=== PATIENT | male | born 1935 | race Caucasian/White ===

== ENCOUNTER 2016-05-16 16:38 | Emergency (ER) | payer OTHER, BC ==
[~2016-05-16] VITALS: Ht 185.4 cm; Wt 90.9 kg
[~2016-05-16 16:38] MED LIST: ALBUAER2 INH; ALT/10 PO; ASPI81TA28 PO; CHOL2000 PO; CLIN300C2 PO; DULO60CA44 PO; FLUT0.15 NAE; IPRA0.037 NAE; LORA-741 PO; MULT-845 PO; PROP60CA5 PO; SALI1SPR3 NAE
[2016-05-16 16:41] VITALS: TEMP 36.9; Ht 185.4 cm; Wt 90.9 kg
[2016-05-16] MEDS ORDERED: OPTIRAY 320 IV PRN (17:15)
--- NOTE | 2016-05-16 17:18 | DIAGNOSTIC IMAGING REPORT ---
CHEST ONE VIEW PORTABLE CLINICAL HISTORY: Atypical chest pain COMPARISON STUDY: 04/01/2015 FINDINGS: The heart is at the upper limits of normal in size. There is no failure. There is no focal pulmonary consolidation. There are no pleural effusions. There are postsurgical changes of thoracoabdominal spinal fusion.[ IMPRESSION: No active disease in the chest. Electronically signed by: Solomon Smith M.D. 05/16/2016 5:16 PM Dictated Date/Time: 05/16/2016 5:15 PM
[2016-05-16] MEDS ORDERED: HYT/2 PO (17:32)
[2016-05-16] MEDS ORDERED: VNTHFA/IN INH (17:32)
[2016-05-16] MEDS ORDERED: IPRA0.06 NAE (17:32)
[2016-05-16 17:43] LABS: BASO % 0.3 %; BASO ABS # 0.02 K/uL (0-0.2); COMPLETE YES; EOS % 2.6 %; HEMATOCRIT 41.5 % (42-52); IG% 0.2 %; LYMPH % 18.8 %; LYMPH ABS # 1.23 K/uL (1.2-3.4); MEAN CELL VOLUME 97.9 fL (80-100); MEAN CORPUSCULAR HEMOGLOBIN 32.8 pg (25-34); MEAN CORPUSCULAR HGB CONC 33.5 g/dl (32-36); MEAN PLATELET VOLUME 10.3 fL (7.4-10.4); MONO % 9.5 %; NEUT % 68.6 %; PLATELET COUNT 160 K/uL (130-400); RED BLOOD COUNT 4.24 M/uL (4.7-6.1); WHITE BLOOD COUNT 6.54 K/uL (4.8-10.8)
[2016-05-16 17:46] VITALS: O2SAT 100
[2016-05-16 17:51] LABS: PARTIAL THROMBOPLASTIN RATIO 0.9; PROTHROMBIN TIME (PATIENT) 10.7 SECONDS (9.0-12.0)
[2016-05-16 17:55] LABS: BLOOD UREA NITROGEN 21 mg/dl (7-18); BUN/CREATININE RATIO 19.2 (10-20); CALCIUM 8.4 mg/dl (8.5-10.1); CARBON DIOXIDE 30 mmol/L (21-32); CHLORIDE 108 mmol/L (98-107); GLUCOSE 100 mg/dl (70-99); POTASSIUM 4.1 mmol/L (3.5-5.1); SODIUM 143 mmol/L (136-145)
[2016-05-16 17:59] LABS: ALKALINE PHOSPHATASE 93 U/L (45-117); ALT/SGPT 30 U/L (12-78); AST/SGOT 29 U/L (15-37); CKMB/CK RATIO 1.4 (0-3.0)
--- NOTE | 2016-05-16 18:38 | DIAGNOSTIC IMAGING REPORT ---
ULTRASOUND VENOUS DOPPLER LWR EXT BILA CLINICAL HISTORY: Leg swelling COMPARISON STUDY: 08/18/2015 FINDINGS: Real-time and color flow Doppler imaging were performed. Flow was seen within the femoral, popliteal and calf veins with no intraluminal thrombus demonstrated. The saphenous vein is patent. IMPRESSION: No evidence of lower extremity DVT. Electronically signed by: Solomon Smith M.D. 05/16/2016 6:36 PM Dictated Date/Time: 05/16/2016 6:36 PM
--- NOTE | 2016-05-16 18:49 | DIAGNOSTIC IMAGING REPORT ---
CT ANGIOGRAM OF THE CHEST CLINICAL HISTORY: Atypical chest pain. COMPARISON STUDY: Chest x-ray dated 05/16/2016 TECHNIQUE: Following the IV administration of 113 mL of Optiray-320, CT angiogram of the thorax was performed from the thoracic inlet to the lung bases utilizing the pulmonary embolus protocol. Images are reviewed in the axial, sagittal, and coronal planes. IV contrast was administered without complication. MIP imaging was performed. CT DOSE: 437.50 mGy.cm FINDINGS: There is a 2 cm prevascular nodule. This likely represents either a lymph node, or thymic mass. There was no evidence of thoracic aortic dilatation. There were no pulmonary artery filling defects to indicate acute pulmonary embolism. No pleural effusions are visualized. There is no lobar consolidation. There are dependent atelectatic changes. There are extensive right-sided chest wall collaterals. There is a right subclavian vein narrowing. This is nonspecific and could be secondary to arm position. IMPRESSION: 1. No evidence of acute pulmonary embolism 2. No evidence of focal pulmonary consolidation 3. 2 cm anterior mediastinal/prevascular nodule. This likely represents either a thymic nodule, or enlarged lymph node Electronically signed by: Solomon Smith M.D. 05/16/2016 6:47 PM Dictated Date/Time: 05/16/2016 6:42 PM
[2016-05-16 20:07] VITALS: BP 202/82; PULSE 57; O2SAT 94
--- NOTE | 2016-05-16 21:06 | EMERGENCY ROOM VISIT NOTE ---
History Report prepared by Kaley: Jean Maciel Under the Supervision of: Dr. Les Chen M.D. First contact with patient: 16:47 Chief Complaint: REFERRED BY DOCTOR Stated Complaint: FINGER TIP TURN BLUE/SWELL, HANDS COLD, CHEST PAIN History of Present Illness The patient is a 80 year old male who presents to the Emergency Room with complaints of persistent chest pain beginning about 3 to 4 weeks ago. He notes 3 to 4 weeks ago, he started to have episodes of stabbing back pain between his shoulder blades which he thought to be exertional. This continued for about 1 week, and his back pain since then is described as an aching pain which has shifted to his left shoulder. The first few weeks of this back pain he was unable to sleep on his stomach or back, and had to prop himself up. The patient has had 3 lower back surgeries in the past. The patient reports his chest pains began just after the onset of his back pain around 3 to 4 weeks ago, and is described as constant. His chest pain has migrated to the left side of the chest , and has been accompanied with shortness of breath which, he notes, he has had for years. His chest pain is not worsened with deep breathing. The patient admits to having chest pain currently which he rates a 3/10 in severity that has been present for days continuously. He notes his legs are swollen at baseline. The patient was seen by Dr. Umanzor today and was sent to the ER because things "looked suspicious." The patient denies having any history of heart issues. Pt denies LOC, headache, fevers, chills, diaphoresis, visual changes, neck pain , personal history or family history of aneurysm or pulmonary embolism, uncontrolled hypertension, breathing difficulties, coagulation abnormalities, recent surgery or immobilization, nausea, vomiting, abdominal pain, melena, hematochezia, urinary symptoms, numbness, weakness, lymphadenopathy, rash, or other complaints. Source of History: patient Onset: 3 to 4 weeks ago Position: chest Symptom Intensity: 3/10 Quality: other (chest pain) Timing: constant, other (persistent) Associated Symptoms: + back pain Note: The patient notes having leg swelling. Review of Systems See HPI for pertinent positives and negatives. A total of ten systems were reviewed and were otherwise negative. Past Medical & Surgical Medical Problems: (1) Asthma (2) Hypertension (3) Pneumonia Family History FHx: diabetes mellitus FHx: hypertension FHx: lung disease Social History Smoking Status: Never Smoker Alcohol Use: occasionally Drug Use: none Marital Status: Housing Status: lives with family Occupation Status: unemployed Current/Historical Medications Scheduled Aspirin (Aspirin Ec), 81 MG PO DAILY Cholecalciferol (Vitamin D3), 2,000 INTER.UNIT PO QAM Duloxetine Hcl (Cymbalta), 60 MG PO DAILY Fluticasone Propionate (Nasal) (Flonase Allergy Relief), 2 SPRAYS FRANCIA DAILY Ipratropium [place] (Nasal) (Ipratropium [place]), 2 SPRAYS FRANCIA TID Multiple Vitamins W/ Minerals (Centrum Silver Adult 50+), 1 TAB PO QAM Propranolol La (Inderal La), 60 MG PO DAILY Ramipril (Altace), 10 MG PO QAM Terazosin Hcl (Hytrin), 2 MG PO HS Scheduled PRN Albuterol Hfa (Ventolin Hfa), 2 PUFFS INH QID PRN for DIRECTED Clindamycin Hcl (Cleocin), 600 MG PO UD PRN for Pre Treat Lorazepam (Ativan), 0.5 MG PO BID PRN for Anxiety Saline (Saline Nasal [place]), 2 SPRAYS FRANCIA Q2-4 HRS PRN for Nasal Congestion Allergies Coded Allergies: Celecoxib (Verified Allergy, Severe, SHORTNESS OF BREATH, 05/16/16) NSAIDs (Verified Allergy, Severe, ASTHMA ATTACK, 05/16/16) Lactose (Verified Allergy, Intermediate, INDIGESTION AND GAS, 05/16/16) Amoxicillin (Verified Adverse Reaction, Severe, SHORTNESS OF BREATH, ) Clavulanic Acid (Verified Adverse Reaction, Intermediate, SHORTNESS OF BREATH, 05/16/16) Physical Exam Vital Signs Date Time Temp Pulse Resp B/P Pulse Ox O2 Delivery O2 Flow Rate FiO2 05/16/16 20:07 57 16 202/82 94 05/16/16 18:47 56 15 194/84 96 Room Air 05/16/16 17:46 100 Room Air 05/16/16 17:09 62 05/16/16 16:41 36.9 66 18 170/86 100 Room Air Physical Exam GENERAL: Awake, alert, well-appearing, in no distress HENT: Normocephalic, atraumatic. Oropharynx unremarkable. EYES: Normal conjunctiva. Sclera non-icteric. NECK: Supple. No nuchal rigidity. FROM. No JVD. RESPIRATORY: Clear to auscultation. CARDIAC: Regular rate, normal rhythm. Extremities warm and well perfused. Pulses equal. ABDOMEN: Soft, non-distended. No tenderness to palpation. No rebound or guarding. No masses. RECTAL: Deferred. MUSCULOSKELETAL: Chest examination reveals no tenderness. The back is symmetrical on inspection without obvious abnormality. Mid thoracic left sided paraspinal muscle tenderness. No joint edema. LOWER EXTREMITIES: Calves are equal size bilaterally and non-tender. 1+ lower extremity edema. No discoloration. NEURO: Normal sensorium. No sensory or motor deficits noted. SKIN: No rash or jaundice noted. Medical Decision & Procedures ER Provider Diagnostic Interpretation: Radiology results as stated below per my review and radiologist interpretation CHEST ONE VIEW PORTABLE CLINICAL HISTORY: Atypical chest pain COMPARISON STUDY: 04/01/2015 FINDINGS: The heart is at the upper limits of normal in size. There is no failure. There is no focal pulmonary consolidation. There are no pleural effusions. There are postsurgical changes of thoracoabdominal spinal fusion.[ IMPRESSION: No active disease in the chest. Electronically signed by: Solomon Smith M.D. 05/16/2016 5:16 PM Dictated Date/Time: 05/16/2016 5:[address] ANGIOGRAM OF THE CHEST CLINICAL HISTORY: Atypical chest pain. COMPARISON STUDY: Chest x-ray dated 05/16/2016 TECHNIQUE: Following the IV administration of 113 mL of Optiray-320, CT angiogram of the thorax was performed from the thoracic inlet to the lung bases utilizing the pulmonary embolus protocol. Images are reviewed in the axial, sagittal, and coronal planes. IV contrast was administered without complication. MIP imaging was performed. CT DOSE: 437.50 mGy.cm FINDINGS: There is a 2 cm prevascular nodule. This likely represents either a lymph node, or thymic mass. There was no evidence of thoracic aortic dilatation. There were no pulmonary artery filling defects to indicate acute pulmonary embolism. No pleural effusions are visualized. There is no lobar consolidation. There are dependent atelectatic changes. There are extensive right-sided chest wall collaterals. There is a right subclavian vein narrowing. This is nonspecific and could be secondary to arm position. IMPRESSION: 1. No evidence of acute pulmonary embolism 2. No evidence of focal pulmonary consolidation 3. 2 cm anterior mediastinal/prevascular nodule. This likely represents either a thymic nodule, or enlarged lymph node Electronically signed by: Solomon Smith M.D. 05/16/2016 6:47 PM Dictated Date/Time: 05/16/2016 6:42 PM ULTRASOUND VENOUS DOPPLER LWR GILMA [place] CLINICAL HISTORY: Leg swelling COMPARISON STUDY: 08/18/2015 FINDINGS: Real-time and color flow Doppler imaging were performed. Flow was seen within the femoral, popliteal and calf veins with no intraluminal thrombus demonstrated. The saphenous vein is patent. IMPRESSION: No evidence of lower extremity DVT. Electronically signed by: Solomon Smith M.D. 05/16/2016 6:36 PM Dictated Date/Time: 05/16/2016 6:36 PM Laboratory Results 05/16/16 17:28 Red Blood Count 4.24, Mean Corpuscular Volume 97.9, Mean Corpuscular Hemoglobin 32.8, Mean Corpuscular Hemoglobin Concent 33.5, Mean Platelet Volume 10.3, Neutrophils (%) (Auto) 68.6, Lymphocytes (%) (Auto) 18.8, Monocytes (%) (Auto) 9.5, Eosinophils (%) (Auto) 2.6, Basophils (%) (Auto) 0.3, Neutrophils # (Auto) 4.49, Lymphocytes # (Auto) 1.23, Monocytes # (Auto) 0.62, Eosinophils # (Auto) 0.17, Basophils # (Auto) 0.02 05/16/16 17:28 Test 05/16/16 17:28 05/16/16 17:33 White Blood Count 6.54 K/uL (4.8-10.8) Red Blood Count 4.24 M/uL (4.7-6.1) Hemoglobin 13.9 g/dL (14.0-18.0) Hematocrit 41.5 % (42-52) Mean Corpuscular Volume 97.9 fL (80-100) Mean Corpuscular Hemoglobin 32.8 pg (25-34) Mean Corpuscular Hemoglobin Concent 33.5 g/dl (32-36) Platelet Count 160 K/uL (130-400) Mean Platelet Volume 10.3 fL (7.4-10.4) Neutrophils (%) (Auto) 68.6 % Lymphocytes (%) (Auto) 18.8 % Monocytes (%) (Auto) 9.5 % Eosinophils (%) (Auto) 2.6 % Basophils (%) (Auto) 0.3 % Neutrophils # (Auto) 4.49 K/uL (1.4-6.5) Lymphocytes # (Auto) 1.23 K/uL (1.2-3.4) Monocytes # (Auto) 0.62 K/uL (0.11-0.59) Eosinophils # (Auto) 0.17 K/uL (0-0.5) Basophils # (Auto) 0.02 K/uL (0-0.2) RDW Standard Deviation 48.4 fL (36.4-46.3) RDW Coefficient of Variation 13.5 % (11.5-14.5) Immature Granulocyte % (Auto) 0.2 % Immature Granulocyte # (Auto) 0.01 K/uL (0.00-0.02) Prothrombin Time 10.7 SECONDS (9.0-12.0) Prothromb Time International Ratio 1.0 (0.9-1.1) Activated Partial Thromboplast Time 24.6 SECONDS (21.0-31.0) Partial Thromboplastin Ratio 0.9 Anion Gap 5.0 mmol/L (3-11) Est Creatinine Clear Calc Drug Dose 61.5 ml/min Estimated GFR () 73.6 Estimated GFR (Non- 63.5 BUN/Creatinine Ratio 19.2 (10-20) Calcium Level 8.4 mg/dl (8.5-10.1) Total Bilirubin 0.3 mg/dl (0.2-1) Direct Bilirubin < 0.1 mg/dl (0-0.2) Aspartate Amino Transf (AST/SGOT) 29 U/L (15-37) Alanine Aminotransferase (ALT/SGPT) 30 U/L (12-78) Alkaline Phosphatase 93 U/L (45-117) Total Creatine Kinase 287 U/L (39-308) Creatine Kinase MB 4.0 ng/ml (0.5-3.6) Creatine Kinase MB Ratio 1.4 (0-3.0) Total Protein 6.0 gm/dl (6.4-8.2) Albumin 3.4 gm/dl (3.4-5.0) Lipase 121 U/L (73-393) Bedside Troponin I 0.000 ng/ml (0-0.045) JX-Hon-[id number]-Type Natriuretic Peptide 122 pg/ml (0-1800) Laboratory results reviewed by me ECG Indication: chest pain Rate (beats per minute): 56 Rhythm: sinus bradycardia Findings: no acute ischemic change, no ectopy ED Course 1654: The patient was evaluated in room C2B. A complete history and physical exam was performed. 1825: I updated the patient's . The patient is currently at CT. 1944: I reevaluated the patient. Discussed results and discharge instructions: He verbalized understanding and agreement. The patient is ready for discharge. Medical Decision Triage Nursing notes reviewed. The patient's presentation and history were concerning for chest and back pain. Etiologies such as cardiac ischemia, aortic dissection, pulmonary embolism, pneumonia, pneumothorax, musculoskeletal, infections, gastrointestinal, as well as others were entertained. The patient was evaluated. Clinically he was doing well. ECG is nonischemic. Blood work was obtained. He had an unremarkable CBC, chemistry panel, troponin , d-dimer, LFTs and lipase. The patient underwent ultrasound and CT imaging. Ultrasound imaging was unremarkable. The patient had no acute findings on chest CT. There is no thoracic aortic aneurysm. No pneumonia. No pneumothorax or PE. The patient has had pain for weeks. Bilateral blood pressures did not reveal any significant findings for me. He had good equal pulses. His pain is reproducible. This seems to be mostly musculoskeletal. Why he had some cyanotic appearance to the upper extremities is not obvious at this time. There is no obvious skin changes at this time. I did ask him if it was related to the and cold and he is not sure. As he has passed his tests perfectly I discussed conservative management with following up tomorrow. The patient felt comfortable with this. If he worsens in any way he will come back to the emergency department. I gave my usual and customary discussion regarding this issue. By the evaluation outlined above other emergent etiologies such as those listed in the differential, as well as others, were deemed relatively unlikely. The patient and were informed about the findings as listed above. All questions were answered and they were pleased with the treatment. Return instructions were outlined and the patient was discharged in stable condition. The patient was referred to his PCP for follow-up tomorrow for a recheck of the current condition. The chart was completed utilizing [employer] Speech voice recognition software. Grammatical errors, random word insertions, pronoun errors, and incomplete sentences are an occasional consequence of this system due to software limitations, ambient noise, and hardware issues. Any formal questions or concerns about the content, text, or information contained within the body of this dictation should be directly addressed to the physician for clarification. Impression Primary Impression: Thoracic back pain Additional Impression: HTN (hypertension) Scribe Attestation The scribe's documentation has been prepared under my direction and personally reviewed by me in its entirety. I confirm that the note above accurately reflects all work, treatment, procedures, and medical decision making performed by me. Departure Information Dispostion Home / Self-Care Referrals Ga Aquino D.O. (PCP) Patient Instructions My [facility] Additional Instructions Rest and drink plenty of fluids. Continue current medications. Watch salt intake. Follow-up with Dr. Aquino tomorrow. Return to the ER for worsening back pain, chest pain, difficulty breathing, fevers, vomiting, worsening of your condition, or as needed. Flyfishing is recommended as often as your time permits. Problem Qualifiers
== END 2016-05-16 19:50 | disposition home or self-care (01) ==
LOC: C.EDB 16:39 → C.EDC 19:50
DX: M54.6 Pain in thoracic spine (principal); I10 Essential (primary) hypertension; J45.909 Unspecified asthma, uncomplicated; Z79.82 Long term (current) use of aspirin; Z79.899 Other long term (current) drug therapy; Z88.1 Allergy status to other antibiotic agents; Z88.8 Allergy status to other drugs, medicaments and biological substances; Z91.011 Allergy to milk products; Z83.3 Family history of diabetes mellitus; Z82.49 Family history of ischemic heart disease and other diseases of the circulatory system

== ENCOUNTER 2017-02-21 16:33 | Emergency (ER) | payer OTHER, BC ==
[~2017-02-21] VITALS: Ht 180.3 cm; Wt 94.7 kg
[~2017-02-21 16:33] MED LIST changes: -ALBUAER2 INH; +HYT/2 PO; -IPRA0.037 NAE; +IPRA0.06 NAE; +VNTHFA/IN INH
[2017-02-21 16:37] VITALS: TEMP 36.7; Ht 180.3 cm; Wt 94.7 kg
--- NOTE | 2017-02-21 16:55 | EMERGENCY ROOM VISIT NOTE ---
ED Visit Note First contact with patient: 16:39 CHIEF COMPLAINT: Head injury HISTORY OF PRESENT ILLNESS: This 81-year-old male patient presented to the emergency department approximally one hour after receiving a head injury at home. The patient states he was walking through his basement, when he tripped over a power cord. He landed face first on the concrete, and did note some bleeding and swelling on his forehead. The patient states he immediately applied ice, which did seem to help with the pain. There was no brief loss of consciousness. There has been no vomiting. The patient complains of some mild pain and headache in the frontal area. The patient denies nausea, vomiting, dizziness, confusion, visual disturbances. The patient was able to get himself up off of the floor and upstairs to talk with his . He was hungry, didn't want to eat prior to coming to the emergency department. The headache has been I'll but constant. The patient complains of neck pain, which is slightly worse than his normal arthritic neck pain, but feels very similar. The patient has taken nothing for the pain. The patient rates the pain as 4/10 and dull. The patient denies bowel or bladder dysfunction. The patient denies any other injuries. The patient does not take blood thinners, but does take a baby aspirin per day. REVIEW OF SYSTEMS: A 10 system review of systems was performed with positives and pertinent negatives listed in the history of present illness. All other systems were reviewed and are negative. ALLERGIES: Amoxicillin, lactose, clavulanic acid, Celebrex, NSAIDs MEDICATIONS: See list PMH: Hypoglycemia, osteoarthritis, hearing loss, depression, obstructive sleep apnea, or disc disease, lumbar postlaminectomy syndrome, tremor, dyslipidemia, vitamin D deficiency, malignant melanoma of skin, squamous cell carcinoma of the ear, basal cell carcinoma of the skin, hypertension, rhinitis, actinic keratosis, edema, transient cerebral ischemia, memory changes, BPH SOCIAL HISTORY: The patient lives locally with family. He denies drug, alcohol , tobacco use. PHYSICAL EXAM: Vital Signs: Reviewed Nurse's notes, vital signs stable. GENERAL : This is an 81-year-old white male, in no acute distress, well-developed, well- nourished. NEURO: The patient is alert, oriented to person place and time, and coherent. Normal mini mental status exam. Negative Romberg and pronator drift. Cerebellar function intact. HEAD: Was cephalic. There is some soft tissue swelling and a very superficial laceration, less than 0.5 cm in length on the right anterior forehead. EYES: Pupils are equal round and reactive to light and accommodation. EOMs are full and optic discs and fundi are normal. There is no swelling or discoloration of the tissue surrounding the eyes. EARS : External auditory canals clear without blood. NOSE: Patent without tenderness. No septal hematoma. FACE: No facial bone tenderness. NECK: Supple. There is mild cervical spine tenderness. The patient does have tenderness with movement of the neck. RADIOLOGY: [~ rep ct add3]] HEAD CT NONCONTRAST CT DOSE: 634.23 mGy.cm HISTORY: fall, frontal head injury TECHNIQUE: Multiaxial CT images of the head were performed without the use of intravenous contrast. Automated exposure control was utilized for this study. A dose lowering technique was utilized adhering to the principles of ALARA. Comparison: None. Findings: Opacified anterior left ethmoid air cells. Mild mucosal thickening within the left frontal sinus. The mastoid air cells are clear. Mild frontal scalp swelling. The calvarium and skull base are intact. There is no mass, hematoma, midline shift, acute infarct. White matter hypodensity is nonspecific but suggestive of microvascular ischemic change. The ventricles and sulci demonstrate mild age-related involutional changes. Impression: No acute intracranial abnormality. Mild frontal scalp swelling. Electronically signed by: Jeff Baltazar M.D. 02/21/2017 5:18 PM Dictated Date/Time: 02/21/2017 5:11 PM ED COURSE: I examined the patient. CT scan was performed due to the patient' s age and significant fall onto a concrete surface. This was negative for acute fracture or intracranial hemorrhage. I did offer the patient pain medication, and he declines. I did discuss the case with Dr. Sevilla. Please see his dictation. Discharge instructions were reviewed, the patient was discharged home in good condition. I attest that I have personally reviewed the patient's current medication list. Patient was found to have normal blood pressure on screening and does not require follow-up. Etiologies such as migraine, tumor, headache, sinus thrombosis, temporal arteritis, sinusitis, CVA, ICH, SAH, fracture, contusion, infection, as well as others were entertained. DIAGNOSIS: Head injury Problem List Medical Problems: (1) Asthma Status: Chronic (2) Hypertension Status: Chronic (3) Pneumonia Status: Resolved Current/Historical Medications Scheduled Aspirin (Aspirin Ec), 81 MG PO DAILY Cholecalciferol (Vitamin D3), 2,000 INTER.UNIT PO QAM Duloxetine Hcl (Cymbalta), 60 MG PO DAILY Fluticasone Propionate (Nasal) (Flonase Allergy Relief), 2 SPRAYS FRANCIA DAILY Ipratropium [place] (Nasal) (Ipratropium [place]), 2 SPRAYS FRANCIA TID Multiple Vitamins W/ Minerals (Centrum Silver Adult 50+), 1 TAB PO QAM Propranolol La (Inderal [place]), 60 MG PO DAILY Ramipril (Altace), 10 MG PO QAM Terazosin Hcl (Hytrin), 2 MG PO HS Scheduled PRN Albuterol Hfa (Ventolin Hfa), 2 PUFFS INH QID PRN for DIRECTED Clindamycin Hcl (Cleocin), 600 MG PO UD PRN for Pre Treat Lorazepam (Ativan), 0.5 MG PO BID PRN for Anxiety Saline (Saline Nasal [place]), 2 SPRAYS FRANCIA Q2-4 HRS PRN for Nasal Congestion Allergies Coded Allergies: Celecoxib (Verified Allergy, Severe, SHORTNESS OF BREATH, 02/21/17) NSAIDs (Verified Allergy, Severe, ASTHMA ATTACK, 02/21/17) Lactose (Verified Allergy, Intermediate, INDIGESTION AND GAS, 02/21/17) Amoxicillin (Verified Adverse Reaction, Severe, SHORTNESS OF BREATH, ) Clavulanic Acid (Verified Adverse Reaction, Intermediate, SHORTNESS OF BREATH, 02/21/17) Vital Signs Date Time Temp Pulse Resp B/P (MAP) Pulse Ox O2 Delivery O2 Flow Rate FiO2 02/21/17 16:37 36.7 58 16 155/79 99 Room Air Departure Information Impression Primary Impression: Closed head injury Dispostion Home / Self-Care Condition GOOD Referrals Ga Aquino D.O. (PCP) Patient Instructions ED Head Injury Closed, My [facility] Additional Instructions You have been treated in the Emergency Department for a Closed Head Injury. CT Scan of your head/brain demonstrated no acute bleeding or other abnormalities. This does not completely rule out the risk for future damage to the brain. For pain control, you can use the following [id number] medicines (if >12 yo): Acetaminophen(Tylenol) may be used for fever or pain. Use 1000mg every six hours as needed. Avoid using more than 3000mg in a 24 hour period. You should relax in a quiet, dark place for the rest of the day. Avoid any possible triggers including: cigarette smoke, caffeine, nicotine, chocolate, wine, beer, loud noises or music, or bright lights. You should schedule a follow-up appointment in 2-3 days with your Primary Care Provider or established Neurologist for further evaluation and treatment of your Headache. Return to the Emergency Department if your current symptoms worsen despite treatment course outlined above, or if you develop any of the following symptoms : intractable pain despite aforementioned treatment course, visual disturbances , loss of vision, unilateral weakness or facial drooping, slurring of speech, loss of coordination, or loss of consciousness. Problem Qualifiers Primary Impression: Closed head injury Encounter type: initial encounter Qualified Codes: S09.90XA - Unspecified injury of head, initial encounter
--- NOTE | 2017-02-21 17:19 | DIAGNOSTIC IMAGING REPORT ---
HEAD CT NONCONTRAST CT DOSE: 634.23 mGy.cm HISTORY: fall, frontal head injury TECHNIQUE: Multiaxial CT images of the head were performed without the use of intravenous contrast. Automated exposure control was utilized for this study. A dose lowering technique was utilized adhering to the principles of ALARA. Comparison: None. Findings: Opacified anterior left ethmoid air cells. Mild mucosal thickening within the left frontal sinus. The mastoid air cells are clear. Mild frontal scalp swelling. The calvarium and skull base are intact. There is no mass, hematoma, midline shift, acute infarct. White matter hypodensity is nonspecific but suggestive of microvascular ischemic change. The ventricles and sulci demonstrate mild age-related involutional changes. Impression: No acute intracranial abnormality. Mild frontal scalp swelling. Electronically signed by: Jeff Baltazar M.D. 02/21/2017 5:18 PM Dictated Date/Time: 02/21/2017 5:11 PM
--- NOTE | 2017-02-21 17:31 | EMERGENCY ROOM VISIT NOTE ---
ED Visit Note First contact with patient: 16:39 I have personally seen and evaluated the patient with the physician assistant professor of education. I agree with the diagnostic/management decisions and have personally been involved in these decisions and agree with the diagnosis.
[2017-02-21 17:57] VITALS: BP 142/70; PULSE 64; O2SAT 99
== END 2017-02-21 17:57 | disposition home or self-care (01) ==
LOC: C.EDB 16:35 → C.EDD 17:57
DX: S09.90XA Unspecified injury of head, initial encounter (principal); X58.XXXA Exposure to other specified factors, initial encounter; Y92.019 Unspecified place in single-family (private) house as the place of occurrence of the external cause; I10 Essential (primary) hypertension; F32.9 Major depressive disorder, single episode, unspecified; G47.33 Obstructive sleep apnea (adult) (pediatric); E78.5 Hyperlipidemia, unspecified; J45.909 Unspecified asthma, uncomplicated; Z85.820 Personal history of malignant melanoma of skin; Z79.82 Long term (current) use of aspirin; Z79.899 Other long term (current) drug therapy; Z88.1 Allergy status to other antibiotic agents; Z88.8 Allergy status to other drugs, medicaments and biological substances

== ENCOUNTER 2019-01-25 13:00 | Inpatient (IN) ==
[~2019-01-25 13:00] MED LIST changes: -ALT/10 PO; -ASPI81TA28 PO; -CHOL2000 PO; +CIPROFLOXACIN 400 MG/200 ML BAG IV SCH; -CLIN300C2 PO; -DULO60CA44 PO; -FLUT0.15 NAE; -HYT/2 PO; -IPRA0.06 NAE; -LORA-741 PO; -MULT-845 PO; -PROP60CA5 PO; -SALI1SPR3 NAE; -VNTHFA/IN INH
[2019-01-25] MEDS ORDERED: SODIUM CHLORIDE 0.9% 1000ML 1,000 ML IV ONE (13:28)
[2019-01-25 13:59] LABS: Basophils # (auto) 0.01 K/uL (0-0.2); Basophils % (auto) 0.1 %; Eosinophils # (auto) 0.01 K/uL (0-0.5); Eosinophils % (auto) 0.1 %; Hematocrit (blood only) 38.2 % (42-52); Hemoglobin 12.7 g/dL (14.0-18.0); Immature Granulocytes # (auto) 0.04 K/uL (0.00-0.02); Immature Granulocytes % (auto) 0.2 %; Lymphocytes # (auto) 1.12 K/uL (1.2-3.4); Lymphocytes % (auto) 6.4 %; Mean Corpuscular Hemoglobin 33.2 pg (25-34); Mean Corpuscular Hgb Conc 33.2 g/dL (32-36); Mean Corpuscular Volume 99.7 fL (80-100); Mean Platelet Volume 10.4 fL (7.4-10.4); Monocytes # (auto) 1.39 K/uL (0.11-0.59); Monocytes % (auto) 7.9 %; Neutrophils # (auto) 14.95 K/uL (1.4-6.5); Neutrophils % (auto) 85.3 %; Platelet Count 144 K/uL (130-400); RDW Coefficient of Variation 14.2 % (11.5-14.5); RDW Standard Deviation 51.9 fL (36.4-46.3); Red Blood Count 3.83 M/uL (4.7-6.1); White Blood Count 17.52 K/uL (4.8-10.8)
[2019-01-25] MEDS ORDERED: PIPERACILLIN/TAZOBACTAM 4.5 GM/120 ML BAG IV ONE (14:04)
[2019-01-25] MEDS ORDERED: PIPERACILL/TAZOBAC CONSULT ACTIVE PRN (14:04)
[2019-01-25 14:12] LABS: INR 1.2 (0.9-1.1); Prothrombin Time 11.9 Seconds (9.0-12.0)
[2019-01-25 14:15] LABS: Alanine Aminotransferase 32 U/L (12-78); Albumin Level 2.8 gm/dl (3.4-5.0); Aspartate Aminotransferase 15 U/L (15-37); BUN Creatinine Ratio 15.3 (10-20); Blood Urea Nitrogen 28 mg/dl (7-18); Calcium 8.7 mg/dl (8.5-10.1); Carbon Dioxide 29 mmol/L (21-32); Chloride 100 mmol/L (98-107); Est GFR (African American) 38.7; Est GFR (Non-African American) 33.4; Glucose 98 mg/dl (70-99); Lipase 68 U/L (73-393); Potassium 3.9 mmol/L (3.5-5.1); Sodium 135 mmol/L (136-145)
[2019-01-25 14:19] LABS: Albumin Globulin Ratio 0.8 (0.9-2); Alkaline Phosphatase 86 U/L (45-117); Globulin 3.6 gm/dl (2.5-4.0); Total Protein 6.4 gm/dl (6.4-8.2); Troponin I < 0.015 ng/ml (0-0.045)
[2019-01-25 14:20] LABS: RBC Morphology Unremarkable
--- NOTE | 2019-01-25 14:22 | Surgery Consultation ---
Date of Consultation January 25, 2019 Assessment & Plan (1) Cholecystitis, acute: This is an 83y M who presents with abdominal pain since last Friday. Patient has been evaluated by his PCP today who ordered a CT scan and labs, WBC was 21 (now 17 in ED), and CT a/p showed concern for acute cholecystitis prompting him to be evaluated in the ED. In the ED tbili is 1.0, AST: 15, ALT: 32, WBC 17, Cr 1.84. On examination patient is acutely tender in the RUQ. Appreciate medicine accepting patient for admission. We will keep patient NPO with IVF, start pre-op abx, and book patient for a laparoscopic cholecystectomy. Dr. Gil will obtain surgical consent. Patient is agreeable with the plan. Dr. Gil- I saw the patient in the emergency room Evaluated his information And studies- I feel he has gangrenous cholecystitis or At least Severe acute cholecystitis. I think He should have his gallbladder removed >And have discussed this with the patient and his . He has an elevated white blood cell count And findings on his CAT scan Consistent with severe acute cholecystitis. We will proceed with laparoscopic cholecystectomy Likely drainage, Possible open cholecystectomy. He will likely require IV antibiotics for 2 to 3 days Prior to discharge. The patient and his agree with the plan. History of Present Illness History of Present Illness This is an 83y M with a PMH of HLD, HTN, asthma, and essential tremors who presents to the [facility] ED on 01/25 due to concern for acute cholecystitis. The patient reports he developed right upper abdominal pain last Friday along with constipation, last BM was Friday. He had been taking miralax without a BM since then. His abdominal pain prompted him to be evaluated by his PCP at [facility] on both Friday and today where she ordered blood work and imaging. Blood work today revealed a WBC of [address] a/p revealed gallbladder wall thickening, minimal fluid with concern for acute cholecytitis. With these findings his PCP asked him to report to the ED for further evaluation. Patient states his pain is an 8/9- 10, sharp stabbing in nature, and worse with movement. He denies any association with food. He last drank water with miralax this AM. He has slight nausea, + chills, constipation, dizziness, and abdominal bloat. He denies any bouts of emesis, fever, chest pain, or urinary s&s. He has not had pain like this before and he denies any history of abdominal surgery. Today in the ED repeat labs show a WBC of 17, AST: 15, ALT: 32 and Tbili: 1.0. Allergies Allergy/AdvReac Type Severity Reaction Status Date / Time celecoxib Allergy Severe Verified 01/25/19 14:06 NSAIDS (Non-Steroidal Allergy Severe ASTHMA Verified 01/25/19 14:06 Anti-Inflamma ATTACK lactose Allergy Intermediate INDIGESTION Verified 01/25/19 14:06 AND GAS amoxicillin AdvReac Intermediate Rash Verified 01/25/19 14:06 clavulanic acid AdvReac Intermediate SHORTNESS Verified 01/25/19 14:06 OF BREATH Home Medications Home Medications Medication Instructions Recorded Confirmed Type Centrum Silver 1 tab PO QAM 09/08/18 01/25/19 History albuterol sulfate [Ventolin HFA] 2 puff INHALATION QID PRN 09/08/18 01/25/19 History aspirin 81 mg PO QAM 09/08/18 01/25/19 History bupropion HCl [Wellbutrin SR] 100 mg PO QAM 09/08/18 01/25/19 History duloxetine [Cymbalta] 60 mg PO QAM 09/08/18 01/25/19 History fluticasone propionate [Flonase 1 spray INTRANASAL BID PRN 09/08/18 01/25/19 History Allergy Relief] ipratropium bromide 2 spray INTRANASAL BID PRN 09/08/18 01/25/19 History lorazepam 0.5 mg SUBLINGUAL BID PRN 09/08/18 01/25/19 History propranolol 60 mg PO QAM 09/08/18 01/25/19 History ramipril 10 mg PO QAM 09/08/18 01/25/19 History terazosin 2 mg PO HS 09/08/18 01/25/19 History polyethylene glycol 3350 [Miralax] 17 g PO DAILY PRN 01/25/19 01/25/19 History simethicone [Gas-X Extra Strength] 125 mg PO BID PRN 01/25/19 01/25/19 History triamterene-hydrochlorothiazid 1 tab PO QAM 01/25/19 01/25/19 History Patient History Medical History Asthma BPH (benign prostatic hyperplasia) Cataract Depression Dyslipidemia Essential tremor Fracture, rib RECENT FALL/SMALL FX RIB (10/29/18) Hyperlipidemia Hypertension Osteoarthritis Sleep apnea CPAP Tremor Surgical History Fusion of spine LUMBAR History of cardiac cath "YEARS AGO" History of cataract surgery RT. 10/26/2018. 60mg propofol. no issues. History of colonoscopy History of tonsillectomy History of total knee replacement Family History Father CHF (congestive heart failure) Father COPD (chronic obstructive pulmonary disease) Social History Preferred Language: Albanian Communication Ability: Effective Animal Technician Required: No Beliefs That Will Affect Care: None Current Living Situation: Spouse Feels Safe at Home: Yes Smoking Status: Never smoker Second Hand Exposure: No ; Hx Alcohol Use: Yes Alcohol type: beer and wine Hx Substance Use: No Review of Systems Constitutional: + chills; no fever Ear, Nose, Mouth, Throat: + dizziness Respiratory: baseline respiratory status Cardiovascular: no chest pain Gastrointestinal: + abdominal pain (right upper quadrant), + bloating, + nausea and + constipation; no vomiting Genitourinary: + as per Subjective / HPI Physical Exam Physical Exam: awake/alert Constitutional: well developed and well nourished Respiratory: normal respiratory effort Gastrointestinal (Abdomen): Inspection/Auscultation: + abdomen distended; no abdominal surgical scar Percussion/Palpation: + abdomen tender (RUQ), + guarding (when palpated in RUQ) and abdomen soft Results & Data Vital Signs (Past 12 Hours) Vital Signs Temp Pulse Resp BP Pulse Ox 01/25/19 13:07 97 01/25/19 13:03 36.7 C 72 20 104/63 97 PG Care Time/CCT Total # of Minutes Spent Total Time Spent with Patient: Total time spent is greater than 50% in coordination of care (as documented) at patient's floor/unit and/or counseling patient:
[2019-01-25] MEDS ORDERED: CIPROFLOXACIN 400MG / 200ML D5W IV ONE (14:43)
[2019-01-25] MEDS ORDERED: metroNIDAZOLE 500 MG/100 ML BAG IV SCH (14:45)
[2019-01-25] MEDS ORDERED: CIPROFLOXACIN 400 MG/200 ML BAG IV SCH (14:45)
--- NOTE | 2019-01-25 14:54 | History & Physical Report ---
Date of Service January 25, 2019 Assessment & Plan (1) Acute cholecystitis: Pt is 83 y/o M with PMH HTN, dyslipidemia, sleep apnea, BPH, tremor, depression presented to ER with c/o abdominal pain x 6 days. States 6 days ago started with lower abdominal and upper abdominal discomfort that increased to right upper abdomen with associated nausea, and chills. No vomiting. +constipation x 1 week. Seen outpatient with WBC: 13 on 01/23/19 and WBC 21 today with normal LFTs. 01/25/[address] abd/pelvis with no evidence of bowel obstruction, +cholelithiasis & abnormal appearance gallbladder suggesting cholecystitis. In ER pt afebrile, P: 72, R: 20, BP: 104/63, 97% on RA. WBC: 14, H/H: 12.7/38, BUN: 28, Cr: 1.8, GFR: 33, normal LFT's -In ER given 1L NSS -Obtain blood cultures -Cipro, Flagyl -NPO -IVF -General Surgery Consult, Dr Gil evaluated pt in ER and plans for cholecystecto my -CBC, CMP in am (2) Acute kidney injury: BUN: 28, Cr: 1.8, GFR: 33. Baseline Cr: 1.1 with GFR>60 Pt with poor oral intake past week -IVF -Hold Lasix, Maxide, Ramipril at this time -Avoid nephrotoxic agents -Monitor renal functions (3) Hypertension: Stable -Hold Lasix, Maxide, Ramipril at this time with DIANE -Monitor BP (4) Tremor: -Continue propranolol (5) Depression: Stable -Continue bupropion, duloxetine -Hold prn Ativan as anticipate pt requiring narcotic pain medications (6) BPH (benign prostatic hyperplasia): -Continue terazosin (7) Sleep apnea: -CPAP HS DVT Prophylaxis -SCDs for now, anticipate surgical procedure Full Code as per discussion with pt Follows with Dr Aquino for routine care Pt was seen and care coordinated with Dr Patten. See addendum History of Present Illness Chief Complaint: Abdominal pain Primary Care Provider: Ga Aquino, Pt is 83 y/o M with PMH HTN, dyslipidemia, sleep apnea, BPH, tremor, depression presented to ER with c/o abdominal pain x 6 days. States 6 days ago started with lower abdominal and upper abdominal discomfort that increased. Associated nausea. Denies vomiting. C/O chills. Has not taken temperature. Reports abdominal bloating and constipation. Last BM 1 week ago. Reports passing flatus today. Seen outpatient and had WBC: 13 on 01/23/19 and WBC 21 today with normal LFTs. Had outpatient CT abd/pelvis with no evidence of bowel obstruction, +cholelithiasis & abnormal appearance gallbladder suggesting cholecystitis. Pt states has been taking Miralax past couple of days without any BM. Last ate chicken noodle soup and crackers at 19:00 last night. Last drank 1 glass water at 07:00 this morning. Pt states has noticed some slight abdominal discomfort after eating intermittently over past year. Reports chronic SOB with climbing 6- 7 stairs, denies any increased SOB. H/O BLE extremity edema however reports no edema for past month since maxide added. Denies CP. Denies diaphoresis, AMIN, dizziness, syncope, vision changes, neck pain, orthopnea, palpitations, cough, sore throat, choking, otalgia, rhinorrhea, paresthesias, weakness, extremity weakness, rashes, urinary symptoms. 09/08/18: Stress echo: negative for inducible ischemia 2000: cardia cath: no CAD Allergies Allergy/AdvReac Type Severity Reaction Status Date / Time celecoxib Allergy Severe Verified 01/25/19 14:06 NSAIDS (Non-Steroidal Allergy Severe ASTHMA Verified 01/25/19 14:06 Anti-Inflamma ATTACK lactose Allergy Intermediate INDIGESTION Verified 01/25/19 14:06 AND GAS amoxicillin AdvReac Intermediate Rash Verified 01/25/19 14:06 clavulanic acid AdvReac Intermediate SHORTNESS Verified 01/25/19 14:06 OF BREATH Home Medications Home Medications Medication Instructions Recorded Confirmed Type Centrum Silver 1 tab PO QAM 09/08/18 01/25/19 History albuterol sulfate [Ventolin HFA] 2 puff INHALATION QID PRN 09/08/18 01/25/19 History aspirin 81 mg PO QAM 09/08/18 01/25/19 History bupropion HCl [Wellbutrin SR] 100 mg PO QAM 09/08/18 01/25/19 History duloxetine [Cymbalta] 60 mg PO QAM 09/08/18 01/25/19 History fluticasone propionate [Flonase 1 spray INTRANASAL BID PRN 09/08/18 01/25/19 History Allergy Relief] ipratropium bromide 2 spray INTRANASAL BID PRN 09/08/18 01/25/19 History lorazepam 0.5 mg SUBLINGUAL BID PRN 09/08/18 01/25/19 History ramipril 10 mg PO QAM 09/08/18 01/25/19 History terazosin 2 mg PO HS 09/08/18 01/25/19 History furosemide [Lasix] 20 mg PO DAILY 01/25/19 01/25/19 History polyethylene glycol 3350 [Miralax] 17 g PO DAILY PRN 01/25/19 01/25/19 History propranolol 60 mg PO QAM 01/25/19 01/25/19 History simethicone [Gas-X Extra Strength] 125 mg PO BID PRN 01/25/19 01/25/19 History triamterene-hydrochlorothiazid 1 tab PO QAM 01/25/19 01/25/19 History Past Med/Surg History Medical History (Updated 01/26/19 @ 14:02 by Junior Gil MD, FACS) Asthma BPH (benign prostatic hyperplasia) Cataract Depression Dyslipidemia Essential tremor Fracture, rib RECENT FALL/12th L FX RIB (10/29/18) now resolved Hyperlipidemia Hypertension Osteoarthritis Sleep apnea CPAP Tremor Surgical History Fusion of spine LUMBAR History of cardiac cath 1999 - No CAD History of cataract surgery RT. 10/26/2018. 60mg propofol. no issues. History of colonoscopy History of tonsillectomy History of total knee replacement Family History Father CHF (congestive heart failure) Father COPD (chronic obstructive pulmonary disease) Social History Preferred Language: Danish Communication Ability: Effective Spud Sorter Required: No Beliefs That Will Affect Care: None Current Living Situation: Spouse Other Information That Helps Us Care for You: No Feels Safe at Home: Yes Safety Concerns: Feels Safe At This Time Smoking Status: Never smoker Second Hand Exposure: No ; Hx Alcohol Use: Yes Alcohol type: beer Hx Substance Use: No Review of Systems Review of Systems: All systems reviewed & are unremarkable except as noted in HPI & below Physical Exam Physical Exam: General: no acute distress, WDWN Head: normocephalic, atraumatic Eyes: PERRL, EOM's intact, conjunctiva non-injected, anicteric ENT: normal inspection external ears, nose, mucous membranes mildly dry Neck: supple, trachea midline Lungs: clear, no respiratory distress, no wheezing/rhonchi/rales CV: RRR, no murmur, no pretibial edema Abd: normal BS, distended, soft, +tenderness to palpation epigastric and RUQ with guarding. no rebound Ext: no cyanosis, no calf tenderness Neuro: A&O x 3, no focal deficits noted, normal affect Skin: warm, dry Results & Data Vital Signs (Past 12 Hours) Vital Signs Temp Pulse Resp BP Pulse Ox 01/25/19 13:07 97 01/25/19 13:03 36.7 C 72 20 104/63 97 Laboratory Results Short CBC 01/25/19 Range/Units 13:40 WBC 17.52 H (4.8-10.8) K/uL Hgb 12.7 L (14.0-18.0) g/dL Hct 38.2 L (42-52) % Plt Count 144 (130-400) K/uL BMP 01/25/19 13:40 Sodium 135 L Potassium 3.9 Chloride 100 Carbon Dioxide 29 BUN 28 H Creatinine 1.84 H Glucose 98 Calcium 8.7 Cardiac Enzymes 01/25/19 Range/Units 13:40 Troponin I < 0.015 (0-0.045) ng/ml Liver Function 01/25/19 Range/Units 13:40 Total Bilirubin 1.0 (0.2-1) mg/dl AST 15 (15-37) U/L ALT 32 (12-78) U/L Alkaline Phosphatase 86 (45-117) U/L Albumin 2.8 L (3.4-5.0) gm/dl Code Status & VTE Plan VTE Prophylaxis Plan VTE Prophylaxis will be ordered: Yes Supervising Physician Co-Signing Physician Notes I have seen and examined the patient and have discussed the case with the provider above. I agree with the assessment and plan as stated with the following exceptions. 83 yo M presented with symptoms of acute cholecystitis and is s/p lap rubi today. He is recovering very well on the floor and pain is controlled. He is tolerating some PO and feeling better. Exam reveals multiple laparoscopic sites that are closed and non erythematous. Exam reveals clear lungs to auscultation and cardiac exam revels normal S1 and S2 without evidence of murmurs. Lungs are clear to auscultation. The abdomen is soft and nontender without guarding. Cont postop recommendations per surgery team. DO Sandor
[2019-01-25] MEDS ORDERED: metroNIDAZOLE 500 MG/100 ML BAG IV ONE (14:55)
[2019-01-25] MEDS ORDERED: CONRAY 60% 50 ML VIAL ONE (14:59)
[2019-01-25] MEDS ORDERED: BUPIVACAINE 0.5 % 5 MG/1 ML MPF 30ML VIAL ONE (14:59)
--- NOTE | 2019-01-25 15:01 | Anesthesiology Consultation ---
Date of Service January 25, 2019 Assessment & Plan Chart Review Chart Review: Acceptable Risk for Surgery Consults Requested none ASA ASA3 Proposed Anesthesia Anesthesia Type: General Risk / Benefits Reviewed With: PT / POA / Parent / Guardian, Accepts Plan and Informed Consent Obtained History Surgery Operation Date: 01/25/19 12:25 Proposed Procedures p Laparoscopic Cholecystectomy - Junior Gil MD, FACS Height/Weight Height: 6 ft Weight: 91.3 kg Allergies Allergy/AdvReac Type Severity Reaction Status Date / Time celecoxib Allergy Severe Verified 01/25/19 14:06 NSAIDS (Non-Steroidal Allergy Severe ASTHMA Verified 01/25/19 14:06 Anti-Inflamma ATTACK lactose Allergy Intermediate INDIGESTION Verified 01/25/19 14:06 AND GAS amoxicillin AdvReac Intermediate Rash Verified 01/25/19 14:06 clavulanic acid AdvReac Intermediate SHORTNESS Verified 01/25/19 14:06 OF BREATH Medications Home Medications Medication Instructions Recorded Confirmed Last Taken Centrum Silver 1 tab PO QAM 09/08/18 01/25/19 01/25/19 albuterol sulfate [Ventolin HFA] 2 puff INHALATION QID PRN 09/08/18 01/25/19 Unknown aspirin 81 mg PO QAM 09/08/18 01/25/19 01/25/19 bupropion HCl [Wellbutrin SR] 100 mg PO QAM 09/08/18 01/25/19 01/25/19 duloxetine [Cymbalta] 60 mg PO QAM 09/08/18 01/25/19 01/25/19 fluticasone propionate [Flonase 1 spray INTRANASAL BID PRN 09/08/18 01/25/19 10/25/18 Allergy Relief] ipratropium bromide 2 spray INTRANASAL BID PRN 09/08/18 01/25/19 Unknown lorazepam 0.5 mg SUBLINGUAL BID PRN 09/08/18 01/25/19 01/22/19 propranolol 60 mg PO QAM 09/08/18 01/25/19 01/25/19 ramipril 10 mg PO QAM 09/08/18 01/25/19 01/25/19 terazosin 2 mg PO HS 09/08/18 01/25/19 01/25/19 polyethylene glycol 3350 [Miralax] 17 g PO DAILY PRN 01/25/19 01/25/1901/25/19 simethicone [Gas-X Extra Strength] 125 mg PO BID PRN 01/25/19 01/25/19 01/25/19 125 mg triamterene-hydrochlorothiazid 1 tab PO QAM 01/25/19 01/25/19 01/25/19 Active Medications Generic Name Dose Route Start Last Admin Trade Name Freq PRN Reason Stop Dose Admin Ciprofloxacin 400 mg in 200 mls @ 100 mls/hr 01/25/19 12:55 01/25/19 14:55 Cipro IV 01/25/19 18:00 100 mls/hr PREOP MEI Administration Protocol NPO Date Last Intake of Fluids: 01/25/19 Time Last Intake of Fluids: 07:00 Last Intake of Fluids Comment: water Date Last Intake of Solids: 01/24/19 Time Last Intake of Solids: 19:00 Last Intake of Solids Comment: chx soup Past Medical History Medical History (Updated 01/25/19 @ 15:24 by Aida Harrell DO) Asthma BPH (benign prostatic hyperplasia) Cataract Depression Dyslipidemia Essential tremor Fracture, rib RECENT FALL/12th L FX RIB (10/29/18) now resolved Hyperlipidemia Hypertension Osteoarthritis Sleep apnea CPAP Tremor Exercise / Class Metabolic Activity II 4-5 Yardwork/Stairs/Walk up hill Past Family History Family History Father CHF (congestive heart failure) Father COPD (chronic obstructive pulmonary disease) Past Surgical History Surgical History Fusion of spine LUMBAR History of cardiac cath 1999 - No CAD History of cataract surgery RT. 10/26/2018. 60mg propofol. no issues. History of colonoscopy History of tonsillectomy History of total knee replacement Past Anesthesia History No Hx of Anesthesia Complications and No Family Hx of Anesthesia Complications History of PONV No Hx of PONV and No Hx of Motion Sickness Social History Smoking Status: Never smoker Hx Alcohol Use: Yes Alcohol type: beer and wine alcohol intake frequency: a few times a month Hx Substance Use: No substance use type: does not use Physical Exam Vital Signs Last Vital Signs Temp 36.7 C 01/25/19 13:03 Pulse 64 01/25/19 14:56 Resp 18 01/25/19 14:56 BP 116/55 L 01/25/19 14:56 Pulse Ox 96 01/25/19 14:56 ENMT Mouth: no TMJ abnormality Thyromental Distance: > or= 3.5 Finger Breadths Mallampati Class: II Neck normal visual inspection and trachea midline; neck extension not limited Respiratory normal respiratory effort Auscultation: lungs clear to auscultation bilaterally Cardiovascular Rate/Rhythm: regular rate and regular rhythm Heart Sounds: no murmur Musculoskeletal Spine: normal cervical ROM Extremities: full ROM of extremities Neurologic moves all extremities Psychiatric Orientation: alert and oriented x 3 Testing Laboratory Results 01/25/19 13:40 01/25/19 13:40 PT 11.9 Seconds (9.0-12.0) 01/25/19 13:40 INR 1.2 (0.9-1.1) H 01/25/19 13:40 Blood Type A Positive 01/25/19 13:40 Antibody Screen POSITIVE A 01/25/19 13:40 Electrocardiogram Date: 01/25/19 Findings: + NSR @ (65bpm) Stress Test Date: 09/08/18 Type: exercise Findings: + WNL Valvular Disease: no significant valvular disease 83% MPHR no CP/SOB. neg exercise stress test
[2019-01-25] MEDS ORDERED: ATROPINE SULFATE 0.1 MG/ML 10ML SYR IV PRN (15:13)
[2019-01-25] MEDS ORDERED: MEPERIDINE HCL 25 MG/ML CARP IV PRN (15:13)
[2019-01-25] MEDS ORDERED: fentaNYL citrate 100 MCG/2 ML VIAL IV PRN (15:13)
[2019-01-25] MEDS ORDERED: ePHEDrine sulfate 50 MG/ML AMP IV PRN (15:13)
[2019-01-25] MEDS ORDERED: ONDANSETRON INJ 2 MG/ML 2 ML VIAL IV PRN ×2 (15:13→18:03)
[2019-01-25] MEDS ORDERED: MoRPHine SULFATE 10 MG/ML CARP/VIAL IV PRN (15:13)
[2019-01-25] MEDS ORDERED: PROPOFOL IV EMULSION 10 MG/ML 20 ML VIAL IV ONE (15:15)
[2019-01-25] MEDS ORDERED: NEOSTIGMINE METHYLSULFATE 5 MG/5 ML SYR ONE (15:15)
[2019-01-25] MEDS ORDERED: ONDANSETRON INJ 2 MG/ML 2 ML VIAL ONE (15:15)
[2019-01-25] MEDS ORDERED: DEXAMETHASONE SOD INJ 4 MG/ML VIAL ONE (15:15)
[2019-01-25] MEDS ORDERED: LARYING-O-JET KIT (LTA) ONE (15:15)
[2019-01-25] MEDS ORDERED: ROCURONIUM BROMIDE 10 MG/ML 5 ML VIAL ONE (15:15)
[2019-01-25] MEDS ORDERED: LIDOCAINE HCL 2% 2 ML VIAL/AMP(20MG/ML) INFIL ONE (15:15)
[2019-01-25] MEDS ORDERED: GLYCOPYRROLATE 0.2 MG/ML VIAL ONE (15:15)
[2019-01-25] MEDS ORDERED: fentaNYL citrate 100 MCG/2 ML VIAL ONE (15:15)
[2019-01-25] MEDS ORDERED: FLOSEAL HEMOSTATIC MATRIX 10ML TOP ONE (16:35)
--- NOTE | 2019-01-25 16:36 | Emergency Department Note ---
Entered by Yanira Estrada acting as a scribe for Satnam Belcher M.D. History of Present Illness General Chief complaint: Illness Stated complaint: DIZZY AFTER CT Time Seen by Provider: 01/25/19 13:14 Source: patient History of Present Illness Onset (ago): day(s) 3 Location: abdomen Severity: similar to prior episodes Pain Consistency: + other (persistent) Quality: + other (abdominal pain) Exacerbated By: + movement Associated symptoms: + other (Positive dizziness, abdominal pain, bloated, faint, constipation.) Treatments prior to arrival: none The patient is an 83 year old male presenting to the Emergency Department complaining of persistent abdominal pain starting 3 days ago. The patient reports that he is dizzy. He explains that he sometimes feels faint. He states that his abdomen hurts and feels bloated/constipated as he hasnt had a bowel movement in 5 days. He notes that walking around worsens his dizziness. He adds that he has experienced these abdominal symptoms before. The patient reports that he went to his PCP 1 day ago for these symptoms. He states that he had a CT done earlier today. He notes that he hasnt taken any medications for his symptoms [employer]. He adds that he last ate last night and that it was chicken noodle soup. The patient denies any history of abdominal surgeries. Home Medications Home Medications Medication Instructions Recorded Confirmed Type Centrum Silver 1 tab PO QAM 09/08/18 01/25/19 History albuterol sulfate [Ventolin HFA] 2 puff INHALATION QID PRN 09/08/18 01/25/19 History aspirin 81 mg PO QAM 09/08/18 01/25/19 History bupropion HCl [Wellbutrin SR] 100 mg PO QAM 09/08/18 01/25/19 History duloxetine [Cymbalta] 60 mg PO QAM 09/08/18 01/25/19 History fluticasone propionate [Flonase 1 spray INTRANASAL BID PRN 09/08/18 01/25/19 History Allergy Relief] ipratropium bromide 2 spray INTRANASAL BID PRN 09/08/18 01/25/19 History lorazepam 0.5 mg SUBLINGUAL BID PRN 09/08/18 01/25/19 History propranolol 60 mg PO QAM 09/08/18 01/25/19 History ramipril 10 mg PO QAM 09/08/18 01/25/19 History terazosin 2 mg PO HS 09/08/18 01/25/19 History polyethylene glycol 3350 [Miralax] 17 g PO DAILY PRN 01/25/19 01/25/19 History simethicone [Gas-X Extra Strength] 125 mg PO BID PRN 01/25/19 01/25/19 History triamterene-hydrochlorothiazid 1 tab PO QAM 01/25/19 01/25/19 History Allergies Allergy/AdvReac Type Severity Reaction Status Date / Time celecoxib Allergy Severe Verified 01/25/19 14:06 NSAIDS (Non-Steroidal Allergy Severe ASTHMA Verified 01/25/19 14:06 Anti-Inflamma ATTACK lactose Allergy Intermediate INDIGESTION Verified 01/25/19 14:06 AND GAS amoxicillin AdvReac Intermediate Rash Verified 01/25/19 14:06 clavulanic acid AdvReac Intermediate SHORTNESS Verified 01/25/19 14:06 OF BREATH Past Med/Surg History Medical History (Updated 01/25/19 @ 15:24 by Aida Harrell DO) Asthma BPH (benign prostatic hyperplasia) Cataract Depression Dyslipidemia Essential tremor Fracture, rib RECENT FALL/12th L FX RIB (10/29/18) now resolved Hyperlipidemia Hypertension Osteoarthritis Sleep apnea CPAP Tremor Surgical History Fusion of spine LUMBAR History of cardiac cath 1999 - No CAD History of cataract surgery RT. 10/26/2018. 60mg propofol. no issues. History of colonoscopy History of tonsillectomy History of total knee replacement Family History Father CHF (congestive heart failure) Father COPD (chronic obstructive pulmonary disease) Social History Preferred Language: [place] Communication Ability: Effective [employer] Physician Required: No Beliefs That Will Affect Care: None Current Living Situation: Spouse Feels Safe at Home: Yes Smoking Status: Never smoker Second Hand Exposure: No ; Hx Alcohol Use: Yes Alcohol type: beer and wine Hx Substance Use: No Review of Systems See HPI for pertinent positives & negatives. and A total of 10 systems reviewed and were otherwise negative Physical Exam Vital Signs Vital Signs - 24 hr 01/25/19 13:03 01/25/19 13:07 01/25/19 14:56 Temperature 36.7 C Temperature Source Oral Pulse Rate 72 Pulse Rate [Right Finger] 64 Pulse Rhythm [Right Finger] Pulse Strength [Right Finger] Respiratory Rate 20 18 Respiratory Effort / Characteristics Non-Labored Spontaneous Respiratory Depth Normal Respiratory Pattern Regular Blood Pressure 104/63 Blood Pressure [Right Arm] 116/55 L Blood Pressure Mean 76 Blood Pressure Mean [Right Arm] 75 Blood Pressure Position Sitting Pulse Oximetry 97 97 96 Oxygen Delivery Method Room Air Room Air Sepsis Recent Fever Within 48 Hours No Sepsis New/Unexplained Change in Mental Status No Sepsis Action Taken by Nursing No Action Required 01/25/19 15:18 Temperature 37 C Temperature Source Oral Pulse Rate Pulse Rate [Right Finger] 68 Pulse Rhythm [Right Finger] Regular Pulse Strength [Right Finger] Normal Respiratory Rate 18 Respiratory Effort / Characteristics Non-Labored Spontaneous Respiratory Depth Normal Respiratory Pattern Regular Blood Pressure Blood Pressure [Right Arm] 130/60 Blood Pressure Mean Blood Pressure Mean [Right Arm] 83 Blood Pressure Position Pulse Oximetry 98 Oxygen Delivery Method Room Air Sepsis Recent Fever Within 48 Hours Sepsis New/Unexplained Change in Mental Status Sepsis Action Taken by Nursing GENERAL: Awake, alert, well-appearing on stretcher HENT: Normocephalic, atraumatic. EYES: Normal conjunctiva. Sclera non-icteric.. RESPIRATORY: Clear to auscultation. No wheezes. Normal respiratory effort. CARDIAC: Normal rate. Normal rhythm. Extremities warm and well perfused. GI: RUQ tenderness. Soft, non-distended. Mild guarding. No masses. MUSCULOSKELETAL: Atraumatic. Chest examination reveals no tenderness. LOWER EXTREMITIES: Calves are equal size bilaterally and non-tender. No edema NEURO: Normal sensorium. No sensory or motor deficits noted. No facial droop. SKIN: Warm and dry. No rash or jaundice noted. Course Course 1319: The patient was evaluated in room C8, and a complete history and physical examination were performed. 1342: A page was placed to general surgery. 1342: I discussed the case with Nila Mayo PA-C. Dr. Sandor Valles hospitalist will evaluated the patient for further management. 1350: I updated the patient at this time. 1400: The surgery NI is at the patients bedside. Administered Medications Ciprofloxacin (Cipro) 400 mg in 200 mls @ 100 mls/hr IV PREOP MEI; Protocol Stop: 01/25/19 18:00 Last Admin: 01/25/19 14:55 Dose: 100 mls/hr Documented by: [id number] Discontinued Medications Sodium Chloride (Nss 1000ml) 1,000 mls @ 999 mls/hr IV .Q1H1M ONE Stop: 01/25/19 14:28 Last Admin: 01/25/19 14:37 Dose: 999 mls/hr Documented by: [id number] Metronidazole (Flagyl) 500 mg in 100 mls @ 100 mls/hr IV ONE ONE Stop: 01/25/19 15:54 Last Admin: 01/25/19 15:45 Dose: 100 mls/hr Documented by: [id number] Medical Decision Making Differential Diagnosis Differential diagnoses includes but is not limited to gastritis, peptic ulcer disease, GERD, gallbladder disease, pancreatitis, small bowel obstruction, acute coronary syndrome, pericarditis, ischemic bowel, irritable bowel disease, irritable bowel syndrome, appendicitis, diverticulitis, malignancy, hernia, urinary tract infection, torsion, perforation, trauma, infectious. Medical Records Attestation: I reviewed the patient's medical records. Home Medications Current Medication List: was personally reviewed by me Laboratory Data Attestation: I reviewed the patient's lab results. Result diagrams: 01/25/19 13:40 01/25/19 13:40 Lab Results 01/25/19 01/25/19 01/25/19 Range/Units 13:40 13:40 13:40 WBC 17.52 H (4.8-10.8) K/uL RBC 3.83 L (4.7-6.1) M/uL Hgb 12.7 L (14.0-18.0) g/dL Hct 38.2 L (42-52) % MCV 99.7 (80-100) fL MCH 33.2 (25-34) pg MCHC 33.2 (32-36) g/dL RDW Std Deviation 51.9 H (36.4-46.3) fL RDW Coeff of Mimi 14.2 (11.5-14.5) % Plt Count 144 (130-400) K/uL MPV 10.4 (7.4-10.4) fL Immature Gran % (Auto) 0.2 % Neut % (Auto) 85.3 % Lymph % (Auto) 6.4 % Mills % (Auto) 7.9 % Eos % (Auto) 0.1 % Baso % (Auto) 0.1 % Immature Gran # (Auto) 0.04 H (0.00-0.02) K/uL Neut # (Auto) 14.95 H (1.4-6.5) K/uL Lymph # (Auto) 1.12 L (1.2-3.4) K/uL Mills # (Auto) 1.39 H (0.11-0.59) K/uL Eos # (Auto) 0.01 (0-0.5) K/uL Baso # (Auto) 0.01 (0-0.2) K/uL RBC Morphology Unremarkable PT 11.9 (9.0-12.0) Seconds INR 1.2 H (0.9-1.1) Sodium 135 L (136-145) mmol/L Potassium 3.9 (3.5-5.1) mmol/L Chloride 100 (98-107) mmol/L Carbon Dioxide 29 (21-32) mmol/L Anion Gap 6.0 (3-11) BUN 28 H (7-18) mg/dl Creatinine 1.84 H (0.6-1.4) mg/dl Est Cr Clr Drug Dosing 34.0 ml/min Est GFR ( Amer) 38.7 Est GFR (Non-Af Amer) 33.4 BUN/Creatinine Ratio 15.3 (10-20) Glucose 98 (70-99) mg/dl Calcium 8.7 (8.5-10.1) mg/dl Total Bilirubin 1.0 (0.2-1) mg/dl AST 15 (15-37) U/L ALT 32 (12-78) U/L Alkaline Phosphatase 86 (45-117) U/L Troponin I < 0.015 (0-0.045) ng/ml Total Protein 6.4 (6.4-8.2) gm/dl Albumin 2.8 L (3.4-5.0) gm/dl Globulin 3.6 (2.5-4.0) gm/dl Albumin/Globulin Ratio 0.8 L (0.9-2) Lipase 68 L (73-393) U/L Blood Type Antibody Screen Antibody Identification 01/25/19 Range/Units 13:40 WBC (4.8-10.8) K/uL RBC (4.7-6.1) M/uL Hgb (14.0-18.0) g/dL Hct (42-52) % MCV (80-100) fL MCH (25-34) pg MCHC (32-36) g/dL RDW Std Deviation (36.4-46.3) fL RDW Coeff of Mimi (11.5-14.5) % Plt Count (130-400) K/uL MPV (7.4-10.4) fL Immature Gran % (Auto) % Neut % (Auto) % Lymph % (Auto) % Mills % (Auto) % Eos % (Auto) % Baso % (Auto) % Immature Gran # (Auto) (0.00-0.02) K/uL Neut # (Auto) (1.4-6.5) K/uL Lymph # (Auto) (1.2-3.4) K/uL Mills # (Auto) (0.11-0.59) K/uL Eos # (Auto) (0-0.5) K/uL Baso # (Auto) (0-0.2) K/uL RBC Morphology PT (9.0-12.0) Seconds INR (0.9-1.1) Sodium (136-145) mmol/L Potassium (3.5-5.1) mmol/L Chloride (98-107) mmol/L Carbon Dioxide (21-32) mmol/L Anion Gap (3-11) BUN (7-18) mg/dl Creatinine (0.6-1.4) mg/dl Est Cr Clr Drug Dosing ml/min Est GFR ( Amer) Est GFR (Non-Af Amer) BUN/Creatinine Ratio (10-20) Glucose (70-99) mg/dl Calcium (8.5-10.1) mg/dl Total Bilirubin (0.2-1) mg/dl AST (15-37) U/L ALT (12-78) U/L Alkaline Phosphatase (45-117) U/L Troponin I (0-0.045) ng/ml Total Protein (6.4-8.2) gm/dl Albumin (3.4-5.0) gm/dl Globulin (2.5-4.0) gm/dl Albumin/Globulin Ratio (0.9-2) Lipase (73-393) U/L Blood Type A Positive Antibody Screen POSITIVE A Antibody Identification Anti-Fya ECG Data Attestation: I personally reviewed and interpreted this ECG as follows: Indication: + other (dizziness) Rate (beats per minute): 65 Rhythm: + normal sinus ECG ST segments: no ST depression and no ST elevation ECG Findings: + Other (Normals intervals. ); no PVCs Blood Pressure Blood Pressure Findings: Elevated blood pressure Blood Pressure Disposition: further management by hospitalist SHEREEN Narrative Patient is an 83-year-old gentleman with a past medical history of BPH, asthma, essential tremor, hypertension, hyperlipidemia presenting here today with a complaint of some dizziness and concerns for dehydration as well as chills. Denies any nausea or vomiting but states he is constipated and has not a bowel movement a week. Some midline mid left abdominal pain is reported. No trauma or fevers reported. No other focal neurological deficits are noted on exam. EKG without significant findings. Leukocytosis noted. Discussed with outpatient doctor via phone. Consulted general surgery here in the emergency department. Concern with right upper quadrant tenderness and previous CT findings indicative of possible acute cholecystitis. Symptomatology seems consistent. Does have this new leukocytosis. No evidence of significant LFT abnormalities or elevated bilirubin likely. Not acutely peritoneal. Discussed with surgery who came to evaluate the emergency department. Initially considered Zosyn however surgery in light of his allergies later wished to pursue Flagyl and Cipro. Medical admission was pursued in contact with hospitalist. Patient will likely be proceeding to the operating room for acute cholecystitis. Was given some fluid hydration for his acute kidney injury likely related decreased oral intake. Impression & Plan Acute kidney injury, Acute cholecystitis Discharge Plan Visit Data *Final* Discharge Date/Time: 01/25/19 15:04 Chief Complaint: Illness Stated Complaint: DIZZY AFTER CT ED Provider: Satnam Belcher Discharge Problem: Acute kidney injury, Acute cholecystitis Patient Disposition: Still a Patient Discharge Instructions Interventions: ED Discharge Assessment Last Done: 01/25/19 15:04 The scribe's documentation has been prepared under my direction and personally reviewed by me in its entirety. I confirm that the note above accurately reflects all work, treatment, procedures, and medical decision making performed by me.
--- NOTE | 2019-01-25 16:50 | Post Operative Brief Note ---
PG Immediate Post Op with CF Date of Surgery January 25, 2019 Pre & Post Diagnosis Operation Date: 01/25/19 12:25 Pre-Op Diagnosis: Gangrenous gallbladder I identified the patient and participated in the time-out.: Yes Procedure Operation Date: 01/25/19 12:25 Actual Procedures p Laparoscopic Cholecystectomy(Not Applicable) - Junior Gil MD, FACS Surgeon Junior Gil MD, FACS Embedded Firmware Developer Dwain Lee Estimated Blood Loss 50 Findings Consistent with Post-Op Diagnosis Specimens Specimen Description: A gallbladder Drains Sotero-Mckinney Drain (19fr)
[2019-01-25] MEDS ORDERED: ePHEDrine sulfate 50 MG/ML SYR ONE (16:51)
[2019-01-25] MEDS ORDERED: PHENYLEPHRINE 100MCG/ML 5ML SYR ONE (16:51)
--- NOTE | 2019-01-25 17:51 | Anesthesiology Progress Note ---
Date of Service January 25, 2019 Anesthesia Post Procedure Vital Signs Vital Signs: Temp Pulse Pulse Pulse Resp BP BP 01/25/19 17:35 37.6 C H 59 L 20 112/51 L 01/25/19 17:25 37.6 C H 58 L 16 117/54 L 01/25/19 17:15 59 L 17 115/50 L 01/25/19 17:05 57 L 11 L 113/47 L 01/25/19 16:58 36.6 C 57 L 12 101/46 L 01/25/19 15:18 37 C 68 18 130/60 01/25/19 14:56 64 18 116/55 L 01/25/19 13:07 01/25/19 13:03 36.7 C 72 20 104/63 Pulse Ox 01/25/19 17:35 98 01/25/19 17:25 100 01/25/19 17:15 100 01/25/19 17:05 100 01/25/19 16:58 99 01/25/19 15:18 98 01/25/19 14:56 96 01/25/19 13:07 97 01/25/19 13:03 97 Pain Intensity Right Upper Abdomen: Pain Intensity: 0 Transfer of Care Handoff Completed per policy Notes Mental Status: alert / awake / arousable Patient Amnestic to Procedure: Yes Nausea / Vomiting: adequately controlled Pain: adequately controlled Airway Patency, RR, SpO2: stable & adequate BP & HR: stable & adequate Hydration State: stable & adequate Anesthetic Complications: no major complications apparent
[2019-01-25] MEDS ORDERED: SIMETHICONE 80 MG CHEW PO PRN (18:03)
[2019-01-25] MEDS ORDERED: POLYETHYLENE (MIRALAX) 17 GM PACK PO PRN (18:03)
[2019-01-25] MEDS ORDERED: NON-FORMULARY MEDICATION (Ipratropium Bromide 2 SPRAYS) INTNAS PRN (18:03)
[2019-01-25] MEDS ORDERED: LORazepam 0.5 MG TAB SL PRN (18:03)
[2019-01-25] MEDS ORDERED: MoRPHine SULFATE 2 MG/ML CARP IV PRN (18:03)
[2019-01-25] MEDS ORDERED: FLUTICASONE PROPIONATE NA SPR 16 GM BTL NAE PRN (18:03)
[2019-01-25] MEDS ORDERED: ALBUTEROL HFA 8 GM INHALER INH PRN (18:03)
[2019-01-25] MEDS ORDERED: HYDROCODONE/ACETAMOPHEN 5/325MG TAB PO PRN ×2 (18:03)
[2019-01-25] MEDS ORDERED: MoRPHine SULFATE 4 MG/ML 1 ML CARP\\VIAL IV PRN (18:03)
[2019-01-25] MEDS ORDERED: ACETAMINOPHEN 325 MG TAB PO PRN (18:03)
[2019-01-25] MEDS ORDERED: PROMETHAZINE HCL 12.5 MG in SODIUM CHLORIDE 0.9% 50 ML IV PRN (18:03)
[2019-01-25] MEDS ORDERED: ACETAMINOPHEN 1,000 MG/100 ML VIAL IV STA (18:15)
--- NOTE | 2019-01-25 18:29 | Operative Report ---
DATE OF OPERATION: 01/25/2019 NAME OF OPERATION: Laparoscopic cholecystectomy. PREOPERATIVE DIAGNOSIS: Gangrenous cholecystitis. POSTOPERATIVE DIAGNOSIS: Gangrenous cholecystitis. STAFF SURGEON: Junior Gil MD. LOCK AND DAM OPERATOR: Kelly Tillman. ANESTHESIA: General. DESCRIPTION OF PROCEDURE: The patient was brought in the operating room and placed on the operating table in supine position. His abdomen was prepped and draped in usual fashion. Pneumatic stockings, orogastric tube were placed. My bilingual teacher assistant helped with prepping, draping, removal of the gallbladder and closure of the wounds. Incision was made above the umbilicus using 0.5% plain Marcaine to anesthetize all incisions. An 11 mm port placed at this level. Pneumoperitoneum was maintained and then under visualization, I required four 5 mm ports, 2 cephalad and 2 right lateral. The patient's colon was distended and adherent to the gallbladder. It was difficult to retract; that was the reason we had a fourth 5 mm port. With some difficulty, the gallbladder was aspirated. It was hydrops. It was severely necrotic, gangrenous. Dissection was carried out the mateus hepatis, identifying the cystic duct and cystic artery. These were clipped and transected. Then, the gallbladder was dissected away from the liver. It was severely necrotic in the posterior wall. It was placed in an Endobag, almost did not fit into the bag. There was some bleeding, but gradually it did stop. We placed a #19 round Sotero-Mckinney drain through the lateral 5 mm port site into the subhepatic space, secured using 3-0 nylon suture. At this point, using a 5 mm scope, we did attempt to remove the gallbladder through the umbilical site. I did have to enlarge the incision significantly in the fascia and skin to remove the enormous gallbladder. At this point, the fascia at the umbilicus closed using a running 0 PDS suture. Skin reapproximated all sites using 4-0 nylon suture. Drain was secured using 3-0 nylon suture. The patient was transferred to recovery room in stable condition. We probably did have at least 50 mL blood loss. It did not appear there was any active bleeding at the end of the case. I attest to the content of the Intraoperative Record and any orders documented therein. Any exception s are noted below.
[2019-01-25] MEDS: SODIUM CHLORIDE 0.9% 1000ML 1,000 ML IV SCH (18:32)
[2019-01-25 18:48] LABS: Hematocrit (blood only) 35.3 % (42-52); Hemoglobin 11.7 g/dL (14.0-18.0)
[2019-01-25] MEDS: metroNIDAZOLE 500 MG/100 ML BAG IV SCH (19:18)
[2019-01-25] MEDS: TERAZOSIN HCL 1 MG CAP PO SCH (20:41)
[2019-01-25] MEDS: DOCUSATE SODIUM/SENNA 50/8.6MG TAB PO SCH (20:41)
[2019-01-25] MEDS: CIPROFLOXACIN 400 MG/200 ML BAG IV SCH (20:41)
[2019-01-26] MEDS: metroNIDAZOLE 500 MG/100 ML BAG IV SCH ×3 (03:01→18:38)
[2019-01-26 06:11] LABS: Hematocrit (blood only) 33.3 % (42-52); Hemoglobin 11.2 g/dL (14.0-18.0); Immature Granulocytes # (auto) 0.02 K/uL (0.00-0.02); Immature Granulocytes % (auto) 0.2 %; Lymphocytes # (auto) 0.38 K/uL (1.2-3.4); Lymphocytes % (auto) 4.1 %; Mean Corpuscular Hemoglobin 33.4 pg (25-34); Mean Corpuscular Hgb Conc 33.6 g/dL (32-36); Mean Corpuscular Volume 99.4 fL (80-100); Mean Platelet Volume 10.6 fL (7.4-10.4); Monocytes # (auto) 0.27 K/uL (0.11-0.59); Monocytes % (auto) 2.9 %; Neutrophils # (auto) 8.61 K/uL (1.4-6.5); Neutrophils % (auto) 92.8 %; Platelet Count 134 K/uL (130-400); RDW Coefficient of Variation 13.9 % (11.5-14.5); RDW Standard Deviation 50.5 fL (36.4-46.3); Red Blood Count 3.35 M/uL (4.7-6.1); White Blood Count 9.28 K/uL (4.8-10.8)
[2019-01-26 06:12] LABS: Appearance Urine Clear (Clear); Bilirubin Urine Negative (Negative); Blood Urine Negative (Negative); Color Urine Yellow; Glucose Urine UA Negative (Negative); Ketones Urine Negative (Negative); Leukocyte Esterase Urine Negative (Negative); Nitrite Urine Negative (Negative); Protein Urine Negative (Negative); Specific Gravity Urine 1.008 (1.000-1.030); Urobilinogen Urine Negative (Negative); pH Urine 6.5 (4.5-7.5)
[2019-01-26] MEDS: SODIUM CHLORIDE 0.9% 1000ML 1,000 ML IV SCH (06:23)
[2019-01-26 06:48] LABS: Albumin Level 2.3 gm/dl (3.4-5.0); BUN Creatinine Ratio 18.4 (10-20); Bilirubin Direct 0.2 mg/dl (0-0.2); Calcium 7.7 mg/dl (8.5-10.1); Est GFR (African American) 52.9; Est GFR (Non-African American) 45.7; Magnesium 2.1 mg/dl (1.8-2.4); Potassium 4.2 mmol/L (3.5-5.1)
[2019-01-26 06:51] LABS: Albumin Globulin Ratio 0.7 (0.9-2); Bilirubin,Total 0.5 mg/dl (0.2-1); Globulin 3.4 gm/dl (2.5-4.0); Phosphorus 1.7 mg/dl (2.5-4.9); Total Protein 5.7 gm/dl (6.4-8.2)
--- NOTE | 2019-01-26 08:07 | Anesthesiology Progress Note ---
Date of Service January 26, 2019 Anesthesia Post Procedure Vital Signs Vital Signs: Temp Pulse Pulse Pulse Pulse Resp BP 01/26/19 07:16 36.3 C L 62 18 01/26/19 07:10 62 01/26/19 05:01 55 L 01/26/19 03:31 37.0 C 68 16 01/25/19 19:51 57 L 01/25/19 19:26 36.3 C L 58 L 18 01/25/19 18:39 37.1 C 57 L 18 01/25/19 18:07 36.7 C 57 L 16 01/25/19 17:35 37.6 C H 59 L 20 01/25/19 17:25 37.6 C H 58 L 16 01/25/19 17:15 59 L 17 01/25/19 17:05 57 L 11 L 01/25/19 16:58 36.6 C 57 L 12 01/25/19 15:18 37 C 68 18 01/25/19 14:56 64 18 01/25/19 13:07 01/25/19 13:03 36.7 C 72 20 104/63 BP BP Pulse Ox 01/26/19 07:16 154/66 H 95 01/26/19 07:10 01/26/19 05:01 01/26/19 03:31 117/55 L 95 01/25/19 19:51 01/25/19 19:26 113/66 97 01/25/19 18:39 107/63 95 01/25/19 18:07 109/66 37 L 01/25/19 17:35 112/51 L 98 01/25/19 17:25 117/54 L 100 01/25/19 17:15 115/50 L 100 01/25/19 17:05 113/47 L 100 01/25/19 16:58 101/46 L 99 01/25/19 15:18 130/60 98 01/25/19 14:56 116/55 L 96 01/25/19 13:07 97 01/25/19 13:03 97 Pain Intensity Right Upper Abdomen: Pain Intensity: 0 Notes Mental Status: alert / awake / arousable Patient Amnestic to Procedure: Yes Nausea / Vomiting: adequately controlled Pain: adequately controlled Airway Patency, RR, SpO2: stable & adequate BP & HR: stable & adequate Hydration State: stable & adequate Anesthetic Complications: no major complications apparent and Pt Satisfied with anesthetic care
--- NOTE | 2019-01-26 08:28 | Hospitalist Progress Note ---
Date of Service January 26, 2019 Assessment & Plan (1) Acute cholecystitis: S/P laparoscopic cholecystectomy secondary to gangrenous cholecystitis POD #[address] Gil Tolerated procedure well EBL 50ml; BRITNEY drain 91ml Continue cipro and flagyl - wbc has normalized and afebrile-In ER given 1L NSS pain/wound management per surgery activity/therapy and diet as directed by surgery dvt ppx per surgery continue IVF until tolerating PO intake encourage incentive spirometry, wean off O2 when able H/H decreased to 11.2/33.3 (2) Acute kidney injury: initial BUN: 28, Cr: 1.8, GFR: 33. Baseline Cr: 1.1 with GFR>60 Pt with poor oral intake past week continue IVF Bun 26 and 1.42 today continue to hold Lasix, Maxide, Ramipril at this time Avoid nephrotoxic agents Monitor renal functions (3) Anemia: expected and likely 2/2 to initial volume contraction admitting H/H 12.7 and 38.2 H/H now 11.2/33.3 monitor cbc (4) Hypertension: blood pressure elevated mildly 154/66, likely 2/2 to post op state/pain and holding oral antihypertensives continue to hold Lasix, Maxide, Ramipril at this time with DIANE Monitor BP (5) Tremor: Continue propranolol (6) Depression: Stable continue bupropion, duloxetine Hold prn Ativan as anticipate pt requiring narcotic pain medications (7) BPH (benign prostatic hyperplasia): Continue terazosin (8) Sleep apnea: CPAP HS DVT Prophylaxis per surgery Full Code Follow up: PCP Dr Aquino for routine care Pt was seen and care coordinated with Dr Beard. See addendum Supervising Physician Co-Signing Physician Notes Attending addendum: Patient seen and examined, care coordinated with Aspen Fulton PA-C Patient reports of feeling much better, mild pain at the incision site, "but abdominal pain has improved substantially -it is nothing like before" Afebrile, no nausea vomiting, on clear liquid diet Able to have a bowel movement, ambulated in the hallway without any dizzy spell or lightheadedness Physical exam GENERAL: No sign of distress, HEENT: Sclera nonicteric, pink-purple bilateral equal reactive to light extraocular muscle intact Normal oral mucosa, neck: No JVD, no thyromegaly, trachea midline Lungs: Clear to auscultate, no wheeze or rales Cardiovascular: Regular S1 and S2, no murmur or gallop, no JVD, no lower extremity edema Abdomen: Abdomen is soft, mild incisional pain on right upper quadrant, BRITNEY drain present, active bowel sound, a no guarding no rebound Extremities: No rash or deformity, normal joint, Neuro: No focal neurological deficit, no dysarthria, no facial droop Psych: Alert awake oriented x3: Euthymic Skin: No rash Assessment and plan: Acute gangrenous cholecystitis Status post cholecystectomy done by Dr. Gil yesterday postoperative day 1 is recovering quite well Able to pass gas, had bowel movement No nausea vomiting Appreciate input from surgery, diet advanced to solid today And will be continued with IV Cipro and Flagyl for another 24-48 hours Continue IV fluids for another 24 hours-patient was clinically dehydrated on admission Encouraged to increase activity On discharge patient will need to be on p.o. Cipro and Flagyl for total 10 days Acute renal failure/CKD stage III Due to severe infection gangrenous cholecystitis Given IV fluids, creatinine improved from 1.81.6, approximate baseline Continue IV fluids for another 24 hours Diet advanced, patient encouraged to drink more fluids Avoid NSAIDs, avoid contrast studies Please refer to further documentation by Aspen Fulton PA-C for discussion of other chronic issues Nickie Beard MD Subjective Patient seen and examined in room 285-2. Follow-up laparoscopic cholecystectomy POD day 1. Overall he feels well. Complains of mild incisional discomfort. Denies fever, chills, sweats, lightheadedness, dizziness, chest pain, shortness of breath, cough. He did have nausea last evening but this is since resolved. He denies vomiting or difficulty urinating. He tolerated clear liquid diet last evening. Passing gas, "as we speak." He would like to get up and walk around today. Review of Systems Review of Systems: All systems reviewed & are unremarkable except as noted in HPI & below Physical Exam Physical Exam: Gen: WD/WN, male, sitting up in bed, NAD, A&O x3 HEENT: Normocephalic, atraumatic, conjunctivae moist, sclerae anicteric, mucous membranes moist. Lung: Clear to Auscultation bilaterally, no wheezes/rales/rhonchi Heart: Regular rate, regular rhythm, no murmurs, rubs, or gallops Abdomen: Soft, NT, ND +BS x 4, incisions CDI, BRITNEY drain intact with serosanguineous drainage, dressing with serosanguineous drainage Extremities: No edema Skin: Warm, no rash, negative turgor. Results & Data Vital Signs (Past 12 Hours) Vital Signs Temp Pulse Pulse Pulse Resp BP Pulse Ox 01/26/19 07:16 36.3 C L 62 18 154/66 H 95 01/26/19 07:10 62 01/26/19 05:01 55 L 01/26/19 03:31 37.0 C 68 16 117/55 L 95
[2019-01-26] MEDS: DOCUSATE SODIUM/SENNA 50/8.6MG TAB PO SCH ×2 (08:32→20:25)
[2019-01-26] MEDS: PROPRANOLOL HCL 60 MG LA CAP PO SCH (08:32)
[2019-01-26] MEDS: CEROVITE ADV FORMULA TAB PO SCH (08:33)
[2019-01-26] MEDS: DULOXETINE HCL 60 MG CAP PO SCH (08:33)
[2019-01-26] MEDS: ASPIRIN 81 MG ECTAB PO SCH (08:33)
[2019-01-26] MEDS: BuPROPion SR 100 MG TABCR PO SCH (08:34)
[2019-01-26] MEDS: CIPROFLOXACIN 400 MG/200 ML BAG IV SCH ×2 (08:34→20:25)
[2019-01-26] MEDS: HEPARIN SOD 5,000 UNIT/0.5 ML VIAL SQ SCH ×2 (08:34→20:25)
[2019-01-26] MEDS ORDERED: TRIAMTERENE/HCTZ 37.5/25MG TAB PO SCH (09:00)
[2019-01-26] MEDS ORDERED: ENALAPRIL MALEATE 10 MG TAB PO SCH (09:00)
[2019-01-26] MEDS ORDERED: SODIUM PHOSPHATE 3 MMOL/1 ML INFUSION IV STA (10:24)
[2019-01-26] MEDS ORDERED: SODIUM PHOSPHATE 15 MMOL in SODIUM CHLORIDE 0.9% 250 ML IV ONE (10:45)
--- NOTE | 2019-01-26 14:03 | Surgery Progress Note ---
Date of Service January 26, 2019 Assessment & Plan (1) Gangrenous cholecystitis: pt had severe gangrenous cholecystitis overall stable- no active bleeding, LFTs ok adv diet / activity cont IV atbx Results & Data Vital Signs (Past 12 Hours) Vital Signs Temp Pulse Pulse Pulse Resp BP Pulse Ox 01/26/19 11:54 36.7 C 61 18 104/58 L 92 01/26/19 10:36 96 01/26/19 07:16 36.3 C L 62 18 154/66 H 95 01/26/19 07:10 62 01/26/19 05:01 55 L 01/26/19 03:31 37.0 C 68 16 117/55 L 95 PG Care Time/CCT Total # of Minutes Spent Total Time Spent with Patient: Total time spent is greater than 50% in coordination of care (as documented) at patient's floor/unit and/or counseling patient:
[2019-01-26] MEDS: TERAZOSIN HCL 1 MG CAP PO SCH (20:25)
[2019-01-27] MEDS: SODIUM CHLORIDE 0.9% 1000ML 1,000 ML IV SCH ×2 (00:25→04:41)
[2019-01-27] MEDS: metroNIDAZOLE 500 MG/100 ML BAG IV SCH ×3 (03:26→19:48)
--- NOTE | 2019-01-27 06:59 | Surgery Progress Note ---
Date of Service January 27, 2019 Assessment & Plan (1) Gangrenous cholecystitis: simeon liquids/diet, passing flatus, walking drain - expected serosang cont IV atbx, stop IV, encourage walking probable d/c tomorrow with drain- remove in office next Mon Results & Data Vital Signs (Past 12 Hours) Vital Signs Temp Pulse Pulse Resp BP Pulse Ox 01/26/19 23:40 36.6 C 55 L 16 155/66 H 95 01/26/19 20:22 58 L 138/62 PG Care Time/CCT Total # of Minutes Spent Total Time Spent with Patient: Total time spent is greater than 50% in coordination of care (as documented) at patient's floor/unit and/or counseling patient:
[2019-01-27 07:45] LABS: Hematocrit (blood only) 36.3 % (42-52); Hemoglobin 11.9 g/dL (14.0-18.0); Immature Granulocytes # (auto) 0.02 K/uL (0.00-0.02); Immature Granulocytes % (auto) 0.2 %; Lymphocytes # (auto) 1.02 K/uL (1.2-3.4); Lymphocytes % (auto) 11.3 %; Mean Corpuscular Hemoglobin 32.8 pg (25-34); Mean Corpuscular Hgb Conc 32.8 g/dL (32-36); Mean Platelet Volume 10.6 fL (7.4-10.4); Monocytes # (auto) 0.38 K/uL (0.11-0.59); Monocytes % (auto) 4.2 %; Neutrophils # (auto) 7.62 K/uL (1.4-6.5); Neutrophils % (auto) 84.3 %; Platelet Count 170 K/uL (130-400); RDW Coefficient of Variation 14.1 % (11.5-14.5); RDW Standard Deviation 51.5 fL (36.4-46.3); Red Blood Count 3.63 M/uL (4.7-6.1); White Blood Count 9.04 K/uL (4.8-10.8)
--- NOTE | 2019-01-27 07:45 | Hospitalist Progress Note ---
Date of Service January 27, 2019 Assessment & Plan (1) Acute cholecystitis: S/P laparoscopic cholecystectomy secondary to gangrenous cholecystitis POD #[address] Gil (01/25/2019) Tolerated procedure well Continue Cipro and Flagyl - WBC has normalized and afebrile, patient will need to be on p.o. Cipro and Flagyl for total of 10 days pain/wound management per surgery activity/therapy and diet as directed by surgery dvt ppx per surgery Diet advanced, patient is tolerating PO intake He is ambulating without much difficulty, having BMs Encourage incentive spirometry, weaned off O2, currently on room air H/H decreased but stable, current Hgb 11.9 - anemia is unlikely, likely dilutional and acute blood loss anemia secondary to surgery which is expected (2) Acute kidney injury: initial BUN: 28, Cr: 1.8, GFR: 33. Baseline Cr: 1.1 with GFR>60 Pt with poor oral intake past week prior to admission continue IVF Cr 1.37 today (improved) continue to hold Lasix, Maxide, Ramipril at this time Avoid nephrotoxic agents Monitor renal function (3) Hypertension: blood pressure at goal continue to hold Lasix, Maxide, Ramipril at this time with DIANE Monitor BP (4) Tremor: Continue propranolol (5) Depression: Stable continue bupropion, duloxetine Hold prn Ativan as anticipate pt requiring narcotic pain medications (6) BPH (benign prostatic hyperplasia): Continue terazosin (7) Sleep apnea: CPAP HS DVT Prophylaxis, per surgery Full Code Follow up: PCP Dr Aquino for routine care Subjective No acute events overnight, patient sitting up in bed, in no acute distress. His is at the bedside. Patient denies any fevers, chills, chest pain, shortness of breath. His abdominal pain is well controlled, no complaints right now. He is ambulating without much difficulty, tolerates p.o. intake. Having BMs. Review of Systems Review of Systems: All systems reviewed & are unremarkable except as noted in HPI & below Constitutional: no fever, no chills and no fatigue Respiratory: no cough and no dyspnea Cardiovascular: no chest pain, no palpitations and no edema Gastrointestinal: + abdominal pain (well controlled); no nausea and no vomiting Physical Exam Physical Exam: General: Elderly male sitting up in bed, in no acute distress HEENT: EOMI, PERRL, Sclera nonicteric neck: No JVD, no thyromegaly, trachea midline Lungs: Clear to auscultation b/l, no wheezes, rhonchi or rales Cardiovascular: Regular S1 and S2, no murmur or gallop, no JVD, no lower extremity edema Abdomen: Abdomen is soft, mild incisional pain on right upper quadrant, BRITNEY drain present, active bowel sound, no guarding no rebound Extremities: No rash or deformity, moves all 4 extremities spontaneously and without difficulty Neuro: Alert and oriented x3, no facial asymmetry, speech fluent, moves all 4 extremities spontaneously Psych: Euthymic effect Skin: Warm, dry, no rash or lesion Results & Data Vital Signs (Past 12 Hours) Vital Signs Temp Pulse Pulse Resp BP Pulse Ox 01/27/19 07:28 36.3 C L 50 L 18 153/69 H 95 01/26/19 23:40 36.6 C 55 L 16 155/66 H 95 01/26/19 20:22 58 L 138/62 Laboratory Results 01/27/19 01/27/19 Range/Units 07:29 07:29 WBC 9.04 (4.8-10.8) K/uL RBC 3.63 L (4.7-6.1) M/uL Hgb 11.9 L (14.0-18.0) g/dL Hct 36.3 L (42-52) % MCV 100.0 (80-100) fL MCH 32.8 (25-34) pg MCHC 32.8 (32-36) g/dL RDW Std Deviation 51.5 H (36.4-46.3) fL RDW Coeff of Mimi 14.1 (11.5-14.5) % Plt Count 170 (130-400) K/uL MPV 10.6 H (7.4-10.4) fL Immature Gran % (Auto) 0.2 % Neut % (Auto) 84.3 % Lymph % (Auto) 11.3 % [place] % (Auto) 4.2 % Eos % (Auto) 0.0 % Baso % (Auto) 0.0 % Immature Gran # (Auto) 0.02 (0.00-0.02) K/uL Neut # (Auto) 7.62 H (1.4-6.5) K/uL Lymph # (Auto) 1.02 L (1.2-3.4) K/uL [place] # (Auto) 0.38 (0.11-0.59) K/uL Eos # (Auto) 0.00 (0-0.5) K/uL Baso # (Auto) 0.00 (0-0.2) K/uL Sodium 141 (136-145) mmol/L Potassium 4.1 (3.5-5.1) mmol/L Chloride 110 H (98-107) mmol/L Carbon Dioxide 25 (21-32) mmol/L Anion Gap 6.0 (3-11) BUN 26 H (7-18) mg/dl Creatinine 1.37 (0.6-1.4) mg/dl Est Cr Clr Drug Dosing 45.6 ml/min Est GFR ( Amer) 55.3 Est GFR (Non-Af Amer) 47.7 BUN/Creatinine Ratio 19.2 (10-20) Glucose 111 H (70-99) mg/dl Calcium 8.4 L (8.5-10.1) mg/dl Phosphorus 2.6 (2.5-4.9) mg/dl Medications Administered Current Inpatient Medications Acetaminophen (Tylenol) 650 mg PO Q4H PRN PRN Reason: Pain Stop: 02/24/19 18:02 Hydrocodone Bitart/Acetaminophen ([place] 5/325) 1 tab PO Q4HWA PRN PRN Reason: Pain Stop: 02/08/19 18:02 Hydrocodone Bitart/Acetaminophen ([place] 5/325) 2 tab PO Q4HWA PRN PRN Reason: Pain Stop: 02/08/19 18:02 Albuterol (Ventolin Hfa) 2 puffs INH QID PRN PRN Reason: Shortness Of Breath Stop: 02/24/19 18:02 Aspirin (Ecotrin Ectab) [facility] Stop: 02/25/19 08:59 Last Admin: 01/26/19 08:33 Dose: 81 mg Documented by: Bupropion HCl (Wellbutrin-Sr) 100 mg [facility] [place] Stop: 02/25/19 08:59 Last Admin: 01/26/19 08:34 Dose: 100 mg Documented by: Duloxetine HCl (Cymbalta) [address] [facility] Stop: 02/25/19 08:59 Last Admin: 01/26/19 08:33 Dose: 60 mg Documented by: Fluticasone Propionate (Flonase) 1 sprays FRANCIA BID PRN PRN Reason: Allergy Symptoms Stop: 02/24/19 18:02 Heparin Sodium (Porcine) (Heparin Sodium (Porcine)) 5,000 units SQ Q12 MEI Stop: 02/25/19 08:59 Last Admin: 01/26/19 20:25 Dose: 5,000 units Documented by: Ciprofloxacin (Cipro) 400 mg in 200 mls @ 100 mls/hr IV Q12H [facility] Stop: 02/04/19 19:59 Last Infusion: 01/26/19 22:30 Dose: Infused Documented by: Metronidazole (Flagyl) 500 mg in 100 mls @ 100 mls/hr IV Q8H [facility] Stop: 02/04/19 18:29 Last Infusion: 01/27/19 04:26 Dose: Infused Documented by: Promethazine HCl 12.5 mg/ (Sodium Chloride) 50.5 mls @ 204 mls/hr IV Q6H PRN PRN Reason: Nausea And Vomiting Stop: 02/24/19 18:02 Lorazepam (Ativan) 0.5 mg SL BID PRN PRN Reason: Anxiety Stop: 02/24/19 18:02 Morphine Sulfate (Morphine Sulfate) 2 mg IV Q3HWA PRN PRN Reason: Pain Stop: 02/08/19 18:02 Morphine Sulfate (Morphine Sulfate) 4 mg IV Q3HWA PRN PRN Reason: Pain Stop: 02/08/19 18:02 Multivitamins/Minerals (Multivitamin W/ Minerals Tab) 1 tab PO QAM [facility] Stop: 02/25/19 08:59 Last Admin: 01/26/19 08:33 Dose: 1 tab Documented by: Ondansetron HCl (Zofran) 4 mg IV 4XDQ4H PRN PRN Reason: Nausea Stop: 02/24/19 18:02 Polyethylene Glycol (Miralax Powder Packet) 17 gm PO DAILY PRN PRN Reason: Constipation Stop: 02/24/19 18:02 Propranolol HCl (Inderal La) 60 mg PO QAM [facility] Stop: 02/25/19 08:59 Last Admin: 01/26/19 08:32 Dose: 60 mg Documented by: Senna/Docusate Sodium (Senokot S) 1 tab PO BID MEI Stop: 02/24/19 20:59 Last Admin: 01/26/19 20:25 Dose: 1 tab Documented by: Terazosin HCl (Hytrin) 2 mg PO [facility] Stop: 02/24/19 20:59 Last Admin: 01/26/19 20:25 Dose: 2 mg Documented by:
[2019-01-27 08:17] LABS: BUN Creatinine Ratio 19.2 (10-20); Calcium 8.4 mg/dl (8.5-10.1); Creatinine Clr Calc Pharmacy 45.6 ml/min; Est GFR (African American) 55.3; Est GFR (Non-African American) 47.7; Potassium 4.1 mmol/L (3.5-5.1)
[2019-01-27 08:19] LABS: Phosphorus 2.6 mg/dl (2.5-4.9)
[2019-01-27] MEDS: CIPROFLOXACIN 400 MG/200 ML BAG IV SCH ×2 (08:32→21:43)
[2019-01-27] MEDS: CEROVITE ADV FORMULA TAB PO SCH (08:34)
[2019-01-27] MEDS: BuPROPion SR 100 MG TABCR PO SCH (08:34)
[2019-01-27] MEDS: DOCUSATE SODIUM/SENNA 50/8.6MG TAB PO SCH ×2 (08:34→21:48)
[2019-01-27] MEDS: HEPARIN SOD 5,000 UNIT/0.5 ML VIAL SQ SCH ×2 (08:35→21:44)
[2019-01-27] MEDS: ASPIRIN 81 MG ECTAB PO SCH (08:35)
[2019-01-27] MEDS: PROPRANOLOL HCL 60 MG LA CAP PO SCH (08:35)
[2019-01-27] MEDS: DULOXETINE HCL 60 MG CAP PO SCH (08:35)
[2019-01-27] MEDS: TERAZOSIN HCL 1 MG CAP PO SCH (21:44)
[2019-01-27 23:52] VITALS: O2SAT 95
[2019-01-28] MEDS: metroNIDAZOLE 500 MG/100 ML BAG IV SCH (03:12)
[2019-01-28 07:01] VITALS: PULSE 54; TEMP 98.1
--- NOTE | 2019-01-28 07:26 | Discharge Summary ---
PRINCIPAL DIAGNOSIS: Acute gangrenous cholecystitis. PROCEDURES: The patient underwent laparoscopic cholecystectomy with drainage. HISTORY OF PRESENT ILLNESS: The patient is an 83-year-old male presenting to the Emergency Room with abdominal pain, found with evidence of acute cholecystitis. He was taken to the operating room where he underwent laparoscopic cholecystectomy showing severe acute gangrenous cholecystitis with infected bile. He had drain placed. He has done quite well on IV antibiotics, increasing in his GI function and mobility, felt stable for discharge home today to be followed in the surgical clinic next week. He is sitting up. His exam is normal with stable wounds.
[2019-01-28 07:37] LABS: Basophils # (auto) 0.01 K/uL (0-0.2); Basophils % (auto) 0.2 %; Eosinophils # (auto) 0.12 K/uL (0-0.5); Eosinophils % (auto) 2.6 %; Hematocrit (blood only) 34.9 % (42-52); Hemoglobin 11.4 g/dL (14.0-18.0); Immature Granulocytes # (auto) 0.01 K/uL (0.00-0.02); Immature Granulocytes % (auto) 0.2 %; Lymphocytes # (auto) 1.23 K/uL (1.2-3.4); Lymphocytes % (auto) 26.9 %; Mean Corpuscular Hemoglobin 33.4 pg (25-34); Mean Corpuscular Hgb Conc 32.7 g/dL (32-36); Mean Corpuscular Volume 102.3 fL (80-100); Monocytes % (auto) 8.7 %; Neutrophils # (auto) 2.81 K/uL (1.4-6.5); Neutrophils % (auto) 61.4 %; Platelet Count 163 K/uL (130-400); RDW Coefficient of Variation 14.1 % (11.5-14.5); RDW Standard Deviation 52.7 fL (36.4-46.3); Red Blood Count 3.41 M/uL (4.7-6.1); White Blood Count 4.58 K/uL (4.8-10.8)
[2019-01-28 08:08] LABS: Creatinine Clr Calc Pharmacy 48.1 ml/min; Est GFR (African American) 58.9; Est GFR (Non-African American) 50.8; Potassium 4.2 mmol/L (3.5-5.1)
[2019-01-28 08:09] LABS: Phosphorus 2.2 mg/dl (2.5-4.9)
[2019-01-28] MEDS: BuPROPion SR 100 MG TABCR PO SCH (08:33)
[2019-01-28] MEDS: CEROVITE ADV FORMULA TAB PO SCH (08:33)
[2019-01-28] MEDS: PROPRANOLOL HCL 60 MG LA CAP PO SCH (08:33)
[2019-01-28] MEDS: ASPIRIN 81 MG ECTAB PO SCH (08:33)
[2019-01-28] MEDS: DULOXETINE HCL 60 MG CAP PO SCH (08:34)
[2019-01-28] MEDS: DOCUSATE SODIUM/SENNA 50/8.6MG TAB PO SCH (08:34)
[2019-01-28] MEDS: HEPARIN SOD 5,000 UNIT/0.5 ML VIAL SQ SCH (08:35)
[2019-01-28] MEDS: CIPROFLOXACIN 400 MG/200 ML BAG IV SCH (08:45)
[2019-01-28 09:02] VITALS: BP 168/71
--- NOTE | 2019-01-28 13:31 | Hospitalist Progress Note ---
Date of Service January 28, 2019 Subjective Patient discharged earlier today, by Dr. Gil. I was unable to see the patient today. He has a follow-up appointment with his PCP scheduled for February 04, I contacted the patient and talked to his . Patient is currently at home, sleeping after having lunch. Patient's wrote down the appointment for February 04, at 11:05. The rest of instructions, as per Dr. Gil's discharge paperwork. Results & Data Vital Signs (Past 12 Hours) Vital Signs Temp Pulse Pulse Pulse Pulse Resp BP 01/28/19 09:00 36.7 C 57 L 52 L 60 54 L 16 168/71 H 01/28/19 06:57 36.7 C 54 L 16 BP Pulse Ox 01/28/19 09:00 95 01/28/19 06:57 180/76 H 95
--- NOTE | 2019-01-28 19:45 | Discharge Summary ---
Date of Service January 28, 2019 Admission HPI Per Admitting Provider Pt is 83 y/o M with PMH HTN, dyslipidemia, sleep apnea, BPH, tremor, depression presented to ER with c/o abdominal pain x 6 days. States 6 days ago started with lower abdominal and upper abdominal discomfort that increased. Associated nausea. Denies vomiting. C/O chills. Has not taken temperature. Reports abdominal bloating and constipation. Last BM 1 week ago. Reports passing flatus today. Seen outpatient and had WBC: 13 on 01/23/19 and WBC 21 today with normal LFTs. Had outpatient CT abd/pelvis with no evidence of bowel obstruction, +cholelithiasis & abnormal appearance gallbladder suggesting cholecystitis. Pt states has been taking Miralax past couple of days without any BM. Last ate chicken noodle soup and crackers at 19:00 last night. Last drank 1 glass water at 07:00 this morning. Pt states has noticed some slight abdominal discomfort after eating intermittently over past year. Reports chronic SOB with climbing 6- 7 stairs, denies any increased SOB. H/O BLE extremity edema however reports no edema for past month since maxide added. Denies CP. Denies diaphoresis, AMIN, dizziness, syncope, vision changes, neck pain, orthopnea, palpitations, cough, sore throat, choking, otalgia, rhinorrhea, paresthesias, weakness, extremity weakness, rashes, urinary symptoms. 09/08/18: Stress echo: negative for inducible ischemia 2000: cardia cath: no CAD Admission Exam Per Admitting Provider General: no acute distress, WDWN Head: normocephalic, atraumatic Eyes: PERRL, EOM's intact, conjunctiva non-injected, anicteric ENT: normal inspection external ears, nose, mucous membranes mildly dry Neck: supple, trachea midline Lungs: clear, no respiratory distress, no wheezing/rhonchi/rales CV: RRR, no murmur, no pretibial edema Abd: normal BS, distended, soft, +tenderness to palpation epigastric and RUQ with guarding. no rebound Ext: no cyanosis, no calf tenderness Neuro: A&O x 3, no focal deficits noted, normal affect Skin: warm, dry Principal Diagnosis Gangrenous cholecystitis Discharge Exam Per Dr. Gil note He had drain placed. He has done quite well on IV antibiotics, increasing in his GI function and mobility, felt stable for discharge home today to be followed in the surgical clinic next week. He is sitting up. His exam is normal with stable wounds. Discharge Data Allergies Allergy/AdvReac Type Severity Reaction Status Date / Time celecoxib Allergy Severe Verified 01/25/19 14:06 NSAIDS (Non-Steroidal Allergy Severe ASTHMA Verified 01/25/19 14:06 Anti-Inflamma ATTACK lactose Allergy Intermediate INDIGESTION Verified 01/25/19 14:06 AND GAS amoxicillin AdvReac Intermediate Rash Verified 01/25/19 14:06 clavulanic acid AdvReac Intermediate SHORTNESS Verified 01/25/19 14:06 OF BREATH Consultations 01/25/19 13:54 ED Decision to Admit Stat 01/25/19 18:03 Consult Case Management - Discharge Planning Routine Consult Case Management - Discharge Planning Routine Consult General Surgery Routine 01/28/19 06:11 Consult Case Management - Discharge Planning Routine Procedures Performed Operation Date: 01/25/19 12:25 Actual Procedures p Laparoscopic Cholecystectomy(Not Applicable) - Junior Gil MD, FACS Hospital Course (1) Acute cholecystitis: S/P laparoscopic cholecystectomy secondary to gangrenous cholecystitis POD #[address] Gil (01/25/2019) Tolerated procedure well Continue Cipro and Flagyl - WBC has normalized and afebrile, patient will need to be on p.o. Cipro and Flagyl for total of 10 days pain/wound management per surgery activity/therapy and diet as directed by surgery dvt ppx per surgery Diet advanced, patient is tolerating PO intake He is ambulating without much difficulty, having BMs Encourage incentive spirometry, weaned off O2, currently on room air H/H decreased but stable, current Hgb 11.4 - likely dilutional and acute blood loss anemia secondary to surgery which is expected (2) Acute kidney injury: initial BUN: 28, Cr: 1.8, GFR: 33. Baseline Cr: 1.1 with GFR>60 Pt with poor oral intake past week prior to admission - discontinue IVF Cr 1.3 today (much improved) continue to hold Lasix, Maxide, Ramipril at this time Avoid nephrotoxic agents Monitor renal function (3) Hypertension: blood pressure acceptable, plan to resume after discharge - during admission held Lasix, Maxide, Ramipril at this time with DIANE - monitor BP (4) Tremor: Continue propranolol (5) Depression: Stable continue bupropion, duloxetine Hold prn Ativan as anticipate pt requiring narcotic pain medications (6) BPH (benign prostatic hyperplasia): Continue terazosin (7) Sleep apnea: CPAP HS DVT Prophylaxis, per surgery Full Code Follow up: PCP Dr Aquino for routine care Total Time Total Time Spent Total Time Spent (In Minutes): pt discharged by Discharge Plan Discharge Items Patient Disposition: Home - Self-Care Reason For Visit: CHOLECYSTITIS Discharge Diagnosis: gangrenous cholecystitis Activity: As commented below Activity Comment: light activity for 3 weeks Lifting: No more than 25 pounds Bathing Comment: may shower Exercise Comment: wait 3 weeks Driving/Machine Use: 1 week Non-emergency contact: Primary Care Provider and Surgeon Call non-emergency contact if: your pain is not controlled, your temperature is above 101 and your wound has increased drainage Follow-up/Referrals: Ga Aquino, [Primary Care Provider] - Diet: Regular Addtl Attending Provider Instructions: SPECIAL CARE INSTRUCTIONS: * Cover incisions and change daily for comfort/drainage. * Empty drain 2-3 times per day and record. * May use ibuprofen for pain as tolerated. * Expect some swelling and bruising. Call your doctor if: * Temperature above 101 degrees * Pain not relieved by pain medicine ordered * There is increased drainage or redness from any incision * You have any unanswered questions or concerns [phone]. FOLLOW UP VISIT: If not already scheduled, please call the office for a follow-up visit. OFFICE PHONE NUMBER: Dr. Gil Office for next Friday - drain removal Pending Studies at Discharge: No Stand-Alone Forms: My [facility] [employer], Smoking Cessation Medications and DC Order Prescriptions: New hydrocodone-acetaminophen [[place]] 5-325 mg tablet 1 tab PO Q6H PRN (Reason: pain) Qty: 20 RF: 0 ciprofloxacin HCl 500 mg tablet 500 mg PO BID Qty: 14 RF: 0 metronidazole [Flagyl] 500 mg tablet 500 mg PO TID Qty: 21 RF: 0 Continued bupropion HCl [Wellbutrin SR] 100 mg Tablet Sustained-Release 12 Hr 100 mg PO QAM RF: 0 lorazepam 0.5 mg Tablet 0.5 mg SUBLINGUAL BID PRN (Reason: Anxiety) RF: 0 terazosin 2 mg Capsule 2 mg PO HS RF: 0 albuterol sulfate [Ventolin HFA] 90 mcg/actuation Hfa Aerosol Inhaler 2 puff INHALATION QID PRN (Reason: Shortness Of Breath) RF: 0 ipratropium bromide 42 mcg (0.06 %) [place],Non-Aerosol 2 spray INTRANASAL BID PRN (Reason: Nasal Congestion) RF: 0 fluticasone propionate [Flonase Allergy Relief] 50 mcg/actuation [place],Suspension 1 spray INTRANASAL BID PRN (Reason: Allergy Symptoms) RF: 0 ramipril 10 mg Capsule 10 mg PO QAM RF: 0 duloxetine [Cymbalta] 60 mg Capsule,Delayed Release(Dr/Ec) 60 mg PO QAM RF: 0 Centrum Silver 400-250 mcg Tablet,Chewable 1 tab PO QAM RF: 0 aspirin 81 mg Tablet,Chewable 81 mg PO QAM RF: 0 simethicone [Gas-X Extra Strength] 125 mg Tablet,Chewable 125 mg PO BID PRN (Reason: Indigestion) RF: 0 triamterene-hydrochlorothiazid 37.5-25 mg tablet 1 tab PO QAM RF: 0 polyethylene glycol 3350 [Miralax] 17 gram/dose Powder 17 g PO DAILY PRN (Reason: Constipation) RF: 0 propranolol 60 mg capsule,extended release 24 hr 60 mg PO QAM RF: 0 furosemide [Lasix] 20 mg Tablet 20 mg PO DAILY RF: 0 Discharge Orders: Discharge Order (Routine); Ordered 01/28/19 Ordered By: Junior Gil Admission Data Admit Date/Time: 01/25/19 15:05 Attending Provider: Skyler Valero Admit Provider: Liat Patten Primary Care Provider: Ga Aquino Other Providers: Liat Patten ; Junior Gil ; Nickie Beard Other Interventions: Discharge Summary Assessment (RN) Last Done: 01/28/19 09:00 DC Date/Time DO NOT enter until pt leaves facility: 01/28/19 09:36
== END 2019-01-28 09:36 | disposition home or self-care (01) | DRG 418 ==
LOC: ED 13:00 → ASU 15:04 → SUATTDRO 15:05 → 2N 15:05 → ASU 15:31 → 3W 01-26 14:42

== ENCOUNTER 2021-04-11 06:11 | Inpatient (IN) ==
--- NOTE | 2021-03-15 09:18 | PAT Medication Instructions ---
Medication Instructions Date of Service March 15, 2021 Home Medications Medication Instructions Recorded triamterene 37.5 1 tab PO Q2D #45 tab 07/10/20 mg-hydrochlorothiazide 25 mg tablet albuterol sulfate 90 mcg/actuation aerosol inhaler (Ventolin HFA) 2 puff INHALATION QID PRN bupropion HCl 100 mg tablet,12 hr sustained-release (Wellbutrin SR) 100 mg PO QAM duloxetine 60 mg capsule,delayed release (Cymbalta) 60 mg PO QAM fluticasone propionate 50 mcg/actuation nasal spray,suspension (Flonase Allergy Relief) 1 spray INTRANASAL BID PRN ipratropium bromide 42 mcg (0.06 %) nasal spray 2 spray INTRANASAL BID PRN lorazepam 0.5 mg tablet 0.5 mg SUBLINGUAL BID PRN multivit with min-folic acid-lutein 400 mcg-250 mcg chewable tablet (Centrum Silver) 1 tab PO QAM ramipril 10 mg capsule 10 mg PO QAM terazosin 2 mg capsule 2 mg PO HS polyethylene glycol 3350 17 gram/dose oral powder (Miralax) 17 g PO DAILY PRN propranolol 60 mg capsule,24 hr,extended release 60 mg PO QAM simethicone 125 mg chewable tablet (Gas-X Extra Strength) 125 mg PO BID PRN furosemide 20 mg tablet (Lasix) 20 mg PO Q2D triamterene 37.5 mg-hydrochlorothiazide 25 mg tablet 1 tab PO Q2D DO NOT take the morning of surgery multivit with min-folic acid-lutein 400 mcg-250 mcg chewable tablet (Centrum Silver) 1 tab PO QAM ramipril 10 mg capsule 10 mg PO QAM polyethylene glycol 3350 17 gram/dose oral powder (Miralax) 17 g PO DAILY PRN imethicone 125 mg chewable tablet (Gas-X Extra Strength) 125 mg PO BID PRN furosemide 20 mg tablet (Lasix) 20 mg PO Q2D triamterene 37.5 mg-hydrochlorothiazide 25 mg tablet 1 tab PO Q2D Take morning of surgery With a small sip of water, OTHERWISE NOTHING TO EAT OR DRINK AFTER MIDNIGHT: albuterol sulfate 90 mcg/actuation aerosol inhaler (Ventolin HFA) 2 puff INHALATION QID PRN (use if needed; please bring with you to hospital day of surgery if possible) bupropion HCl 100 mg tablet,12 hr sustained-release (Wellbutrin SR) 100 mg PO QAM duloxetine 60 mg capsule,delayed release (Cymbalta) 60 mg PO QAM fluticasone propionate 50 mcg/actuation nasal spray,suspension (Flonase Allergy Relief) 1 spray INTRANASAL BID PRN (if needed) ipratropium bromide 42 mcg (0.06 %) nasal spray 2 spray INTRANASAL BID PRN (if needed) lorazepam 0.5 mg tablet 0.5 mg SUBLINGUAL BID PRN (if needed) propranolol 60 mg capsule,24 hr,extended release 60 mg PO QAM Take evening before surgery albuterol sulfate 90 mcg/actuation aerosol inhaler (Ventolin HFA) 2 puff INHALATION QID PRN (if needed) fluticasone propionate 50 mcg/actuation nasal spray,suspension (Flonase Allergy Relief) 1 spray INTRANASAL BID PRN (if needed) ipratropium bromide 42 mcg (0.06 %) nasal spray 2 spray INTRANASAL BID PRN (if needed) lorazepam 0.5 mg tablet 0.5 mg SUBLINGUAL BID PRN (if needed) terazosin 2 mg capsule 2 mg PO HS polyethylene glycol 3350 17 gram/dose oral powder (Miralax) 17 g PO DAILY PRN (if needed) simethicone 125 mg chewable tablet (Gas-X Extra Strength) 125 mg PO BID PRN (if needed) Other Notes If you have any questions please call us at [phone] or [phone] or [phone] or [phone]
--- NOTE | 2021-03-29 11:44 | Anesthesiology Consultation ---
Date of Service March 29, 2021 Assessment & Plan (1) Encounter for pre-operative examination: Chart Review Chart Review: Pending: Refer to Additional Notes / Consult section (pending stress test scheduled 03/30, final PCP/cardio clearance and preop Covid testing results ) and Patient seen in Pre Admission Testing - Awaiting stress test scheduled 03/30/21 - Awaiting final cardio and PCP clearance (did write note to PCP re: upcoming surgery) Per PAT appt on 03/29/21, patient denies any recent travel or large group activities. No known Covid positive exposures or Covid related symptoms. No known Covid infection in the past 90 days. Pt is vaccinated for Covid. Preop Covid testing scheduled 04/09/21= will await results. Educated on importance of self quarantining, social distancing and wearing mask in public for the patient one week prior to surgery and after Covid testing done Pt seen by cardio 03/12/21= patient seen for preoperative cardiovascular evaluationdizziness. Patient notes of symptoms of lightheadedness and dizziness following completion of physical therapy. Has suffered 2 mechanical falls in the last 6 months without head injury. Continue multiple medications that could potentially lower blood pressure including 2 separate diuretics, propranolol, Terazosin, ramipril. Given episodic dizzinesscarotid duplex and Zio patch event monitor ordered. We will also order DSE to exclude ischemia. Patient instructed to avoid strenuous activity until completed. (Pt then had episode of syncope at PT 03/19/21- cardio did move up Zio monitor) Cardio phone note 03/22/21 = event monitor did not demonstrate any significant arrhythmias to account for symptoms. Episode of lightheadedness and possible fainting associated with normal sinus rhythm. Continue reduction in antihypertensives as noted. Patient seen by PCP 03/20/2021 = patient seen for questionable seizure-like activity at physical therapy. Patient had [id number] episode of loss of consciousness for the therapist describes eyes. To left and verbally not responding and following commands. Vasovagal syncopemost recent events seem to be more consistent with vasovagal episode compared to seizure given no bowel/bladder incontinence, biting of tongue, no clonic activity, no recovery period. Neuro examination intact today. Most likely other possibility would be too strict control of BP, but consistent since 2019 without issue. No appreciable orthostatic symptoms and patient was sitting when episode occurred. If patient has recurrent episode, would eliminate BP medication pursue further neurologic testing. No carotid stenosis appreciated. ZIO without arrhythmic cause. Has pending stress test to evaluate further cardiac pathology prior to surgery. History Surgery Operation Date: 04/11/21 07:45 Proposed Procedures p L4-L5 Decompression Fusion Spinal Cord Monitoring - Anand Cordova DO Height/Weight Height: 6 ft Weight: 95.8 kg Allergies Allergy/AdvReac Type Severity Reaction Status Date / Time celecoxib Allergy Severe sob Verified 03/14/21 10:49 NSAIDS (Non-Steroidal Allergy Severe ASTHMA Verified 03/14/21 10:49 Anti-Inflamma ATTACK lactose Allergy Intermediate INDIGESTION Verified 03/14/21 10:49 AND GAS amoxicillin AdvReac Intermediate Rash Verified 03/14/21 10:49 clavulanic acid AdvReac Intermediate SHORTNESS Verified 03/14/21 10:49 OF BREATH Medications Home Medications Medication Instructions Recorded Confirmed Last Taken albuterol sulfate 90 mcg/actuation 2 puff INHALATION QID PRN 09/08/18 03/14/21 Unknown aerosol inhaler (Ventolin HFA) bupropion HCl 100 mg tablet,12 hr 100 mg PO QAM 09/08/18 03/14/21 01/25/19 sustained-release (Wellbutrin SR) duloxetine 60 mg capsule,delayed 60 mg PO QAM 09/08/18 03/14/21 01/25/19 release (Cymbalta) fluticasone propionate 50 1 spray INTRANASAL BID PRN 09/08/18 03/14/21 10/25/18 mcg/actuation nasal spray,suspension (Flonase Allergy Relief) ipratropium bromide 42 mcg (0.06 2 spray INTRANASAL BID PRN 09/08/18 03/14/21 Unknown %) nasal spray lorazepam 0.5 mg tablet 0.5 mg SUBLINGUAL BID PRN 09/08/18 03/14/21 01/22/19 multivit with min-folic 1 tab PO QAM 09/08/18 03/14/21 01/25/19 acid-lutein 400 mcg-250 mcg chewable tablet (Centrum Silver) ramipril 10 mg capsule 10 mg PO QAM 09/08/18 03/14/21 01/25/19 terazosin 2 mg capsule 2 mg PO 09/08/18 03/14/21 01/25/19 polyethylene glycol 3350 17 17 g PO DAILY PRN 01/25/19 03/14/21 01/25/19 gram/dose oral powder (Miralax) propranolol 60 mg capsule,24 60 mg PO QAM 01/25/19 03/14/21 01/25/19 hr,extended release simethicone 125 mg chewable tablet 125 mg PO BID PRN 01/25/19 03/14/21 01/25/19 (Gas-X Extra Strength) 125 mg furosemide 20 mg tablet (Lasix) 20 mg PO Q2D tab 06/10/19 03/14/21 Unknown triamterene 37.5 1 tab PO Q2D #45 tab 07/10/20 03/14/21 Unknown mg-hydrochlorothiazide 25 mg tablet Past Medical History Medical History (Updated 03/29/21 @ 12:56 by Yomaira Roth PA-C) Abnormal EKG EKG 03/12/21 done at [facility] showed septal infarct-- referred to Dr. Ellis. Asthma No recent issues. Has more congestion in spring and fall sea BPH (benign prostatic hyperplasia) BPPV (benign paroxysmal positional vertigo) CKD (chronic kidney disease) stage 3, GFR 30-59 ml/min Depression Dizziness Usually with sitting- ongoing x 1.5 years- did see cardio on 03/12/21- getting CV work up (carotids, event monitor and stress test) Essential tremor Located to hands R>L History of melanoma S/p removal Hyperlipidemia Hypertension Prediabetes Hgb A1C 6.0 on 01/17/21 Sleep apnea CPAP Vasovagal episode 03/19/21- occurred during PT- syncope vs. seizure- PCP feels vasovagal reaction. Pt states he had no precipitating symptoms- this was different from chronic ongoing dizziness symptoms Exercise / Class Metabolic Activity III < 4 Walking/Shop/Light housework (one flight of stairs - mild SOB- no chest pain or SOB ) Past Family History Family History Father CHF (congestive heart failure) Father COPD (chronic obstructive pulmonary disease) Past Surgical History Surgical History (Updated 03/29/21 @ 12:46 by Yomaira Roth PA-C) History of cardiac cath 02/06/2000 - No CAD History of cataract surgery 10/26/2018. 60mg propofol. no issues. History of colonoscopy History of lumbar surgery 3 total; hardware present History of melanoma excision History of tonsillectomy History of total knee replacement Rt Past Anesthesia History No Hx of Anesthesia Complications and No Family Hx of Anesthesia Complications History of PONV No Hx of PONV and No Hx of Motion Sickness Social History Smoking Status: Never smoker Do You Dip or Chew Tobacco: No Hx Alcohol Use: Yes Alcohol type: wine alcohol intake frequency: holidays/special occasions only Hx Substance Use: No substance use type: does not use Review of Systems Patient denies chest pain, shortness of breath, reflux, cough, wheezing, palpitations. No hx of seizures, stroke, CO. No hx of blood clots or blood transfusions Physical Exam Vital Signs VITALS BP 114/67 P 57 TEMP 98.4 SP02 97% RESP 16 Constitutional no acute distress ENMT Mouth: no TMJ clicking Thyromental Distance: > or= 3.5 Finger Breadths (4.0) Mallampati Class: I Neck + limited neck extension (significant ) Respiratory normal respiratory effort; no respiratory distress Auscultation: lungs clear to auscultation bilaterally; no wheezes Cardiovascular Rate/Rhythm: regular rate and regular rhythm Heart Sounds: no murmur Vessels: no carotid bruit Musculoskeletal Spine: + pain with cervical ROM (stiffness ) Extremities: extremities normal to inspection Psychiatric Orientation: alert Lab Results Anesthesia Preop Results Results Anesthesia Widget: WBC 5.46 K/uL (4.8-10.8) 03/29/21 Hgb 13.8 g/dL (14.0-18.0) L 03/29/21 Hct 42.9 % (42-52) 03/29/21 Plt 210 K/uL (130-400) 03/29/21 Na 142 mmol/L (136-145) 03/29/21 K 4.3 mmol/L (3.5-5.1) 03/29/21 Cl 102 mmol/L (98-107) 03/29/21 CO2 34 mmol/L (21-32) H 03/29/21 BUN 28 mg/dl (6-23) H 03/29/21 Creat 1.39 mg/dl (0.6-1.4) 03/29/21 Glucose Level 90 mg/dl (70-99(Fasting)) 03/29/21 PT 10.0 Seconds (9.0-12.0) 03/29/21 PTT 23.6 Seconds (21.0-31.0) 03/29/21 INR 1.0 (0.9-1.1) 03/29/21 Urine Color Yellow 03/29/21 Urine Appearance Clear (Clear) 03/29/21 Urine pH 5.5 (4.5-7.5) 03/29/21 Urine Specific [place] 1.009 (1.000-1.030) 03/29/21 Urine Protein Negative (Negative) 03/29/21 Urine Glucose (UA) Negative (Negative) 03/29/21 Urine Ketones Negative (Negative) 03/29/21 Urine Blood Negative (Negative) 03/29/21 Urine Nitrite Negative (Negative) 03/29/21 Urine Bilirubin Negative (Negative) 03/29/21 Urine Urobilinogen Negative (Negative) 03/29/21 Urine Leukocyte Esterase Negative (Negative) 03/29/21 Blood Type A Positive 03/29/21 Antibody Screen POSITIVE A 03/29/21 Lab Comments: Blood Bank informed of positive antibodies- no additional testing needed prior to surgery. Will need T&S done DOS Testing Electrocardiogram Date: 03/12/21 Findings: + SB @ (58bpm ) Septal infarct, age undetermined Chest X-Ray Date: 03/12/21 Findings: + NAD 1 view CXR Other Testing Three Day Event monitor 03/12/2021 = minimum HR 42 bpm, maximum HR of 160 bpm. Average HR 59 bpm. Predominant underlying rhythm was sinus rhythm. First- degree AV block was present. 3 SVT runs occurred, the run with the fastest interval lasting 9 beats with a maximum rate of 160 bpm, longest lasting 14 beats with an average heart rate of 113 bpm. Isolated SVE's, SVE couplets and SVE triplets were rare. Occasional isolated VE's. Rare VE couplets. No VE triplets. Ventricular bigeminy and trigeminy were present. (Cardio reviewed event monitorfailed event monitor did not demonstrate any significant arrhythmias to account for symptoms. Episode of lightheadedness and possible fainting associated with normal sinus. Continue reduction of antihypertensives as noted.) Carotid Doppler 03/19/21= less than 50% stenosis of the left and right ICAs. Antegrade flow to both vertebral arteries.
[~2021-04-11 06:11] MED LIST changes: +ACETAMINOPHEN 500 MG TAB PO SCH; -CIPROFLOXACIN 400 MG/200 ML BAG IV SCH; +CLINDAMYCIN 600 MG/54 ML BAG IV SCH; +GABAPENTIN 300 MG CAP PO SCH; +LR 15ML/HR IV SCH
[2021-04-11] MEDS ORDERED: EPINEPHrine INJ 1 MG/ML AMP ONE (07:00)
[2021-04-11] MEDS ORDERED: ceFAZolin 330 MG/ML 1 GM VIAL ONE (07:01)
[2021-04-11] MEDS ORDERED: BUPIVACAINE 0.5 % 5 MG/1 ML MPF 30ML VIAL ONE (07:01)
[2021-04-11] MEDS ORDERED: fentaNYL citrate 100 MCG/2 ML VIAL ONE ×2 (07:07)
--- NOTE | 2021-04-11 07:32 | History & Physical Report ---
Date of Service April 11, 2021 Assessment & Plan (1) Neurogenic claudication due to lumbar spinal stenosis: Plan: L4-L5 decompression fusion History of Present Illness Chief Complaint: Back and bilateral leg pain Primary Care Provider: Kamari Lezama MD This is a 85-year-old male presents for persistent back and leg pain after failing course of nonoperative care is here for surgical invention. Allergies Allergy/AdvReac Type Severity Reaction Status Date / Time celecoxib Allergy Severe sob Verified 04/11/21 06:36 NSAIDS (Non-Steroidal Allergy Severe ASTHMA Verified 04/11/21 06:36 Anti-Inflamma ATTACK lactose Allergy Intermediate INDIGESTION Verified 04/11/21 06:36 AND GAS amoxicillin AdvReac Intermediate Rash Verified 04/11/21 06:36 clavulanic acid AdvReac Intermediate SHORTNESS Verified 04/11/21 06:36 OF BREATH Home Medications Medication Instructions Recorded Confirmed Type albuterol sulfate 90 mcg/actuation 2 puff INHALATION QID PRN 09/08/18 04/11/21 History aerosol inhaler (Ventolin HFA) duloxetine 60 mg capsule,delayed 60 mg PO QAM 09/08/18 04/11/21 History release (Cymbalta) fluticasone propionate 50 1 spray INTRANASAL BID PRN 09/08/18 04/11/21 History mcg/actuation nasal spray,suspension (Flonase Allergy Relief) ipratropium bromide 42 mcg (0.06 2 spray INTRANASAL BID PRN 09/08/18 04/11/21 History %) nasal spray lorazepam 0.5 mg tablet 0.5 mg SUBLINGUAL BID PRN 09/08/18 04/11/21 History multivit with min-folic 1 tab PO QAM 09/08/18 04/11/21 History acid-lutein 400 mcg-250 mcg chewable tablet (Centrum Silver) ramipril 10 mg capsule 10 mg PO QAM 09/08/18 04/11/21 History terazosin 2 mg capsule 2 mg PO HS 09/08/18 04/11/21 History polyethylene glycol 3350 17 17 g PO DAILY PRN 01/25/19 04/11/21 History gram/dose oral powder (Miralax) propranolol 60 mg capsule,24 60 mg PO QAM 01/25/19 04/11/21 History hr,extended release simethicone 125 mg chewable tablet 125 mg PO BID PRN 01/25/19 04/11/21 History (Gas-X Extra Strength) furosemide 20 mg tablet (Lasix) 20 mg PO Q2D tab 06/10/19 04/11/21 History triamterene 37.5 1 tab PO Q2D #45 tab 07/10/20 04/11/21 Rx mg-hydrochlorothiazide 25 mg tablet Past Med/Surg History Medical History (Updated 04/11/21 @ 07:32 by Anand Cordova, DO) Abnormal EKG EKG 03/12/21 done at [facility] showed septal infarct-- referred to Dr. Ellis. Asthma No recent issues. 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 seizure- PCP feels vasovagal reaction. Pt states he had no precipitating symptoms- this was different from chronic ongoing dizziness symptoms Surgical History History of cardiac cath 02/06/2000 - No CAD History of cataract surgery 10/26/2018. 60mg propofol. no issues. 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
[2021-04-11] MEDS ORDERED: PROMETHAZINE HCL 12.5 MG in SODIUM CHLORIDE 0.9% 50 ML IV PRN ×2 (07:40→11:27)
[2021-04-11] MEDS ORDERED: ePHEDrine sulfate 50 MG/ML AMP IV PRN (07:40)
[2021-04-11] MEDS ORDERED: LABETALOL HCL IV 5 MG/ML 20ML IV PRN (07:40)
[2021-04-11] MEDS ORDERED: ATROPINE SULFATE 0.1 MG/ML 10ML SYR IV PRN (07:40)
[2021-04-11] MEDS ORDERED: NALOXONE HCL 0.4 MG/1 ML VIAL/CARP IV PRN ×2 (07:40→11:27)
[2021-04-11] MEDS ORDERED: ONDANSETRON INJ 2 MG/ML 2 ML VIAL IV PRN ×2 (07:40→11:27)
[2021-04-11] MEDS ORDERED: FLUMAZENIL 0.1 MG/1 ML 10 ML VIAL IV PRN (07:40)
[2021-04-11] MEDS ORDERED: ePHEDrine sulfate 50 MG/ML AMP ONE (08:18)
[2021-04-11] MEDS ORDERED: DEXAMETHASONE SOD INJ 4 MG/ML VIAL ONE (08:18)
[2021-04-11] MEDS ORDERED: PHENYLEPHRINE HCL 10 MG/ML VIAL ONE (08:18)
[2021-04-11] MEDS ORDERED: NEOSTIGMINE METHYLSULFATE 1 MG/ML 10ML VIAL ONE (08:18)
[2021-04-11] MEDS ORDERED: ROCURONIUM BROMIDE 10 MG/ML 5 ML VIAL IV ONE (08:18)
[2021-04-11] MEDS ORDERED: LIDOCAINE 2% 2 ML VIAL/AMP(20MG/ML) INFIL ONE (08:18)
[2021-04-11] MEDS ORDERED: GLYCOPYRROLATE 0.2 MG/ML VIAL ONE (08:18)
[2021-04-11] MEDS ORDERED: PROPOFOL IV EMULSION 10 MG/ML 20 ML VIAL IV ONE (08:18)
[2021-04-11] MEDS ORDERED: LARYING-O-JET KIT (LTA) ONE (08:18)
[2021-04-11] MEDS ORDERED: ONDANSETRON INJ 2 MG/ML 2 ML VIAL ONE (08:18)
[2021-04-11] MEDS ORDERED: FLOSEAL HEMOSTATIC MATRIX 10ML TOP ONE (08:52)
[2021-04-11] MEDS ORDERED: DURASEAL DURAL SEALANT 5ML TOP ONE (09:14)
--- NOTE | 2021-04-11 09:54 | Operative Report ---
Post Operative Report Pre & Post Diagnosis Operation Date: 04/11/21 07:45 Pre-Op Diagnosis: Neurogenic claudication due to lumbar spinal stenosis, L4-L5 Post-Op Diagnosis: Neurogenic claudication due to lumbar spinal stenosis, L4-L5 I identified the patient and participated in the time-out.: Yes Procedure Operation Date: 04/11/21 07:45 Actual Procedures #1 removal of posterior instrumentation L4. #2 revision decompression with medial facetectomy foraminotomies L4-L5. #3 posterior spinal fusion L4-5. #4 placement posterior instrumentation L4-L5. #5 placement of locally harvested morselized autograft in the posterior lateral gutters. #6 placement infuse collagen sponge master graft in the posterior gutters L4-L5. Surgeon Anand Cordova, Ag Equipment Field Service Technician Wilma Junior Estimated Blood Loss 50 Findings Consistent with Post-Op Diagnosis Specimens None Indications This is an 85-year-old male who presents with significant decline in status consistent with neurogenic claudication and subsequently here for surgical invention. Description of Procedure Patient met with identified informed consent obtained. Patient was then taken to the operative suite underwent a patient placed in prone position on a Sotero table top [place] frame. All bony prominences well-padded eyes inspected to ensure no external pressure placed upon the bed this point lumbar spine was prepped and draped in a sterile fashion. Sharp dissection with the assistance of Bovie cautery performed down to and exposing the instrumentation at L4 and remaining lamina and transverse processes of L5. Then proceeded move the pedicle screws and connectors L4 bilaterally. I was unsuccessful in removing the L4 pedicle on the right is completely grown into the bone. Then performed revision medial facetectomy foraminotomy L4-5 on the right. Severe stenosis was noted. There is significant dural ectasia and I did prophylactically place piece of DuraGen and DuraSeal over the dura. Pedicle screws then placed in L5 bilaterally with assistance of fluoroscopy and using connectors new rods were placed and locked into position bilaterally. Transverse processes of L3-4 and L5 burred to subcortically bone. Infuse bone sponge master graft lobe autograft was placed in posterior gutters. 15 round BRITNEY drain inserted. The incision was then closed with 1 Vicryl fascia 2-0 Vicryl subcutaneously and 4 Monocryl for final skin closure. Steri-Strip sterile dressings placed. Patient will continue PACU stable condition. Please note spinal cord monitoring was utilized at the procedure no changes noted. Lastly Wilma Junior was present throughout the entire surgery and while the patient positioning complex portions of the surgery and fascial closure. I attest to the content of the Intraoperative Record and any orders documented therein. Any exceptions are noted below.
[2021-04-11] MEDS: fentaNYL citrate 100 MCG/2 ML VIAL IV PRN ×4 (10:23→10:38)
--- NOTE | 2021-04-11 10:28 | Fluoroscopy Report ---
FL lumbar spine 2-3V CLINICAL HISTORY: L4-L5 DECOMPRESSION AND FUSION COMPARISON STUDY: None FLUOROSCOPY TIME: 24 seconds. FLUOROSCOPIC IMAGES: 2 FINDINGS: The patient is status post L4-5 decompression and fusion. Interpedicular screw and camden fixa tion is seen from L2 through L5. IMPRESSION: Status post decompression and fusion. ACT 112: Negative or not required by law. Electronically signed by: Bob Manning M.D. 04/11/2021 10:27 AM
--- NOTE | 2021-04-11 10:56 | Anesthesiology Progress Note ---
Date of Service April 11, 2021 Anesthesia Post Procedure Vital Signs Vital Signs: Temp Pulse Resp BP Pulse Ox 04/11/21 10:50 36.4 C L 59 L 18 126/68 100 04/11/21 10:40 59 L 17 127/60 100 04/11/21 10:30 62 18 126/70 98 04/11/21 10:20 62 18 132/68 100 04/11/21 10:10 72 18 128/67 99 04/11/21 10:04 36.3 C L 70 18 125/64 99 04/11/21 07:05 36.9 C 64 18 148/77 H 97 Transfer of Care Handoff Completed per policy Notes Mental Status: alert / awake / arousable Patient Amnestic to Procedure: Yes Nausea / Vomiting: adequately controlled Pain: adequately controlled Airway Patency, RR, SpO2: stable & adequate BP & HR: stable & adequate Hydration State: stable & adequate Anesthetic Complications: no major complications apparent
[2021-04-11] MEDS ORDERED: ALBUTEROL HFA 8 GM INHALER INH PRN (11:27)
[2021-04-11] MEDS ORDERED: FLUTICASONE PROPIONATE NA SPR 16 GM BTL PRN (11:27)
[2021-04-11] MEDS ORDERED: bisacodyL 10 MG SUPP PR PRN (11:27)
[2021-04-11] MEDS ORDERED: ALUMINUM/MAGNESIUM SUSP 30 ML UDC PO PRN (11:27)
[2021-04-11] MEDS ORDERED: SOD PHOSPHATE/SOD BIPHOSPHATE ENEMA 132 ML BTL PR PRN (11:27)
[2021-04-11] MEDS ORDERED: DO NOT ADMINISTER FLU VACCINE PRN (11:27)
[2021-04-11] MEDS ORDERED: HYDROmorphone INJ 1 MG/ML SYRINGE IV PRN (11:27)
[2021-04-11] MEDS ORDERED: diphenhydrAMINE Capsule 25 MG CAP PO PRN (11:27)
[2021-04-11] MEDS ORDERED: ACETAMINOPHEN 1,000 MG/100 ML VIAL IV PRN (11:27)
[2021-04-11] MEDS ORDERED: LORazepam 0.5 MG TAB SL PRN (11:27)
[2021-04-11] MEDS ORDERED: LORazepam 0.5 MG TAB PO PRN (11:27)
[2021-04-11] MEDS ORDERED: traMADol HCL 50 MG TABLET PO PRN (11:27)
[2021-04-11] MEDS ORDERED: ONDANSETRON 4 MG OD TAB PO PRN (11:27)
[2021-04-11] MEDS ORDERED: ACETAMINOPHEN 500 MG TAB PO PRN (11:27)
[2021-04-11] MEDS ORDERED: METOCLOPRAMIDE HCL INJ 5 MG/ML 2 ML VIAL IV PRN (11:27)
[2021-04-11] MEDS ORDERED: hydrOXYzine HCl 25 MG TAB PO PRN (11:27)
[2021-04-11] MEDS ORDERED: LORazepam 2 MG/1 ML VIAL IV PRN (11:27)
[2021-04-11] MEDS ORDERED: SIMETHICONE 80 MG CHEW PO PRN (11:27)
[2021-04-11] MEDS ORDERED: MAGNESIUM HYDROXIDE SUSP 30 ML UDC PO PRN (11:27)
[2021-04-11] MEDS ORDERED: DO NOT ADMINISTER PNEUMOCOCCAL VACCINE PRN (11:27)
[2021-04-11] MEDS ORDERED: oxyCODONE HCL IR 5 MG TAB (IMMEDIATE RELEASE) PO PRN (11:27)
[2021-04-11] MEDS ORDERED: FAMOTIDINE 20 MG TAB PO PRN (11:27)
[2021-04-11] MEDS ORDERED: HYDROmorphone INJ 0.5 MG/0.5 ML SYR IV PRN (11:27)
[2021-04-11] MEDS: SODIUM CHLORIDE 0.9% 1000ML 1,000 ML IV SCH (12:10)
--- NOTE | 2021-04-11 12:43 | Hospitalist Consultation ---
Date of Consultation April 11, 2021 Assessment & Plan (1) Neurogenic claudication due to lumbar spinal stenosis: - Pain management, bowel regimen and DVT ppx per the primary team - PT/OT consults - Follow am CBC to monitor for acute blood loss, last hgb was 13.8 on 03/29/21 (2) Hypertension: - Resume ramipril and lasix 20 mg daily postoperatively, held today prior to surgery - Cont triamterene/HCTZ and propranolol (3) Asthma: (4) Sleep apnea: - CPAP HS - can hold for now as pt does not use at home all the time and is requesting not to use it here, as he didn't bring his machine. (5) BPH (benign prostatic hyperplasia): - Cont terazosin now postoperatively, held prior to surgery DVT ppx: - durga Sahni CODE: Full Dispo: From home, discharge per the primary team Thank you for involving us in the care of Mr. Chaves. Please do not hesitate to call with questions or concerns. At this time medicine service will follow along. Supervising Physician Co-Signing Physician Notes Patient is a 89-year-old male with history of hypertension, hyperlipidemia, obstructive sleep apnea, asthma, CKD and other medical problems was consulted for postop medical management. Patient had neurogenic claudication secondary to lumbar spinal stenosis L4, L5 and underwent lumbar surgery by Dr. Cordova. Patient is doing well postoperatively. He denies any chest pain, shortness of breath, dizziness, nausea, abdominal pain. Back pain at surgical site is controlled. On exam patient is moderately built and nourished, no apparent distress, normocephalic atraumatic, EOMI, normal breath sounds, clear to auscultation, S1-S2, no murmur, no pedal edema, abdomen soft, nontender, normal bowel sounds, back-surgical site in dressing, +drain, AAOX3, grossly no focal deficits. Patient is consulted for postop medical management. Pain control, DVT prophylaxis, wound care as per primary team. PT OT when appropriate. Monitor for postop anemia. Bowel regimen to prevent constipation. Incentive spirometry. Continue home inhalers for asthma. Currently no signs of exacerbation. Monitor blood pressure and adjust medications as needed. I personally reviewed the record. Patient is interviewed and examined at bedside. Patient's care is coordinated with Renae Berrios PA-C. Please refer to the documentation above for details of patient's presentation and for discussion of other issues. History of Present Illness Reason for Consultation: Medical management Requesting Physician: Dr. Cordova Attending Physician: Anand Cordova, History of Present Illness This is a 85 yo M with PMhx of HTN, HLD, prediabetes with an A1c of 6.0 in January 2020, asthma, CKD stage III, BPH, LIMA on CPAP who presented for elective lumbar decompression fusion of L4-L5 by Dr. Cordova on 04/12/2019. Pt reports he has had 4 back surgeries before. He reports that he is doing well postoperatively. His pain has gone down from a 72 since being dosed medication by nursing. He denies any numbness or tingling in lower distal extremities, and is able to move his feet and legs without difficulty. Lunch is being served soon, but he has tried sips of water and tolerated them without issues. Last bowel movement was this morning prior to surgical procedure. Pt uses CPAP HS at home and did not bring his machine with him, denies any shortness of breath and does not wear O2 at baseline. He is requesting to "not use CPAP here to avoid another cord/hose ". He does not wear CPAP every night at home. Allergies Allergy/AdvReac Type Severity Reaction Status Date / Time celecoxib Allergy Severe sob Verified 04/11/21 06:36 NSAIDS (Non-Steroidal Allergy Severe ASTHMA Verified 04/11/21 06:36 Anti-Inflamma ATTACK lactose Allergy Intermediate INDIGESTION Verified 04/11/21 06:36 AND GAS amoxicillin AdvReac Intermediate Rash Verified 04/11/21 06:36 clavulanic acid AdvReac Intermediate SHORTNESS Verified 04/11/21 06:36 OF BREATH Home Medications Medication Instructions Recorded Confirmed Type albuterol sulfate 90 mcg/actuation 2 puff INHALATION QID PRN 09/08/18 04/11/21 History aerosol inhaler (Ventolin HFA) duloxetine 60 mg capsule,delayed 60 mg PO QAM 09/08/18 04/11/21 History release (Cymbalta) fluticasone propionate 50 1 spray INTRANASAL BID PRN 09/08/18 04/11/21 History mcg/actuation nasal spray,suspension (Flonase Allergy Relief) ipratropium bromide 42 mcg (0.06 2 spray INTRANASAL BID PRN 09/08/18 04/11/21 History %) nasal spray lorazepam 0.5 mg tablet 0.5 mg SUBLINGUAL BID PRN 09/08/18 04/11/21 History multivit with min-folic 1 tab PO QAM 09/08/18 04/11/21 History acid-lutein 400 mcg-250 mcg chewable tablet (Centrum Silver) ramipril 10 mg capsule 10 mg PO QAM 09/08/18 04/11/21 History terazosin 2 mg capsule 2 mg PO HS 09/08/18 04/11/21 History polyethylene glycol 3350 17 17 g PO DAILY PRN 01/25/19 04/11/21 History gram/dose oral powder (Miralax) propranolol 60 mg capsule,24 60 mg PO QAM 01/25/19 04/11/21 History hr,extended release simethicone 125 mg chewable tablet 125 mg PO BID PRN 01/25/19 04/11/21 History (Gas-X Extra Strength) furosemide 20 mg tablet (Lasix) 20 mg PO Q2D tab 06/10/19 04/11/21 History triamterene 37.5 1 tab PO Q2D #45 tab 07/10/20 04/11/21 Rx mg-hydrochlorothiazide 25 mg tablet Patient History Medical History (Updated 04/11/21 @ 07:32 by Anand Cordova DO) Abnormal EKG EKG 03/12/21 done at [facility] showed septal infarct-- referred to Dr. Ellis. Asthma No recent issues. 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 seizure- PCP feels vasovagal reaction. Pt states he had no precipitating symptoms- this was different from chronic ongoing dizziness symptoms Surgical History History of cardiac cath 02/06/2000 - No CAD History of cataract surgery 10/26/2018. 60mg propofol. no issues. History of colonoscopy History of lumbar surgery 3 total; hardware present History of melanoma excision History of tonsillectomy History of total knee replacement Rt Family History Father CHF (congestive heart failure) Father COPD (chronic obstructive pulmonary disease) Social History Smoking Status: Never smoker Second Hand Exposure: No; Do You Dip or Chew Tobacco: No; Hx Alcohol Use: Yes Alcohol type: wine Hx Substance Use: No Preferred Language: Serbian Communication Ability: Effective Public Improvement Inspector Required: No Beliefs That Will Affect Care: None Current Living Situation: Spouse Feels Safe at Home: Yes Safety Concerns: Feels Safe At This Time Assistive Devices: Cane Review of Systems Review of Systems: Constitutional: No fever, sweats or chills Eyes: No diplopia, no worsening or blurred vision ENT: normal hearing, no trouble swallowing Respiratory: No cough, sputum, dyspnea at rest or on exertion Cardiovascular: No chest pain, tightness or palpitations Back: pain improving, no numbness or tingling Abdomen: No pain, nausea, vomiting, diarrhea or constipation. Last Bm this morning. : no bowel or bladder incontinence Musculoskeletal: No joint pain, calf pain, swelling Neurologic: No weakness, numbness/tingling, or balance problems Psychiatric: No anxiety or depression Skin: No rash or itch Physical Exam Physical Exam: General: awake, alert, no apparent distress Head: Normocephalic, atraumatic ENT: PERRL, EOMI, no pharyngeal exudate, mucous membranes moist Chest: Clear to auscultation, on 1 L via NC, no adventitious breath sounds Cardiac: Regular rate and rhythm, no murmur, no JVD, normal peripheral pulses, good capillary refill Back: BRITNEY drain at side, bloody serosanguineous drainage, did not have patient roll to examine dressing as he just is up from having surgical procedure Abdominal: NABS x 4 quadrants, soft, nondistended, nontender to palpation, no rebound or guarding Extremities: Normal inspection, no peripheral edema or erythema, calfs nontender to palpation Psych: Normal mood and affect Neuro: AAO x 3, strength intact bilaterally and rated 5/5, no motor deficits, speech is clear, no peripheral sensory deficits Results & Data Results & Data ([facility]) Vital Signs (Past 12 Hours) Vital Signs Temp Pulse Resp BP Pulse Ox 04/11/21 12:00 36.4 C L 52 L 14 131/70 97 04/11/21 10:50 36.4 C L 59 L 18 126/68 100 04/11/21 10:40 59 L 17 127/60 100 04/11/21 10:30 62 18 126/70 98 04/11/21 10:20 62 18 132/68 100 04/11/21 10:10 72 18 128/67 99 04/11/21 10:04 36.3 C L 70 18 125/64 99 04/11/21 07:05 36.9 C 64 18 148/77 H 97
[2021-04-11] MEDS: CLINDAMYCIN 600 MG in DEXTROSE 5% 50 ML IV SCH (16:13)
[2021-04-11] MEDS: DOCUSATE SODIUM/SENNA 50/8.6MG TAB PO SCH (22:06)
[2021-04-11] MEDS: TERAZOSIN HCL 1 MG CAP PO SCH (22:06)
[2021-04-12] MEDS: CLINDAMYCIN 600 MG in DEXTROSE 5% 50 ML IV SCH (00:59)
[2021-04-12] MEDS: SODIUM CHLORIDE 0.9% 1000ML 1,000 ML IV SCH ×2 (00:59→08:57)
[2021-04-12] MEDS: POLYETHYLENE (MIRALAX) 17 GM PACK PO SCH ×2 (05:54→12:45)
[2021-04-12 07:04] LABS: Hematocrit (blood only) 40.5 % (42-52); Hemoglobin 13.3 g/dL (14.0-18.0); Immature Granulocytes # (auto) 0.02 K/uL (0.00-0.02); Immature Granulocytes % (auto) 0.2 %; Lymphocytes # (auto) 0.79 K/uL (1.2-3.4); Lymphocytes % (auto) 6.3 %; Mean Corpuscular Hemoglobin 32.4 pg (25-34); Mean Corpuscular Hgb Conc 32.8 g/dL (32-36); Mean Corpuscular Volume 98.8 fL (80-100); Mean Platelet Volume 10.5 fL (7.4-10.4); Monocytes # (auto) 0.71 K/uL (0.11-0.59); Monocytes % (auto) 5.6 %; Neutrophils # (auto) 11.07 K/uL (1.4-6.5); Neutrophils % (auto) 87.9 %; Platelet Count 182 K/uL (130-400); RDW Coefficient of Variation 13.1 % (11.5-14.5); RDW Standard Deviation 47.2 fL (36.4-46.3); White Blood Count 12.59 K/uL (4.8-10.8)
[2021-04-12 07:24] LABS: BUN Creatinine Ratio 15.1 (10-20); Calcium 7.8 mg/dl (8.5-10.1); Creatinine Clr Calc Pharmacy 52.1 ml/min; Est GFR (African American) 60.3 ml/min; Potassium 4.1 mmol/L (3.5-5.1)
[2021-04-12] MEDS ORDERED: FUROSEMIDE 20 MG TAB PO SCH (09:00)
[2021-04-12] MEDS ORDERED: ENALAPRIL MALEATE 10 MG TAB PO SCH (09:00)
[2021-04-12] MEDS ORDERED: PROPRANOLOL HCL 60 MG LA CAP PO SCH (09:00)
[2021-04-12] MEDS ORDERED: TRIAMTERENE/HCTZ 37.5/25MG TAB PO SCH (09:00)
[2021-04-12] MEDS ORDERED: CEROVITE ADV FORMULA TAB PO SCH (09:00)
[2021-04-12] MEDS ORDERED: DULoxetine HCL 60 MG CAP PO SCH (09:00)
--- NOTE | 2021-04-12 09:35 | Orthopedic Progress Note ---
Date of Service April 12, 2021 Assessment & Plan (1) Neurogenic claudication due to lumbar spinal stenosis: Plan: We will DC BRITNEY drain and dressing change today. We will get him bed to chair today. If he tolerates this we will advance this with physical therapy and a mbulation tomorrow. Continue with pain control. DVT prophylaxis is in the form of teds and SCDs. Admission and Anticipated Discharge Date Admission Date: April 11, 2021 Shayla Lebron is postoperative day 1 posterior lumbar decompression instrumented fusion of L4-[address] Cordova. He had an incidental durotomy which was repaired intraoperatively. BRITNEY drain output last shift was 100 cc. H&H this morning are 13.3 and 40.5 respectively. Denies any headaches. States his lower extremity symptoms seem to be improved. Review of Systems Review of Systems: All systems reviewed & are unremarkable except as noted in HPI & below Physical Exam Physical Exam: Lying in bed with head slightly elevated. Alert and oriented x3 no acute distress Strength is intact bilateral lower extremities Lumbar dressing is clean dry intact with functioning BRITNEY drain Results & Data ([facility]) Vital Signs (Past 12 Hours) Vital Signs Temp Pulse Resp BP Pulse Ox 04/12/21 07:38 36.8 C 64 16 147/66 H 93 04/12/21 03:17 36.9 C 78 18 149/72 H 92 04/11/21 22:57 36.6 C 84 18 159/74 H 92
--- NOTE | 2021-04-12 11:24 | Hospitalist Progress Note ---
Date of Service April 12, 2021 Assessment & Plan (1) Neurogenic claudication due to lumbar spinal stenosis: Plan: This is a 85 yo M with PMhx of HTN, HLD, prediabetes with an A1c of 6.0 in January 2020, asthma, CKD stage III, BPH, LIMA on CPAP who presented for lumbar decompression fusion of L4-L5 by Dr. Cordova on 04/12/2019. POD#1 s/p lumbar decompression fusion of L4-L5 by Dr. Cordova Had an incidental durotomy which was repaired intraoperatively. Ortho okay for a mbulating to sitting today, will work with PT tomorrow Per ortho for pain control, wound care, anticoagulation and activities Monitor H&H (hgb stable at 13.3 today from 13.8 pre-op) - drain removal today Continue incentive spirometry, PT/OT when appropriate (2) Hypertension: Plan: Resume ramipril and lasix 20 mg daily postoperatively Continue triamterene/HCTZ and propranolol (3) Asthma: (4) Sleep apnea: Plan: CPAP HS - can hold for now as pt does not use at home all the time and is requesting not to use it here, as he didn't bring his machine. (5) BPH (benign prostatic hyperplasia): Plan: Cont terazosin postoperatively, held prior to surgery DVT ppx: Teds, scds CODE: Full Dispo: From home, discharge per the primary team Thank you for involving us in the care of Mr. Chaves. Please do not hesitate to call with questions or concerns. At this time medicine service will follow along. Admission and Anticipated Discharge Date Admission Date: April 11, 2021 Supervising Physician Co-Signing Physician Notes I saw this patient with the physician oral surgery assistant, I formulated the assessment and plan personally with the physician oral surgery assistant and went over it with the patient. Physical Exam Gen-AAO x 3, NAD, Afebrile, Obese, Sore Back, Drain in Place Head-NCAT, EOMI, PERRLA, Anicteric Sclera, No Posterior Pharyngeal Erythema Neck-Supple, No JVD, No Thyromegaly, No Masses, No LAD, No Bruits Lungs-Clear to Auscultation Bilaterally, No Rales, No Rhonchi, No Wheezing, No Crepitus Chest-No S4, +S1, +S2, No S3, No Murmurs, No Rubs, No Gallops, No Ectopy Abdomen-Soft, Bowel Sounds Present, Obese, Non Tender, Non Distended, No Hepatomegaly, No Splenomegaly, No Palpable Masses, No Rebound, No Rigidity, No Guarding Musculoskeletal-Full Range of Motion Bilaterally, No CVAT Extremities-No Cyanosis, No Clubbing, No Edema Nuero-Cranial Nerves II-XII grossly intact, Motor WNL, DTRs WNL, Strength WNL, Non Focal Psych-Normal Mood Subjective Patient seen and examined in 384-2. Feeling well today- no surgical site pain or pain/paresthesias in BLE. Had an incidental durotomy which was repaired intraoperatively. Ortho okay for ambulating to sitting today, will work with PT tomorrow. No fever, chills, lightheadedness, CP, SOB, N/V, abdominal pain. Anaya catheter in place. Passing flatus, no post-op bowel movement. Review of Systems Review of Systems: At least ten systems reviewed and negative except as noted in the HPI. Physical Exam Physical Exam: Gen: WD/WN, NAD, lying in bed, A&Ox3 HEENT: Normocephalic, atraumatic, conjunctivae moist, sclerae anicteric, mucous membranes moist Lung: Clear to Auscultation bilaterally, no wheezes/rales/rhonchi Heart: Regular rate, regular rhythm, no murmurs, rubs, or gallops Abdomen: Soft, NT, ND +BS x 4 : Anaya catheter Extremities: BRITNEY drain visualized. No edema Skin: Warm, no rash Results & Data Results & Data ([facility]) Vital Signs (Past 12 Hours) Vital Signs Temp Pulse Resp BP Pulse Ox 04/12/21 07:38 36.8 C 64 16 147/66 H 93 04/12/21 03:17 36.9 C 78 18 149/72 H 92 Laboratory Results Short CBC 04/12/21 Range/Units 06:43 WBC 12.59 H (4.8-10.8) K/uL Hgb 13.3 L (14.0-18.0) g/dL Hct 40.5 L (42-52) % Plt Count 182 (130-400) K/uL BMP 04/12/21 06:43 Sodium 139 Potassium 4.1 Chloride 106 Carbon Dioxide 25 BUN 19 Creatinine 1.26 Glucose 138 H Calcium 7.8 L Diagnostic Findings Lumbar Spine X-Ray 04/11/21 07:45 FL lumbar spine 2-3V CLINICAL HISTORY: L4-L5 DECOMPRESSION AND FUSION COMPARISON STUDY: None FLUOROSCOPY TIME: 24 seconds. FLUOROSCOPIC IMAGES: 2 FINDINGS: The patient is status post L4-5 decompression and fusion. Interpedicular screw and camden fixation is seen from L2 through L5. IMPRESSION: Status post decompression and fusion. ACT 112: Negative or not required by law. Electronically signed by: Bob Manning M.D. 04/11/2021 10:27 AM
[2021-04-12] MEDS: DOCUSATE SODIUM/SENNA 50/8.6MG TAB PO SCH (19:53)
[2021-04-12] MEDS: TERAZOSIN HCL 1 MG CAP PO SCH (19:54)
--- NOTE | 2021-04-12 23:11 | Discharge Summary ---
Date of Service April 12, 2021 Admission HPI Per Admitting Provider This is a 85-year-old male presents for persistent back and leg pain after failing course of nonoperative care is here for surgical invention. Admission Exam Per Admitting Provider Patient is alert and oriented Heart rate and rhythm Lungs clear Principal Diagnosis Neurogenic Claudication due to Lumbar Spinal Stenosis Discharge Exam General: A&Ox3. NAD. Cooperative. Ambulating the halls without pain HEENT: Atraumatic, normocephalic. Pulm: CTAB A&P. -wheezes, -rales, -rhonchi. Symmetrical chest rise. No increase work of breathing. No respiratory distress. Cardiac: RRR, -mrg. Radial pulses intact and symmetrical. No LE edema. Abdominal: soft, non-tender, non-distended, BS x 4 Skin: warm, dry, no rash Discharge Data Allergies Allergy/AdvReac Type Severity Reaction Status Date / Time celecoxib Allergy Severe sob Verified 04/11/21 06:36 NSAIDS (Non-Steroidal Allergy Severe ASTHMA Verified 04/11/21 06:36 Anti-Inflamma ATTACK lactose Allergy Intermediate INDIGESTION Verified 04/11/21 06:36 AND GAS amoxicillin AdvReac Intermediate Rash Verified 04/11/21 06:36 clavulanic acid AdvReac Intermediate SHORTNESS Verified 04/11/21 06:36 OF BREATH Consultations 04/11/21 11:27 Consult Hospitalist Routine Procedures Performed Operation Date: 04/11/21 07:45 Actual Procedures p L4-L5 Decompression Fusion, with Bone Morphogenetic Protein, Application of IFactor Bone Graft, Spinal Cord Monitoring,(Bilateral) - DO danika Blackburn Removal Hardware L4(Bilateral) - DO danika Blackburn repair dural tear,(Bilateral) - Anand Cordova DO Ordered Studies 04/11/21 07:45 FL lumbar spine 2-3V Routine Hospital Course (1) Neurogenic claudication due to lumbar spinal stenosis: (1) Neurogenic claudication due to lumbar spinal stenosis: Plan: This is a 85 yo M with PMhx of HTN, HLD, prediabetes with an A1c of 6.0 in January 2020, asthma, CKD stage III, BPH, LIMA on CPAP who presented for lumbar decompression fusion of L4-L5 by Dr. Cordova on 04/12/2019. POD#1 s/p lumbar decompression fusion of L4-L5 by Dr. Cordova Had an incidental durotomy which was repaired intraoperatively. Ortho okay for ambulating to sitting today, was planning for patient to work with PT tomorrow but he stated on 04/13 that he would like to leave the hospital. He is ambulating appropriately and does not have any pain. He is tolerating PO intake without N/V and able to sleep comfortably. He would like to go home and follow up with Ortho as scheduled. He will be discharged tonight according to his wishes. - f/u with Ortho as outpatient (2) Hypertension: Plan: Resume ramipril and lasix 20 mg daily postoperatively Continue triamterene/HCTZ and propranolol (3) Sleep apnea: Plan: CPAP HS (4) BPH (benign prostatic hyperplasia): Plan: Cont terazosin postoperatively, held prior to surgery Total Time Total Time Spent Total Time Spent (In Minutes): 20 minutes Discharge Plan Discharge Items Patient Disposition: Home - Self-Care Reason For Visit: Spinal Stenosis, Lumbar Region with Neurogenic Cla Discharge Diagnosis: Lumbar spinal stenosis with neurogenic claudication Activity: As commented below Non-emergency contact: Primary Care Provider Call non-emergency contact if: you have any medication questions Follow-up/Referrals: Kamari Lezama MD [Primary Care Provider] - Diet: Regular Addtl Attending Provider Instructions: ACTIVITY RECOMMENDATIONS: SELF CARE INSTRUCTIONS AFTER THORACIC/LUMBAR FUSIONS 1. You may walk to your tolerance. It is good exercise for your legs and back. Expect some back and intermittent leg aches and pains. 2. You may perform "counter-top" level activities (make a sandwich, teresa with a project, etc.). 3. No bending or lifting of more than 10 pounds or back twisting of any nature (roll like a log when turning in bed). 4. You may ride in a car for 20-30 minutes at a time. No driving until after your first visit with your doctor. 5. Frequent changes of position and restricting sitting to 30 minutes at a time will help limit the amount of back spasms and stiffness you may experience. 6. You may discontinue the use of ambulatory aids (cane, crutches, etc.) once your strength and confidence allow. 7. You may machine sander the shower and let water strike your incision when you arrive home at least once daily. Do not take a tub bath, sit in a hot tub or go into a swimming pool until after your first recheck in the office. SPECIAL CARE INSTRUCTIONS: VERY IMPORTANT TO READ AND REVIEW A. Your surgical incision has been closed with a cosmetic suture under the skin that will dissolve in about 6 weeks. In 14 days, you can use a pair of clean scissors and cut the suture that is left outside of the skin at the ends of your incision. 1. The small skin tapes can be removed 7 days after surgery if they have not fallen off by that point. 2. You may keep the wound open to air as much as possible to promote healing after post-op day number 5 unless told otherwise by your doctor. 3. If you think the wound looks like it is becoming infected (redness or worsening drainage) and/or you are experiencing fever, chill or worsening back pain and muscle spasms, contact the office so that we may evaluate you as soon as possible. B. Complications are uncommon, but please contact us if you have any signs or symptoms of: 1. wound infection (fever higher than 102.5 degrees F, redness, separation of wound, drainage, or increasing pain from the incision) 2. blood clots in legs (pain, swelling, redness and warmth in legs) 3. urinary tract infection (fever higher than 102.5 degrees F, burning upon urination or increased frequency of urination) 4. nerve problems (inability to walk on your toes or heels, numbness, loss of bowel or bladder control) 5. any other symptoms that concern you C. Please call the office at if you have any concerns or questions about your operation or recovery. D. No smoking! Smoking drastically decreases the chance of a solid fusion. E. Do not take any anti-inflammatory medications (Indocin, Advil, Motrin, Aspirin, Naprosyn, etc.) as these may inhibit the chance of a solid fusion. Tylenol is okay to take for pain. MANAGING PAIN AFTER SPINAL SURGERY 1. Narcotic medication is intended for short-term use and will be provided for surgical pain. Surgical pain usually lasts for a period of 4-6 weeks. Narcotic medication includes Percocet, Vicodin, Darvocet, Tylenol #3 or Lortab. 2. Longer-term pain is more appropriately treated with non-narcotic medication such as Tylenol ES. 3. Muscle spasm is not appropriately treated with narcotics. Muscle relaxers such as Soma, Flexeril or Skelaxin can be used along with Tylenol ES. 4. Remember that we all live with some "aches and pains". This is not unusual or uncommon after an injury or as we get older. a. Back pain is expected and may include muscle spasms for 4 to 6 weeks after surgery. The pain should gradually improve. If the pain worsens for no apparent reason, please contact the office. b. Intermittent leg pain may also be experienced and should not be concerned about unless it worsens for no apparent reason. If so, please contact the office. 5. We will provide appropriate medication within the normal guidelines of their prescribed use. We will also be very cautious and aware of potential abuse and extended duration of patients' medication needs. a. Pain medications are for your comfort and to assist with sleep and rest so that the tissue can heal. They are not provided in order to return to normal activity and should not be used through the day. To do so or worsening pain at night can result from ongoing tissue damage and development of tolerance to the prescribed medicine. 6. Please allow 2-3 days to process refills. Prescriptions will not be mailed but must be picked up at the office. FOLLOW UP VISIT: Keep your scheduled follow-up appointment. Any questions, please call the office at . Pending Studies at Discharge: No Stand-Alone Forms: My [facility] [employer], Smoking Cessation Medications and DC Order Prescriptions: New oxycodone 5 mg tablet 5 mg PO Q6H PRN (Reason: pain, severe) Qty: 30 RF: 0 tramadol 50 mg tablet 50 mg PO Q6H PRN (Reason: pain, moderate) Qty: 30 RF: 0 Continued furosemide [Lasix] 20 mg tablet 20 mg PO Q2D RF: 0 triamterene-hydrochlorothiazid 37.5-25 mg tablet 1 tab PO Q2D Qty: 45 RF: 3 lorazepam 0.5 mg Tablet 0.5 mg SUBLINGUAL BID PRN (Reason: Anxiety) RF: 0 terazosin 2 mg Capsule 2 mg PO HS RF: 0 albuterol sulfate [Ventolin HFA] 90 mcg/actuation Hfa Aerosol Inhaler 2 puff INHALATION QID PRN (Reason: Shortness Of Breath) RF: 0 ipratropium bromide 42 mcg (0.06 %) Cylinder,Non-Aerosol 2 spray INTRANASAL BID PRN (Reason: Nasal Congestion) RF: 0 fluticasone propionate [Flonase Allergy Relief] 50 mcg/actuation Cylinder,Suspension 1 spray INTRANASAL BID PRN (Reason: Allergy Symptoms) RF: 0 ramipril 10 mg Capsule 10 mg PO QAM RF: 0 duloxetine [Cymbalta] 60 mg Capsule,Delayed Release(Dr/Ec) 60 mg PO QAM RF: 0 Centrum Silver 400-250 mcg Tablet,Chewable 1 tab PO QAM RF: 0 simethicone [Gas-X Extra Strength] 125 mg Tablet,Chewable 125 mg PO BID PRN (Reason: Indigestion) RF: 0 polyethylene glycol 3350 [Miralax] 17 gram/dose Powder 17 g PO DAILY PRN (Reason: Constipation) RF: 0 propranolol 60 mg capsule,extended release 24 hr 60 mg PO QAM RF: 0 Discharge Orders: Discharge Order (Routine); Ordered 04/12/21 Ordered By: Bernardino Perez Admission Data Admit Date/Time: 04/11/21 09:58 Attending Provider: Anand Cordova Admit Provider: Anand Cordova Primary Care Provider: Kamari Lezama Other Providers: Sumit Pandya Resident Activity Tracking Resident Involvement: Resident Care Provided Care Provided: Adult Hospital Medicine
== END 2021-04-12 23:19 | disposition home or self-care (01) | DRG 460 ==
LOC: ASU 06:11 → 3N 09:58
DX: R73.03 Prediabetes; N40.0 Benign prostatic hyperplasia without lower urinary tract symptoms; M48.062 Spinal stenosis, lumbar region with neurogenic claudication; Z20.822 Contact with and (suspected) exposure to COVID-19; Z88.6 Allergy status to analgesic agent; G97.41 Accidental puncture or laceration of dura during a procedure; H81.10 Benign paroxysmal vertigo, unspecified ear; Y92.234 Operating room of hospital as the place of occurrence of the external cause; N18.30 Chronic kidney disease, stage 3 unspecified; G47.33 Obstructive sleep apnea (adult) (pediatric); J45.909 Unspecified asthma, uncomplicated; I12.9 Hypertensive chronic kidney disease with stage 1 through stage 4 chronic kidney disease, or unspecified chronic kidney disease; Z88.8 Allergy status to other drugs, medicaments and biological substances; Z88.1 Allergy status to other antibiotic agents; Z96.651 Presence of right artificial knee joint

== ENCOUNTER 2021-04-25 18:39 | Observation (INO) ==
[2021-04-25 20:23] LABS: Basophils # (auto) 0.02 K/uL (0-0.2); Basophils % (auto) 0.2 %; Eosinophils # (auto) 0.05 K/uL (0-0.5); Eosinophils % (auto) 0.5 %; Hematocrit (blood only) 37.5 % (42-52); Hemoglobin 12.3 g/dL (14.0-18.0); Immature Granulocytes # (auto) 0.03 K/uL (0.00-0.02); Immature Granulocytes % (auto) 0.3 %; Lymphocytes # (auto) 0.88 K/uL (1.2-3.4); Lymphocytes % (auto) 9.2 %; Mean Corpuscular Hemoglobin 32.3 pg (25-34); Mean Corpuscular Hgb Conc 32.8 g/dL (32-36); Mean Corpuscular Volume 98.4 fL (80-100); Mean Platelet Volume 10.1 fL (7.4-10.4); Monocytes % (auto) 7.4 %; Neutrophils # (auto) 7.84 K/uL (1.4-6.5); Neutrophils % (auto) 82.4 %; Platelet Count 386 K/uL (130-400); RDW Coefficient of Variation 13.9 % (11.5-14.5); RDW Standard Deviation 49.9 fL (36.4-46.3); Red Blood Count 3.81 M/uL (4.7-6.1); White Blood Count 9.52 K/uL (4.8-10.8)
[2021-04-25 20:44] LABS: Albumin Globulin Ratio 1.3 (0.9-2); Albumin Level 3.7 gm/dl (3.4-5.0); BUN Creatinine Ratio 19.1 (10-20); Bilirubin,Total 0.4 mg/dl (0.2-1.0); Calcium 8.9 mg/dl (8.5-10.1); Creatinine Clr Calc Pharmacy 44.1 ml/min; Est GFR (African American) 52.6 ml/min; Est GFR (Non-African American) 45.4 ml/min; Globulin 2.8 gm/dl (2.5-4.0); Potassium 4.6 mmol/L (3.5-5.1); Total Protein 6.5 gm/dl (6.0-8.3)
[2021-04-25 21:34] LABS: Appearance Urine Clear (Clear); Bacteria Urine Automated Negative (Negative); Bilirubin Urine Negative (Negative); Blood Urine Trace (Negative); Color Urine Yellow; Epithelial Cell Urine Auto >30 /lpf (0-5); Glucose Urine UA Negative (Negative); Ketones Urine Negative (Negative); Leukocyte Esterase Urine 1+ (Negative); Nitrite Urine Negative (Negative); Protein Urine Negative (Negative); Specific Gravity Urine 1.016 (1.000-1.030); Urobilinogen Urine Negative (Negative)
[2021-04-25 21:42] LABS: Mucus Urine Present (None Prsent)
[2021-04-25] MEDS ORDERED: GADOBUTROL 65ML VIAL IV ONE (22:26)
[2021-04-25] MEDS ORDERED: VANCOMYCIN HCL 1,750 MG in SODIUM CHLORIDE 0.9% 500 ML IV ONE (23:42)
[2021-04-25] MEDS ORDERED: VANCOMYCIN CONSULT ACTIVE PRN (23:42)
--- NOTE | 2021-04-26 01:33 | Emergency Department Note ---
History of Present Illness General Chief Complaint: Illness Stated Complaint: SHAKING UNCONTROLLABLY Time Seen by Provider: 04/25/21 20:54 History of Present Illness Provider Complaint: back pain Onset (ago): week(s) 2 Duration: progressively worsening Location: lumbar spine Quality: + burning and + sharp Radiation: none Severity: moderate Relieved By: + none Exacerbated By: + none Context: + other (Recent back surgery by Dr. Cordova 2 weeks ago); no while lifting, no turning/twisting, no trauma or no IV drug use Associated symptoms: + increased urinary urgency, + urinary incontinence, + fever, + chills and + dysuria; no weakness, no fatigue, no syncope, no numbness, no difficulty walking, no loss of sensation in lower extremities, no increased urinary frequency, no fecal incontinence, no a change in bowel habits, no abdominal pain, no hematuria, no parasthesias or no arthralgias Patient reports that he was put on a antibiotic by his [facility] PCP for UTI. Home Medications Medication Instructions Recorded Confirmed Type albuterol sulfate 90 mcg/actuation 2 puff INHALATION QID PRN 09/08/18 04/25/21 History aerosol inhaler (Ventolin HFA) duloxetine 60 mg capsule,delayed 60 mg PO QAM 09/08/18 04/25/21 History release (Cymbalta) fluticasone propionate 50 1 spray INTRANASAL BID PRN 09/08/18 04/25/21 History mcg/actuation nasal spray,suspension (Flonase Allergy Relief) ipratropium bromide 42 mcg (0.06 2 spray INTRANASAL BID PRN 09/08/18 04/25/21 History %) nasal spray lorazepam 0.5 mg tablet 0.5 mg SUBLINGUAL BID PRN 09/08/18 04/25/21 History multivit with min-folic 1 tab PO QAM 09/08/18 04/25/21 History acid-lutein 400 mcg-250 mcg chewable tablet (Centrum Silver) ramipril 10 mg capsule 10 mg PO QAM 09/08/18 04/25/21 History terazosin 2 mg capsule 2 mg PO HS 09/08/18 04/25/21 History polyethylene glycol 3350 17 17 g PO DAILY PRN 01/25/19 04/25/21 History gram/dose oral powder (Miralax) propranolol 60 mg capsule,24 60 mg PO QAM 01/25/19 04/25/21 History hr,extended release simethicone 125 mg chewable tablet 125 mg PO BID PRN 01/25/19 04/25/21 History (Gas-X Extra Strength) furosemide 20 mg tablet (Lasix) 20 mg PO Q2D tab 06/10/19 04/25/21 History triamterene 37.5 1 tab PO Q2D #45 tab 07/10/20 04/25/21 Rx mg-hydrochlorothiazide 25 mg tablet oxycodone 5 mg tablet 5 mg PO Q6H PRN #30 tab 04/11/21 04/25/21 Rx tramadol 50 mg tablet 50 mg PO Q6H PRN #30 tab 04/11/21 04/25/21 Rx Allergies Allergy/AdvReac Type Severity Reaction Status Date / Time celecoxib Allergy Severe sob Verified 04/25/21 21:27 NSAIDS (Non-Steroidal Allergy Severe ASTHMA Verified 04/25/21 21:27 Anti-Inflamma ATTACK lactose Allergy Intermediate INDIGESTION Verified 04/25/21 21:27 AND GAS amoxicillin AdvReac Intermediate Rash Verified 04/25/21 21:27 clavulanic acid AdvReac Intermediate SHORTNESS Verified 04/25/21 21:27 OF BREATH Past Med/Surg History Medical History Abnormal EKG EKG 03/12/21 done at [facility] showed septal infarct-- referred to Dr. Ellis. Asthma No recent issues. 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 seizure- PCP feels vasovagal reaction. Pt states he had no precipitating symptoms- this was different from chronic ongoing dizziness symptoms Surgical History History of cardiac cath 02/06/2000 - No CAD History of cataract surgery 10/26/2018. 60mg propofol. no issues. 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 Beliefs That Will Affect Care: None Current Living Situation: Spouse Feels Safe at Home: Yes Assistive Devices: Cane Review of Systems A total of 10 systems reviewed and were otherwise negative Physical Exam Vital Signs Vital Signs - 24 hr 04/25/21 18:58 04/25/21 19:04 04/25/21 20:40 Temperature 37.8 C H Temperature Source Oral Pulse Rate 83 Pulse Rate [Left Radial] 78 Pulse Rhythm [Left Radial] Pulse Strength [Left Radial] Respiratory Rate 18 20 Respiratory Effort / Characteristics Respiratory Depth Normal Blood Pressure 146/69 H Blood Pressure [Left Arm] Blood Pressure Mean 94 Blood Pressure Mean [Left Arm] Blood Pressure Position Sitting Blood Pressure Position [Left Arm] Pulse Oximetry 96 96 95 Oxygen Delivery Method Room Air Room Air Sepsis Recent Fever Within 48 Hours Yes Sepsis New/Unexplained Change in Mental Status N/A Sepsis Action Taken by Nursing No Action Required 04/25/21 22:00 04/26/21 00:06 Temperature Temperature Source Pulse Rate Pulse Rate [Left Radial] 60 61 Pulse Rhythm [Left Radial] Regular Pulse Strength [Left Radial] Normal Respiratory Rate 20 20 Respiratory Effort / Characteristics Non-Labored Respiratory Depth Normal Blood Pressure Blood Pressure [Left Arm] 105/46 L 114/58 L Blood Pressure Mean Blood Pressure Mean [Left Arm] 65 76 Blood Pressure Position Blood Pressure Position [Left Arm] Lying Sitting Pulse Oximetry 97 100 Oxygen Delivery Method Room Air Sepsis Recent Fever Within 48 Hours Sepsis New/Unexplained Change in Mental Status Sepsis Action Taken by Nursing Physical Exam GENERAL: He is oriented to person, place, and time. He appears well-developed and well-nourished. He does not appear distressed. HENT: Exam performed. - Head: Normocephalic and atraumatic. - Right Ear: External ear normal. No mastoid tenderness. - Left Ear: External ear normal. No mastoid tenderness. - Mouth/Throat: The oropharynx is clear and moist. No trismus in the jaw. No dental abscesses or uvula swelling. No oropharyngeal exudate or tonsillar abscesses. EYES: Conjunctivae and EOM are normal. Pupils are equal, round, and reactive to light. Right eye exhibits no discharge. Left eye exhibits no discharge. No scleral icterus. NECK: Normal range of motion. Neck supple. No JVD present. No spinous process tenderness present. No carotid bruit present. No rigidity. No tracheal deviation and normal range of motion present. No Brudzinski's sign and no Kernig's sign noted. CV: Normal rate, regular rhythm, normal heart sounds and intact distal pulses. There is no peripheral edema. Palpable radial pulses bue. PULM/CHEST: Effort normal and breath sounds normal. No respiratory distress. No stridor. He has no wheezes. He has no rales. - Chest Wall: He exhibits no tenderness. ABD: The abdomen is soft. Bowel sounds are normal. He has no distension. No mass is present. There is no tenderness. There is no rebound, no guarding, no Choudhary's sign and no tenderness at McBurney's point. Rovsig negative. No CVA tenderness bilaterally. MUSC/SKEL: Normal range of motion. There is no peripheral edema, tenderness or deformity. LYMPH: No cervical adenopathy. NEURO: He is alert and oriented to person, place, and time. He has normal strength. No cranial nerve deficit or sensory deficit. Coordination and gait normal. GCS eye subscore is 4. GCS verbal subscore is 5. GCS motor subscore is 6. Cerebellar tests wnl. No saddle anesthesia or paresthesias. SKIN: Surgical incision over the lumbar area appears clean and dry with no surrounding erythema or discharge. PSYCH: He has a normal mood and affect. Behavior is normal. Judgment and thought content normal. Course Course 2053: The patient was evaluated in room B5. A complete history and physical exam was performed Cardiac monitoring: An order was placed for continuous cardiac monitoring. The monitor shows a rate of 60 with sinus rhythm EMR reviewed.Patient had surgery done by April 11, [address] Cordova over his L4-L5 area. Given the patient's reported history of fevers, urinary incontinence, will obtain MRI as well as CT of the abdomen to rule out any kidney stones/pyelonephritis 2340: Vital signs stable. Labs within normal limits. Urinalysis does not show any evidence of UTI. CT of the abdomen does not show any kidney stone or hydronephrosis there is mild thickening of the bladder. MRI of the lumbar spine shows a nonspecific right posterior paraspinal fluid collection measuring 6.6 x 3.2 x 2 cm which may be postoperative, infectious fluid collection is also possible. There is also smaller superficial fluid collection underlying skin christopher which is most likely postoperative. Broad-based disc bulge L4-L5 affecting the ventral sac resulting in moderate spinal canal stenosis. No abnormal marrow edema or enhancement. I did discuss the MRI results verbatim with Wilma Gibbs on-call for Dr. Cordova. She states is most likely a postop seroma. She recommends admit to medicine n.p.o. and to give the patient dose of IV antibiotics vancomycin. [facility] Hospitalist team will be contacted. Patient is in agreement with the plan. Administered Medications Vancomycin HCl 1,750 mg/ (Sodium Chloride) 535 mls @ 200 mls/hr IV NOW ONE Stop: 04/26/21 02:22 Last Admin: 04/26/21 00:29 Dose: 200 mls/hr Documented by: [id number] Discontinued Medications Gadobutrol (Gadobutrol 65ml Vial) 9 ml IV ONCE ONE Stop: 04/25/21 22:27 Last Admin: 04/25/21 22:26 Dose: 9 ml Documented by: [id number] Medical Decision Making Laboratory Data Result diagrams: 04/25/21 19:52 04/25/21 19:52 Lab Results 04/25/21 04/25/21 04/25/21 Range/Units 19:52 19:52 21:18 WBC 9.52 (4.8-10.8) K/uL RBC 3.81 L (4.7-6.1) M/uL Hgb 12.3 L (14.0-18.0) g/dL Hct 37.5 L (42-52) % MCV 98.4 (80-100) fL MCH 32.3 (25-34) pg MCHC 32.8 (32-36) g/dL RDW Std Deviation 49.9 H (36.4-46.3) fL RDW Coeff of Mimi 13.9 (11.5-14.5) % Plt Count 386 (130-400) K/uL MPV 10.1 (7.4-10.4) fL Immature Gran % (Auto) 0.3 % Neut % (Auto) 82.4 % Lymph % (Auto) 9.2 % Grayson % (Auto) 7.4 % Eos % (Auto) 0.5 % Baso % (Auto) 0.2 % Neut # (Auto) 7.84 H (1.4-6.5) K/uL Lymph # (Auto) 0.88 L (1.2-3.4) K/uL Grayson # (Auto) 0.70 H (0.11-0.59) K/uL Eos # (Auto) 0.05 (0-0.5) K/uL Baso # (Auto) 0.02 (0-0.2) K/uL Immature Gran # (Auto) 0.03 H (0.00-0.02) K/uL Sodium 135 L (136-145) mmol/L Potassium 4.6 (3.5-5.1) mmol/L Chloride 101 (98-107) mmol/L Carbon Dioxide 26 (21-32) mmol/L Anion Gap 8 (3-11) BUN 27 H (6-23) mg/dl Creatinine 1.41 H (0.6-1.4) mg/dl Est Cr Clr Drug Dosing 44.1 ml/min Est GFR ( Amer) 52.6 ml/min Est GFR (Non-Af Amer) 45.4 ml/min BUN/Creatinine Ratio 19.1 (10-20) Glucose 134 H (70-99(Fasting)) mg/dl Calcium 8.9 (8.5-10.1) mg/dl Total Bilirubin 0.4 (0.2-1.0) mg/dl AST 35 (13-39) U/L ALT 51 (7-52) U/L Alkaline Phosphatase 126 H (34-104) U/L Total Protein 6.5 (6.0-8.3) gm/dl Albumin 3.7 (3.4-5.0) gm/dl Globulin 2.8 (2.5-4.0) gm/dl Albumin/Globulin Ratio 1.3 (0.9-2) Urine Color Yellow Urine Appearance Clear (Clear) Urine pH 5.0 (4.5-7.5) Ur Specific Maxwell 1.016 (1.000-1.030) Urine Protein Negative (Negative) Urine Glucose (UA) Negative (Negative) Urine Ketones Negative (Negative) Urine Blood Trace H (Negative) Urine Nitrite Negative (Negative) Urine Bilirubin Negative (Negative) Urine Urobilinogen Negative (Negative) Ur Leukocyte Esterase 1+ H (Negative) Urine WBC (Auto) 10-30 H (0-5) /hpf Urine RBC (Auto) 10-30 H (0-4) /hpf U Hyaline Cast (Auto) 5-10 H (0-5) /lpf U Epithel Cells (Auto) >30 H (0-5) /lpf Urine Bacteria (Auto) Negative (Negative) Urine Mucus Present A (None Prsent) SARS-CoV-2, RNA, NAAT (NEGATIVE) 04/26/21 Range/Units 00:08 WBC (4.8-10.8) K/uL RBC (4.7-6.1) M/uL Hgb (14.0-18.0) g/dL Hct (42-52) % MCV (80-100) fL MCH (25-34) pg MCHC (32-36) g/dL RDW Std Deviation (36.4-46.3) fL RDW Coeff of Mimi (11.5-14.5) % Plt Count (130-400) K/uL MPV (7.4-10.4) fL Immature Gran % (Auto) % Neut % (Auto) % Lymph % (Auto) % Grayson % (Auto) % Eos % (Auto) % Baso % (Auto) % Neut # (Auto) (1.4-6.5) K/uL Lymph # (Auto) (1.2-3.4) K/uL Grayson # (Auto) (0.11-0.59) K/uL Eos # (Auto) (0-0.5) K/uL Baso # (Auto) (0-0.2) K/uL Immature Gran # (Auto) (0.00-0.02) K/uL Sodium (136-145) mmol/L Potassium (3.5-5.1) mmol/L Chloride (98-107) mmol/L Carbon Dioxide (21-32) mmol/L Anion Gap (3-11) BUN (6-23) mg/dl Creatinine (0.6-1.4) mg/dl Est Cr Clr Drug Dosing ml/min Est GFR ( Amer) ml/min Est GFR (Non-Af Amer) ml/min BUN/Creatinine Ratio (10-20) Glucose (70-99(Fasting)) mg/dl Calcium (8.5-10.1) mg/dl Total Bilirubin (0.2-1.0) mg/dl AST (13-39) U/L ALT (7-52) U/L Alkaline Phosphatase (34-104) U/L Total Protein (6.0-8.3) gm/dl Albumin (3.4-5.0) gm/dl Globulin (2.5-4.0) gm/dl Albumin/Globulin Ratio (0.9-2) Urine Color Urine Appearance (Clear) Urine pH (4.5-7.5) Ur Specific Maxwell (1.000-1.030) Urine Protein (Negative) Urine Glucose (UA) (Negative) Urine Ketones (Negative) Urine Blood (Negative) Urine Nitrite (Negative) Urine Bilirubin (Negative) Urine Urobilinogen (Negative) Ur Leukocyte Esterase (Negative) Urine WBC (Auto) (0-5) /hpf Urine RBC (Auto) (0-4) /hpf U Hyaline Cast (Auto) (0-5) /lpf U Epithel Cells (Auto) (0-5) /lpf Urine Bacteria (Auto) (Negative) Urine Mucus (None Prsent) SARS-CoV-2, RNA, NAAT NEGATIVE (NEGATIVE) Imaging Data Radiologist's Impression: PreliminaryFindingsOnly See Final Report For Complete Findings MRI L SPINE : Nonspecific right posterior paraspinal fluid collection measuring 6.6 x 3.2 x 2.0 cm, which maybe postoperative. Infectious fluid collection is also possible in the appropriate clinical context. There is also a smaller superficial fluid collection underlying the skin stapleswhich is most likely postoperative. Broad- based disc bulge of L4-5 effacing the ventral thecal sac resulting in moderate spinal canal stenosiswith an AP diameter of the thecal sac measuring 7 mm. Right central T12-L1 disc protrusion mildlynarrows the right side of the thecal sac in AP diameter measuring 11 mm. Additional disc bulges throughout the lumbar spine resulting in mild spinal canal narrowing. Susceptibilityartifact frommetal hardware largelylimits evaluation of the neural foramen. Though, there is likelysevere foraminal stenosis at the L4-5 level. No abnormal marrowedema or enhancement. Radiologist: Nj Bradford MD Study ready at 22:45 and initial results transmitted at 23:31 PreliminaryFindingsOnly See Final Report For Complete Findings CT ABDOMEN & PELVIS Without Contrast: No radiopaque kidneystone or hydronephrosis. Nonspecific mild thickening of the bladder can be seen in setting of infection, inflammation, or muscular hypertrophyfromchronic bladder outlet obstruction. Colonic diverticulosis. Surgicallyabsent gallbladder. Mild atrophyof the kidneys. Normal appendix. Postsurgical changes of posterior thoracolumbar fusion. Radiologist: Nj Bradford MD Study ready at 22:04 and initial results transmitted at 22:10 [facility] Narrative 2053: The patient was evaluated in room B5. A complete history and physical exam was performed Cardiac monitoring: An order was placed for continuous cardiac monitoring. The monitor shows a rate of 60 with sinus rhythm EMR reviewed.Patient had surgery done by April 11, [address] Cordova over his L4-L5 area. Given the patient's reported history of fevers, urinary incontinence, will obtain MRI as well as CT of the abdomen to rule out any kidney stones/pyelonephritis 2340: Vital signs stable. Labs within normal limits. Urinalysis does not show any evidence of UTI. CT of the abdomen does not show any kidney stone or hydronephrosis there is mild thickening of the bladder. MRI of the lumbar spine shows a nonspecific right posterior paraspinal fluid collection measuring 6.6 x 3.2 x 2 cm which may be postoperative, infectious fluid collection is also possible. There is also smaller superficial fluid collection underlying skin christopher which is most likely postoperative. Broad-based disc bulge L4-L5 affecting the ventral sac resulting in moderate spinal canal stenosis. No abnormal marrow edema or enhancement. I did discuss the MRI results verbatim with Wilma Gibbs on-call for Dr. Cordova. She states is most likely a postop seroma. She recommends admit to medicine n.p.o. and to give the patient dose of IV antibiotics vancomycin. [facility] hospitalist team will be contacted. Patient is in agreement with the plan. Impression & Plan Postoperative seroma Discharge Plan Visit Data Chief Complaint: Illness Stated Complaint: SHAKING UNCONTROLLABLY Discharge Problem: Postoperative seroma Patient Disposition: Admitted As Inpatient Forms Stand Alone Forms: Replaced By [facility] Prescriptions Prescriptions: No Action furosemide [Lasix] 20 mg tablet 20 mg PO Q2D RF: 0 triamterene-hydrochlorothiazid 37.5-25 mg tablet 1 tab PO Q2D Qty: 45 RF: 3 lorazepam 0.5 mg Tablet 0.5 mg SUBLINGUAL BID PRN (Reason: Anxiety) RF: 0 terazosin 2 mg Capsule 2 mg PO HS RF: 0 albuterol sulfate [Ventolin HFA] 90 mcg/actuation Hfa Aerosol Inhaler 2 puff INHALATION QID PRN (Reason: Shortness Of Breath) RF: 0 ipratropium bromide 42 mcg (0.06 %) [place],Non-Aerosol 2 spray INTRANASAL BID PRN (Reason: Nasal Congestion) RF: 0 fluticasone propionate [Flonase Allergy Relief] 50 mcg/actuation [place],Suspension 1 spray INTRANASAL BID PRN (Reason: Allergy Symptoms) RF: 0 ramipril 10 mg Capsule 10 mg PO QAM RF: 0 duloxetine [Cymbalta] 60 mg Capsule,Delayed Release(Dr/Ec) 60 mg PO QAM RF: 0 Centrum Silver 400-250 mcg Tablet,Chewable 1 tab PO QAM RF: 0 simethicone [Gas-X Extra Strength] 125 mg Tablet,Chewable 125 mg PO BID PRN (Reason: Indigestion) RF: 0 polyethylene glycol 3350 [Miralax] 17 gram/dose Powder 17 g PO DAILY PRN (Reason: Constipation) RF: 0 propranolol 60 mg capsule,extended release 24 hr 60 mg PO QAM RF: 0 oxycodone 5 mg tablet 5 mg PO Q6H PRN (Reason: pain, severe) Qty: 30 RF: 0 tramadol 50 mg tablet 50 mg PO Q6H PRN (Reason: pain, moderate) Qty: 30 RF: 0 Referrals Referrals: Kamari Lezama MD [Primary Care Provider] -
[2021-04-26] MEDS ORDERED: SIMETHICONE 80 MG CHEW PO PRN (02:56)
[2021-04-26] MEDS ORDERED: LORazepam 0.5 MG TAB SL PRN (02:56)
[2021-04-26] MEDS ORDERED: FLUTICASONE PROPIONATE NA SPR 16 GM BTL PRN (02:56)
[2021-04-26] MEDS ORDERED: traMADol HCL 50 MG TABLET PO PRN (02:56)
[2021-04-26] MEDS ORDERED: ALBUTEROL HFA 8 GM INHALER INH PRN (02:56)
[2021-04-26] MEDS ORDERED: oxyCODONE HCL IR 5 MG TAB (IMMEDIATE RELEASE) PO PRN (02:56)
[2021-04-26] MEDS ORDERED: IPRATROPIUM BROMIDE NASAL SPRAY 0.06% 15ML PRN (02:56)
[2021-04-26] MEDS ORDERED: ONDANSETRON INJ 2 MG/ML 2 ML VIAL IV PRN (02:56)
[2021-04-26] MEDS ORDERED: ACETAMINOPHEN 325 MG TAB PO PRN (02:56)
[2021-04-26] MEDS: SODIUM CHLORIDE 0.9% 1000ML 1,000 ML IV SCH ×2 (03:27→16:03)
[2021-04-26] MEDS: cefTRIAXone SODIUM 2,000 MG in DEXTROSE 5% 50 ML IV SCH (04:51)
--- NOTE | 2021-04-26 05:23 | History and Physical Report ---
DATE OF ADMISSION: 04/26/2021. CHIEF COMPLAINT: Illness. 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 The patient says since last 3 days, he has had three episodes of chills and cold and he was recently also thought to have a UTI because he was having burning micturition and was started on Cipro. He took two doses of Cipro and burning micturition resolved. Denies any fevers and today there was a lot of chills, that is why he was brought to the hospital. Imaging studies, MRI scan on the preliminary report shows paraspinal fluid collection measuring 6.6 x 3.2 x 2 cm, infectious process or postoperative collection. The patient says he is having loss of appetite, not eating much, not feeling well, feeling weak, ambulating okay. Has back pain post surgery. Denies any headache, no dizziness, no blurred visions, no earache, no runny nose, no sore throat, no cough, no difficulty swallowing. No chest pain. Shortness of breath is at baseline. No nausea, no vomiting, no abdominal pain. Normal bowel and bladder movements. Currently resting comfortably and hemodynamically stable. ALLERGIES: CELECOXIB, NSAIDS, LACTULOSE, AMOXICILLIN, AND CLAVULANIC ACID. PAST MEDICAL HISTORY: As mentioned above. PAST SURGICAL HISTORY: Right knee arthroplasty, colonoscopy, EGDs, right knee arthroscopy, lumbar laminectomy, melanoma removed from the chest, left posterior tibial tendon repair, nose polyp excision, tonsillectomy, adenoidectomy, cholecystectomy, right shoulder arthroscopy, left shoulder arthroscopy, spinal fusion lumbar combined surgery. MEDICATIONS: The patient is on albuterol 2 puffs inhalation q.i.d. p.r.n., Centrum Silver 1 tablet p.o. daily, Cymbalta 60 mg p.o. a.m., Flonase 1 spray intranasal b.i.d. p.r.n., Lasix 20 mg p.o. q. 2 days, ipratropium bromide 2 sprays intranasal b.i.d. p.r.n., Ativan 0.5 mg sublingual b.i.d. p.r.n., oxycodone 5 mg p.o. q. 6 hours p.r.n., MiraLax 17 g p.o. daily p.r.n., propranolol 60 mg p.o. a.m., ramipril 10 mg p.o. a.m., terazosin 2 mg p.o. at bedtime, tramadol 50 mg q. 6 hours p.r.n. pain, triamterene/hydrochlorothiazide 37.5/25 mg 1 tablet p.o. q. 2 days. FAMILY HISTORY: Significant for aunt has diabetes; father has stomach ulcers, CHF, COPD; mother has stroke, lung disorder, hypertension, gastrointestinal disorder. SOCIAL HISTORY: . No smoking. Alcohol, occasional wine with meals. No drug use. REVIEW OF SYSTEMS: As per HPI. Rest of review of systems is negative. PHYSICAL EXAMINATION: GENERAL: The patient is of moderate build, not in acute distress. VITAL SIGNS: Temperature 36.8, pulse 57, respiratory rate 20, blood pressure 118/54, oxygen 100% on room air. HEENT: Pupils equal, round and reactive to light. Oral mucosa moist. NECK: No JVD, no neck masses. CARDIOVASCULAR: S1 and S2 heard. Regular rate and rhythm. No murmur, no gallop. RESPIRATORY SYSTEM: Normal AP diameter. No accessory muscle use. No wheezing, no crackles. ABDOMEN: Soft, bowel sounds present, nontender, no distention. CENTRAL NERVOUS SYSTEM: Alert and oriented. Speech is clear. No facial droop. Obeys simple commands. Moves extremities. MUSCULOSKELETAL: Status post back surgery. Surgical site is clean. No erythema, no drainage seen. EXTREMITIES: No edema, no erythema. LABORATORY DATA: WBC 9.5, hemoglobin 12.3, hematocrit 37.5, platelets 386. Sodium 135, potassium 4.6, chloride 101, bicarbonate 26, BUN 27, creatinine 1.4, serum glucose 134, calcium 8.9, total bilirubin 0.4, AST 35, ALT 51, alkaline phosphatase 126. Urinalysis, +1 leukocyte esterase. SARS-CoV-2 RNA, rapid test negative. IMAGING DATA: Lumbar spine MRI preliminary report shows nonspecific right posterior paraspinal fluid collection measuring 6.6 x 3.2 x 2 cm, which may be postoperative. Infectious fluid collection is also possible in the appropriate clinical context. There are similar superficial fluid collections underlying christopher most likely postoperative. CT of the abdomen and pelvis without contrast, preliminary report, nonspecific mild thickening of the bladder can be seen in the setting of infection, inflammation or muscular hypertrophy from chronic bladder outlet obstruction. Chest x-ray, no acute findings. EKG: Normal sinus rhythm at a rate of 65, no acute ST changes seen. ASSESSMENT AND PLAN: This is an 85-year-old male who recently had back surgery, presents with not feeling well. 1. Illness, fevers, chills: The patient is having chills and feeling cold for the last 3 days. Also has urinary tract infection, getting treated with Cipro. His urinary symptoms are improved, but still having chills. Imaging study of back s showing fluid collection, possibly postoperative versus infectious. 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 Received IV vancomycin, continue IV vancomycin. Will keep n.p.o.Ortho consult in the a.m. Will monitor in the medical floor. Gentle fluids. Will keep him n.p.o. 2. Possible urinary tract infection: Was getting Cipro at home. Symptoms are improving. Will place him on Rocephin while in the hospital. 3. History of tremors: On propranolol. 4. History of hypertension: Continue propranolol, ramipril, terazosin, triamterene/hydrochlorothiazide. Will monitor his blood pressure. 5. Obstructive sleep apnea: On BiPAP at bedtime. 6. Benign prostatic hyperplasia: On terazosin. 7. Prediabetes: Will follow the blood sugars, follow HbA1c levels. 8. Deep venous thrombosis prophylaxis: Sequential compression devices for now. DISPOSITION: Monitor in the medical floor. Level 1 full code. Expect to discharge home and follow with family doctor. Job ID: [id number] [facility]
[2021-04-26 07:29] LABS: Basophils # (auto) 0.02 K/uL (0-0.2); Basophils % (auto) 0.3 %; Eosinophils % (auto) 1.4 %; Hematocrit (blood only) 34.1 % (42-52); Hemoglobin 11.3 g/dL (14.0-18.0); Immature Granulocytes # (auto) 0.01 K/uL (0.00-0.02); Immature Granulocytes % (auto) 0.1 %; Lymphocytes # (auto) 1.07 K/uL (1.2-3.4); Lymphocytes % (auto) 14.5 %; Mean Corpuscular Hemoglobin 32.5 pg (25-34); Mean Corpuscular Hgb Conc 33.1 g/dL (32-36); Mean Platelet Volume 9.8 fL (7.4-10.4); Monocytes # (auto) 1.04 K/uL (0.11-0.59); Monocytes % (auto) 14.1 %; Neutrophils # (auto) 5.15 K/uL (1.4-6.5); Neutrophils % (auto) 69.6 %; Platelet Count 321 K/uL (130-400); RDW Coefficient of Variation 13.8 % (11.5-14.5); RDW Standard Deviation 49.7 fL (36.4-46.3); Red Blood Count 3.48 M/uL (4.7-6.1); White Blood Count 7.39 K/uL (4.8-10.8)
[2021-04-26 08:02] LABS: BUN Creatinine Ratio 17.7 (10-20); Calcium 8.4 mg/dl (8.5-10.1); Creatinine Clr Calc Pharmacy 44.1 ml/min; Est GFR (African American) 52.6 ml/min; Est GFR (Non-African American) 45.4 ml/min
--- NOTE | 2021-04-26 08:15 | Pharmacy Report ---
Pharmacy Vanc AUC Short Note - Date of Service April 26, 2021 - Assessment & Plan Assessment 85 year old M receiving IV Vancomycin + Ceftriaxone for treatment of possible post-op seromna/infection. S/P lumbar fusion 04/11/21. Pertinent microbiologic data includes: urine culture pending, WBC normal, afebrile today, febrile 3 Day # 2 of antimicrobial therapy. Plan Vancomycin * AUC/RADHA is the preferred PK/PD target for vancomycin * AUC guided dosing is effective and associated with decreased risk of nephrotoxicity compared to traditional trough targets * Vancomycin dose of 1250 mg IV every 24 hours predicts trough level of 17.9 mcg/mL and to achieve target AUC/RADHA of 400-600 mg/L.hr and may be associated with a 14 % risk of nephrotoxicity * Trough level ordered for: 04/28/21 Ceftriaxone 2g IV Q24H for Wt > 80KG Pharmacy will continue to follow and will adjust dose/frequency as necessary. Thank you.
--- NOTE | 2021-04-26 08:59 | XRay Report ---
XR chest 1V portable CLINICAL HISTORY: Fever TECHNIQUE: Single frontal radiograph of the chest was obtained. Comparison: Comparison is made to chest one view 05/16/2016 FINDINGS: No lines and tubes are seen. The cardiomediastinal silhouette is normal. The lungs are clear. No evid ence of pleural effusion or pneumothorax. IMPRESSION: No acute chest disease. ACT 112: Negative or not required by law. Electronically signed by: Alfredo Leblanc M.D. 04/26/2021 8:57 AM
--- NOTE | 2021-04-26 08:59 | CT Scan Report ---
CT abd pelvis wo con CLINICAL HISTORY: dysuria hematuria TECHNIQUE: Helical axial images of the abdomen and pelvis were obtained. Automated dose lowering tech niques and/or adjustment according to patient size were utilized for this exam. This exam was perfor med without intravenous contrast. COMPARISON: Comparison is made to CT pelvis November 06, 1980 FINDINGS: Lower chest: No acute abnormality Liver: Unremarkable. No focal lesions are seen. Gallbladder and biliary tree: Patient is status post cholecystectomy. No intra- or extrahepatic bilia ry ductal dilation. Pancreas: Unremarkable, no focal lesions. Spleen: Unremarkable. Adrenals: Unremarkable. Kidneys and ureters: Nonobstructive nephrolithiasis is seen. Bladder: Limited evaluation due to underdistention. Within these limits, the wall appears mildly prom inent. Reproductive organs: Prostatic calcifications are seen which may represent prior hemorrhage or granul omatous disease. Bowel: Diverticulosis is seen without evidence of diverticulitis. The appendix is normal. Lymph nodes Retroperitoneal: Unremarkable. Mesenteric: Unremarkable. Pelvic: Unremarkable. Peritoneum: Normal. Vessels: Unremarkable. Abdominal wall: A fat-containing umbilical hernia is seen. Bones: Posterior fixation hardware is seen. Degenerative changes are seen. IMPRESSION: Minimal prominence of the bladder wall may be secondary to underdistention, clinical correlation for cystitis in the ACT 112: Negative or not required by law. Electronically signed by: Alfredo Leblanc M.D. 04/26/2021 8:57 AM
[2021-04-26] MEDS ORDERED: FUROSEMIDE 20 MG TAB PO SCH (09:00)
[2021-04-26] MEDS ORDERED: TRIAMTERENE/HCTZ 37.5/25MG TAB PO SCH (09:00)
--- NOTE | 2021-04-26 09:15 | Magnetic Resonance Report ---
MR lumbar spine wo/w con CLINICAL HISTORY: recent back surgery urinary incontinence TECHNIQUE: 3 plane localizer images, sagittal T2, sagittal T1, sagittal STIR, axial T1, axial T2 familia g with postcontrast axial T1 and sagittal T1 fat-saturated sequences were obtained of the lumbar spin e, before and after intravenous administration of 12 mL of MultiHance. Comparison: Comparison is made to MRI lumbar spine 09/05/2020 FINDINGS: The alignment is anatomical. Multilevel degenerative changes are seen in the discs. Patient is statu s post posterior fixation and decompression spanning L1-L5. Additional hardware is seen extending to T11. Resulting susceptibility artifact limits the sensitivity of this exam. L1-L2: Redemonstration of right sided focal disc bulge with resulting right neural foraminal stenosis . L2-L3: Focal disc bulge without significant neural foraminal or canal stenosis. L3-L4: Broad-based disc bulge without significant stenosis. L4-L5: Broad-based disc bulge is seen effacing the ventral thecal sac, moderate canal stenosis with a n AP diameter of 7 mm. L5-S1: No significant abnormality. The spinal ligaments are intact, without evidence of disruption or abnormal signal intensity. The spi nal cord is normal in signal intensity and there is no evidence of cord contusion. There is no eviden ce of an extradural, intradural, extramedullary or intramedullary lesion. There is a 6.6 x 3.2 x 2.0 cm paraspinal fluid collection, new from prior exam. There is a smaller superficial fluid collection underlying skin christopher which is likely postoperative. No significant enhancement is seen. IMPRESSION: 1. Limited exam due to susceptibility artifact. Fluid collections are seen as above. These do not en arcenio and are favored to represent noninfectious postoperative collections. 2. Degenerative changes as above with right neural foraminal stenosis at L1-L2 and moderate canal st enosis at L4-L5. ACT 112: Negative or not required by law. Electronically signed by: Alfredo Leblanc M.D. 04/26/2021 9:14 AM
[2021-04-26] MEDS: ENALAPRIL MALEATE 10 MG TAB PO SCH (09:21)
[2021-04-26] MEDS: CEROVITE ADV FORMULA TAB PO SCH (09:21)
[2021-04-26] MEDS: PROPRANOLOL HCL 60 MG LA CAP PO SCH (09:21)
[2021-04-26] MEDS: DULoxetine HCL 60 MG CAP PO SCH (09:21)
[2021-04-26] MEDS: VANCOMYCIN HCL 1,250 MG in SODIUM CHLORIDE 0.9% 250 ML IV SCH (12:46)
--- NOTE | 2021-04-26 13:15 | Communication Note ---
Date of Service: April 26, 2021 Patient seen and examined Reports just increased sensitivity at surgical site, no pain Denied fevers Chills are resolved Reports dysuria is resolved. No frequency Physical exam grossly unremarkable Lab notable for Cr of 1.4, Hb of 11. Reviewed lumbar MRI, UA +leuk esterase and pyuria Patient likely has UTI and had started po antibiotics at home Based on hx, fluid collection in MRI does not necessarily indicate infection/abscess I discussed this with Surgeon. No surgery indicated Will continue broad antibiotics for now and follow up blood and urine cultures Agree with other plans as detailed in H/P by Dr Tolentino this morning
[2021-04-26] MEDS ORDERED: TERAZOSIN HCL 1 MG CAP PO SCH (21:00)
[2021-04-27] MEDS: SODIUM CHLORIDE 0.9% 1000ML 1,000 ML IV SCH (04:01)
[2021-04-27] MEDS: cefTRIAXone SODIUM 2,000 MG in DEXTROSE 5% 50 ML IV SCH (05:56)
[2021-04-27 06:33] LABS: Est GFR (Non-African American) 46.6 ml/min
[2021-04-27] MEDS: ENALAPRIL MALEATE 10 MG TAB PO SCH (09:26)
[2021-04-27] MEDS: DULoxetine HCL 60 MG CAP PO SCH (09:26)
[2021-04-27] MEDS: PROPRANOLOL HCL 60 MG LA CAP PO SCH (09:27)
[2021-04-27] MEDS: CEROVITE ADV FORMULA TAB PO SCH (09:27)
[2021-04-27] MEDS: VANCOMYCIN HCL 1,250 MG in SODIUM CHLORIDE 0.9% 250 ML IV SCH (12:11)
--- NOTE | 2021-04-27 13:30 | Electrocardiogram Report ---
Test Reason : Blood Pressure : / mmHG Vent. Rate : 065 BPM Atrial Rate : 065 BPM P-R Int : 170 ms QRS Dur : 088 ms QT Int : 372 ms P-R-T Axes : 038 -05 046 degrees QTc Int : 386 ms Normal sinus rhythm Normal ECG When compared with ECG of 25-JAN-2019 13:17, Criteria for Septal infarct are no longer Present Confirmed by Gilbert Le ([id number]) on 04/27/2021 1:29:36 PM Referred By: REFERRED SELF Confirmed By:Gilbert Le
--- NOTE | 2021-04-27 16:03 | Discharge Summary ---
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 The patient says since last 3 days, he has had three episodes of chills and cold and he was recently also thought to have a UTI because he was having burning micturition and was started on Cipro. He took two doses of Cipro and burning micturition resolved. Denies any fevers and today there was a lot of chills, that is why he was brought to the hospital. Imaging studies, MRI scan on the preliminary report shows paraspinal fluid collection measuring 6.6 x 3.2 x 2 cm, infectious process or postoperative collection. The patient says he is having loss of appetite, not eating much, not feeling well, feeling weak, ambulating okay. Has back pain post surgery. Denies any headache, no dizziness, no blurred visions, no earache, no runny nose, no sore throat, no cough, no difficulty swallowing. No chest pain. Shortness of breath is at baseline. No nausea, no vomiting, no abdominal pain. Normal bowel and bladder movements. Currently resting comfortably and hemodynamically stable. Admission Exam Per Admitting Provider GENERAL: The patient is of moderate build, not in acute distress. VITAL SIGNS: Temperature 36.8, pulse 57, respiratory rate 20, blood pressure 118/54, oxygen 100% on room air. HEENT: Pupils equal, round and reactive to light. Oral mucosa moist. NECK: No JVD, no neck masses. CARDIOVASCULAR: S1 and S2 heard. Regular rate and rhythm. No murmur, no gallop. RESPIRATORY SYSTEM: Normal AP diameter. No accessory muscle use. No wheezing, no crackles. ABDOMEN: Soft, bowel sounds present, nontender, no distention. CENTRAL NERVOUS SYSTEM: Alert and oriented. Speech is clear. No facial droop. Obeys simple commands. Moves extremities. MUSCULOSKELETAL: Status post back surgery. Surgical site is clean. No erythema, no drainage seen. EXTREMITIES: No edema, no erythema. Principal Diagnosis E coli UTI Discharge Exam Constitutional + well hydrated; no acute distress Eyes PERRL, conjunctivae normal, anicteric sclerae ENMT external ear and nose normal, oropharynx normal Respiratory normal respiratory effort, lungs clear to auscultation Cardiovascular Rate/Rhythm: regular rate and regular rhythm S1 S2 Gastrointestinal (Abdomen) normal bowel sounds, soft, nontender, no hepatosplenomegaly Musculoskeletal no cyanosis or clubbing, extremities motor strength 5/5 Neurologic PERRL, EOMI, accommodation nl, no face palsy, no dysarthria Psychiatric A+Ox3, euthymic affect Discharge Data Allergies Allergy/AdvReac Type Severity Reaction Status Date / Time celecoxib Allergy Severe sob Verified 04/25/21 21:27 NSAIDS (Non-Steroidal Allergy Severe ASTHMA Verified 04/25/21 21:27 Anti-Inflamma ATTACK lactose Allergy Intermediate INDIGESTION Verified 04/25/21 21:27 AND GAS amoxicillin AdvReac Intermediate Rash Verified 04/25/21 21:27 clavulanic acid AdvReac Intermediate SHORTNESS Verified 04/25/21 21:27 OF BREATH Consultations 04/25/21 23:43 ED Decision to Admit Stat 04/26/21 01:33 Consult Orthopedic Surgery Routine Ordered Studies 04/25/21 21:04 CT abd pelvis wo con Urgent Lower chest: No acute abnormality Liver: Unremarkable. No focal lesions are seen. Gallbladder and biliary tree: Patient is status post cholecystectomy. No intra- or extrahepatic biliary ductal dilation. Pancreas: Unremarkable, no focal lesions. Spleen: Unremarkable. Adrenals: Unremarkable. Kidneys and ureters: Nonobstructive nephrolithiasis is seen. Bladder: Limited evaluation due to underdistention. Within these limits, the wall appears mildly prominent. Reproductive organs: Prostatic calcifications are seen which may represent prior hemorrhage or granulomatous disease. Bowel: Diverticulosis is seen without evidence of diverticulitis. The appendix is normal. Lymph nodes Retroperitoneal: Unremarkable. Mesenteric: Unremarkable. Pelvic: Unremarkable. Peritoneum: Normal. Vessels: Unremarkable. Abdominal wall: A fat-containing umbilical hernia is seen. Bones: Posterior fixation hardware is seen. Degenerative changes are seen. IMPRESSION: Minimal prominence of the bladder wall may be secondary to underdistention, clinical correlation for cystitis in the MR lumbar spine wo/w con Stat The alignment is anatomical. Multilevel degenerative changes are seen in the discs. Patient is status post posterior fixation and decompression spanning L1- L5. Additional hardware is seen extending to T11. Resulting susceptibility artifact limits the sensitivity of this exam. L1-L2: Redemonstration of right sided focal disc bulge with resulting right neural foraminal stenosis. L2-L3: Focal disc bulge without significant neural foraminal or canal stenosis. L3-L4: Broad-based disc bulge without significant stenosis. L4-L5: Broad-based disc bulge is seen effacing the ventral thecal sac, moderate canal stenosis with an AP diameter of 7 mm. L5-S1: No significant abnormality. The spinal ligaments are intact, without evidence of disruption or abnormal signal intensity. The spinal cord is normal in signal intensity and there is no evidence of cord contusion. There is no evidence of an extradural, intradural, extramedullary or intramedullary lesion. There is a 6.6 x 3.2 x 2.0 cm paraspinal fluid collection, new from prior exam. There is a smaller superficial fluid collection underlying skin christopher which is likely postoperative. No significant enhancement is seen. IMPRESSION: 1. Limited exam due to susceptibility artifact. Fluid collections are seen as above. These do not enhance and are favored to represent noninfectious postoperative collections. 2. Degenerative changes as above with right neural foraminal stenosis at L1-L2 and moderate canal stenosis at L4-L5. Hospital Course (1) UTI (urinary tract infection): (2) Postoperative seroma: (3) Hypertension: Patient presented with chills for 3 days as well as dysuria. Patient was seen by PCP on 04/24/2021 started on ciprofloxacin after urine culture was sent. Due to worsening symptoms patient presented to the hospital. On presentation to the ER, patient was evaluated and noted to have right posterior paraspinal fluid collection on lumbar spine MRI. Patient recently had lumbar decompression surgery by Dr. Cordova for neurogenic claudication due to lumbar spinal stenosis on 04/11/2021. Patient was started on broad-spectrum antibiotics and admitted. Blood cultures were negative. Urine culture drawn inpatient was negative. However, urine culture drawn by PCP on 04/24/2021 grew E. coli. Patient's chills and urinary symptoms resolved. I reviewed the patient and imaging with Surgeon Dr Cordova. He reported lumbar finding is expected and no concern for infected collection. No surgery indicated Patient discharged home to continue ciprofloxacin prescribed by PCP to complete 10 days of antibiotic treatment Patient to continue home medications and to follow up with PCP and surgeon Total Time Total Time Spent Total Time Spent (In Minutes): 45 Total Time Includes: Examination of the Patient, Discharge Planning, Medication Reconciliation and Communication With Other Providers Discharge Plan Discharge Items Patient Disposition: Home - Self-Care Reason For Visit: ILLNESS Discharge Diagnosis: E. coli urinary tract infection Activity: Resume your previous activity Non-emergency contact: Primary Care Provider and Surgeon Call non-emergency contact if: you have any medication questions Follow-up/Referrals: Kamari Lezama MD [Primary Care Provider] - Diet: Heart Healthy Addtl Attending Provider Instructions: Mr Chaves You came to the hospital due to feeling unwell, chills and some burning urination. You were evaluated. You had an MRI of your back due to recent back surgery which showed small collection. This was not deemed to be infected. You were treated with antibiotics. Blood cultures and urine cultures done in the hospital are negative so far. Urine culture done by your Primary Doctor on 04/24/21 grew E. coli (E. coli urinary tract infection) Please continue the ciprofloxacin you already started at home to complete 10 day treatment. It was a pleasure taking care of you. Pending Studies at Discharge: No Stand-Alone Forms: My [facility], Smoking Cessation Medications and DC Order Prescriptions: Continued furosemide [Lasix] 20 mg tablet 20 mg PO Q2D RF: 0 triamterene-hydrochlorothiazid 37.5-25 mg tablet 1 tab PO Q2D Qty: 45 RF: 3 lorazepam 0.5 mg Tablet 0.5 mg SUBLINGUAL BID PRN (Reason: Anxiety) RF: 0 terazosin 2 mg Capsule 2 mg PO HS RF: 0 albuterol sulfate [Ventolin HFA] 90 mcg/actuation Hfa Aerosol Inhaler 2 puff INHALATION QID PRN (Reason: Shortness Of Breath) RF: 0 ipratropium bromide 42 mcg (0.06 %) [place],Non-Aerosol 2 spray INTRANASAL BID PRN (Reason: Nasal Congestion) RF: 0 fluticasone propionate [Flonase Allergy Relief] 50 mcg/actuation [place],Suspension 1 spray INTRANASAL BID PRN (Reason: Allergy Symptoms) RF: 0 ramipril 10 mg Capsule 10 mg PO QAM RF: 0 duloxetine [Cymbalta] 60 mg Capsule,Delayed Release(Dr/Ec) 60 mg PO QAM RF: 0 Centrum Silver 400-250 mcg Tablet,Chewable 1 tab PO QAM RF: 0 simethicone [Gas-X Extra Strength] 125 mg Tablet,Chewable 125 mg PO BID PRN (Reason: Indigestion) RF: 0 polyethylene glycol 3350 [Miralax] 17 gram/dose Powder 17 g PO DAILY PRN (Reason: Constipation) RF: 0 propranolol 60 mg capsule,extended release 24 hr 60 mg PO QAM RF: 0 oxycodone 5 mg tablet 5 mg PO Q6H PRN (Reason: pain, severe) Qty: 30 RF: 0 tramadol 50 mg tablet 50 mg PO Q6H PRN (Reason: pain, moderate) Qty: 30 RF: 0 ciprofloxacin HCl 500 mg tablet 500 mg PO BID RF: 0 Discharge Orders: Discharge Order (Routine); Ordered 04/27/21 Ordered By: Nehal Rodas/Other Patient Handouts: Urinary Tract Infections in Men Admission Data Admit Date/Time: 04/26/21 01:08 Attending Provider: Nehal Sánchez I. Admit Provider: Brent Tolentino Primary Care Provider: Kamari Lezama Other Providers: Brent Tolentino ; Anand Cordova ; [facility] Other Interventions: Discharge Summary Assessment (RN) Last Done: 04/27/21 15:59
[2021-04-28] MEDS ORDERED: VANCOMYCIN TROUGH ONE (11:30)
== END 2021-04-27 16:24 | disposition home health service (06) | DRG 690 ==
LOC: ED 18:39 → 3N 04-26 01:08 → INTOOBSV 04-26 01:08 → 3N 04-26 02:19

== ENCOUNTER 2022-04-14 17:35 | Observation (INO) ==
--- NOTE | 2022-04-14 17:44 | Emergency Department Note ---
Impression & Plan Fever ADMIT ED Provider Note HPI: The patient is an 86-year-old gentleman with history of pancreatic cancer, status post first round of chemotherapy this past Friday, presents the emergency department with a chief complaint of fever and altered mentation from home. Merlin clayton was seen here in the ED last night, similar symptoms reported at that time however patient was noted to be afebrile, he was ultimately discharged home following a fairly unremarkable work-up. Patient's family states that the patient has had some decline since then, he has not been able to get up and move around much at home, he is generally slow to answer some questions, in general has not seemed like himself. On arrival here to the ED the patient is febrile at 38.1, he is alert, he does not have any focal deficits, he is unable to provide me with a full history. He denies any focal complaint of pain, answers simple questions appropriately. Patient is otherwise in no acute distress on arrival. ROS: - Per HPI *Outpatient medications and allergy history reviewed. *Pertinent external medical records reviewed. PE: General: Alert, no acute distress HEENT: Normocephalic, trachea midline Eyes: Extraocular eye movement is intact, no scleral erythema Pulmonary: Clear to auscultation bilaterally, no wheezing Cardio: Regular rate and rhythm GI: Abdomen is soft to palpation : No suprapubic tenderness MSK: No evidence of trauma or malformation of the extremities, no edema Skin: No evidence of rash Neuro: Alert, no focal deficits, symmetrical facial movements are appreciated, equal bilateral supervisor waterworks strength Psychiatric: Cooperative front desk monitor: (As interpreted by myself): - An order was placed for continuous cardiac monitoring - Patient was noted to be in sinus rhythm with a rate of 90 EKG: (As interpreted by myself): Rate: 92 Rhythm: Normal sinus rhythm Intervals: Within normal limits ST changes: No ST elevation Time: 174 Interventions provided in ED: -IV fluid bolus, Tylenol, vancomycin, cefepime Differential Diagnosis: Sepsis, viral URI, urinary tract infection, pneumonia, FUEL DOCK ATTENDANT infection/meningitis, acute stroke, intracranial bleeding, intracranial abscess, amongst other potential pathologies. Medical Decision Making: Patient presented to the emergency department with fever and some generalized physical decline at home over the past several days, patient's family states that his symptoms seem to have started Friday morning after he received chemotherapy on Friday. On arrival here to the ED the patient is alert, he does not have any focal deficits, he overall appears nontoxic but he is noted to be febrile on arrival. IV was established, lab work obtained, patient was placed on monitoring manager. Lab work does not show any leukocytosis, hemoglobin is stable, patient is hemodynamically stable here in the ED, he was given IV fluids and Tylenol for his symptoms. Troponin is mildly elevated at 66, EKG does not show any acute ischemic findings, no ST elevation. Chest x-ray does not show any evidence of pneumonia. Urinalysis was obtained and does not appear consistent with infection. Procalcitonin is elevated at 3.7, increased from yesterday's lab work. Transaminitis is downtrending from yesterday, suspect this is related to the patient's underlying disorder, he has required biliary stenting in the past according to his family, his abdomen is soft and nontender on my examination, he did have a CT scan of the abdomen pelvis performed just last night that did not show any emergent abnormalities. Therefore CT imaging will not be obtained today of the abdomen and pelvis. CT imaging of the head was obtained that does not show any evidence of any acute intracranial abnormality. Blood cultures were drawn in the ED, given the patient's current status is being on chemotherapy in addition to fever of unknown origin and this being his second visit here today to the ED, I do feel he is appropriate for admission and initiation of broad-spectrum antibiotics for fever of unknown origin. Patient is resting comfortably on my reassessment with his family at the bedside, his temperature did uptrend slightly to 38.8 and therefore he was given a dose of oral Tylenol. He is in no acute distress on my reassessment, he generally is nontoxic-appearing. Case was discussed with the on-call hospitalist for [facility], Dr. Tolentino, and the patient was placed for admission in stable condition. Consultants: Hospitalist, Dr. Tolentino Disposition discussion held by myself with: Patient, patient's , and patient's son-in-law at the bedside Diagnosis: 1. Fever of unknown origin 2. Elevated procalcitonin 3. History of pancreatic cancer, on chemotherapy 4. Hypokalemia, mild 5. 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 History of melanoma S/p removal Hyperlipidemia Hypertension Prediabetes Sleep apnea CPAP Vasovagal episode Approximately one year ago (03/2021) during PT- suspected vasovagal Surgical History History of cardiac cath 02/06/2000 - No CAD History of cataract surgery 2019 History of colonoscopy History of lumbar surgery 3 total; hardware present History of melanoma excision History of tonsillectomy History of total knee replacement Rt Family History Father CHF (congestive heart failure) Father COPD (chronic obstructive pulmonary disease) Social History Smoking Status: Unknown if ever smoked Second Hand Exposure: No; Hx Alcohol Use: Yes (wine with meals) Alcohol type: wine Hx Substance Use: No Preferred Language: Taiwanese Communication Ability: Effective Shell Machine Operator Required: No Beliefs That Will Affect Care: None Current Living Situation: Spouse Feels Safe at Home: Yes Assistive Devices: Cane Allergies Allergies Allergy/AdvReac Type Severity Reaction Status Date / Time celecoxib Allergy Severe SHORT OF Verified 04/14/22 18:34 BREATH clavulanic acid Allergy Severe SHORTNESS Verified 04/14/22 18:34 OF BREATH NSAIDS (Non-Steroidal Allergy Severe ASTHMA Verified 04/14/22 18:34 Anti-Inflamma ATTACK lactose Allergy Intermediate INDIGESTION Verified 04/14/22 18:34 AND GAS amoxicillin AdvReac Intermediate Rash Verified 04/14/22 18:34 Home Meds Home Medications Medication Instructions Recorded Confirmed albuterol sulfate 90 mcg/actuation 2 puff inhalation Q6H PRN 09/08/18 04/14/22 aerosol inhaler (Ventolin HFA) Shortness Of Breath duloxetine 60 mg capsule,delayed 60 mg PO QAM 09/08/18 04/14/22 release (Cymbalta) fluticasone propionate 50 1 spray intranasal BID PRN Allergy 09/08/18 04/14/22 mcg/actuation nasal Symptoms spray,suspension (Flonase Allergy Relief) ipratropium bromide 42 mcg (0.06 2 spray intranasal TID PRN Nasal 09/08/18 04/14/22 %) nasal spray Congestion lorazepam 0.5 mg tablet 0.5 mg sublingual BID PRN Anxiety 09/08/18 04/14/22 multivit with min-folic 1 tab PO QAM 09/08/18 04/14/22 acid-lutein 400 mcg-250 mcg chewable tablet (Centrum Silver) terazosin 2 mg capsule 2 mg PO HS 09/08/18 04/14/22 polyethylene glycol 3350 17 17 g PO DAILY 01/25/19 04/14/22 gram/dose oral powder (Miralax) propranolol 60 mg capsule,24 60 mg PO QAM 01/25/19 04/14/22 hr,extended release simethicone 125 mg chewable tablet 125 mg PO BID PRN Indigestion 01/25/19 04/14/22 (Gas-X Extra Strength) acetaminophen 325 mg tablet 650 mg PO Q6H PRN Pain 04/13/22 04/14/22 (Tylenol) cholecalciferol (vitamin D3) 50 50 mcg PO DAILY 04/13/22 04/14/22 mcg (2,000 unit) capsule (Vitamin D3) cyclosporine 0.05 % eye drops in a 1 drp OPB QAM 04/13/22 04/14/22 dropperette (Restasis) duloxetine 20 mg capsule,delayed 20 mg PO HS 04/13/22 04/14/22 release hydroxyzine HCl 25 mg tablet 25 mg PO TID PRN Itching 04/13/22 04/14/22 ibuprofen 200 mg tablet 200 mg PO Q4H PRN Pain 04/13/22 04/14/22 lidocaine-prilocaine 2.5 %-2.5 % 1 applic topical DIRECTED PRN 1 04/13/22 04/14/22 topical cream HR PRIOR TO MEDIPORT ACCESS loratadine 10 mg tablet (Claritin) 10 mg PO DAILY PRN RHINITIS 04/13/22 04/14/22 ondansetron HCl 8 mg tablet 8 mg PO Q8H PRN NAUSEA/VOMITING 04/13/22 04/14/22 pantoprazole 20 mg tablet,delayed 20 mg PO QAM 04/13/22 04/14/22 release prochlorperazine maleate 10 mg 10 mg PO Q6H PRN NAUSEA/VOMITING 04/13/22 04/14/22 tablet psyllium husk 3.4 gram/5.4 gram 1 tsp PO TID PRN Constipation 04/13/22 04/14/22 oral powder (Metamucil) sodium chloride 0.65 % nasal spray 2 spray intranasal BID 04/13/22 04/14/22 aerosol (Saline Nasal) triamterene 37.5 1 tab PO Q OTHER DAY 04/13/22 04/14/22 mg-hydrochlorothiazide 25 mg tablet Results & Data (ED) Vital Signs Vital Signs - 24 hr 04/14/22 17:27 04/14/22 17:49 04/14/22 17:42 Temperature 38.1 C H Temperature Source Oral Pulse Rate 91 H 90 Pulse Rate [Apical] Pulse Rate from SpO2 Sensor Pulse Rhythm Regular Pulse Strength Normal Respiratory Rate 25 H Respiratory Effort / Characteristics Non-Labored Spontaneous Respiratory Depth Normal Respiratory Pattern Regular Blood Pressure 157/73 H Blood Pressure [Right Arm] Blood Pressure Mean 101 Blood Pressure Mean [Right Arm] Blood Pressure Position Sitting Pulse Oximetry 95 97 Oxygen Delivery Method Room Air Room Air Oxygen Flow Rate 0 0 Sepsis Recent Fever Within 48 Hours Yes Sepsis New/Unexplained Change in Mental Status Yes Sepsis Action Taken by Nursing Physician Notified 04/14/22 17:48 04/14/22 18:00 04/14/22 18:00 Temperature Temperature Source Pulse Rate 90 87 Pulse Rate [Apical] Pulse Rate from SpO2 Sensor 90 86 Pulse Rhythm Pulse Strength Respiratory Rate 20 19 Respiratory Effort / Characteristics Respiratory Depth Respiratory Pattern Blood Pressure 152/69 H Blood Pressure [Right Arm] Blood Pressure Mean 96 Blood Pressure Mean [Right Arm] Blood Pressure Position Pulse Oximetry 100 96 Oxygen Delivery Method Room Air Room Air Oxygen Flow Rate Sepsis Recent Fever Within 48 Hours Sepsis New/Unexplained Change in Mental Status Sepsis Action Taken by Nursing 04/14/22 18:15 04/14/22 18:30 04/14/22 18:30 Temperature Temperature Source Pulse Rate 89 87 Pulse Rate [Apical] Pulse Rate from SpO2 Sensor 88 87 Pulse Rhythm Pulse Strength Respiratory Rate 23 21 Respiratory Effort / Characteristics Respiratory Depth Respiratory Pattern Blood Pressure 153/66 H Blood Pressure [Right Arm] Blood Pressure Mean 95 Blood Pressure Mean [Right Arm] Blood Pressure Position Pulse Oximetry 95 98 Oxygen Delivery Method Room Air Oxygen Flow Rate Sepsis Recent Fever Within 48 Hours Sepsis New/Unexplained Change in Mental Status Sepsis Action Taken by Nursing 04/14/22 19:02 Temperature 38.8 C H Temperature Source Oral Pulse Rate Pulse Rate [Apical] 87 Pulse Rate from SpO2 Sensor Pulse Rhythm Pulse Strength Respiratory Rate 20 Respiratory Effort / Characteristics Respiratory Depth Respiratory Pattern Blood Pressure Blood Pressure [Right Arm] 151/67 H Blood Pressure Mean Blood Pressure Mean [Right Arm] 95 Blood Pressure Position Pulse Oximetry 93 Oxygen Delivery Method Oxygen Flow Rate Sepsis Recent Fever Within 48 Hours Sepsis New/Unexplained Change in Mental Status Sepsis Action Taken by Nursing Laboratory Data 04/14/22 17:44 04/14/22 17:44 Lab Results 04/14/22 04/14/22 04/14/22 Range/Units 17:44 17:44 17:44 WBC 6.47 (4.8-10.8) K/ul RBC 3.61 L (4.70-6.10) M/uL Hgb 11.7 L (14.0-18.0) g/dl Hct 34.7 L (42.0-52.0) % MCV 96.1 (80.0-100.0) fL MCH 32.4 (25.0-34.0) pg MCHC 33.7 (32.0-36.0) g/dL RDW Std Deviation 44.3 (36.4-46.3) fL RDW Coeff of Mimi 12.6 (11.5-14.5) % Plt Count 116 L (130-400) K/uL MPV 11.0 (9.4-12.4) fL Immature Gran % (Auto) 0.6 % Neut % (Auto) 94.9 % Lymph % (Auto) 3.7 % Emanuel % (Auto) 0.6 % Eos % (Auto) 0.0 % Baso % (Auto) 0.2 % Neut # (Auto) 6.14 (1.40-6.50) K/uL Lymph # (Auto) 0.24 L (1.2-3.4) K/uL Emanuel # (Auto) 0.04 L (0.11-0.59) K/uL Eos # (Auto) 0.00 (0-0.50) K/uL Baso # (Auto) 0.01 (0-0.2) K/uL Immature Gran # (Auto) 0.04 (0.01-0.20) K/uL Platelet Estimate Normal (Normal) PT 12.5 H (9.0-12.0) Seconds INR 1.2 H (0.9-1.1) Sodium 130 L (136-145) mmol/L Potassium 3.3 L (3.5-5.1) mmol/L Chloride 94 L (98-107) mmol/L Carbon Dioxide 29 (21-32) mmol/L Anion Gap 7 (3-11) BUN 23 (6-23) mg/dl Creatinine 1.43 H (0.6-1.4) mg/dl Est Cr Clr Drug Dosing 41.5 ml/min Est GFR ( Amer) 51.4 ml/min Est GFR (Non-Af Amer) 44.3 ml/min BUN/Creatinine Ratio 16.1 (10-20) Glucose 127 H (70-99(Fasting)) mg/dl Lactate (0.4-2.0) mmol/L Calcium 8.1 L (8.5-10.1) mg/dl Magnesium 1.7 (1.7-2.4) mg/dl Total Bilirubin 1.7 H (0.2-1.0) mg/dl Direct Bilirubin 0.8 H (0-0.2) mg/dl AST 83 H (13-39) U/L ALT 137 H (7-52) U/L Alkaline Phosphatase 310 H (34-104) U/L Troponin I High Sens 66.9 H* D (0-20) pg/ml Total Protein 6.1 (6.0-8.3) gm/dl Albumin 3.4 (3.4-5.0) gm/dl Procalcitonin (0-0.5) ng/ml Urine Color Urine Appearance (Clear) Urine pH (4.5-7.5) Ur Specific [place] (1.000-1.030) Urine Protein (Negative) Urine Glucose (UA) (Negative) Urine Ketones (Negative) Urine Blood (Negative) Urine Nitrite (Negative) Urine Bilirubin (Negative) Urine Urobilinogen (Negative) Ur Leukocyte Esterase (Negative) Urine WBC (Auto) (0-5) /hpf Urine RBC (Auto) (0-4) /hpf U Hyaline Cast (Auto) (0-5) /lpf U Epithel Cells (Auto) (0-5) /lpf Urine Bacteria (Auto) (Negative) Urine Yeast Adenovirus (PCR) (NotDetected) B. pertussis DNA (PCR) (NotDetected) B.parapertussis DNA PCR (NotDetected) C. pneumoniae DNA (PCR) (NotDetected) Coronavirus OC43 (PCR) (NotDetected) Coronavirus HKU1 (PCR) (NotDetected) Coronavirus 229E (PCR) (NotDetected) SARS-CoV-2 (PCR) (NotDetected) Coronavirus NL63 (PCR) (NotDetected) Human Metapneumovir PCR (NotDetected) Influenza Type A (PCR) (NotDetected) Influenza Type B (PCR) (NotDetected) M. pneumoniae (PCR) (NotDetected) Parainfluenza 1 (PCR) (NotDetected) Parainfluenza 2 (PCR) (NotDetected) Parainfluenza 3 (PCR) (NotDetected) Parainfluenza 4 (PCR) (NotDetected) RSV (PCR) (NotDetected) Entero/Rhino (PCR) (NotDetected) 04/14/22 04/14/22 04/14/22 Range/Units 17:44 17:44 17:44 WBC (4.8-10.8) K/ul RBC (4.70-6.10) M/uL Hgb (14.0-18.0) g/dl Hct (42.0-52.0) % MCV (80.0-100.0) fL MCH (25.0-34.0) pg MCHC (32.0-36.0) g/dL RDW Std Deviation (36.4-46.3) fL RDW Coeff of Mimi (11.5-14.5) % Plt Count (130-400) K/uL MPV (9.4-12.4) fL Immature Gran % (Auto) % Neut % (Auto) % Lymph % (Auto) % Emanuel % (Auto) % Eos % (Auto) % Baso % (Auto) % Neut # (Auto) (1.40-6.50) K/uL Lymph # (Auto) (1.2-3.4) K/uL Emanuel # (Auto) (0.11-0.59) K/uL Eos # (Auto) (0-0.50) K/uL Baso # (Auto) (0-0.2) K/uL Immature Gran # (Auto) (0.01-0.20) K/uL Platelet Estimate (Normal) PT (9.0-12.0) Seconds INR (0.9-1.1) Sodium (136-145) mmol/L Potassium (3.5-5.1) mmol/L Chloride (98-107) mmol/L Carbon Dioxide (21-32) mmol/L Anion Gap (3-11) BUN (6-23) mg/dl Creatinine (0.6-1.4) mg/dl Est Cr Clr Drug Dosing ml/min Est GFR ( Amer) ml/min Est GFR (Non-Af Amer) ml/min BUN/Creatinine Ratio (10-20) Glucose (70-99(Fasting)) mg/dl Lactate 1.8 (0.4-2.0) mmol/L Calcium (8.5-10.1) mg/dl Magnesium (1.7-2.4) mg/dl Total Bilirubin (0.2-1.0) mg/dl Direct Bilirubin (0-0.2) mg/dl AST (13-39) U/L ALT (7-52) U/L Alkaline Phosphatase (34-104) U/L Troponin I High Sens (0-20) pg/ml Total Protein (6.0-8.3) gm/dl Albumin (3.4-5.0) gm/dl Procalcitonin 3.76 H (0-0.5) ng/ml Urine Color Urine Appearance (Clear) Urine pH (4.5-7.5) Ur Specific [place] (1.000-1.030) Urine Protein (Negative) Urine Glucose (UA) (Negative) Urine Ketones (Negative) Urine Blood (Negative) Urine Nitrite (Negative) Urine Bilirubin (Negative) Urine Urobilinogen (Negative) Ur Leukocyte Esterase (Negative) Urine WBC (Auto) (0-5) /hpf Urine RBC (Auto) (0-4) /hpf U Hyaline Cast (Auto) (0-5) /lpf U Epithel Cells (Auto) (0-5) /lpf Urine Bacteria (Auto) (Negative) Urine Yeast Adenovirus (PCR) Not Detected (NotDetected) B. pertussis DNA (PCR) Not Detected (NotDetected) B.parapertussis DNA PCR Not Detected (NotDetected) C. pneumoniae DNA (PCR) Not Detected (NotDetected) Coronavirus OC43 (PCR) Not Detected (NotDetected) Coronavirus HKU1 (PCR) Not Detected (NotDetected) Coronavirus 229E (PCR) Not Detected (NotDetected) SARS-CoV-2 (PCR) Not Detected (NotDetected) Coronavirus NL63 (PCR) Not Detected (NotDetected) Human Metapneumovir PCR Not Detected (NotDetected) Influenza Type A (PCR) Not Detected (NotDetected) Influenza Type B (PCR) Not Detected (NotDetected) M. pneumoniae (PCR) Not Detected (NotDetected) Parainfluenza 1 (PCR) Not Detected (NotDetected) Parainfluenza 2 (PCR) Not Detected (NotDetected) Parainfluenza 3 (PCR) Not Detected (NotDetected) Parainfluenza 4 (PCR) Not Detected (NotDetected) RSV (PCR) Not Detected (NotDetected) Entero/Rhino (PCR) Not Detected (NotDetected) 04/14/22 Range/Units 18:46 WBC (4.8-10.8) K/ul RBC (4.70-6.10) M/uL Hgb (14.0-18.0) g/dl Hct (42.0-52.0) % MCV (80.0-100.0) fL MCH (25.0-34.0) pg MCHC (32.0-36.0) g/dL RDW Std Deviation (36.4-46.3) fL RDW Coeff of Mimi (11.5-14.5) % Plt Count (130-400) K/uL MPV (9.4-12.4) fL Immature Gran % (Auto) % Neut % (Auto) % Lymph % (Auto) % Emanuel % (Auto) % Eos % (Auto) % Baso % (Auto) % Neut # (Auto) (1.40-6.50) K/uL Lymph # (Auto) (1.2-3.4) K/uL Emanuel # (Auto) (0.11-0.59) K/uL Eos # (Auto) (0-0.50) K/uL Baso # (Auto) (0-0.2) K/uL Immature Gran # (Auto) (0.01-0.20) K/uL Platelet Estimate (Normal) PT (9.0-12.0) Seconds INR (0.9-1.1) Sodium (136-145) mmol/L Potassium (3.5-5.1) mmol/L Chloride (98-107) mmol/L Carbon Dioxide (21-32) mmol/L Anion Gap (3-11) BUN (6-23) mg/dl Creatinine (0.6-1.4) mg/dl Est Cr Clr Drug Dosing ml/min Est GFR ( Amer) ml/min Est GFR (Non-Af Amer) ml/min BUN/Creatinine Ratio (10-20) Glucose (70-99(Fasting)) mg/dl Lactate (0.4-2.0) mmol/L Calcium (8.5-10.1) mg/dl Magnesium (1.7-2.4) mg/dl Total Bilirubin (0.2-1.0) mg/dl Direct Bilirubin (0-0.2) mg/dl AST (13-39) U/L ALT (7-52) U/L Alkaline Phosphatase (34-104) U/L Troponin I High Sens (0-20) pg/ml Total Protein (6.0-8.3) gm/dl Albumin (3.4-5.0) gm/dl Procalcitonin (0-0.5) ng/ml Urine Color Dark Yellow Urine Appearance Clear (Clear) Urine pH 5.5 (4.5-7.5) Ur Specific [place] 1.022 (1.000-1.030) Urine Protein 2+ H (Negative) Urine Glucose (UA) Negative (Negative) Urine Ketones 1+ H (Negative) Urine Blood 2+ H (Negative) Urine Nitrite Negative (Negative) Urine Bilirubin Negative (Negative) Urine Urobilinogen Negative (Negative) Ur Leukocyte Esterase Negative (Negative) Urine WBC (Auto) 1-5 (0-5) /hpf Urine RBC (Auto) 0-4 (0-4) /hpf U Hyaline Cast (Auto) 5-10 H (0-5) /lpf U Epithel Cells (Auto) 0-5 (0-5) /lpf Urine Bacteria (Auto) Negative (Negative) Urine Yeast Not Reportable Adenovirus (PCR) (NotDetected) B. pertussis DNA (PCR) (NotDetected) B.parapertussis DNA PCR (NotDetected) C. pneumoniae DNA (PCR) (NotDetected) Coronavirus OC43 (PCR) (NotDetected) Coronavirus HKU1 (PCR) (NotDetected) Coronavirus 229E (PCR) (NotDetected) SARS-CoV-2 (PCR) (NotDetected) Coronavirus NL63 (PCR) (NotDetected) Human Metapneumovir PCR (NotDetected) Influenza Type A (PCR) (NotDetected) Influenza Type B (PCR) (NotDetected) M. pneumoniae (PCR) (NotDetected) Parainfluenza 1 (PCR) (NotDetected) Parainfluenza 2 (PCR) (NotDetected) Parainfluenza 3 (PCR) (NotDetected) Parainfluenza 4 (PCR) (NotDetected) RSV (PCR) (NotDetected) Entero/Rhino (PCR) (NotDetected) Administered Medications Discontinued Medications Acetaminophen (Acetaminophen 500 Mg Tab) 1,000 mg PO NOW STA Stop: 04/14/22 19:10 Last Admin: 04/14/22 19:39 Dose: 1,000 mg Documented By: HAN Sodium Chloride (Nss 1000ml) 1,000 mls @ 999 mls/hr IV .Q1H1M MEI Stop: 04/14/22 18:45 Last Infusion: 04/14/22 19:02 Dose: 0 mls/hr Documented By: Admin: 04/14/22 17:47 Dose: 999 mls/hr Documented By: AMOL Imaging Data Radiologist's Impression: Chest X-Ray 04/14/22 17:42 XR chest 1V portable HISTORY: 86 years-old Male Sepsis acute sepsis COMPARISON: Chest radiograph 04/13/2022 TECHNIQUE: AP view of the chest FINDINGS: Cardiac silhouette is enlarged. Right IJ [id number] catheter is unchanged. No pneumothorax. Pulmonary vascular congestion. Mild bibasilar densities. Degenerative changes of the shoulders and spine. Patient is mildly rotated. Partially imaged thoracolumbar spinal fusion hardware. IMPRESSION: 1. Cardiomegaly with pulmonary vascular congestion. 2. Mild bibasilar densities suggestive of atelectasis. A mild pneumonitis could appear similarly. ACT 112: Negative or not required by law. The above report was generated using voice recognition software. It may contain grammatical, syntax or spelling errors. Electronically signed by: Jonnie Mayberry M.D. 04/14/2022 6:[address] 04/14/22 18:30 CT head/brain wo con CLINICAL HISTORY: 86 years-old Male with AMS. Acutely altered mental status TECHNIQUE: Multiple axial CT images of the head were obtained without contrast. A dose lowering technique was utilized adhering to the principles of ALARA. CT DOSE: 537.48 mGy.cm COMPARISON: 02/21/2017. FINDINGS: No acute intracranial hemorrhage, midline shift, intracranial mass, hydrocephalus, territorial ischemia or abnormal extra-axial collection. Involutional changes with chronic microvascular ischemic disease. The calvarium is intact. Prior bilateral lens repair. Mild mucosal thickening of the paranasal sinuses. Mastoid air cells are clear. IMPRESSION: No acute intracranial abnormality ACT 112: Negative or not required by law. The above report was generated using voice recognition software. It may contain grammatical, syntax or spelling errors. Electronically signed by: Jonnie Mayberry M.D. 04/14/2022 7:21 PM Discharge Plan Visit Data Chief Complaint: Fever Stated Complaint: FEVER, LETHARGIC ED Provider: Ivan Hernández Discharge Problem: Fever Forms Stand Alone Forms: My [facility] [employer] Prescriptions Prescriptions: No Action lorazepam 0.5 mg Tablet 0.5 mg SUBLINGUAL BID PRN (Reason: Anxiety) terazosin 2 mg Capsule 2 mg PO HS albuterol sulfate [Ventolin HFA] 90 mcg/actuation Hfa Aerosol Inhaler 2 puff INHALATION Q6H PRN (Reason: Shortness Of Breath) ipratropium bromide 42 mcg (0.06 %) [place],Non-Aerosol 2 spray INTRANASAL TID PRN (Reason: Nasal Congestion) fluticasone propionate [Flonase Allergy Relief] 50 mcg/actuation [place],Suspension 1 spray INTRANASAL BID PRN (Reason: Allergy Symptoms) duloxetine [Cymbalta] 60 mg Capsule,Delayed Release(Dr/Ec) 60 mg PO QAM Centrum Silver 400-250 mcg Tablet,Chewable 1 tab PO QAM simethicone [Gas-X Extra Strength] 125 mg Tablet,Chewable 125 mg PO BID PRN (Reason: Indigestion) polyethylene glycol 3350 [Miralax] 17 gram/dose Powder 17 g PO DAILY propranolol 60 mg capsule,extended release 24 hr 60 mg PO QAM acetaminophen [Tylenol] 325 mg Tablet 650 mg PO Q6H PRN (Reason: Pain) ondansetron HCl [Zofran] 8 mg Tablet 8 mg PO Q8H PRN (Reason: NAUSEA/VOMITING) prochlorperazine maleate 10 mg tablet 10 mg PO Q6H PRN (Reason: NAUSEA/VOMITING) lidocaine-prilocaine 2.5-2.5 % Cream 1 applic topical DIRECTED PRN (Reason: 1 HR PRIOR TO MEDIPORT ACCESS) pantoprazole 20 mg tablet,delayed release (DR/EC) 20 mg PO QAM ibuprofen 200 mg Tablet 200 mg PO Q4H PRN (Reason: Pain) hydroxyzine HCl 25 mg tablet 25 mg PO TID PRN (Reason: Itching) loratadine [Claritin] 10 mg Tablet 10 mg PO DAILY PRN (Reason: RHINITIS) cyclosporine [Restasis] 0.05 % Dropperette 1 drp OPB QAM Saline Nasal 0.65 % Aerosol,[place] 2 spray INTRANASAL BID Rx Instructions: MAY USE Q2-4HRS PRN NASAL DRYNESS duloxetine 20 mg capsule,delayed release(DR/EC) 20 mg PO HS cholecalciferol (vitamin D3) [Vitamin D3] 50 mcg (2,000 unit) Capsule 50 mcg PO DAILY Metamucil 3.4 gram/5.4 gram Powder 1 tsp PO TID PRN (Reason: Constipation) Rx Instructions: mix into at least 8 oz of water or juice before administering triamterene-hydrochlorothiazid 37.5-25 mg tablet 1 tab PO Q OTHER DAY Referrals Referrals: Kamari Lezama MD [Primary Care Provider] - Fever Qualifiers: Fever type: unspecified Qualified Code(s): R50.9 - Fever, unspecified
[2022-04-14] MEDS ORDERED: SODIUM CHLORIDE 0.9% 1000ML 1,000 ML IV SCH (17:45)
[2022-04-14 18:07] LABS: Hematocrit (blood only) 34.7 % (42.0-52.0); Hemoglobin 11.7 g/dl (14.0-18.0); Mean Corpuscular Hemoglobin 32.4 pg (25.0-34.0); Mean Corpuscular Hgb Conc 33.7 g/dL (32.0-36.0); Mean Corpuscular Volume 96.1 fL (80.0-100.0); RDW Coefficient of Variation 12.6 % (11.5-14.5); RDW Standard Deviation 44.3 fL (36.4-46.3); Red Blood Count 3.61 M/uL (4.70-6.10); White Blood Count 6.47 K/ul (4.8-10.8)
--- NOTE | 2022-04-14 18:18 | XRay Report ---
XR chest 1V portable HISTORY: 86 years-old Male Sepsis acute sepsis COMPARISON: Chest radiograph 04/13/2022 TECHNIQUE: AP view of the chest FINDINGS: Cardiac silhouette is enlarged. Right IJ [id number] catheter is unchanged. No pneumothorax. Pulmon santosh vascular congestion. Mild bibasilar densities. Degenerative changes of the shoulders and spine. P atient is mildly rotated. Partially imaged thoracolumbar spinal fusion hardware. IMPRESSION: 1. Cardiomegaly with pulmonary vascular congestion. 2. Mild bibasilar densities suggestive of atelectasis. A mild pneumonitis could appear similarly. ACT 112: Negative or not required by law. The above report was generated using voice recognition software. It may contain grammatical, syntax o r spelling errors. Electronically signed by: Jonnie Mayberry M.D. 04/14/2022 6:16 PM
[2022-04-14 18:20] LABS: Albumin Level 3.4 gm/dl (3.4-5.0); BUN Creatinine Ratio 16.1 (10-20); Bilirubin Direct 0.8 mg/dl (0-0.2); Bilirubin,Total 1.7 mg/dl (0.2-1.0); Calcium 8.1 mg/dl (8.5-10.1); Creatinine Clr Calc Pharmacy 41.5 ml/min; Est GFR (African American) 51.4 ml/min; Est GFR (Non-African American) 44.3 ml/min; Magnesium 1.7 mg/dl (1.7-2.4); Potassium 3.3 mmol/L (3.5-5.1); Total Protein 6.1 gm/dl (6.0-8.3)
[2022-04-14 18:26] LABS: Basophils # (auto) 0.01 K/uL (0-0.2); Basophils % (auto) 0.2 %; Immature Granulocytes # (auto) 0.04 K/uL (0.01-0.20); Immature Granulocytes % (auto) 0.6 %; Lymphocytes # (auto) 0.24 K/uL (1.2-3.4); Lymphocytes % (auto) 3.7 %; Monocytes # (auto) 0.04 K/uL (0.11-0.59); Monocytes % (auto) 0.6 %; Neutrophils # (auto) 6.14 K/uL (1.40-6.50); Neutrophils % (auto) 94.9 %; Platelet Count 116 K/uL (130-400); Platelet Estimate Normal (Normal)
[2022-04-14 18:34] LABS: Troponin I High Sensitivity 66.9 pg/ml (0-20)
[2022-04-14 18:36] LABS: INR 1.2 (0.9-1.1); Prothrombin Time 12.5 Seconds (9.0-12.0)
[2022-04-14 18:48] LABS: Adenovirus PCR Not Detected (NotDetected); Bordetella parapertussis PCR Not Detected (NotDetected); Bordetella pertussis PCR Not Detected (NotDetected); Chlamydia pneumoniae PCR Not Detected (NotDetected); Coronavirus 229E PCR Not Detected (NotDetected); Coronavirus CoV-2 (COVID19)PCR Not Detected (NotDetected); Coronavirus HKU1 PCR Not Detected (NotDetected); Coronavirus NL63 PCR Not Detected (NotDetected); Coronavirus OC43PCR Not Detected (NotDetected); Human Metapneumovirus PCR Not Detected (NotDetected); Influenza A PCR Not Detected (NotDetected); Influenza B PCR Not Detected (NotDetected); Mycoplasma pneumoniae PCR Not Detected (NotDetected); Parainfluenza Virus 1 PCR Not Detected (NotDetected); Parainfluenza Virus 2 PCR Not Detected (NotDetected); Parainfluenza Virus 3 PCR Not Detected (NotDetected); Parainfluenza Virus 4 PCR Not Detected (NotDetected); Respiratory Syncytial VirusPCR Not Detected (NotDetected); Rhinovirus/Enterovirus PCR Not Detected (NotDetected)
[2022-04-14 18:57] LABS: Appearance Urine Clear (Clear); Bacteria Urine Automated Negative (Negative); Bilirubin Urine Negative (Negative); Blood Urine 2+ (Negative); Color Urine Dark Yellow; Glucose Urine UA Negative (Negative); Ketones Urine 1+ (Negative); Leukocyte Esterase Urine Negative (Negative); Nitrite Urine Negative (Negative); Protein Urine 2+ (Negative); RBC Urine Automated 0-4 /hpf (0-4); Specific Gravity Urine 1.022 (1.000-1.030); Urobilinogen Urine Negative (Negative); pH Urine 5.5 (4.5-7.5)
[2022-04-14] MEDS ORDERED: VANCOMYCIN CONSULT ACTIVE PRN (19:09)
[2022-04-14] MEDS ORDERED: VANCOMYCIN HCL 1,750 MG in SODIUM CHLORIDE 0.9% 500 ML IV ONE (19:09)
[2022-04-14] MEDS ORDERED: CEFEPIME 2,000 MG/20 ML VIAL IV STA (19:09)
[2022-04-14 19:12] LABS: Epithelial Cell Urine Auto 0-5 /lpf (0-5)
--- NOTE | 2022-04-14 19:23 | CT Scan Report ---
CT head/brain wo con CLINICAL HISTORY: 86 years-old Male with AMS. Acutely altered mental status TECHNIQUE: Multiple axial CT images of the head were obtained without contrast. A dose lowering tech nique was utilized adhering to the principles of ALARA. CT DOSE: 537.48 mGy.cm COMPARISON: 02/21/2017. FINDINGS: No acute intracranial hemorrhage, midline shift, intracranial mass, hydrocephalus, territorial ischem ia or abnormal extra-axial collection. Involutional changes with chronic microvascular ischemic disea se. The calvarium is intact. Prior bilateral lens repair. Mild mucosal thickening of the paranasal sinuse s. Mastoid air cells are clear. IMPRESSION: No acute intracranial abnormality ACT 112: Negative or not required by law. The above report was generated using voice recognition software. It may contain grammatical, syntax o r spelling errors. Electronically signed by: Jonnie Mayberry M.D. 04/14/2022 7:21 PM
[2022-04-14] MEDS: ACETAMINOPHEN 500 MG TAB PO STA ×2 (19:39→19:46)
[2022-04-14] MEDS ORDERED: POTASSIUM CHLORIDE CRTAB 20 MEQ TABCR PO STA (19:50)
--- NOTE | 2022-04-14 23:02 | CT Scan Report ---
Exam(s): CT CHEST Without Contrast EXAM: CT Chest Without Intravenous Contrast CLINICAL HISTORY: pneumonia?. TECHNIQUE: Axial computed tomography images of the chest without intravenous contrast. CTDI is 9.33 mGy and DLP is 308.83 mGy-cm. Automated exposure control was utilized for the study. A dose lowering technique was utilized adhering to the principles of ALARA. COMPARISON: 10/31/2018 FINDINGS: Lungs: Minimal curvilinear subsegmental changes in the posterior costophrenic margins. Similar, less prominent changes are noted involving the inferior lingular segments and right middle lobe. No focal airspace consolidation. Pleural space: Unremarkable. No pneumothorax. No significant effusion. Heart: The cardiac chambers are normal in caliber. Minimal coronary artery calcification noted. No significant pericardial effusion. Bones/joints: Unremarkable. No acute fracture. No dislocation. Soft tissues: Unremarkable. Vasculature: The thoracic aorta demonstrates atherotic changes but is normal in size and stable in appearance. Lymph nodes: Unremarkable. No enlarged lymph nodes. Gallbladder and bile ducts: Pneumobilia is new from the previous exam. Detailed evaluation is limited with only minimal inclusion of the liver. Stable appearing posterior fusion of the thoracolumbar spine. No acute osseous abnormality. Tubes, lines and devices: A right internal jugular approach port catheter is noted with the tip in the superior vena cava. IMPRESSION: Minimal curvilinear subsegmental atelectatic changes in the posterior costophrenic margins. Similar, less prominent changes are noted involving the inferior lingular segments and right middle lobe. No focal airspace consolidation. No pleural effusion or pneumothorax. Electronically signed by: John Gramajo MD 04/14/22 23:00 PM
--- NOTE | 2022-04-15 00:11 | Magnetic Resonance Report ---
Exam(s): MRA HEAD Without Contrast EXAM: MR Angiography Head Without Intravenous Contrast CLINICAL HISTORY: cva?. TECHNIQUE: Magnetic resonance angiography images of the head without intravenous contrast. COMPARISON: No relevant prior studies available. FINDINGS: Right internal carotid artery: No acute findings. Intracranial segment is patent with no significant stenosis. No aneurysm. Right anterior cerebral artery: Unremarkable. No occlusion or significant stenosis. No aneurysm. Right middle cerebral artery: Unremarkable. No occlusion or significant stenosis. No aneurysm. Right posterior cerebral artery: A right posterior communicating artery is identified. No occlusion or significant stenosis. No aneurysm. Right vertebral artery: Unremarkable as visualized. Left internal carotid artery: No acute findings. Intracranial segment is patent with no significant stenosis. No aneurysm. Left anterior cerebral artery: Unremarkable. No occlusion or significant stenosis. No aneurysm. Left middle cerebral artery: Unremarkable. No occlusion or significant stenosis. No aneurysm. Left posterior cerebral artery: A left posterior communicating artery is identified. No occlusion or significant stenosis. No aneurysm. Left vertebral artery: The left vertebral artery is dominant in size. Basilar artery: Unremarkable. No occlusion or significant stenosis. No aneurysm. IMPRESSION: Negative intracranial MRA examination. Electronically signed by: John Gramajo MD 04/15/22 00:10 AM
--- NOTE | 2022-04-15 00:14 | History and Physical Report ---
DATE OF ADMISSION: 04/14/2022. CHIEF COMPLAINT: Fever, confusion. 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 Since then, he is having some confusion and fever. He came to the ER yesterday. It looks like he has a bowel stent and also pancreatic stent a couple of weeks ago. Yesterday in the ER, he was afebrile, saturations were 95%, blood pressure was okay. Has elevated bilirubin, AST and ALT was elevated, but that seemed to be coming down, and his CT of the abdomen and pelvis was okay and the ER spoke with hem/onc application technician . As he was feeling better, he was discharged home. But as per the son after going home, his condition got worse, he got more confused, and he fell from the bed, does not know whether he hit his head or not, and his confusion was progressing and he was spiking temperatures. He was brought in here today again. As per the son, he says he is also having some difficulty speaking/finding words since last night, and in the ER, the patient could not swallow the pills, they had to crush and give it in applesauce. His son says he has essential tremors and after the chemo, the tremors got worse and he thinks he has more tongue tremors making it difficult for him to swallow. The patient is alert and awake, oriented to name, knows that he is in the hospital, could tell his date of , could tell that this is April, but could not tell which year is this. Complains of some mild back pain and mild abdominal pain and mild leg pains. Denies any headache. No neck pain. No blurred vision or double vision. No earache, no runny nose, no sore throat, no cough. Denies any chest pain or shortness of breath at this time. Was taking some nausea medications at home. He was constipated since his chemo. Normal bladder movements as per son. He is feeling weak. T-max of 38.8 in the ER today and his blood pressure is okay. He is saturating okay on room air. No leukocytosis, but his procalcitonin was 2.53 yesterday , today is 3.7. Troponin I is 66. Total bilirubin 1.7, it was 2.3 yesterday. AST, ALT, and alkaline phosphatase are trending down. Respiratory BioFire is negative. CT of the head is negative. ALLERGIES: CELECOXIB, AUGMENTIN, LACTOSE, NSAIDS. PAST MEDICAL HISTORY: As mentioned above. PAST SURGICAL HISTORY: Right total knee arthroplasty, colonoscopy, EGDs, EGD with endoscopic ultrasound on 03/29/2022, dilatation of the upper third of the esophagus, ERCP on 03/29/2022 with pancreatic stent placement ,ventral pancreatic duct, A-port placed, right knee arthroplasty, single lumbar laminectomy, melanoma removed from the chest, left posterior tibial tendon repair, removal of the nasal polyps, cataract surgeries on the left side, cholecystectomy, tonsillectomy, adenoidectomy, right shoulder surgery in 1995, left shoulder surgery in 1990, spinal fusion surgery in 2021 and 2012 MEDICATIONS: The patient is on Tylenol 650 mg p.o. q. 6 hours p.r.n., albuterol 2 puffs inhalation q. 6 hours p.r.n., Centrum Silver 1 tablet p.o. daily, vitamin D 50 mcg p.o. daily, Restasis one drop ophthalmic a.m., duloxetine 60 mg a.m. and 20 mg p.o. at bedtime, Flonase 1 spray intranasal b.i.d. p.r.n., hydroxyzine 25 mg p.o. t.i.d. p.r.n., ibuprofen 200 mg p.o. q. 4 hours p.r.n., ipratropium bromide 2 sprays intranasal t.i.d. p.r.n., lidocaine, topical p.r.n., Claritin 10 mg p.o. daily p.r.n., lorazepam 0.5 mg sublingual b.i.d. p.r.n., Zofran 8 mg p.o. q. 8 hours p.r.n., Protonix 20 mg p.o. daily, MiraLax 17 g p.o. daily, prochlorperazine 10 mg p.o. q. 6 hours p.r.n., propranolol 60 mg p.o. a.m., Metamucil one tablespoon p.o. daily p.r.n., Gas-X 125 mg p.o. b.i.d. p.r.n., terazosin 1 mg p.o. at bedtime, Maxzide 1 tablet p.o. every other day. FAMILY HISTORY: Significant for aunt has diabetes; father has stomach ulcers, lung disorder; mother has gastrointestinal disorder, hypertension, lung disorder, stroke; son has multiple sclerosis. SOCIAL HISTORY: , no smoking, no alcohol. Occasional wine with meals. No drug use. REVIEW OF SYSTEMS: As per HPI. Rest of the review of systems is negative. PHYSICAL EXAMINATION: GENERAL: The patient is old, somewhat confused, alert. VITAL SIGNS: Temperature T-max 38.8, pulse 85, respiratory rate 20, blood pressure 137/78, oxygen 97% on room air. HEENT: Pupils equal, round, and reactive to light. Oral mucosa somewhat dry. NECK: No JVD, no neck masses. CARDIOVASCULAR: S1 and S2 heard. Regular rate and rhythm. No murmur, no gallop. RESPIRATORY SYSTEM: Normal AP diameter. No accessory muscle use. No wheezing, no crackles. ABDOMEN: Soft, bowel sounds present. Mild abdominal discomfort, but no guarding, no rigidity, no distention. CENTRAL NERVOUS SYSTEM: Alert and awake, oriented to name and place. Could tell today's month, but could not tell the year. Could tell his date of . No facial droop. Can close his eyes tight and smile and no tongue deviation seen. Speech is very slow and pressured and sometimes not able to find the words. Strength 5/5 in all extremities. Coordination of movements normal. No pronator drift. Sensations, could tell when touching, could tell that I am touching his legs, but when I am touching his arms and face, he could tell I am touching, but could not tell where I am touching. Position sense, could tell okay on the right leg, but on the left leg he could not answer properly. Having difficulty speaking, finding words also could be playing the role. EXTREMITIES: No edema, no erythema. LABORATORY DATA: WBC 6.4, hemoglobin 11.7, hematocrit 34.7, platelets 116. PT 12.5, INR 1.2. Sodium 130, potassium 3.3, chloride 94, bicarbonate 29, BUN 23, creatinine 1.4, serum glucose 127. Lactate 1.8, calcium 8.1, magnesium 1.7, total bilirubin 1.7, direct bilirubin 0.8, AST 83, ALT 137, alkaline phosphatase 310. Troponin I high sensitivity 66.9. Procalcitonin 3.76. Urinalysis negative. Respiratory BioFire negative. IMAGING DATA: CT of the head, no acute findings. Chest x-ray: Cardiomegaly with pulmonary vascular congestion, mild bibasilar densities suggestive of atelectasis, and mild pneumonitis could appear similar. ASSESSMENT AND PLAN: 1. This is an 86-year-old male who was recently diagnosed with pancreatic cancer, status post pancreatic stent and bowel stent a couple of weeks ago. Had first chemo last Friday, comes with fever since yesterday, and some confusion and some word-finding difficulty, possible aphasia, , rule out stroke. Initial CT of the head is okay. Will do MRI scan and also an MRA of the head and neck. Neurology consult, speech evaluation, PT/OT evaluation, closely monitor in tele floor. Encephalopathy could also could be from ongoing fever and infection and also recent chemo. No source of obvious infections notified. Currently empirically starting on cefepime and vancomycin, . Chest x-ray, questionable pneumonitis. Will get ct chest.Will follow the cultures. Getting fluids. Closely monitor. 2. Hyponatremia and hypokalemia: Getting fluids. Will replace potassium. Will follow the labs. 3. History of chronic kidney disease stage III: Baseline creatinine around 1.2 to 1.4 with current creatinine of 1.4, will follow the labs. 4. Elevated LFTs. Seems to be trending down. Will follow the repeat labs. 5. Mild elevation of troponin, most likely demand ischemia. Will follow the serial enzymes and is also getting echo as per stroke protocol. 6. Elevated procalcitonin: Antibiotics as above. 7. Pancreatic cancer, recent diagnosis: Had first chemo last Friday. Management as per hem/onc. 8. Prediabetes: Follow HbA1c levels. 9. Tremors: On propranolol. 10. Gastroesophageal reflux disease: On Protonix. 11. Generalized anxiety disorder, depression: On duloxetine and Ativan p.r.n. 12. Hypertension: On Maxzide, terazosin, propranolol. Will monitor his blood pressure. 13. Obstructive sleep apnea: On BiPAP at bedtime. 14. History of benign prostatic hypertrophy: On terazosin. Monitor for any retention. 15. Deep venous thrombosis prophylaxis. Currently placed on sequential compression devices. If no stroke can place on lovenox. DISPOSITION: Closely monitor in the tele floor. Level 1 full code for now as per my discussion with the son. He is going to get his living will tomorrow. PT, OT prior to discharge. Social service to help with discharge planning. Job ID: [id number] [facility]
[2022-04-15] MEDS ORDERED: GADOBUTROL 10ML VIAL IV ONE (00:28)
--- NOTE | 2022-04-15 00:51 | Magnetic Resonance Report ---
Exam(s): MRA NECK Without Contrast EXAM: MR Angiography Neck Without Intravenous Contrast CLINICAL HISTORY: Reason for exam: cva?. TECHNIQUE: Magnetic resonance angiography images of the neck without intravenous contrast. COMPARISON: No relevant prior studies available. FINDINGS: Right common carotid artery: Unremarkable. No significant stenosis. No dissection or occlusion. Right internal carotid artery: Symmetric flow void artifact noted at the carotid bifurcation. Extracranial segment is patent with no significant stenosis. No dissection or occlusion. Right external carotid artery: Unremarkable. No occlusion. Right vertebral artery: Unremarkable. No significant stenosis. No dissection or occlusion. Left common carotid artery: Unremarkable. No significant stenosis. No dissection or occlusion. Left internal carotid artery: Symmetric flow void artifact noted at the carotid bifurcation. Extracranial segment is patent with no significant stenosis. No dissection or occlusion. Left external carotid artery: Unremarkable. No occlusion. Left vertebral artery: Unremarkable. No significant stenosis. No dissection or occlusion. Soft tissues: Unremarkable as visualized. CAROTID STENOSIS REFERENCE USING NASCET CRITERIA: % ICA stenosis = (1 - narrowest ICA diameter/diameter of distal cervical ICA) x 100. Mild - <50% stenosis. Moderate - 50-69% stenosis. Severe - 70-94% stenosis. Near occlusion - 95-99% stenosis. Occluded - 100% stenosis. IMPRESSION: Negative cervical noncontrast MRA examination. Electronically signed by: John Gramajo MD 04/15/22 00:50 AM
[2022-04-15] MEDS ORDERED: PHARMACIST DISCHARGE MED REC CONSULT PRN (01:10)
[2022-04-15] MEDS ORDERED: ACETAMINOPHEN 325 MG TAB PO PRN (01:10)
[2022-04-15] MEDS ORDERED: ALBUTEROL HFA 8 GM INHALER INH PRN (01:10)
[2022-04-15] MEDS ORDERED: FLUTICASONE PROPIONATE NA SPR 16 GM BTL PRN (01:10)
[2022-04-15] MEDS ORDERED: LIDOCAINE/PRILOCAINE 2.5% EA CRM EXT PRN (01:10)
[2022-04-15] MEDS ORDERED: PROCHLORPERAZINE MALEATE 10 MG TAB PO PRN (01:10)
[2022-04-15] MEDS ORDERED: LORazepam 0.5 MG TAB SL PRN (01:10)
[2022-04-15] MEDS ORDERED: POLYETHYLENE (MIRALAX) 17 GM PACK PO PRN (01:10)
[2022-04-15] MEDS ORDERED: NITROGLYCERIN SL 0.4 MG/TAB TAB SL PRN (01:10)
[2022-04-15] MEDS ORDERED: hydrOXYzine HCl 25 MG TAB PO PRN (01:10)
--- NOTE | 2022-04-15 01:10 | Magnetic Resonance Report ---
Exam(s): MRI HEAD W/WO Contrast IV Amt: 8.5cc gadavist EXAM: MR Head Without and With Intravenous Contrast CLINICAL HISTORY: stroke like symptoms, aphasia. TECHNIQUE: Magnetic resonance images of the head/brain without and with intravenous contrast in multiple planes. CONTRAST: Patient received 8.5cc Gadavist of IV contrast COMPARISON: CT head without contrast performed earlier FINDINGS: Brain: Scattered periventricular and deep white matter hyperintense T2 signal noted throughout both cerebral hemispheres. No abnormal enhancement of these areas following contrast administration. Underlying parenchymal involutional changes noted. No hemorrhage. No diffusion abnormality identified. Midline shift: The expected midline structures are noted. Ventricles: Unremarkable. No ventriculomegaly. Bones/joints: Unremarkable. Sinuses: Mucosal opacification of the left frontal sinus and several ethmoid air cells is noted. No acute sinusitis. Mastoid air cells: Unremarkable as visualized. No mastoid effusion. Orbits: Unremarkable as visualized. IMPRESSION: 1. No diffusion abnormality to suggest an evolving ischemic process. 2. Underlying deep white matter hyperintense changes are statistically most consistent with microvascular disease. 3. No abnormal enhancement following contrast administration. Electronically signed by: John Gramajo MD 04/15/22 01:09 AM
[2022-04-15] MEDS ORDERED: PSYLLIUM or GUAR GUM FIBER POWDER PACKET PO PRN (01:21)
[2022-04-15] MEDS ORDERED: SIMETHICONE 80 MG CHEW PO PRN (01:27)
[2022-04-15] MEDS: SODIUM CHLORIDE 0.9% 1000ML 1,000 ML IV SCH ×3 (02:24→22:19)
[2022-04-15] MEDS ORDERED: VANCOMYCIN HCL 1,000 MG in SODIUM CHLORIDE 0.9% 250 ML IV SCH (06:00)
[2022-04-15 06:11] LABS: BUN Creatinine Ratio 15.7 (10-20); Bilirubin Direct 0.6 mg/dl (0-0.2); Bilirubin,Total 1.4 mg/dl (0.2-1.0); Calcium 7.8 mg/dl (8.5-10.1); Chol HDL Ratio 3.9 (0-5); Creatinine Clr Calc Pharmacy 46.7 ml/min; Est GFR (African American) 59.3 ml/min; Est GFR (Non-African American) 51.2 ml/min; Magnesium 1.9 mg/dl (1.7-2.4); Potassium 3.8 mmol/L (3.5-5.1); Total Protein 5.5 gm/dl (6.0-8.3)
[2022-04-15] MEDS: CHLORASEPTIC 1.4% SOLN 180 ML BTL MT PRN (06:15)
[2022-04-15 06:18] LABS: Troponin I High Sensitivity 50.5 pg/ml (0-20)
[2022-04-15 06:34] LABS: Hematocrit (blood only) 32.6 % (42.0-52.0); Hemoglobin 10.9 g/dl (14.0-18.0); Mean Corpuscular Hemoglobin 32.3 pg (25.0-34.0); Mean Corpuscular Hgb Conc 33.4 g/dL (32.0-36.0); Mean Corpuscular Volume 96.7 fL (80.0-100.0); Mean Platelet Volume 11.1 fL (9.4-12.4); Platelet Count 95 K/uL (130-400); RDW Coefficient of Variation 12.6 % (11.5-14.5); RDW Standard Deviation 44.8 fL (36.4-46.3); Red Blood Count 3.37 M/uL (4.70-6.10); White Blood Count 4.95 K/ul (4.8-10.8)
[2022-04-15 06:35] LABS: Basophils # (auto) 0.01 K/uL (0-0.2); Basophils % (auto) 0.2 %; Immature Granulocytes # (auto) 0.04 K/uL (0.01-0.20); Immature Granulocytes % (auto) 0.8 %; Lymphocytes # (auto) 0.21 K/uL (1.2-3.4); Lymphocytes % (auto) 4.2 %; Monocytes # (auto) 0.03 K/uL (0.11-0.59); Monocytes % (auto) 0.6 %; Neutrophils # (auto) 4.66 K/uL (1.40-6.50); Neutrophils % (auto) 94.2 %; Platelet Estimate Decreased (Normal)
[2022-04-15] MEDS: RESTASIS~ORDER AWAITING ACTION SCH ×2 (08:40→16:46)
[2022-04-15] MEDS: CEFEPIME 2,000 MG in SYRINGE 0 ML IV SCH ×2 (08:41→20:23)
[2022-04-15] MEDS: SODIUM CHLORIDE 0.65% NA SOLN 45 ML (OCEAN) SCH ×2 (08:41→20:24)
[2022-04-15] MEDS ORDERED: TRIAMTERENE/HCTZ 37.5/25MG TAB PO SCH (09:00)
--- NOTE | 2022-04-15 10:26 | Pharmacy Report ---
Pharmacy Vanc AUC Short Note - Date of Service April 15, 2022 - Assessment & Plan Assessment * 86 year old M receiving VANCOMYCIN + CEFEPIME for treatment of fever or unknown origin. Pharmacy to dose vancomycin * Pertinent microbiologic data includes: MRSA Nasal Swab ordered but not yet collected, UA without pyuria, negative resp BioFire, BLCXs x 2 pending, procal 3.76 * VANCOMYCIN HAS BEEN ORDERED FOR 48 HR DURATION ONLY Plan Vancomycin * AUC/RADHA is the preferred PK/PD target for vancomycin * AUC guided dosing is effective and associated with decreased risk of nephrotoxicity compared to traditional trough targets * Loading dose: 1750mg x 1, followed by 1000mg ~ 10 hours later * Maint dose: 1250mg Q 24 hrs (to begin at 0100 on 04/16) * This maint dose is predicted to achieve target AUC/RADHA of 400-600 mg/L.hr and may be associated with a 13 % risk of nephrotoxicity if therapy extended * No level has been ordered as therapy only to continue for 48 hrs. If therapy is extended beyond 48 hrs will check level w/ 2nd or 3rd maint dose. Pharmacy will continue to follow and will adjust dose/frequency as necessary. Thank you.
--- NOTE | 2022-04-15 10:47 | Neurology Consultation ---
Date of Consultation April 15, 2022 Assessment & Plan (1) Acute encephalopathy: (2) Tremor: (3) Idiopathic polyneuropathy: (4) Pancreatic cancer: Plan this patient has a background of mild essential tremor and polyneuropathy involving predominantly sensory fibers. This gives him a sensory ataxic gait. There is some very mild resting tremor and rigidity in the left upper extremity which could indicate some early Parkinson's, however a believe his picture is most consistent with essential tremor. He has an acute encephalopathy with fever and generalized sense of weakness likely secondary to chemotherapy. His liver has been considerably affected and this may hepatic encephalopathy. This is improving today compared to yesterday and his liver enzymes are improving as well. He has pancreatic cancer and just receive chemotherapy agents on April 12 both of which can cause acute encephalopathy. The MRI of the brain showed no acute stroke MR angiography showed no vascular stenoses. 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 Recommendations: 1. Because of his old small vessel ischemia and 81 milligram aspirin tablet daily is reasonable. However I am not certain if this is contraindicated with his keep therapy at this time 2. I see no reason for other neurologic testing or treatment at this time. He will likely improve each day he is away from his chemotherapy date. 3. Continue propranolol 60 milligram daily for his tremor. This could be increased as an outpatient (he looks like he could use some more) , but I would not do this in the hospital. 4. physical and occupational therapy would be reasonable for his gait disturbance. Overall, I spent a total of 90 minutes with this case including review of records, review of MRI and CT films, direct evaluation the patient at bedside, and discussion of the case with the patient and RN at bedside, as well as Dr. Waller, including differential diagnosis and treatment options. History of Present Illness Reason for Consultation: Patient is a an 86-year-old, who I was asked to see at the request of Dr. Tolentino, for neurologic evaluation regarding altered mental status and other issues. Requesting Physician: Dr. Tolentino Attending Physician: Zacarias Guardado MD History of Present Illness This patient has a history of chronic renal disease stage III, essential tremor, benign positional vertigo, generalized anxiety disorder, hypertension, obstructive sleep apnea on BiPAP, pre diabetes, dyslipidemia, and BPH. In February of this year he was diagnosed with malignant neoplasm of the head of the pancreas. On April 12, he had his 1st chemotherapy with Gemzar and paclitaxel. Over the next couple of days he has had some fevers, lethargy, and a generalized sense of weakness. He visited the ER April 13 and then was sent home. A CT scan of the abdomen did not show any acute changes. He returned to the emergency room April 14 with fever and altered mental status. He was weak and lethargic in general and slow to answer questions. In the ER, temperature was 38.1. Pulse was 91 and respiratory rate 25. Blood pressure was 157/73. O2 saturation was 95 percent. White count was normal in the was mild anemia. Chem profile revealed a sodium of 138 potassium of 3.3. Creatinine was elevated 1.43 and this is chronic. Liver enzymes were markedly elevated in general. Lactate was normal at 1.8 but procalcitonin was elevated at 3.76. Urine was unremarkable. Chest x-ray showed cardiomegaly with pulmonary vascular congestion. A CT scan of the head showed no acute changes. MR angiography of the head and neck were unremarkable without any vascular stenoses are anomalies. MRI of the brain showed no acute stroke but did show moderate old small vessel ischemic disease and generalized atrophy. I reviewed these films. Nursing reports that the patient has had no new events overnight her this morning. He is improving with his mental status and is sitting out of bed to chair. He has no complaint of pain or headache. He has not feeling lightheaded or dizzy and has no new visual issues. He feels weak in general but has no focal weakness and has no dysesthesias or numbness. His balance has been off for quite some time which she attributes to his neuropathy. He has tremor which is longstanding as well. The tremor occurs with activity and has been present for at least 10 years. There is no family history of tremor. patient tells me he does feel little confused. Allergies Allergy/AdvReac Type Severity Reaction Status Date / Time celecoxib Allergy Severe SHORT OF Verified 04/14/22 18:34 BREATH clavulanic acid Allergy Severe SHORTNESS Verified 04/14/22 18:34 OF BREATH NSAIDS (Non-Steroidal Allergy Severe ASTHMA Verified 04/14/22 18:34 Anti-Inflamma ATTACK lactose Allergy Intermediate INDIGESTION Verified 04/14/22 18:34 AND GAS amoxicillin AdvReac Intermediate Rash Verified 04/14/22 18:34 Home Medications Medication Instructions Recorded Confirmed Type albuterol sulfate 90 mcg/actuation 2 puff inhalation Q6H PRN 09/08/18 04/14/22 History aerosol inhaler (Ventolin HFA) Shortness Of Breath duloxetine 60 mg capsule,delayed 60 mg PO QAM 09/08/18 04/14/22 History release (Cymbalta) fluticasone propionate 50 1 spray intranasal BID PRN Allergy 09/08/18 04/14/22 History mcg/actuation nasal Symptoms spray,suspension (Flonase Allergy Relief) ipratropium bromide 42 mcg (0.06 2 spray intranasal TID PRN Nasal 09/08/18 04/14/22 History %) nasal spray Congestion lorazepam 0.5 mg tablet 0.5 mg sublingual BID PRN Anxiety 09/08/18 04/14/22 History multivit with min-folic 1 tab PO QAM 09/08/18 04/14/22 History acid-lutein 400 mcg-250 mcg chewable tablet (Centrum Silver) polyethylene glycol 3350 17 17 g PO DAILY 01/25/19 04/14/22 History gram/dose oral powder (Miralax) propranolol 60 mg capsule,24 60 mg PO QAM 01/25/19 04/14/22 History hr,extended release simethicone 125 mg chewable tablet 125 mg PO BID PRN Indigestion 01/25/19 04/14/22 History (Gas-X Extra Strength) acetaminophen 325 mg tablet 650 mg PO Q6H PRN Pain 04/13/22 04/14/22 History (Tylenol) cholecalciferol (vitamin D3) 50 50 mcg PO DAILY 04/13/22 04/14/22 History mcg (2,000 unit) capsule (Vitamin D3) cyclosporine 0.05 % eye drops in a 1 drp OPB QAM 04/13/22 04/14/22 History dropperette (Restasis) duloxetine 20 mg capsule,delayed 20 mg PO HS 04/13/22 04/14/22 History release hydroxyzine HCl 25 mg tablet 25 mg PO TID PRN Itching 04/13/22 04/14/22 History ibuprofen 200 mg tablet 200 mg PO Q4H PRN Pain 04/13/22 04/14/22 History lidocaine-prilocaine 2.5 %-2.5 % 1 applic topical DIRECTED PRN 1 04/13/22 04/14/22 History topical cream HR PRIOR TO MEDIPORT ACCESS loratadine 10 mg tablet (Claritin) 10 mg PO DAILY PRN RHINITIS 04/13/22 04/14/22 History ondansetron HCl 8 mg tablet 8 mg PO Q8H PRN NAUSEA/VOMITING 04/13/22 04/14/22 History pantoprazole 20 mg tablet,delayed 20 mg PO QAM 04/13/22 04/14/22 History release prochlorperazine maleate 10 mg 10 mg PO Q6H PRN NAUSEA/VOMITING 04/13/22 04/14/22 History tablet psyllium husk 3.4 gram/5.4 gram 1 tsp PO TID PRN Constipation 04/13/22 04/14/22 History oral powder (Metamucil) sodium chloride 0.65 % nasal spray 2 spray intranasal BID 04/13/22 04/14/22 History aerosol (Saline Nasal) triamterene 37.5 1 tab PO Q OTHER DAY 04/13/22 04/14/22 History mg-hydrochlorothiazide 25 mg tablet terazosin 1 mg capsule 1 mg PO HS 04/14/22 04/14/22 History Patient History Medical History Asthma BPH (benign prostatic hyperplasia) BPPV (benign paroxysmal positional vertigo) CKD (chronic kidney disease) stage 3, GFR 30-59 ml/min Depression Dizziness Chronic issue x 1.5 years Encounter for pre-operative examination Essential tremor Located to hands R>L History of melanoma S/p removal Hyperlipidemia Hypertension Prediabetes Sleep apnea CPAP Vasovagal episode Approximately one year ago (03/2021) during PT- suspected vasovagal Surgical History History of cardiac cath 02/06/2000 - No CAD History of cataract surgery 2019 History of colonoscopy History of lumbar surgery 3 total; hardware present History of melanoma excision History of tonsillectomy History of total knee replacement Rt Family History Father CHF (congestive heart failure) Father COPD (chronic obstructive pulmonary disease) Social History (Updated 04/15/22 @ 10:37 by Babar Felix MD) Smoking Status: Never smoker Second Hand Exposure: No; Hx Alcohol Use: Yes Alcohol type: wine Hx Substance Use: No Preferred Language: Greek Communication Ability: Effective Settlement Clerk Required: No Beliefs That Will Affect Care: None Current Living Situation: Spouse Current Living Situation Comment: Lives at home with , daughter lives nearby current occupational status: retired 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 Feels Safe at Home: Yes Assistive Devices: Cane and Walker Review of Systems Constitutional: + fatigue and + weakness; no fever Eyes: no diplopia, no eye pain and no worsening vision Ear, Nose, Mouth, Throat: no ear pain, no tinnitus, no hearing loss, no dizziness, no snoring, no hoarseness and no dysphagia Respiratory: no cough and no dyspnea Cardiovascular: no chest pain, no palpitations and no lightheadedness Gastrointestinal: no abdominal pain, no nausea and no vomiting Musculoskeletal: no back pain, no neck pain, no radicular pain, no joint pain and no myalgia Integumentary: no rash and no lesions Neurologic: + gait abnormality and + confusion; no localized weakness, no generalized weakness, no tingling, no numbness, no tremor(s), no abnormal moveme nts, no headache(s), no abnormal speech and no memory loss Psychiatric: no depression, no irritability, no anxiety, no difficulty concentrating, no confusion and no hallucinations Endocrine: no fatigue and no flushing Hematologic / Lymphatic: no easy bleeding and no easy bruising Allergy / Immunological: no urticaria and no problem reported Exam (Neuro) Physical Exam: The patient is right-handed. The patient is awake, alert, and attentive. Speech is without any obvious aphasia or dysarthria. The patient can name objects, repeat phrases, and has normal spontaneous speech. mood and affect seem normal appropriate. He is a little slow to respond but does know the month or the year where he is, his age, and details about his life. He did not know the date or the day. He thought his chemotherapy was weeks ago. The discs are sharp with positive venous pulsations bilaterally. There are no exudates, hemorrhages, or blood vessel changes seen. Pupils are 4 mm bilaterally and reactive to light. Extraocular eye muscles are intact without nystagmus. Visual acuity and visual peña seem normal grossly to confrontation. There are no deficits to sensation in the face in all 3 distributions of the fifth cranial nerve bilaterally. Corneal reflexes are positive bilaterally. Facial strength and symmetry was normal bilaterally. Hearing seems normal bilaterally. Palate moves well without asymmetry. There is normal sternocleidomastoid and trapezius (shoulder shrug) strength bilaterally. Tongue is midline with good strength bilaterally. Neck has a full range of motion without discomfort. There are no cervical bruits bilaterally. There are no cranial or ocular bruits. Heart is without murmur. There is a regular rhythm and rate. Cervical, thoracic, and lumbar spine are nontender to palpation. Gait It is difficult to assess as he is very off balanced. This is particularly true when he puts his feet together or closes his eyes. Otherwise stance with eyes open is reasonable although shaky. Sitting up in chair is quite. With outstretched arms there is no drift. There Is a very mild resting tremor in the left upper extremity but not the right. There is mild left greater than right action tremor as well as a head tremor. There is no voice tremor.. There is no ataxia with finger to nose testing. There is good facility in the hands. No other abnormal involuntary movements are noted. Motor strength is 5/5 diffusely in the arms bilaterally including deltoids, biceps, triceps, brachioradialis, wrist flexors and extensors, cutter operator helper, and intrinsic hand muscles. Motor strength is 5/5 diffusely in the legs bilaterally including hip flexors, quadriceps, hamstrings, gastrocnemius, tibialis anterior, tibialis posterior, and Peroneii muscles. Toe extensors are normal and there is good bulk in the extensor digitorum brevis muscles bilaterally. The limbs have good tone without spasticity. Some very mild cogwheeling may be present in the left upper extremity although this is difficult to be certain.There is no atrophy noted in the muscles. Muscle bulk is normal, there is no tenderness to palpation, no myotonia to percussion, and no fasciculations seen. The patient has a little bit of masklike face and bradykinesia in general. Sensory examination Reveals some decreased sensation to pin in the feet bilaterally. Reflexes are 1/4 in the biceps, triceps, brachioradialis, and quadriceps tendons bilaterally. Achilles tendon reflexes are absent bilaterally. There is no clonus bilaterally. Toes are downgoing with plantar stimulation bilaterally. Peripheral pulses are present and of normal quality distally in all 4 limbs. There is no peripheral edema noted in the limbs. Results & Data ([facility]) Vital Signs (Past 12 Hours) Vital Signs Temp Pulse Pulse Resp BP Pulse Ox O2 Del Method 04/15/22 08:29 38.0 C H 89 18 145/69 H 97 Room Air 04/15/22 07:00 77 04/15/22 04:30 37.4 C 79 16 133/62 98 Room Air 04/15/22 01:34 37.4 C 81 16 139/67 96 Room Air 04/15/22 01:10 37.4 C 81 16 139/67 96 Room Air 04/15/22 01:10 83 04/14/22 23:03 Room Air PG Care Time/CCT Total # of Minutes Spent Total Time Spent with Patient: Total time spent is greater than 50% in coordination of care (as documented) at patient's floor/unit and/or counseling patient: Coding Level of Care Code 73856 INT INP/OBS CARE 3/75MIN Diagnoses Acute encephalopathy G93.40 Tremor R25.1 Idiopathic polyneuropathy G60.9 Pancreatic cancer C25.9 Time Spent (min) 90
[2022-04-15 11:03] LABS: Estimated Average Glucose 137 mg/dl; Hemoglobin A1C 6.4 % (4.5-5.6)
[2022-04-15] MEDS: PROPRANOLOL HCL 60 MG LA CAP PO SCH (12:15)
[2022-04-15] MEDS: PANTOprazole 40 MG TAB PO SCH (12:15)
[2022-04-15] MEDS: DULoxetine HCL 60 MG CAP PO SCH (12:15)
[2022-04-15] MEDS: CHOLECALCIFEROL 1,000 UNITS 25 MCG TAB PO SCH (12:16)
[2022-04-15] MEDS: POLYETHYLENE (MIRALAX) 17 GM PACK PO SCH (12:16)
--- NOTE | 2022-04-15 15:56 | Hospitalist Progress Note ---
Date of Service April 15, 2022 Assessment & Plan (1) Fever: Plan: -No definite infection, will continue cefepime and vancomcyin. follow up blood cultures -MRSA swab for antibiotic de-escalation (2) Pancreatic cancer: Plan: -OP management, recently started chemotherapy this past Friday (2 days prior to hospitalization) -Currently with transaminitis which is improving -CT A/P with contrast 3/4 unrevealing (3) Idiopathic polyneuropathy: (4) Acute encephalopathy: Plan: -Now resolved -MRI brain shows chronic microvascular disease, appreciate Neurology input, start aspirin 81mg daily if no contra-indications Plan Right leg swelling -chronic per patient -high risk for DVT for underlying pancreatic cancer. Check LE u/s DVT ppx SCDs for now. Worsening thrombocytopenia and anemia. Will hold off AC for now Disposition -from home, PT evaluation prior to discharge due to weakness currently Admission and Anticipated Discharge Date Admission Date: April 14, 2022 Subjective Tmax 38.8. Patient feels weak. Denies cough, chest pain, nausea/vomiting. Has a right chest wall port. Physical Exam Physical Exam: No acute distress, non toxic, pleasant Respiratory: Breathing comfortably on room air, no wheezing/rhonchi Cardiovascular: Regular rate and rhythm, no murmurs/rubs Gastrointestinal (Abdomen): soft, non tender, non distended Musculoskeletal: right leg slightly larger than left (patient reports this is chronic), no edema, no cyanosis Neurologic: awake, alert, spontaneously moving extremities Results & Data Results & Data ([facility]) Vital Signs (Past 12 Hours) Vital Signs Temp Pulse Pulse Resp BP Pulse Ox O2 Del Method 04/15/22 15:31 36.7 C 69 18 139/71 96 Room Air 04/15/22 15:00 81 04/15/22 11:48 37.0 C 78 18 127/59 L 98 Room Air 04/15/22 08:29 38.0 C H 89 18 145/69 H 97 Room Air 04/15/22 07:00 77 04/15/22 04:30 37.4 C 79 16 133/62 98 Room Air
--- NOTE | 2022-04-15 17:13 | Ultrasound Report ---
US venous doppler LE BI CLINICAL HISTORY: leg swelling, evaluate for DVT TECHNIQUE: Bilateral lower extremity real-time compression venous ultrasound with Color Doppler imagi ng. Utilizing real-time ultrasonic imaging multiple real time high-resolution ultrasonic images with compression and noncompression maneuvers of the deep venous system in addition to color doppler imagi ng were performed from the common femoral vein through the proximal calf veins. COMPARISON: Comparison is made to lower extremity Doppler 05/16/2016 FINDINGS/IMPRESSION: Currently there is normal compressibility of the deep venous system from the common femoral vein thro ugh the proximal calf veins. No superficial venous thrombosis is identified. ACT 112: Negative or not required by law. Electronically signed by: Alfredo Leblanc M.D. 04/15/2022 5:12 PM
[2022-04-15] MEDS: DULoxetine HCL 20 MG CAP PO SCH (20:23)
[2022-04-15] MEDS: TERAZOSIN HCL 1 MG CAP PO SCH (20:23)
[2022-04-16] MEDS ORDERED: VANCOMYCIN HCL 1,250 MG in SODIUM CHLORIDE 0.9% 250 ML IV SCH (01:00)
[2022-04-16] MEDS: RESTASIS~ORDER AWAITING ACTION SCH ×2 (01:46→08:04)
--- NOTE | 2022-04-16 05:13 | Electrocardiogram Report ---
Test Reason : Blood Pressure : / mmHG Vent. Rate : 092 BPM Atrial Rate : 092 BPM P-R Int : 162 ms QRS Dur : 088 ms QT Int : 348 ms P-R-T Axes : 041 -16 039 degrees QTc Int : 430 ms Normal sinus rhythm Normal ECG When compared with ECG of 13-APR-2022 19:31, No significant change was found Confirmed by Sahil Mar ([id number]) on 04/16/2022 5:13:35 AM Referred By: NO PCP Confirmed By:Sahil Mar
[2022-04-16] MEDS: SODIUM CHLORIDE 0.9% 1000ML 1,000 ML IV SCH (07:59)
[2022-04-16] MEDS: CEFEPIME 2,000 MG in SYRINGE 0 ML IV SCH (08:01)
[2022-04-16] MEDS: CHLORASEPTIC 1.4% SOLN 180 ML BTL MT PRN (08:02)
[2022-04-16] MEDS: POLYETHYLENE (MIRALAX) 17 GM PACK PO SCH (08:02)
[2022-04-16] MEDS: LORATADINE 10 MG TAB PO PRN (08:02)
[2022-04-16] MEDS: PANTOprazole 40 MG TAB PO SCH (08:03)
[2022-04-16] MEDS: CHOLECALCIFEROL 1,000 UNITS 25 MCG TAB PO SCH (08:03)
[2022-04-16] MEDS: DULoxetine HCL 60 MG CAP PO SCH (08:03)
[2022-04-16] MEDS: PROPRANOLOL HCL 60 MG LA CAP PO SCH (08:03)
[2022-04-16 08:04] LABS: BUN Creatinine Ratio 18.8 (10-20); Calcium 8.1 mg/dl (8.5-10.1); Creatinine Clr Calc Pharmacy 50.7 ml/min; Est GFR (African American) 65.5 ml/min; Est GFR (Non-African American) 56.5 ml/min; Potassium 3.8 mmol/L (3.5-5.1)
[2022-04-16] MEDS: SODIUM CHLORIDE 0.65% NA SOLN 45 ML (OCEAN) SCH ×2 (08:04→20:53)
[2022-04-16 09:04] LABS: Hematocrit (blood only) 31.5 % (42.0-52.0); Hemoglobin 10.6 g/dl (14.0-18.0); Mean Corpuscular Hemoglobin 32.1 pg (25.0-34.0); Mean Corpuscular Hgb Conc 33.7 g/dL (32.0-36.0); Mean Corpuscular Volume 95.5 fL (80.0-100.0); Mean Platelet Volume 12.2 fL (9.4-12.4); Platelet Count 96 K/uL (130-400); RDW Coefficient of Variation 12.6 % (11.5-14.5); RDW Standard Deviation 44.5 fL (36.4-46.3); White Blood Count 3.31 K/ul (4.8-10.8)
[2022-04-16 09:52] LABS: Eosinophils # (auto) 0.01 K/uL (0-0.50); Eosinophils % (auto) 0.3 %; Immature Granulocytes # (auto) 0.04 K/uL (0.01-0.20); Immature Granulocytes % (auto) 1.2 %; Lymphocytes # (auto) 0.19 K/uL (1.2-3.4); Lymphocytes % (auto) 5.7 %; Monocytes # (auto) 0.02 K/uL (0.11-0.59); Monocytes % (auto) 0.6 %; Neutrophils # (auto) 3.05 K/uL (1.40-6.50); Neutrophils % (auto) 92.2 %
--- NOTE | 2022-04-16 16:22 | Hospitalist Progress Note ---
Date of Service April 16, 2022 Assessment & Plan (1) Fever: Plan: No clear source of infection. Patient with elevated LFTs (improving) and pancreatic stent so cholangitis is a possibility. Also with right chest wall port as potential sources of infection. Blood culture from 04/13 and 04/14 are negative so far Urine culture negative Was on Vancomycin/Cefepime empirically. MRSA swab negative. Will discontinue cefepime. Will place on Cefnidir and Flagyl oral to finish a 5 day course for empiric treatment of possible biliary infection. (2) Pancreatic cancer: Plan: -OP management, recently started chemotherapy this past Friday (2 days prior to hospitalization) -Currently with transaminitis which is improving -CT A/P with contrast 04/13 unrevealing (3) Idiopathic polyneuropathy: (4) Acute encephalopathy: Plan: -Now resolved -MRI brain shows chronic microvascular disease, appreciate Neurology input, start aspirin 81mg daily if no contra-indications Plan Right leg swelling -chronic per patient -high risk for DVT for underlying pancreatic cancer. LE u/s negative for DVT DVT ppx SCDs for now. Worsening thrombocytopenia and anemia. Will hold off AC for now Disposition -from home, PT recommend 24 hour home supervision vs SNF. CM following Admission and Anticipated Discharge Date Admission Date: April 14, 2022 Subjective Patient feels very tired, weak No fevers since yesterday morning Denies feeling said. States "I am happy" (but he appears withdrawn and is not maintaining eye contact) Physical Exam Physical Exam: Pleasant and comfortable, appears withdrawn and not maintaining eye contact Respiratory: Breathing comfortably on room air, no wheezing/rhonchi Cardiovascular: Regular rate and rhythm, no murmurs/rubs Gastrointestinal (Abdomen): soft, nontender Musculoskeletal: No edema, no cyanosis Psychiatric: appears withdrawn, not maintaining eye contact, soft voice Results & Data Results & Data ([facility]) Vital Signs (Past 12 Hours) Vital Signs Temp Pulse Pulse Resp BP BP Pulse Ox 04/16/22 15:17 61 04/16/22 14:55 36.4 C L 65 16 129/62 96 04/16/22 11:43 36.9 C 68 18 123/61 96 04/16/22 07:27 37.3 C 73 18 107/57 L 94 04/16/22 07:07 76 O2 Del Method 04/16/22 15:17 04/16/22 14:55 Room Air 04/16/22 11:43 Room Air 04/16/22 07:27 Room Air 04/16/22 07:07
[2022-04-16] MEDS ORDERED: metroNIDAZOLE 250 MG TAB PO SCH ×2 (17:00)
[2022-04-16] MEDS: metroNIDAZOLE 500 MG TAB PO SCH (17:52)
[2022-04-16] MEDS: DULoxetine HCL 20 MG CAP PO SCH (20:47)
[2022-04-16] MEDS: TERAZOSIN HCL 1 MG CAP PO SCH (20:47)
[2022-04-16] MEDS: CEFDINIR 300 MG CAP PO SCH (20:47)
[2022-04-17 07:50] LABS: Hematocrit (blood only) 29.2 % (42.0-52.0); Hemoglobin 9.9 g/dl (14.0-18.0); Mean Corpuscular Hemoglobin 32.4 pg (25.0-34.0); Mean Corpuscular Hgb Conc 33.9 g/dL (32.0-36.0); Mean Corpuscular Volume 95.4 fL (80.0-100.0); Mean Platelet Volume 11.6 fL (9.4-12.4); Platelet Count 73 K/uL (130-400); RDW Coefficient of Variation 12.6 % (11.5-14.5); RDW Standard Deviation 44.1 fL (36.4-46.3); Red Blood Count 3.06 M/uL (4.70-6.10); White Blood Count 2.31 K/ul (4.8-10.8)
[2022-04-17 07:53] LABS: Basophils # (auto) 0.01 K/uL (0-0.2); Basophils % (auto) 0.4 %; Eosinophils # (auto) 0.07 K/uL (0-0.50); Immature Granulocytes # (auto) 0.01 K/uL (0.01-0.20); Immature Granulocytes % (auto) 0.4 %; Lymphocytes # (auto) 0.34 K/uL (1.2-3.4); Lymphocytes % (auto) 14.7 %; Monocytes # (auto) 0.02 K/uL (0.11-0.59); Monocytes % (auto) 0.9 %; Neutrophils # (auto) 1.86 K/uL (1.40-6.50); Neutrophils % (auto) 80.6 %
[2022-04-17 07:58] LABS: Albumin Level 2.8 gm/dl (3.4-5.0); BUN Creatinine Ratio 20.2 (10-20); Bilirubin Direct 0.4 mg/dl (0-0.2); Bilirubin,Total 0.9 mg/dl (0.2-1.0); Calcium 7.8 mg/dl (8.5-10.1); Est GFR (African American) 75.5 ml/min; Est GFR (Non-African American) 65.2 ml/min; Potassium 3.4 mmol/L (3.5-5.1); Total Protein 4.9 gm/dl (6.0-8.3)
[2022-04-17] MEDS ORDERED: POTASSIUM CHLORIDE CRTAB 20 MEQ TABCR PO STA (08:49)
[2022-04-17] MEDS: metroNIDAZOLE 500 MG TAB PO SCH ×2 (09:23→20:29)
[2022-04-17] MEDS: SACCHAROMYCES BOULARDII 250 MG CAP PO SCH (09:23)
[2022-04-17] MEDS: CHOLECALCIFEROL 1,000 UNITS 25 MCG TAB PO SCH (09:24)
[2022-04-17] MEDS: LORATADINE 10 MG TAB PO PRN (09:24)
[2022-04-17] MEDS: DULoxetine HCL 60 MG CAP PO SCH (09:24)
[2022-04-17] MEDS: PANTOprazole 40 MG TAB PO SCH (09:24)
[2022-04-17] MEDS: CEFDINIR 300 MG CAP PO SCH ×2 (09:25→20:28)
[2022-04-17] MEDS: PROPRANOLOL HCL 60 MG LA CAP PO SCH (09:25)
[2022-04-17] MEDS: SODIUM CHLORIDE 0.65% NA SOLN 45 ML (OCEAN) SCH ×2 (09:26→20:29)
[2022-04-17] MEDS: CYCLOSPORINE OP SCH (09:26)
[2022-04-17] MEDS: POLYETHYLENE (MIRALAX) 17 GM PACK PO SCH (09:36)
--- NOTE | 2022-04-17 10:30 | Neurology Progress Note ---
Date of Service April 17, 2022 Assessment & Plan (1) Acute encephalopathy: (2) Tremor: (3) Idiopathic polyneuropathy: (4) Pancreatic cancer: Plan This patient has a background of mild essential tremor and polyneuropathy involving predominantly sensory fibers. This gives him a sensory ataxic gait. There is some very mild resting tremor and rigidity in the left upper extremity which could indicate some early Parkinson's, however a believe his picture is most consistent with essential tremor. Overall these issues are stable. He presented April 14, with an acute encephalopathy, fever, and a generalized sense of weakness, all of which was likely secondary to chemotherapy. His liver has been affected and his confusion may be an hepatic encephalopathy. His encephalopathy and generalized sense of weakness are resolved and his liver enzymes are improving. He has pancreatic cancer and just received two chemotherapy agents on April 12, both of which can cause acute encephalopathy. The MRI of the brain showed no acute stroke MR angiography showed no vascular stenoses. 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 Recommendations: 1. Because of his old small vessel ischemia an 81 milligram aspirin tablet da ermelinda is reasonable to initiate. 2. There is no need for any additional neurologic test at this time. Please contact me if I can be of further assistance. 3. Continue propranolol 60 milligram daily for his tremor. This could be increased as an outpatient (he looks like he could use some more) , but I would not do this in the hospital. 4. physical and occupational therapy would be reasonable for his gait disturbance. again, this could be done as an outpatient. Overall, I spent a total of 35 minutes with this case including review of records, direct evaluation the patient at bedside, and discussion of the case with the patient and RN at bedside, as well as Dr. Guardado, including differential diagnosis and treatment options. Admission and Anticipated Discharge Date Admission Date: April 14, 2022 Subjective Patient has no complaint of pain or headache. He seems to be back to his baseline with communication and cognitive skills ( he believes ). Nursing reports no new issues or problems. Blood pressure is 151/65. CBC shows some pancytopenia ( a little worse than earlier in admission) and liver enzymes are improving compared to admission. Chemistries unremarkable and calcium is low at 8.1 but stable. Results & Data ([facility]) Vital Signs (Past 12 Hours) Vital Signs Temp Pulse Resp BP Pulse Ox O2 Del Method 04/17/22 07:45 36.8 C 62 16 151/65 H 95 Room Air 04/17/22 03:34 36.7 C 61 16 116/67 98 Room Air 04/16/22 23:15 75 18 169/80 H 95 Room Air Exam (Neuro) Physical Exam: He is awake and alert. Speech is without obvious a phase or dysarthria. Mood and affect are normal appropriate. Thought processes are quite intact to conversation and he is calm and cooperative. Extraocular eye muscles are intact without nystagmus and he has no facial droop. With outstretched arms are is no drift and there is no ataxia with finger-to-n ose testing. He does have some mild action tremor bilaterally. Strength is symmetrical in all 4 limbs. PG Care Time/CCT Total # of Minutes Spent Total Time Spent with Patient: Total time spent is greater than 50% in coordination of care (as documented) at patient's floor/unit and/or counseling patient: Coding Level of Care Code 38876 SUB INP/OBS CARE 2/35MIN Diagnoses Acute encephalopathy G93.40 Tremor R25.1 Idiopathic polyneuropathy G60.9 Pancreatic cancer C25.9
--- NOTE | 2022-04-17 18:07 | Hospitalist Progress Note ---
Date of Service April 17, 2022 Assessment & Plan (1) Fever: Plan: No clear source of infection. Patient with elevated LFTs (improving) and pancreatic stent so cholangitis is a possibility. Also with right chest wall port as potential sources of infection. Blood culture from 04/13 and 04/14 are negative so far Urine culture negative Was on Vancomycin/Cefepime empirically. MRSA swab negative. Cefepime discontinued Continue Cefnidir and Flagyl oral to finish a 5 day course for empiric treatment of possible biliary infection. (2) Pancreatic cancer: Plan: -OP management, recently started chemotherapy this past Friday (2 days prior to hospitalization) -Currently with transaminitis which is improving -CT A/P with contrast 04/13 unrevealing (3) Idiopathic polyneuropathy: (4) Acute encephalopathy: Plan: -Now resolved -MRI brain shows chronic microvascular disease, appreciate Neurology input, start aspirin 81mg daily if no contra-indications Plan Right leg swelling -chronic per patient -high risk for DVT for underlying pancreatic cancer. LE u/s negative for DVT Hypokalemia K 3.4 today K replaced today Continue monitor BMP DVT ppx SCDs for now due to thrombocytopenia and anemia. Disposition Waiting for placement to rehab Admission and Anticipated Discharge Date Admission Date: April 14, 2022 Subjective Patient was seen and evaluated for follow-up Sitting in chair with no acute distress watching TV Patient said that he feels good Denies any chest pain, palpitation, dizziness, shortness of breath. Review of Systems Review of Systems: All systems reviewed & are unremarkable except as noted in Subjective Physical Exam Physical Exam: General- No acute distress Head- atraumatic Eyes- PERRL, EOMI, ENT- oropharynx clear Neck- supple, no JVD Lungs- clear to auscultation Heart- regular rhythm; no murmur Abdomen- normal bowel sounds, soft, nontender Extremities- no calf tenderness Neuro- alert, oriented x 3; PERRL, EOMI; no facial palsy; no dysarthria Skin- warm & dry Results & Data Results & Data ([facility]) Vital Signs (Past 12 Hours) Vital Signs Temp Pulse Pulse Resp BP Pulse Ox O2 Del Method 04/17/22 15:53 61 04/17/22 15:42 36.9 C 66 16 149/68 H 97 Room Air 04/17/22 07:30 59 L 04/17/22 11:49 36.4 C L 74 16 120/63 97 Room Air 04/17/22 09:30 Room Air 04/17/22 07:45 36.8 C 62 16 151/65 H 95 Room Air
[2022-04-17] MEDS: TERAZOSIN HCL 1 MG CAP PO SCH (20:29)
[2022-04-17] MEDS: DULoxetine HCL 20 MG CAP PO SCH (20:29)
[2022-04-18] MEDS: PANTOprazole 40 MG TAB PO SCH (08:31)
[2022-04-18] MEDS: LORATADINE 10 MG TAB PO PRN (08:31)
[2022-04-18] MEDS: PROPRANOLOL HCL 60 MG LA CAP PO SCH (08:31)
[2022-04-18] MEDS: CEFDINIR 300 MG CAP PO SCH ×2 (08:32→20:14)
[2022-04-18] MEDS: metroNIDAZOLE 500 MG TAB PO SCH ×2 (08:32→20:14)
[2022-04-18] MEDS: CHOLECALCIFEROL 1,000 UNITS 25 MCG TAB PO SCH (08:32)
[2022-04-18] MEDS: DULoxetine HCL 60 MG CAP PO SCH (08:32)
[2022-04-18] MEDS: SACCHAROMYCES BOULARDII 250 MG CAP PO SCH (08:33)
[2022-04-18] MEDS: SODIUM CHLORIDE 0.65% NA SOLN 45 ML (OCEAN) SCH ×2 (08:33→20:16)
[2022-04-18] MEDS: CYCLOSPORINE OP SCH (08:33)
[2022-04-18] MEDS: POLYETHYLENE (MIRALAX) 17 GM PACK PO SCH (08:43)
[2022-04-18 09:34] LABS: Mean Corpuscular Hgb Conc 33.3 g/dL (32.0-36.0); Mean Corpuscular Volume 95.9 fL (80.0-100.0); Mean Platelet Volume 12.1 fL (9.4-12.4); Platelet Count 61 K/uL (130-400); RDW Coefficient of Variation 12.7 % (11.5-14.5); RDW Standard Deviation 44.5 fL (36.4-46.3); Red Blood Count 3.44 M/uL (4.70-6.10); White Blood Count 2.91 K/ul (4.8-10.8)
[2022-04-18 15:08] LABS: Albumin Level 3.2 gm/dl (3.4-5.0); Bilirubin,Total 1.2 mg/dl (0.2-1.0); Potassium 3.7 mmol/L (3.5-5.1)
[2022-04-18 15:14] LABS: Albumin Globulin Ratio 1.3 (0.9-2); BUN Creatinine Ratio 19.4 (10-20); Creatinine Clr Calc Pharmacy 57.6 ml/min; Est GFR (African American) 76.4 ml/min; Est GFR (Non-African American) 65.9 ml/min; Globulin 2.5 gm/dl (2.5-4.0); Total Protein 5.7 gm/dl (6.0-8.3)
--- NOTE | 2022-04-18 16:56 | Hospitalist Progress Note ---
Date of Service April 18, 2022 Assessment & Plan (1) Fever: Plan: No clear source of infection. Patient with elevated LFTs (improving) and pancreatic stent so cholangitis is a possibility. Also with right chest wall port as potential sources of infection. Blood culture from 04/13 and 04/14 are negative so far Urine culture negative Was on Vancomycin/Cefepime empirically. MRSA swab negative. Cefepime discontinued Continue Cefnidir and Flagyl oral to finish a 5 day course for empiric treatment of possible biliary infection. (2) Transaminitis: Plan: Elevated Liver enzymes with AST 83, ALT [address] Abd/pelvis showed unremarkable. No mass. Hepatic steatosis. Continue monitor LFT (3) Pancreatic cancer: Plan: -OP management, recently started chemotherapy this past Friday (2 days prior to hospitalization) -Currently with transaminitis which is improving -CT A/P with contrast 04/13 unrevealing (4) Idiopathic polyneuropathy: (5) Acute encephalopathy: Plan: -Now resolved -MRI brain shows chronic microvascular disease, appreciate Neurology input, start aspirin 81mg daily if no contra-indications Plan Right leg swelling -chronic per patient -high risk for DVT for underlying pancreatic cancer. LE u/s negative for DVT Hypokalemia K 3.7 today Continue monitor BMP DVT ppx SCDs for now due to thrombocytopenia and anemia. Disposition Waiting for placement to rehab Admission and Anticipated Discharge Date Admission Date: April 14, 2022 Subjective Patient was seen and examined for follow-up Sitting in chair with no acute distress watching TV Patient said that he feels good He walked with therapy today Denies any chest pain, palpitation, dizziness, shortness of breath. Review of Systems Review of Systems: All systems reviewed & are unremarkable except as noted in Subjective Physical Exam Physical Exam: General- No acute distress Head- atraumatic Eyes- PERRL, EOMI, ENT- oropharynx clear Neck- supple, no JVD Lungs- clear to auscultation Heart- regular rhythm; no murmur Abdomen- normal bowel sounds, soft, nontender Extremities- no calf tenderness Neuro- alert, oriented x 3; PERRL, EOMI; no facial palsy; no dysarthria Skin- warm & dry Results & Data Results & Data ([facility]) Vital Signs (Past 12 Hours) Vital Signs Temp Pulse Pulse Resp BP BP Pulse Ox 04/18/22 16:10 37 C 63 21 164/70 H 99 04/18/22 14:48 59 L 04/18/22 11:44 36.7 C 68 21 124/68 98 04/18/22 08:30 04/18/22 08:10 36.8 C 64 20 130/61 96 04/18/22 07:07 59 L O2 Del Method 04/18/22 16:10 Room Air 04/18/22 14:48 04/18/22 11:44 Room Air 04/18/22 08:30 Room Air 04/18/22 08:10 Room Air 04/18/22 07:07
[2022-04-18] MEDS: TERAZOSIN HCL 1 MG CAP PO SCH (20:13)
[2022-04-18] MEDS: DULoxetine HCL 20 MG CAP PO SCH (20:14)
[2022-04-19] MEDS: DULoxetine HCL 60 MG CAP PO SCH (08:49)
[2022-04-19] MEDS: metroNIDAZOLE 500 MG TAB PO SCH (08:50)
[2022-04-19] MEDS: CEFDINIR 300 MG CAP PO SCH (08:50)
[2022-04-19] MEDS: PROPRANOLOL HCL 60 MG LA CAP PO SCH (08:51)
[2022-04-19] MEDS: PANTOprazole 40 MG TAB PO SCH (08:51)
[2022-04-19] MEDS: CHOLECALCIFEROL 1,000 UNITS 25 MCG TAB PO SCH (08:51)
[2022-04-19] MEDS: SACCHAROMYCES BOULARDII 250 MG CAP PO SCH (08:51)
[2022-04-19] MEDS: CYCLOSPORINE OP SCH (08:52)
[2022-04-19] MEDS: SODIUM CHLORIDE 0.65% NA SOLN 45 ML (OCEAN) SCH (08:57)
[2022-04-19 09:00] LABS: Calcium 7.8 mg/dl (8.5-10.1); Potassium 3.5 mmol/L (3.5-5.1)
[2022-04-19] MEDS: POLYETHYLENE (MIRALAX) 17 GM PACK PO SCH (09:01)
[2022-04-19 09:06] LABS: Albumin Globulin Ratio 1.4 (0.9-2); Creatinine Clr Calc Pharmacy 59.3 ml/min; Est GFR (African American) 79.2 ml/min; Est GFR (Non-African American) 68.3 ml/min; Globulin 2.1 gm/dl (2.5-4.0); Total Protein 5.1 gm/dl (6.0-8.3)
--- NOTE | 2022-04-19 17:03 | Discharge Summary ---
Discharge Summary Date of Service April 19, 2022 Notes For Next Care Provider Fever without clear source. Possibly side effect of first chemo treatment 2 days prior to admission versus ? biliary infection Medication Changes From Visit Complete Cipro/Flagyl course for possible biliary infection Admission HPI Per Admitting Provider This is an 86-year-old male with past medical history significant for chronic kidney disease stage III, BPH, osteoarthritis, essential tremor, benign positional vertigo, ambulatory dysfunction, generalized anxiety disorder, vitamin D deficiency, hypertension, obstructive sleep apnea, on BiPAP, allergic rhinitis, prediabetes, hyperlipidemia, recent diagnosis of malignant neoplasm of the head of the pancreas, plan for neoadjuvant chemo, he had first chemo last Friday. Since then, he is having some confusion and fever. He came to the ER yesterday. It looks like he has a bowel stent and also pancreatic stent a couple of weeks ago. Yesterday in the ER, he was afebrile, saturations were 95%, blood pressure was okay. Has elevated bilirubin, AST and ALT was elevated, but that seemed to be coming down, and his CT of the abdomen and pelvis was okay and the ER spoke with [facility] [employer] floorperson . As he was feeling better, he was discharged home. But as per the son after going home, his condition got worse, he got more confused, and he fell from the bed, does not know whether he hit his head or not, and his confusion was progressing and he was spiking temperatures. He was brought in here today again. As per the son, he says he is also having some difficulty speaking/finding words since last night, and in the ER, the patient could not swallow the pills, they had to crush and give it in applesauce. His son says he has essential tremors and after the chemo, the tremors got worse and he thinks he has more tongue tremors making it difficult for him to swallow. The patient is alert and awake, oriented to name, knows that he is in the hospital, could tell his date of , could tell that this is April, but could not tell which year is this. Complains of some mild back pain and mild abdominal pain and mild leg pains. Denies any headache. No neck pain. No blurred vision or double vision. No earache, no runny nose, no sore throat, no cough. Denies any chest pain or shortness of breath at this time. Was taking some nausea medications at home. He was constipated since his chemo. Normal bladder movements as per son. He is feeling weak. T-max of 38.8 in the ER today and his blood pressure is okay. He is saturating okay on room air. No leukocytosis, but his procalcitonin was 2.53 yesterday , today is 3.7. Troponin I is 66. Total bilirubin 1.7, it was 2.3 yesterday. AST, ALT, and alkaline phosphatase are trending down. Respiratory BioFire is negative. CT of the head is negative. Admission Exam Per Admitting Provider GENERAL: The patient is old, somewhat confused, alert. VITAL SIGNS: Temperature T-max 38.8, pulse 85, respiratory rate 20, blood pressure 137/78, oxygen 97% on room air. HEENT: Pupils equal, round, and reactive to light. Oral mucosa somewhat dry. NECK: No JVD, no neck masses. CARDIOVASCULAR: S1 and S2 heard. Regular rate and rhythm. No murmur, no gallop. RESPIRATORY SYSTEM: Normal AP diameter. No accessory muscle use. No wheezing, no crackles. ABDOMEN: Soft, bowel sounds present. Mild abdominal discomfort, but no guarding, no rigidity, no distention. CENTRAL NERVOUS SYSTEM: Alert and awake, oriented to name and place. Could tell today's month, but could not tell the year. Could tell his date of . No facial droop. Can close his eyes tight and smile and no tongue deviation seen. Speech is very slow and pressured and sometimes not able to find the words. Strength 5/5 in all extremities. Coordination of movements normal. No pronator drift. Sensations, could tell when touching, could tell that I am touching his legs, but when I am touching his arms and face, he could tell I am touching, but could not tell where I am touching. Position sense, could tell okay on the right leg, but on the left leg he could not answer properly. Having difficulty speaking, finding words also could be playing the role. EXTREMITIES: No edema, no erythema. Principal Dx & Hospital Course #1 = Principal Diagnosis (1) Fever: (2) Transaminitis: (3) Pancreatic cancer: (4) Idiopathic polyneuropathy: (5) Acute encephalopathy: Plan This is an 86-year-old male with past medical history significant for chronic kidney disease stage III, BPH, osteoarthritis, essential tremor, benign positional vertigo, ambulatory dysfunction, generalized anxiety disorder, vitamin D deficiency, hypertension, obstructive sleep apnea, on BiPAP, allergic rhinitis, prediabetes, hyperlipidemia, recent diagnosis of malignant neoplasm of the head of the pancreas, plan for neoadjuvant chemo, he had first chemo last Friday presenting with fever and some confusion. There is no clear source of infection with blood cultures from 04/13 (final) and 04/14 negative (preliminary). Urine culture also negative. MRSA swab negative. Was initially treated with vancomycin and cefepime empirically and transitioned to cefdinir/Flagyl for empiric treatment of possible biliary infection given recent pancreatic stent and transaminitis. Other thought is fever is possibly a side effect of initial chemotherapy treatment. CT abdomen pelvis was unremarkable. No mass or hepatic steatosis. Liver enzymes have been trended during admission have improved. Initial confusion has resolved and patient is mentating at baseline. Brain MRI ordered on admission with no diffusion abnormality to suggest an evolving ischemic process. Underlying deep white matter hyperintense changes are statistically most consistent with microvascular disease. Patient to follow-up with Dr. Hahn after hospitalization to discuss continuation of chemotherapy. Patient evaluated by PT/OT and recommended to return home. Home health services which have been arranged. Also underwent venous Doppler of right leg due to swelling and high risk for DVT given underlying cancer however ultrasound negative for DVT. Patient is comfortable and hemodynamically stable at time of discharge. Discharge Exam Gen: WD/WN, NAD, sitting in bedside chair, A&Ox3 HEENT: Normocephalic, atraumatic, conjunctivae moist, sclerae anicteric, mucous membranes moist Lung: Clear to Auscultation bilaterally, no wheezes/rales/rhonchi Heart: Regular rate, regular rhythm, no murmurs, rubs, or gallops Abdomen: Soft, NT, ND +BS x 4 Extremities: no edema Skin: Warm, no rash Updated Medication List Medication Instructions Recorded Confirmed Type albuterol sulfate 90 mcg/actuation 2 puff inhalation Q6H PRN 09/08/18 04/14/22 History aerosol inhaler (Ventolin HFA) Shortness Of Breath duloxetine 60 mg capsule,delayed 60 mg PO QAM 09/08/18 04/14/22 History release (Cymbalta) fluticasone propionate 50 1 spray intranasal BID PRN Allergy 09/08/18 04/14/22 History mcg/actuation nasal Symptoms spray,suspension (Flonase Allergy Relief) ipratropium bromide 42 mcg (0.06 2 spray intranasal TID PRN Nasal 09/08/18 04/14/22 History %) nasal spray Congestion lorazepam 0.5 mg tablet 0.5 mg sublingual BID PRN Anxiety 09/08/18 04/14/22 History multivit with min-folic 1 tab PO QAM 09/08/18 04/14/22 History acid-lutein 400 mcg-250 mcg chewable tablet (Centrum Silver) polyethylene glycol 3350 17 17 g PO DAILY 01/25/19 04/14/22 History gram/dose oral powder (Miralax) propranolol 60 mg capsule,24 60 mg PO QAM 01/25/19 04/14/22 History hr,extended release simethicone 125 mg chewable tablet 125 mg PO BID PRN Indigestion 01/25/19 04/14/22 History (Gas-X Extra Strength) acetaminophen 325 mg tablet 650 mg PO Q6H PRN Pain 04/13/22 04/14/22 History (Tylenol) cholecalciferol (vitamin D3) 50 50 mcg PO DAILY 04/13/22 04/14/22 History mcg (2,000 unit) capsule (Vitamin D3) cyclosporine 0.05 % eye drops in a 1 drp OPB QAM 04/13/22 04/14/22 History dropperette (Restasis) duloxetine 20 mg capsule,delayed 20 mg PO HS 04/13/22 04/14/22 History release hydroxyzine HCl 25 mg tablet 25 mg PO TID PRN Itching 04/13/22 04/14/22 History ibuprofen 200 mg tablet 200 mg PO Q4H PRN Pain 04/13/22 04/14/22 History lidocaine-prilocaine 2.5 %-2.5 % 1 applic topical DIRECTED PRN 1 04/13/22 04/14/22 History topical cream HR PRIOR TO MEDIPORT ACCESS loratadine 10 mg tablet (Claritin) 10 mg PO DAILY PRN RHINITIS 04/13/22 04/14/22 History ondansetron HCl 8 mg tablet 8 mg PO Q8H PRN NAUSEA/VOMITING 04/13/22 04/14/22 History pantoprazole 20 mg tablet,delayed 20 mg PO QAM 04/13/22 04/14/22 History release prochlorperazine maleate 10 mg 10 mg PO Q6H PRN NAUSEA/VOMITING 04/13/22 04/14/22 History tablet psyllium husk 3.4 gram/5.4 gram 1 tsp PO TID PRN Constipation 04/13/22 04/14/22 History oral powder (Metamucil) sodium chloride 0.65 % nasal spray 2 spray intranasal BID 04/13/22 04/14/22 History aerosol (Saline Nasal) triamterene 37.5 1 tab PO Q OTHER DAY 04/13/22 04/14/22 History mg-hydrochlorothiazide 25 mg tablet terazosin 1 mg capsule 1 mg PO HS 04/14/22 04/14/22 History cefdinir 300 mg capsule 300 mg PO BID #4 caps 04/19/22 Rx metronidazole 500 mg tablet 500 mg PO BID #4 tabs 04/19/22 Rx Hospital Stay Data Consultations 04/14/22 19:40 ED Decision to Admit Stat 04/15/22 08:00 Consult Neurology Routine Diagnostic Imagining Performed 04/14/22 18:30 CT head/brain wo con Stat 04/14/22 22:13 MR angio neck wo con Urgent 04/14/22 22:15 CT chest diagnostic wo con Urgent 04/14/22 22:44 MR angio head wo con Urgent 04/15/22 00:03 MR brain wo/w con Urgent 04/15/22 15:33 US venous doppler LE BI Routine Pending Results Patient Have Any Pending Studies at Discharge: No Discharge Instructions Given to Patient (Per Discharging Provider) You were admitted for fever and elevated liver enzymes in setting of recently diagnosed pancreatic cancer s/p first dose of chemo 2 days prior to admission Blood cultures and urine culture negative so far. Continue cefdinir and Flagyl (antibiotics) at discharge to complete course for empiric treatment of possibly biliary infection MEDICATION CHANGES: Complete antibiotics as above. RECOMMENDATIONS FOR FOLLOW-UP: Please follow-up with primary care provider as above. Please contact Dr. Hahn at time of discharge to schedule appointment to discuss hospitalization, continued cancer treatment OTHER INSTRUCTIONS: Seek medical attention if you have: * temperature above 101 * chest pain or trouble breathing * abdominal pain, nausea, vomiting * diarrhea, dark stools or bloody stools * any unanswered questions or concerns Call 911 if symptoms are severe. Please take good care of yourself. Call if you have any questions or problems. You can reach a [facility] hospitalist on duty at [facility] 24 hours a day by calling [phone]. Total Time Total Time Spent Total Time Spent (In Minutes): 50
--- NOTE | 2022-05-16 08:12 | Coding Query ---
A supporting diagnosis is required for the test/procedure performed on this patient in order for us to be reimbursed by the patient's insurance. Please provide a supporting diagnosis for the following test/procedure listed below next to the test name along with your signature. *If there is no additional diagnosis for this patient that would support the following test/procedure please document that below next to the test/procedure. Test(s)/Procedure(s) that require a supporting diagnosis: * 64003 MRA HEAD DIAGNOSIS:word finding difficulty, rule out stroke * 27388 MRA NECK DIAGNOSIS:word finding difficulty, rule out stroke DATE OF SERVICE: 04/14/22 Provider Signature: Date: Thank you [facility] Once completed, please kindly fax back to [phone] For questions please call [phone] [facility]
--- NOTE | 2022-05-16 08:14 | Coding Query ---
A supporting diagnosis is required for the test/procedure performed on this patient in order for us to be reimbursed by the patient's insurance. Please provide a supporting diagnosis for the following test/procedure listed below next to the test name along with your signature. *If there is no additional diagnosis for this patient that would support the following test/procedure please document that below next to the test/procedure. Test(s)/Procedure(s) that require a supporting diagnosis: * 82235 US VENOUS DOPPLER DIAGNOSIS: Right Leg Swelling DATE OF SERVICE: 04/15/22 Provider Signature: ____Soham Guardado Date: __05/22/2022 Thank you [facility] Information Management Once completed, please kindly fax back to [phone] For questions please call [phone] [facility]
== END 2022-04-19 18:34 | disposition home health service (06) | DRG 864 ==
LOC: ED 17:35 → SUATTDRO 21:48 → INTOOBSV 21:48 → 2E 21:48 → 2W 04-15 21:42 → 3N 04-18 21:34
DX: E87.6 Hypokalemia; R74.01 Elevation of levels of liver transaminase levels; R50.9 Fever, unspecified; D64.9 Anemia, unspecified; G31.9 Degenerative disease of nervous system, unspecified; Z99.89 Dependence on other enabling machines and devices; E87.1 Hypo-osmolality and hyponatremia; R73.03 Prediabetes; M79.89 Other specified soft tissue disorders; Z88.0 Allergy status to penicillin; G47.33 Obstructive sleep apnea (adult) (pediatric); R47.9 Unspecified speech disturbances; N40.0 Benign prostatic hyperplasia without lower urinary tract symptoms; D69.6 Thrombocytopenia, unspecified; Z96.89 Presence of other specified functional implants; G25.0 Essential tremor; E78.5 Hyperlipidemia, unspecified; G93.41 Metabolic encephalopathy; G60.9 Hereditary and idiopathic neuropathy, unspecified; I12.9 Hypertensive chronic kidney disease with stage 1 through stage 4 chronic kidney disease, or unspecified chronic kidney disease; N18.30 Chronic kidney disease, stage 3 unspecified; C25.9 Malignant neoplasm of pancreas, unspecified; Z88.6 Allergy status to analgesic agent; R26.0 Ataxic gait; Z79.899 Other long term (current) drug therapy; R79.89 Other specified abnormal findings of blood chemistry

== ENCOUNTER 2022-05-12 19:05 | Observation (INO) ==
[2022-05-12] MEDS ORDERED: SODIUM CHLORIDE 0.9% 1000ML 500 ML IV ONE (19:20)
[2022-05-12] MEDS ORDERED: ACETAMINOPHEN 500 MG TAB PO STA (19:27)
[2022-05-12] MEDS ORDERED: ACETAMINOPHEN 500 MG TAB ONE (19:29)
--- NOTE | 2022-05-12 19:32 | Emergency Department Note ---
Impression & Plan Pneumonia, Fever, AMS (altered mental status), Abnormal LFTs ED Provider Note NAME: ELKIN LAWS AGE: 86 SEX: M : 1935 ARRIVES VIA: Ambulance INFORMANT: Patient, EMS, the patient's family ED PROVIDER(S): Kodak Arnold DO CHIEF COMPLAINT: Weakness HPI: The patient is an 86-year-old male who presented to the emergency department for an evaluation of weakness and dizziness. The patient has a history of pancreatic cancer as well as encephalopathy in the past. The patient reportedly had similar symptoms in the past when he had increased intracranial pressure. He also has not been eating or drinking. There is also concern he may have an infection as the patient had a fever. There was no reported vomiting. The patient himself denies having any chest pain or chest heaviness. He denies having any difficulty breathing or swelling in his legs at this time. ROS: See above HPI for pertinent positives & negatives. A total of 10 systems reviewed and were otherwise negative. PAST MEDICAL HISTORY: See Below PAST SURGICAL HISTORY: See Below FAMILY HISTORY: See Below SOCIAL HISTORY: See Below HOME MEDICATIONS: See Below ALLERGIES: See Below VITALS: See Below PHYSICAL EXAMINATION: GENERAL: The patient is awake alert. He is following commands but appears slow at following commands. He appears understand my questions. EYES: The conjunctivae are clear. The pupils are round and reactive. EARS, NOSE, MOUTH AND THROAT: The nose is without any evidence of any deformity. Mucous membranes are dry. NECK: The neck is nontender and supple. RESPIRATORY: Normal respiratory effort is noted there is no evidence of wheezing rhonchi or rales CARDIOVASCULAR: Regular rate and rhythm noted there no murmurs rubs or gallops normal S1 normal S2. GASTROINTESTINAL: The abdomen is distended but soft. There is no specific tenderness guarding rigidity. MUSCULOSKELETAL/EXTREMITIES: There is no evidence of gross deformity full range of motion is noted in the hips and shoulders. SKIN: Skin was warm and dry. There is pedal edema bilaterally. NEUROLOGIC: Patient is awake and oriented to person place and situation. Strength was diminished but symmetric MEDICAL DECISION MAKING: The patient is an 86-year-old male who presented to the emergency department by ambulance for an evaluation of altered mental status and fever. The patient is a history of metastatic pancreatic cancer. He also has a biliary stent in place. He received chemotherapy last week. He started to act confused and was noted to have a fever today so family called 911. I discussed the patient's laboratory and radiographic studies with him and his family member. He was treated with IV fluids and IV antibiotics. He was reevaluated multiple times. On reevaluation he was somewhat improved but given the patient's comorbidities and as well as his findings I do feel would be safer to have the patient evaluated by the hospitalist. I discussed this case with the on-call [facility] hospitalist. They have agreed to evaluate the patient in the emergency department for further management and disposition. Triage Nursing notes reviewed. Prior medical records reviewed Vital Signs: reviewed and remarkable for no significant abnormalities Differential diagnosis: Infection, dehydration, metabolic abnormality, hypo/hyperglycemia, electrolyte disturbance, anemia, hypoxia, cardiac sources, intracerebral event, toxicologic, neurologic, as well as other pathologies. ER treatment provided: See below Diagnostics interpreted by me: ECG: EKG was obtained in the emergency department. My interpretation is normal sinus rhythm at 84 bpm. There is no ectopy. Lateral ST depressions were noted. This was compared to a tracing from April 14, 2022. No changes were noted. Cardiac Monitoring: An order was placed for continuous cardiac monitoring. The monitor shows a rate of 67 bpm with sinus rhythm. Laboratory studies: As stated above and show below. Imaging studies: See below. Radiographic imaging was reviewed by myself Consultation(s): I discussed this case with Dr. Tolentino [facility] Past Med/Surg History Medical History Asthma BPH (benign prostatic hyperplasia) BPPV (benign paroxysmal positional vertigo) CKD (chronic kidney disease) stage 3, GFR 30-59 ml/min Depression Dizziness Chronic issue x 1.5 years Encounter for pre-operative examination Essential tremor Located to hands R>L History of melanoma S/p removal Hyperlipidemia Hypertension Prediabetes Sleep apnea CPAP Vasovagal episode Approximately one year ago (03/2021) during PT- suspected vasovagal Surgical History History of cardiac cath 02/06/2000 - No CAD History of cataract surgery 2019 History of colonoscopy History of lumbar surgery 3 total; hardware present History of melanoma excision History of tonsillectomy History of total knee replacement Rt Family History Father CHF (congestive heart failure) Father COPD (chronic obstructive pulmonary disease) Social History Smoking Status: Never smoker Second Hand Exposure: No; Hx Alcohol Use: Yes Alcohol type: wine Hx Substance Use: No Preferred Language: Gambian Communication Ability: Effective Command And Control Specialist Required: No Beliefs That Will Affect Care: None Current Living Situation: Spouse Current Living Situation Comment: Lives at home with , daughter lives nearby current occupational status: retired current occupation: retired age 66 from [employer] Feels Safe at Home: Yes Assistive Devices: Cane and Walker Allergies Allergies Allergy/AdvReac Type Severity Reaction Status Date / Time celecoxib Allergy Severe SHORT OF Verified 04/14/22 18:34 BREATH clavulanic acid Allergy Severe SHORTNESS Verified 04/14/22 18:34 OF BREATH NSAIDS (Non-Steroidal Allergy Severe ASTHMA Verified 04/14/22 18:34 Anti-Inflamma ATTACK lactose Allergy Intermediate INDIGESTION Verified 04/14/22 18:34 AND GAS amoxicillin AdvReac Intermediate Rash Verified 04/14/22 18:34 Home Meds Home Medications Medication Instructions Recorded Confirmed albuterol sulfate 90 mcg/actuation 2 puff inhalation Q6H PRN 09/08/18 05/12/22 aerosol inhaler (Ventolin HFA) Shortness Of Breath duloxetine 60 mg capsule,delayed 60 mg PO QAM 09/08/18 05/12/22 release (Cymbalta) fluticasone propionate 50 1 spray intranasal BID PRN Allergy 09/08/18 05/12/22 mcg/actuation nasal Symptoms spray,suspension (Flonase Allergy Relief) ipratropium bromide 42 mcg (0.06 2 spray intranasal TID PRN Nasal 09/08/18 05/12/22 %) nasal spray Congestion lorazepam 0.5 mg tablet 0.5 mg sublingual BID PRN Anxiety 09/08/18 05/12/22 multivit with min-folic 1 tab PO QAM 09/08/18 05/12/22 acid-lutein 400 mcg-250 mcg chewable tablet (Centrum Silver) polyethylene glycol 3350 17 17 g PO DAILY PRN Constipation 01/25/19 05/12/22 gram/dose oral powder (Miralax) propranolol 60 mg capsule,24 60 mg PO QAM 01/25/19 05/12/22 hr,extended release simethicone 125 mg chewable tablet 125 mg PO BID PRN Indigestion 01/25/19 05/12/22 (Gas-X Extra Strength) acetaminophen 325 mg tablet 650 mg PO Q6H PRN Pain 04/13/22 05/12/22 (Tylenol) cholecalciferol (vitamin D3) 50 50 mcg PO DAILY 04/13/22 05/12/22 mcg (2,000 unit) capsule (Vitamin D3) cyclosporine 0.05 % eye drops in a 1 drp OPB QAM 04/13/22 05/12/22 dropperette (Restasis) hydroxyzine HCl 25 mg tablet 25 mg PO TID PRN Itching 04/13/22 05/12/22 ibuprofen 200 mg tablet 200 mg PO Q4H PRN Pain 04/13/22 05/12/22 lidocaine-prilocaine 2.5 %-2.5 % 1 applic topical DIRECTED PRN 1 04/13/22 05/12/22 topical cream HR PRIOR TO MEDIPORT ACCESS pantoprazole 20 mg tablet,delayed 20 mg PO QAM 04/13/22 05/12/22 release prochlorperazine maleate 10 mg 10 mg PO Q6H PRN NAUSEA/VOMITING 04/13/22 05/12/22 tablet sodium chloride 0.65 % nasal spray 2 spray intranasal BID 04/13/22 05/12/22 aerosol (Saline Nasal) triamterene 37.5 1 tab PO Q OTHER DAY 04/13/22 05/12/22 mg-hydrochlorothiazide 25 mg tablet terazosin 1 mg capsule 1 mg PO HS 04/14/22 05/12/22 furosemide 20 mg tablet 20 mg PO Q OTHER DAY 05/12/22 05/12/22 Results & Data (ED) Vital Signs Vital Signs - 24 hr 05/12/22 19:16 05/12/22 19:22 05/12/22 19:21 Temperature 38.1 C H Temperature Source Temporal Artery Scan Pulse Rate 80 85 Pulse Rate from SpO2 Sensor Respiratory Rate 18 Respiratory Depth Normal Blood Pressure 139/68 Blood Pressure Mean 91 Pulse Oximetry 98 97 Oxygen Delivery Method Room Air Room Air Sepsis Recent Fever Within 48 Hours Yes Sepsis New/Unexplained Change in Mental Status Yes Sepsis Action Taken by Nursing Physician Notified 05/12/22 19:30 05/12/22 19:45 05/12/22 20:16 Temperature Temperature Source Pulse Rate 83 79 85 Pulse Rate from SpO2 Sensor 85 79 86 Respiratory Rate 15 21 Respiratory Depth Blood Pressure 154/63 H 138/70 Blood Pressure Mean 93 92 Pulse Oximetry 95 97 92 Oxygen Delivery Method Room Air Room Air Room Air Sepsis Recent Fever Within 48 Hours Sepsis New/Unexplained Change in Mental Status Sepsis Action Taken by Nursing 05/12/22 20:30 05/12/22 20:52 05/12/22 20:45 Temperature 37.4 C Temperature Source Oral Pulse Rate 78 71 Pulse Rate from SpO2 Sensor 78 71 Respiratory Rate 23 18 Respiratory Depth Blood Pressure 129/79 Blood Pressure Mean 95 Pulse Oximetry 98 96 Oxygen Delivery Method Room Air Room Air Sepsis Recent Fever Within 48 Hours Sepsis New/Unexplained Change in Mental Status Sepsis Action Taken by Nursing 05/12/22 21:00 05/12/22 21:15 05/12/22 21:30 Temperature Temperature Source Pulse Rate 71 68 67 Pulse Rate from SpO2 Sensor 66 68 67 Respiratory Rate 14 15 15 Respiratory Depth Blood Pressure 124/57 L 120/62 Blood Pressure Mean 79 81 Pulse Oximetry 95 95 96 Oxygen Delivery Method Room Air Room Air Room Air Sepsis Recent Fever Within 48 Hours Sepsis New/Unexplained Change in Mental Status Sepsis Action Taken by Usp Medications Current Medication List: was personally reviewed by me Laboratory Data Attestation: I reviewed the patient's lab results. 05/12/22 19:47 05/12/22 19:47 Lab Results 05/12/22 05/12/22 05/12/22 Range/Units 19:33 19:47 19:47 WBC 13.46 H (4.8-10.8) K/ul RBC 3.53 L (4.70-6.10) M/uL Hgb 11.4 L (14.0-18.0) g/dl Hct 33.8 L (42.0-52.0) % MCV 95.8 (80.0-100.0) fL MCH 32.3 (25.0-34.0) pg MCHC 33.7 (32.0-36.0) g/dL RDW Std Deviation 46.8 H (36.4-46.3) fL RDW Coeff of Mimi 13.3 (11.5-14.5) % Plt Count 205 (130-400) K/uL MPV 10.7 (9.4-12.4) fL Immature Gran % (Auto) 0.7 % Neut % (Auto) 95.3 % Lymph % (Auto) 3.1 % Clay % (Auto) 0.6 % Eos % (Auto) 0.2 % Baso % (Auto) 0.1 % Neut # (Auto) 12.82 H (1.40-6.50) K/uL Lymph # (Auto) 0.42 L (1.2-3.4) K/uL Clay # (Auto) 0.08 L (0.11-0.59) K/uL Eos # (Auto) 0.03 (0-0.50) K/uL Baso # (Auto) 0.01 (0-0.2) K/uL Immature Gran # (Auto) 0.10 (0.01-0.20) K/uL PT (9.0-12.0) Seconds INR (0.9-1.1) APTT (21.0-31.0) Seconds PTT Ratio VBG pH (7.36-7.41) VBG pCO2 (38-50) mmHg VBG pO2 mmHg VBG HCO3 mmol/L VBG O2 Saturation % VBG Base Excess mEq/L Sodium 131 L (136-145) mmol/L Potassium 4.1 (3.5-5.1) mmol/L Chloride 92 L (98-107) mmol/L Carbon Dioxide 30 (21-32) mmol/L Anion Gap 9 (3-11) BUN 20 (6-23) mg/dl Creatinine 1.17 (0.6-1.4) mg/dl Est Cr Clr Drug Dosing 52.2 ml/min Est GFR ( Amer) 65.5 ml/min Est GFR (Non-Af Amer) 56.5 ml/min BUN/Creatinine Ratio 17.1 (10-20) Glucose 123 H (70-99(Fasting)) mg/dl Lactate (0.4-2.0) mmol/L Calcium 8.9 (8.6-10.3) mg/dl Magnesium 2.0 (1.7-2.4) mg/dl Total Bilirubin 1.7 H (0.2-1.0) mg/dl Direct Bilirubin 0.5 H (0-0.2) mg/dl AST 64 H (13-39) U/L ALT 85 H (7-52) U/L Alkaline Phosphatase 361 H (34-104) U/L Troponin I High Sens 16.3 (0-20) pg/ml Total Protein 6.6 (6.0-8.3) gm/dl Albumin 3.5 (3.4-5.0) gm/dl Procalcitonin (0-0.5) ng/ml Urine Color Urine Appearance (Clear) Urine pH (4.5-7.5) Ur Specific [place] (1.000-1.030) Urine Protein (Negative) Urine Glucose (UA) (Negative) Urine Ketones (Negative) Urine Blood (Negative) Urine Nitrite (Negative) Urine Bilirubin (Negative) Urine Urobilinogen (Negative) Ur Leukocyte Esterase (Negative) Urine WBC (Auto) (0-5) /hpf Urine RBC (Auto) (0-4) /hpf U Hyaline Cast (Auto) (0-5) /lpf U Epithel Cells (Auto) (0-5) /lpf Urine Bacteria (Auto) (Negative) SARS-CoV-2 (PCR) NEGATIVE (Negative) Influenza Type A (PCR) Negative (Neg) Influenza Type B (PCR) Negative (Neg) RSV (RT-PCR) Negative (Neg) 05/12/22 05/12/22 05/12/22 Range/Units 19:47 19:47 19:47 WBC (4.8-10.8) K/ul RBC (4.70-6.10) M/uL Hgb (14.0-18.0) g/dl Hct (42.0-52.0) % MCV (80.0-100.0) fL MCH (25.0-34.0) pg MCHC (32.0-36.0) g/dL RDW Std Deviation (36.4-46.3) fL RDW Coeff of Mimi (11.5-14.5) % Plt Count (130-400) K/uL MPV (9.4-12.4) fL Immature Gran % (Auto) % Neut % (Auto) % Lymph % (Auto) % Clay % (Auto) % Eos % (Auto) % Baso % (Auto) % Neut # (Auto) (1.40-6.50) K/uL Lymph # (Auto) (1.2-3.4) K/uL Clay # (Auto) (0.11-0.59) K/uL Eos # (Auto) (0-0.50) K/uL Baso # (Auto) (0-0.2) K/uL Immature Gran # (Auto) (0.01-0.20) K/uL PT 12.3 H (9.0-12.0) Seconds INR 1.2 H (0.9-1.1) APTT 27.6 (21.0-31.0) Seconds PTT Ratio 1.0 VBG pH (7.36-7.41) VBG pCO2 (38-50) mmHg VBG pO2 mmHg VBG HCO3 mmol/L VBG O2 Saturation % VBG Base Excess mEq/L Sodium (136-145) mmol/L Potassium (3.5-5.1) mmol/L Chloride (98-107) mmol/L Carbon Dioxide (21-32) mmol/L Anion Gap (3-11) BUN (6-23) mg/dl Creatinine (0.6-1.4) mg/dl Est Cr Clr Drug Dosing ml/min Est GFR ( Amer) ml/min Est GFR (Non-Af Amer) ml/min BUN/Creatinine Ratio (10-20) Glucose (70-99(Fasting)) mg/dl Lactate 1.0 (0.4-2.0) mmol/L Calcium (8.6-10.3) mg/dl Magnesium (1.7-2.4) mg/dl Total Bilirubin (0.2-1.0) mg/dl Direct Bilirubin (0-0.2) mg/dl AST (13-39) U/L ALT (7-52) U/L Alkaline Phosphatase (34-104) U/L Troponin I High Sens (0-20) pg/ml Total Protein (6.0-8.3) gm/dl Albumin (3.4-5.0) gm/dl Procalcitonin 1.13 H (0-0.5) ng/ml Urine Color Urine Appearance (Clear) Urine pH (4.5-7.5) Ur Specific [place] (1.000-1.030) Urine Protein (Negative) Urine Glucose (UA) (Negative) Urine Ketones (Negative) Urine Blood (Negative) Urine Nitrite (Negative) Urine Bilirubin (Negative) Urine Urobilinogen (Negative) Ur Leukocyte Esterase (Negative) Urine WBC (Auto) (0-5) /hpf Urine RBC (Auto) (0-4) /hpf U Hyaline Cast (Auto) (0-5) /lpf U Epithel Cells (Auto) (0-5) /lpf Urine Bacteria (Auto) (Negative) SARS-CoV-2 (PCR) (Negative) Influenza Type A (PCR) (Neg) Influenza Type B (PCR) (Neg) RSV (RT-PCR) (Neg) 05/12/22 05/12/22 Range/Units 19:47 20:30 WBC (4.8-10.8) K/ul RBC (4.70-6.10) M/uL Hgb (14.0-18.0) g/dl Hct (42.0-52.0) % MCV (80.0-100.0) fL MCH (25.0-34.0) pg MCHC (32.0-36.0) g/dL RDW Std Deviation (36.4-46.3) fL RDW Coeff of Mimi (11.5-14.5) % Plt Count (130-400) K/uL MPV (9.4-12.4) fL Immature Gran % (Auto) % Neut % (Auto) % Lymph % (Auto) % Clay % (Auto) % Eos % (Auto) % Baso % (Auto) % Neut # (Auto) (1.40-6.50) K/uL Lymph # (Auto) (1.2-3.4) K/uL Clay # (Auto) (0.11-0.59) K/uL Eos # (Auto) (0-0.50) K/uL Baso # (Auto) (0-0.2) K/uL Immature Gran # (Auto) (0.01-0.20) K/uL PT (9.0-12.0) Seconds INR (0.9-1.1) APTT (21.0-31.0) Seconds PTT Ratio VBG pH 7.48 H (7.36-7.41) VBG pCO2 41 (38-50) mmHg VBG pO2 36 mmHg VBG HCO3 31 mmol/L VBG O2 Saturation 67.4 % VBG Base Excess 6.4 mEq/L Sodium (136-145) mmol/L Potassium (3.5-5.1) mmol/L Chloride (98-107) mmol/L Carbon Dioxide (21-32) mmol/L Anion Gap (3-11) BUN (6-23) mg/dl Creatinine (0.6-1.4) mg/dl Est Cr Clr Drug Dosing ml/min Est GFR ( Amer) ml/min Est GFR (Non-Af Amer) ml/min BUN/Creatinine Ratio (10-20) Glucose (70-99(Fasting)) mg/dl Lactate (0.4-2.0) mmol/L Calcium (8.6-10.3) mg/dl Magnesium (1.7-2.4) mg/dl Total Bilirubin (0.2-1.0) mg/dl Direct Bilirubin (0-0.2) mg/dl AST (13-39) U/L ALT (7-52) U/L Alkaline Phosphatase (34-104) U/L Troponin I High Sens (0-20) pg/ml Total Protein (6.0-8.3) gm/dl Albumin (3.4-5.0) gm/dl Procalcitonin (0-0.5) ng/ml Urine Color Dark Yellow Urine Appearance Clear (Clear) Urine pH 8.0 H (4.5-7.5) Ur Specific [place] 1.019 (1.000-1.030) Urine Protein 1+ H (Negative) Urine Glucose (UA) Negative (Negative) Urine Ketones 1+ H (Negative) Urine Blood Negative (Negative) Urine Nitrite Negative (Negative) Urine Bilirubin Negative (Negative) Urine Urobilinogen Positive H (Negative) Ur Leukocyte Esterase Negative (Negative) Urine WBC (Auto) 1-5 (0-5) /hpf Urine RBC (Auto) 0-4 (0-4) /hpf U Hyaline Cast (Auto) 1-5 (0-5) /lpf U Epithel Cells (Auto) 20-30 H (0-5) /lpf Urine Bacteria (Auto) Negative (Negative) SARS-CoV-2 (PCR) (Negative) Influenza Type A (PCR) (Neg) Influenza Type B (PCR) (Neg) RSV (RT-PCR) (Neg) Administered Medications Discontinued Medications Acetaminophen (Acetaminophen 500 Mg Tab) 1,000 mg PO NOW STA Stop: 05/12/22 19:28 Last Admin: 05/12/22 19:31 Dose: 1,000 mg Documented By: VICKEY Acetaminophen (Acetaminophen 500 Mg Tab) Confirm Administered Dose 1,000 mg .ROUTE .STK-MED ONE Stop: 05/12/22 19:30 Last Admin: 05/12/22 19:56 Dose: Not Given Documented By: VICKEY Sodium Chloride (Nss 1000ml) 500 mls @ 999 mls/hr IV .Q31M ONE Stop: 05/12/22 19:50 Last Infusion: 05/12/22 20:27 Dose: 0 mls/hr Documented By: Admin: 05/12/22 19:56 Dose: 999 mls/hr Documented By: VICKEY Imaging Data Attestation: I personally reviewed and interpreted this imaging study as follows: My Impression: CT of the head was obtained in the emergency department. My interpretation is no intracranial hemorrhage, no mass effect, final report below. Radiologist's Impression: Abdomen/Pelvis CT 05/12/22 19:20 Exam(s): CT ABDOMEN + PELVIS Without Contrast History: Reason for exam: fever. Exam: CT ABDOMEN + PELVIS Without Contrast Technique more: Automated exposure control was utilized for the study. A dose lowering technique was utilized adhering to the principles of ALARA. Comparison: 04/25/2021 FINDINGS: Geographic ground-glass opacity at the bases may represent atelectasis with developing infiltrate not excluded. There is now a metallic biliary duct stent and a pancreatic duct stent. Enlarged appearance of the pancreatic head with adjacent mild stranding, edema may represent pancreatitis with underlying lesion not excluded. Appearance of a 1.5 cm low-density focus suggested at the head of the pancreas axial 37 and coronal 32 for example may represent pseudocysts or necrotic or cystic focus. Biliary ductal dilation and pneumobilia. Small amount of abdominal pelvic free fluid. Status post cholecystectomy. There is appearance of subtle diffuse heterogeneous low-density mottled appearance of the liver concerning for possibility of underlying lesions, metastatic disease, correlate with history. For example 9 mm low-density focus suggested at the dome of the liver anteriorly axial 16 and coronal 31. No bowel dilation or free air. Diverticulosis without convincing evidence of diverticulitis. Mart artifact from spinal hardware. The bladder appears within limits. Normal caliber appendix without surrounding focal inflammatory change. IMPRESSION: Geographic ground-glass opacity at the bases may represent atelectasis with developing infiltrate not excluded. There is now a metallic biliary duct stent and a pancreatic duct stent. Enlarged appearance of the pancreatic head with adjacent mild stranding, edema may represent pancreatitis with underlying lesion not excluded. Appearance of a 1.5 cm low-density focus suggested at the head of the pancreas axial 37 and coronal 32 for example may represent pseudocysts or necrotic or cystic focus. Biliary ductal dilation and pneumobilia. There is appearance of subtle diffuse heterogeneous low-density mottled appearance of the liver concerning for possibility of underlying lesions, with consideration including abscesses or metastatic disease, correlate with history. For example 9 mm low-density focus suggested at the dome of the liver anteriorly axial 16 and coronal 31. Small amount of abdominal pelvic free fluid. Status post cholecystectomy. Electronically signed by: Junior Murray M.D. 05/12/22 22:11 PM Chest X-Ray 05/12/22 19:20 XR chest 1V portable CLINICAL HISTORY: Sepsis TECHNIQUE: Single frontal radiograph of the chest was obtained. Comparison: Comparison is made to chest radiograph 04/14/2022 FINDINGS: A port catheter is seen. Cardiomegaly is noted. The lungs are clear. No evidence of pleural effusion or pneumothorax. IMPRESSION: No acute abnormalities and in particular no radiographic evidence of pneumonia. ACT 112: Negative or not required by law. Electronically signed by: Alfredo Leblanc M.D. 05/12/2022 7:[address] 05/12/22 19:20 Exam(s): CT HEAD Without Contrast History: Reason for exam: AMS. Exam: CT HEAD Without Contrast Technique more: Automated exposure control was utilized for the study. A dose lowering technique was utilized adhering to the principles of ALARA. Comparison: 04/14/2022 FINDINGS: No intracranial hemorrhage, mass-effect or CT evidence of acute infarct. The ventricles are unchanged in size and remain midline. Again seen is opacified left ethmoid air cells and left frontal sinus with soft tissue focus at the left nasal passage, cannot exclude obstructing lesion, polyp. No air-fluid levels. Mastoids are clear. Orbits appear within limits. IMPRESSION: No intracranial hemorrhage, mass-effect or CT evidence of acute infarct. Again seen is opacified left ethmoid air cells and left frontal sinus with soft tissue focus at the left nasal passage, cannot exclude obstructing lesion, polyp. No air-fluid levels. Electronically signed by: Junior Murray M.D. 05/12/22 21:54 PM Discharge Plan Visit Data Chief Complaint: Illness ED Provider: Kodak Arnold Discharge Problem: Pneumonia, Fever, AMS (altered mental status), Abnormal LFTs Patient Disposition: Being Evaluated by Hospitalist Forms Stand Alone Forms: My [facility] Prescriptions Prescriptions: No Action lorazepam 0.5 mg Tablet 0.5 mg SUBLINGUAL BID PRN (Reason: Anxiety) albuterol sulfate [Ventolin HFA] 90 mcg/actuation Hfa Aerosol Inhaler 2 puff INHALATION Q6H PRN (Reason: Shortness Of Breath) ipratropium bromide 42 mcg (0.06 %) Mart,Non-Aerosol 2 spray INTRANASAL TID PRN (Reason: Nasal Congestion) fluticasone propionate [Flonase Allergy Relief] 50 mcg/actuation Mart,Suspens ion 1 spray INTRANASAL BID PRN (Reason: Allergy Symptoms) duloxetine [Cymbalta] 60 mg Capsule,Delayed Release(Dr/Ec) 60 mg PO QAM Centrum Silver 400-250 mcg Tablet,Chewable 1 tab PO QAM simethicone [Gas-X Extra Strength] 125 mg Tablet,Chewable 125 mg PO BID PRN (Reason: Indigestion) polyethylene glycol 3350 [Miralax] 17 gram/dose Powder 17 g PO DAILY PRN (Reason: Constipation) propranolol 60 mg capsule,extended release 24 hr 60 mg PO QAM acetaminophen [Tylenol] 325 mg Tablet 650 mg PO Q6H PRN (Reason: Pain) prochlorperazine maleate 10 mg tablet 10 mg PO Q6H PRN (Reason: NAUSEA/VOMITING) lidocaine-prilocaine 2.5-2.5 % Cream 1 applic topical DIRECTED PRN (Reason: 1 HR PRIOR TO MEDIPORT ACCESS) pantoprazole 20 mg tablet,delayed release (DR/EC) 20 mg PO QAM ibuprofen 200 mg Tablet 200 mg PO Q4H PRN (Reason: Pain) hydroxyzine HCl 25 mg tablet 25 mg PO TID PRN (Reason: Itching) cyclosporine [Restasis] 0.05 % Dropperette 1 drp OPB QAM Saline Nasal 0.65 % Aerosol,Mart 2 spray INTRANASAL BID Rx Instructions: MAY USE Q2-4HRS PRN NASAL DRYNESS cholecalciferol (vitamin D3) [Vitamin D3] 50 mcg (2,000 unit) Capsule 50 mcg PO DAILY triamterene-hydrochlorothiazid 37.5-25 mg tablet 1 tab PO Q OTHER DAY Rx Instructions: take on opposit day from furosemide terazosin 1 mg capsule 1 mg PO HS furosemide 20 mg tablet 20 mg PO Q OTHER DAY Rx Instructions: take on opposite day of maxide Referrals Referrals: Kamari Lezama MD [Primary Care Provider] -
[2022-05-12 20:06] LABS: Base Excess VBG 6.4 mEq/L; HCO3 VBG 31 mmol/L; Oxygen Saturation VBG 67.4 %; PCO2 VBG 41 mmHg (38-50); PO2 VBG 36 mmHg; pH VBG 7.48 (7.36-7.41)
[2022-05-12 20:12] LABS: Hematocrit (blood only) 33.8 % (42.0-52.0); Hemoglobin 11.4 g/dl (14.0-18.0); Mean Corpuscular Hemoglobin 32.3 pg (25.0-34.0); Mean Corpuscular Hgb Conc 33.7 g/dL (32.0-36.0); Mean Corpuscular Volume 95.8 fL (80.0-100.0); Mean Platelet Volume 10.7 fL (9.4-12.4); Platelet Count 205 K/uL (130-400); RDW Coefficient of Variation 13.3 % (11.5-14.5); RDW Standard Deviation 46.8 fL (36.4-46.3); Red Blood Count 3.53 M/uL (4.70-6.10); White Blood Count 13.46 K/ul (4.8-10.8)
[2022-05-12 20:30] LABS: Alanine Aminotransferase 85 U/L (7-52); Albumin Level 3.5 gm/dl (3.4-5.0); Alkaline Phosphatase 361 U/L (34-104); Anion Gap 9 (3-11); Aspartate Aminotransferase 64 U/L (13-39); BUN Creatinine Ratio 17.1 (10-20); Bilirubin Direct 0.5 mg/dl (0-0.2); Bilirubin,Total 1.7 mg/dl (0.2-1.0); Blood Urea Nitrogen 20 mg/dl (6-23); Calcium 8.9 mg/dl (8.6-10.3); Carbon Dioxide 30 mmol/L (21-32); Chloride 92 mmol/L (98-107); Creatinine Clr Calc Pharmacy 52.2 ml/min; Est GFR (African American) 65.5 ml/min; Est GFR (Non-African American) 56.5 ml/min; Glucose 123 mg/dl (70-99(Fasting)); Potassium 4.1 mmol/L (3.5-5.1); Sodium 131 mmol/L (136-145); Total Protein 6.6 gm/dl (6.0-8.3)
[2022-05-12 20:34] LABS: Basophils # (auto) 0.01 K/uL (0-0.2); Basophils % (auto) 0.1 %; Eosinophils # (auto) 0.03 K/uL (0-0.50); Eosinophils % (auto) 0.2 %; Immature Granulocytes % (auto) 0.7 %; Lymphocytes # (auto) 0.42 K/uL (1.2-3.4); Lymphocytes % (auto) 3.1 %; Monocytes # (auto) 0.08 K/uL (0.11-0.59); Monocytes % (auto) 0.6 %; Neutrophils # (auto) 12.82 K/uL (1.40-6.50); Neutrophils % (auto) 95.3 %
[2022-05-12 20:35] LABS: Troponin I High Sensitivity 16.3 pg/ml (0-20)
[2022-05-12 20:38] LABS: INR 1.2 (0.9-1.1); Partial Thromboplastin Time 27.6 Seconds (21.0-31.0); Prothrombin Time 12.3 Seconds (9.0-12.0)
[2022-05-12 20:41] LABS: Appearance Urine Clear (Clear); Bacteria Urine Automated Negative (Negative); Bilirubin Urine Negative (Negative); Blood Urine Negative (Negative); Color Urine Dark Yellow; Epithelial Cell Urine Auto 20-30 /lpf (0-5); Glucose Urine UA Negative (Negative); Ketones Urine 1+ (Negative); Leukocyte Esterase Urine Negative (Negative); Nitrite Urine Negative (Negative); RBC Urine Automated 0-4 /hpf (0-4); Specific Gravity Urine 1.019 (1.000-1.030); Urobilinogen Urine Positive (Negative)
[2022-05-12 20:46] LABS: Protein Urine 1+ (Negative)
[2022-05-12 21:05] LABS: Influenza A virus by PCR Negative (Neg); Influenza B virus by PCR Negative (Neg); RSV by PCR Negative (Neg); SARS CoV2 RNA(COVID-19) Ceph NEGATIVE (Negative)
--- NOTE | 2022-05-12 21:55 | CT Scan Report ---
Exam(s): CT HEAD Without Contrast History: Reason for exam: AMS. Exam: CT HEAD Without Contrast Technique more: Automated exposure control was utilized for the study. A dose lowering technique was utilized adhering to the principles of ALARA. Comparison: 04/14/2022 FINDINGS: No intracranial hemorrhage, mass-effect or CT evidence of acute infarct. The ventricles are unchanged in size and remain midline. Again seen is opacified left ethmoid air cells and left frontal sinus with soft tissue focus at the left nasal passage, cannot exclude obstructing lesion, polyp. No air-fluid levels. Mastoids are clear. Orbits appear within limits. IMPRESSION: No intracranial hemorrhage, mass-effect or CT evidence of acute infarct. Again seen is opacified left ethmoid air cells and left frontal sinus with soft tissue focus at the left nasal passage, cannot exclude obstructing lesion, polyp. No air-fluid levels. Electronically signed by: Junior Murray M.D. 05/12/22 21:54 PM
--- NOTE | 2022-05-12 22:12 | CT Scan Report ---
Exam(s): CT ABDOMEN + PELVIS Without Contrast History: Reason for exam: fever. Exam: CT ABDOMEN + PELVIS Without Contrast Technique more: Automated exposure control was utilized for the study. A dose lowering technique was utilized adhering to the principles of ALARA. Comparison: 04/25/2021 FINDINGS: Geographic ground-glass opacity at the bases may represent atelectasis with developing infiltrate not excluded. There is now a metallic biliary duct stent and a pancreatic duct stent. Enlarged appearance of the pancreatic head with adjacent mild stranding, edema may represent pancreatitis with underlying lesion not excluded. Appearance of a 1.5 cm low-density focus suggested at the head of the pancreas axial 37 and coronal 32 for example may represent pseudocysts or necrotic or cystic focus. Biliary ductal dilation and pneumobilia. Small amount of abdominal pelvic free fluid. Status post cholecystectomy. There is appearance of subtle diffuse heterogeneous low-density mottled appearance of the liver concerning for possibility of underlying lesions, metastatic disease, correlate with history. For example 9 mm low-density focus suggested at the dome of the liver anteriorly axial 16 and coronal 31. No bowel dilation or free air. Diverticulosis without convincing evidence of diverticulitis. Concord artifact from spinal hardware. The bladder appears within limits. Normal caliber appendix without surrounding focal inflammatory change. IMPRESSION: Geographic ground-glass opacity at the bases may represent atelectasis with developing infiltrate not excluded. There is now a metallic biliary duct stent and a pancreatic duct stent. Enlarged appearance of the pancreatic head with adjacent mild stranding, edema may represent pancreatitis with underlying lesion not excluded. Appearance of a 1.5 cm low-density focus suggested at the head of the pancreas axial 37 and coronal 32 for example may represent pseudocysts or necrotic or cystic focus. Biliary ductal dilation and pneumobilia. There is appearance of subtle diffuse heterogeneous low-density mottled appearance of the liver concerning for possibility of underlying lesions, with consideration including abscesses or metastatic disease, correlate with history. For example 9 mm low-density focus suggested at the dome of the liver anteriorly axial 16 and coronal 31. Small amount of abdominal pelvic free fluid. Status post cholecystectomy. Electronically signed by: Junior Murray M.D. 05/12/22 22:11 PM
[2022-05-12] MEDS ORDERED: cefTRIAXone SODIUM 2,000 MG/70 ML BAG IV STA (22:38)
[2022-05-12 23:00] LABS: Lipase < 3 U/L (11-82)
[2022-05-13] MEDS ORDERED: hydrOXYzine HCl 25 MG TAB PO PRN (01:48)
[2022-05-13] MEDS ORDERED: POLYETHYLENE (MIRALAX) 17 GM PACK PO PRN (01:48)
[2022-05-13] MEDS ORDERED: FLUTICASONE PROPIONATE NA SPR 16 GM BTL PRN (01:48)
[2022-05-13] MEDS ORDERED: PROCHLORPERAZINE MALEATE 10 MG TAB PO PRN (01:48)
[2022-05-13] MEDS ORDERED: LIDOCAINE/PRILOCAINE 2.5% EA CRM EXT PRN (01:48)
[2022-05-13] MEDS ORDERED: ALBUTEROL HFA 8 GM INHALER INH PRN (01:48)
[2022-05-13] MEDS ORDERED: ONDANSETRON INJ 2 MG/ML 2 ML VIAL IV PRN (01:48)
[2022-05-13] MEDS ORDERED: LORazepam 0.5 MG TAB SL PRN (01:48)
[2022-05-13] MEDS ORDERED: ACETAMINOPHEN 325 MG TAB PO PRN (01:48)
[2022-05-13] MEDS ORDERED: IPRATROPIUM BROMIDE NASAL SPRAY 0.06% 15ML PRN (01:48)
[2022-05-13] MEDS ORDERED: NITROGLYCERIN SL 0.4 MG/TAB TAB SL PRN (01:48)
[2022-05-13] MEDS ORDERED: SIMETHICONE 80 MG CHEW PO PRN (02:16)
[2022-05-13] MEDS: SODIUM CHLORIDE 0.9% 1000ML 1,000 ML IV SCH ×2 (02:19→15:10)
[2022-05-13] MEDS: ERTAPENEM SODIUM 1,000 MG in SYRINGE 0 ML IV SCH (03:10)
--- NOTE | 2022-05-13 04:30 | History and Physical Report ---
DATE OF ADMISSION: 05/12/2022. CHIEF COMPLAINT: Fever, weakness. 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 After first chemo was in the ER, he was admitted for confusion, spiking temperatures, and some difficulty finding words, and also at that time, he had essential tremors which got worse and had difficulty taking pills. A CT of the head and MRI of the head was unremarkable. Seen by neuro at that time and thought he is encephalopathic secondary to chemo. He was also treated with antibiotics. Cultures were negative and he was discharged. He was admitted on 04/15/2022 and was discharged on 04/19/2022. He followed with hematology/oncology on 05/02/2022 and at that time it was decided to do single chemo with gemcitabine and looks like it was given on 05/08/2022 and the patient again today developed fevers of 102, some confusion. He generally walks with a cane and started using a walker today and poor appetite, that is the reason he was brought in here again. His hemodynamics are stable. Currently alert and oriented, able to give history. Son is in the room. His white count was 13, ABGs were okay. Sodium of 131. Mild elevation of LFTs. His procalcitonin is 1.1. Urinalysis negative. SARS-CoV-2 PCR, influenza A and B, and RSV negative. CT of the head was okay. CT of the abdomen and pelvis shows enlarged appearance of the pancreatic head, with adjacent mild stranding edema, but may represent possible pancreatitis, underlying lesion not excluded, with appearance of subtle diffuse heterogeneous mottled appearance of the liver concerning for possible underlying lesions with considerations including abscess or metastatic disease. . The patient also has some abdominal pain and back pain today, that is improved. Currently, hemodynamics are stable. ALLERGIES: CELECOXIB, CLAVULANIC ACID, NSAIDS, LACTULOSE, AMOXICILLIN. PAST MEDICAL HISTORY: As mentioned above. PAST SURGICAL HISTORY: Right knee arthroplasty, colonoscopy, EGD, EGD with endoscopic ultrasound, ERCP, right knee arthroscopy, lumbar laminectomy, melanoma removed from the chest, left posterior tibial tendon repair, removal of nasal polyps, left cataract surgery, cholecystectomy, tonsillectomy and adenoidectomy, right shoulder arthroscopy, left shoulder arthroscopy, spinal fusion, L4-L5 decompression. MEDICATIONS: Currently the patient is on Tylenol 650 mg p.o. q. 6 hours p.r.n., albuterol 2 puffs inhalation q. 6 hours p.r.n., Centrum Silver 1 tablet p.o. daily, vitamin D 50 mcg p.o. daily, cyclosporine one drop ophthalmic a.m., Cymbalta 60 mg p.o. a.m., Flonase 1 spray intranasal b.i.d. p.r.n., Lasix 20 mg p.o. every other day, hydroxyzine 25 mg p.o. t.i.d. p.r.n., ibuprofen 200 mg p.o. q. 4 hours p.r.n., ipratropium bromide 2 sprays intranasal t.i.d. p.r.n. nasal congestion,lidocaine/ prilocaine p.r.n. 1 hour prior to [employer] access, lorazepam 0.5 mg sublingual b.i.d. p.r.n., Protonix 20 mg p.o. a.m., MiraLax 17 g p.o. daily p.r.n., prochlorperazine 10 mg p.o. q. 6 hours p.r.n., propranolol 60 mg p.o. a.m., nasal saline 2 sprays intranasal b.i.d., simethicone 125 mg p.o. b.i.d. p.r.n., terazosin 1 mg p.o. at bedtime, triamterene/hydrochlorothiazide 1 tablet p.o. every other day alternating with Lasix. FAMILY HISTORY: Significant for father has gastrointestinal disorder, CHF, COPD; mother has gastrointestinal disorder, hypertension, lung disorder, stroke. SOCIAL HISTORY: , no smoking. Alcohol, occasional wine with meals. No drug use. REVIEW OF SYSTEMS: As per HPI. Rest of review of systems is negative. PHYSICAL EXAMINATION: GENERAL: The patient is of moderate build, not in acute distress. VITAL SIGNS: Temperature 37, T-max 38.1, pulse 67, respiratory rate 14, blood pressure 125/55, oxygen 98% on room air. HEENT: Pupils equal, round and reactive to light. Oral mucosa moist. NECK: No JVD, no neck masses. CARDIOVASCULAR: S1 and S2 heard. Regular rate and rhythm. No murmur, no gallop. RESPIRATORY SYSTEM: Normal AP diameter. No accessory muscle use. No wheezing or crackles. ABDOMEN: Soft, bowel sounds present. Mild discomfort. No guarding, no rigidity. CENTRAL NERVOUS SYSTEM: Cranial nerves II through XII are grossly intact, nonfocal. EXTREMITIES: No edema, no erythema. LABORATORY DATA: WBC 13.4, hemoglobin 11.4, hematocrit 33.8, platelets 205. PT 12.3, INR 1.2, APTT 27.6. Venous blood gas, pH of 7.48, pCO2 of 41. Sodium 131, potassium 4.1, chloride 92, CO2 of 30, BUN 20, creatinine 1.1, serum glucose 123, lactate 1, calcium 8.9, magnesium 2, total bilirubin 1.7, direct bilirubin 0.5, AST 64, ALT 85, alkaline phosphatase 361. Troponin I high sensitivity 16.3, lipase less than 3. Procalcitonin 1.13. Urinalysis, +1 protein, +1 ketones. SARS-CoV-2 rapid test negative. Influenza A and B PCR negative. RSV PCR negative. IMAGING DATA: CT of the head, no acute findings. Nasal polyps seen. Chest x- ray, no acute findings. CT of the abdomen and pelvis without contrast shows metallic biliary stent and pancreatic stent, enlarged appearance of the pancreatic head with adjacent mild stranding edema, which may represent pancreatitis with an underlying lesion not excluded. Bilateral ductal dilatation , appearance of subtle diffuse heterogeneous low density mottled appearance of the liver concerning for possibility of underlying lesions with considerations including abscesses or metastatic disease. Status post cholecystectomy. EKG: Normal sinus rhythm at a rate of 84. Nonspecific ST abnormalities. No significant change was found. ASSESSMENT AND PLAN: This is an 86-year-old male who presents with some confusion and fevers and abdominal pain after the chemo. 1. History of pancreatic cancer: Could not tolerate first chemo first given in first week of April. Chemo was changed to single chemo with gemcitabine, which was given a few days back. Again comes with fever and some confusion, also some abdominal pain. Received Rocephin in the ER. Will empirically place him on invanz. Continue gentle fluids. Pain control. Will discuss with hem/onc. Also CT of the head was okay. There is a question of liver abscess and also question of pancreatitis on the CAT scan. Will get a GI consult in the a.m. Follow the cultures. He had a similar presentation with first chemo last month and at that time, his symptoms of encephalopathy and fever were thought to be chemo related 2. Hyponatremia: Getting fluids. We will follow the labs. 3. History of chronic kidney disease stage III: Baseline creatinine 1.3 to 1.4. Today, presents with a creatinine of 1.1. Will follow the labs. 4. History of elevated LFTs. Will follow the repeat labs in the a.m. 5. Elevated procalcitonin: Antibiotics as above. 6. History of pancreatic cancer: Recent diagnosis. Could not tolerate the first chemo. Chemo was changed to single chemo and had first dose a few days back. Will notify about the admission to hem/onc, Dr. David Hahn, in the a.m. 7. Prediabetes: Follow the blood sugars. 8. History of tremors: On propranolol. 9. Gastroesophageal reflux disease: On Protonix. 10. Anxiety disorder and depression: On duloxetine and Ativan p.r.n. 11. Hypertension: On Maxzide, terazosin, and propranolol. Will monitor his blood pressure. 12. Obstructive sleep apnea: On BiPAP at bedtime. 13. History of benign prostatic hypertrophy: On terazosin. Monitor for any retention. 14. Deep venous thrombosis prophylaxis: Placed on Lovenox. DISPOSITION: Closely monitor in the med tele. PT/OT prior to discharge. Social service to help with discharge planning. Level 1 full code. Job ID: [id number] MTDD
--- NOTE | 2022-05-13 08:29 | Electrocardiogram Report ---
Test Reason : Blood Pressure : / mmHG Vent. Rate : 084 BPM Atrial Rate : 084 BPM P-R Int : 154 ms QRS Dur : 090 ms QT Int : 358 ms P-R-T Axes : 041 -06 050 degrees QTc Int : 423 ms Poor data quality, interpretation may be adversely affected Normal sinus rhythm Nonspecific T wave abnormality Inferior leads Abnormal ECG When compared with ECG of 14-APR-2022 17:41, No significant change was found Confirmed by Rodrigo Johns ([id number]) on 05/13/2022 8:29:25 AM Referred By: REFERRED SELF Confirmed By:Rodrigo Johns
[2022-05-13] MEDS: ENOXAPARIN INJ 40 MG/0.4 ML SYR SQ SCH (08:30)
[2022-05-13] MEDS: PROPRANOLOL HCL 60 MG LA CAP PO SCH (08:31)
[2022-05-13] MEDS: DULoxetine HCL 60 MG CAP PO SCH (08:31)
[2022-05-13] MEDS: PANTOprazole 40 MG TAB PO SCH (08:31)
[2022-05-13] MEDS: CEROVITE ADV FORMULA TAB PO SCH (08:31)
[2022-05-13] MEDS: CHOLECALCIFEROL 1,000 UNITS 25 MCG TAB PO SCH (08:32)
[2022-05-13] MEDS ORDERED: FUROSEMIDE 20 MG TAB PO SCH (09:00)
[2022-05-13] MEDS ORDERED: SODIUM CHLORIDE 0.65% NA SOLN 45 ML (OCEAN) PRN (09:00)
[2022-05-13 10:02] LABS: Alanine Aminotransferase 66 U/L (7-52); Albumin Level 3.1 gm/dl (3.4-5.0); Alkaline Phosphatase 282 U/L (34-104); Aspartate Aminotransferase 45 U/L (13-39); Bilirubin Direct 0.4 mg/dl (0-0.2); Bilirubin,Total 0.8 mg/dl (0.2-1.0); Lipase < 3 U/L (11-82)
--- NOTE | 2022-05-13 10:21 | Gastrointestinal Consultation ---
Date of Consultation May 13, 2022 Assessment & Plan (1) Pancreatic cancer: (2) Abdominal pain: (3) AMS (altered mental status): (4) Fever: Pt is a 86 yo male w recently diagnosed pancreatic head ca w biliary obstruction s/p ERCP placed biliary + pancreatic stents who presented w fever, confusion. CT head and CXR unremarkable. CT abd/pelvis wo contrast showed possible pancreatitis and possible hepatic abscess vs metastatic processes. LFTs, and WBC mildly elevated. Pt's last chemo session was just last Friday - Maintain antibx coverage - Will obtain contrasted CT abd/pelvis to r/o hepatic abscesses (if present and large, may need IR drainage). - Trend LFTs - Symptomatic management Supervising Physician Co-Signing Physician Notes I saw and evaluated the patient. The patient has a history of pancreatic adenocarcinoma arising from his head GP about 4 weeks ago with biliary decompression really really small of a metallic stent. He did present with ED and was found to have a slight elevation of his liver enzymes as compared to prior studies. In addition to chest CT showing either metastatic disease or perhaps an abscess Physical examination No scleral icterus no right upper quadrant tenderness noted Impression; 86-year-old male with history of pancreatic status post biliary decompression with covered metal stent presenting with fatigue. I wonder if the presentation could be related to ongoing given the nonspecific findings on a noncontrast CT we will recommend a IV contrast enhanced hepatic protocol CT to further assess liver to determine if he may have an abscess or metastatic disease. In the meantime would recommend continued use of IV antibiotics and IV hydration. History of Present Illness Reason for Consultation: ? pancreatitis vs hepatic abscess Requesting Physician: Dr. Pal Mcarthur Attending Physician: Dr. Nathaniel Felix History of Present Illness Pt is a 86 yo male w PMHx as noted below, who presented to ED w c/o confusion, fevers. He was recently diagnosed with pancreas head neoplasm w biliary obstruction s/p ERCP w pancreatic and metal biliary stent placements. He underwent his first chemo (Gemcitabine and Abraxane) on 04/12/2022, but did not tolerate it well. He then was switched to single agent Gemcitabine which he obtained 05/08/2020. Workup in ED showed WBC 13, Na 131, LFTs: Tbili 0.4, AST 45, ALT 66, Alk phose 282, Lipase <3. COVID, flu, RSV negative. CT head and CXR unremarkable. CT abd/pelvis wo contrast showed present biliary and pancreatic duct stents w biliary ductal dilation and pneumobilia. There is an enlarged appearance of the pancreatic head with adjacent mild stranding, edema which may represent pancreatitis w underlaying lesion. 1.5cm head of pancreas ? pseudocysts or necrotic/cystic focus. There area lso diffuse low density mottled appearance of liver concerning for underlying lesions vs. abscess or metastatic disease. This morning, pt is alert and appears more oriented. Can recall history and recent events. He is having some abd discomfort but no n/v. Allergies Allergy/AdvReac Type Severity Reaction Status Date / Time celecoxib Allergy Severe SHORT OF Verified 04/14/22 18:34 BREATH clavulanic acid Allergy Severe SHORTNESS Verified 04/14/22 18:34 OF BREATH NSAIDS (Non-Steroidal Allergy Severe ASTHMA Verified 04/14/22 18:34 Anti-Inflamma ATTACK lactose Allergy Intermediate INDIGESTION Verified 04/14/22 18:34 AND GAS amoxicillin AdvReac Intermediate Rash Verified 04/14/22 18:34 Home Medications Medication Instructions Recorded Confirmed Type albuterol sulfate 90 mcg/actuation 2 puff inhalation Q6H PRN 09/08/18 05/12/22 History aerosol inhaler (Ventolin HFA) Shortness Of Breath duloxetine 60 mg capsule,delayed 60 mg PO QAM 09/08/18 05/12/22 History release (Cymbalta) fluticasone propionate 50 1 spray intranasal BID PRN Allergy 09/08/18 05/12/22 History mcg/actuation nasal Symptoms spray,suspension (Flonase Allergy Relief) ipratropium bromide 42 mcg (0.06 2 spray intranasal TID PRN Nasal 09/08/18 05/12/22 History %) nasal spray Congestion lorazepam 0.5 mg tablet 0.5 mg sublingual BID PRN Anxiety 09/08/18 05/12/22 History multivit with min-folic 1 tab PO QAM 09/08/18 05/12/22 History acid-lutein 400 mcg-250 mcg chewable tablet (Centrum Silver) polyethylene glycol 3350 17 17 g PO DAILY PRN Constipation 01/25/19 05/12/22 History gram/dose oral powder (Miralax) propranolol 60 mg capsule,24 60 mg PO QAM 01/25/19 05/12/22 History hr,extended release simethicone 125 mg chewable tablet 125 mg PO BID PRN Indigestion 01/25/19 05/12/22 History (Gas-X Extra Strength) acetaminophen 325 mg tablet 650 mg PO Q6H PRN Pain 04/13/22 05/12/22 History (Tylenol) cholecalciferol (vitamin D3) 50 50 mcg PO DAILY 04/13/22 05/12/22 History mcg (2,000 unit) capsule (Vitamin D3) cyclosporine 0.05 % eye drops in a 1 drp OPB QAM 04/13/22 05/12/22 History dropperette (Restasis) hydroxyzine HCl 25 mg tablet 25 mg PO TID PRN Itching 04/13/22 05/12/22 History ibuprofen 200 mg tablet 200 mg PO Q4H PRN Pain 04/13/22 05/12/22 History lidocaine-prilocaine 2.5 %-2.5 % 1 applic topical DIRECTED PRN 1 04/13/22 05/12/22 History topical cream HR PRIOR TO MEDIPORT ACCESS pantoprazole 20 mg tablet,delayed 20 mg PO QAM 04/13/22 05/12/22 History release prochlorperazine maleate 10 mg 10 mg PO Q6H PRN NAUSEA/VOMITING 04/13/22 05/12/22 History tablet sodium chloride 0.65 % nasal spray 2 spray intranasal BID 04/13/22 05/12/22 History aerosol (Saline Nasal) triamterene 37.5 1 tab PO Q OTHER DAY 04/13/22 05/12/22 History mg-hydrochlorothiazide 25 mg tablet terazosin 1 mg capsule 1 mg PO HS 04/14/22 05/12/22 History furosemide 20 mg tablet 20 mg PO Q OTHER DAY 05/12/22 05/12/22 History Patient History Medical History Asthma BPH (benign prostatic hyperplasia) BPPV (benign paroxysmal positional vertigo) CKD (chronic kidney disease) stage 3, GFR 30-59 ml/min Depression Dizziness Chronic issue x 1.5 years Encounter for pre-operative examination Essential tremor Located to hands R>L History of melanoma S/p removal Hyperlipidemia Hypertension Prediabetes Sleep apnea CPAP Vasovagal episode Approximately one year ago (03/2021) during PT- suspected vasovagal Surgical History History of cardiac cath 02/06/2000 - No CAD History of cataract surgery 2019 History of colonoscopy History of lumbar surgery 3 total; hardware present History of melanoma excision History of tonsillectomy History of total knee replacement Rt Family History Father CHF (congestive heart failure) Father COPD (chronic obstructive pulmonary disease) Social History Smoking Status: Never smoker Second Hand Exposure: No; Hx Alcohol Use: Yes Alcohol type: wine Hx Substance Use: No Preferred Language: Indonesian Communication Ability: Effective Home Performance Laborer Required: No Beliefs That Will Affect Care: None Current Living Situation: Spouse Current Living Situation Comment: Single family home current occupational status: retired 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 Feels Safe at Home: Yes Safety Concerns: Feels Safe At This Time Assistive Devices: Cane and Walker Review of Systems Review of Systems: All systems reviewed & are unremarkable except as noted in HPI & below Physical Exam Constitutional: WD/WN, vitals as above well groomed, cooperative and comfortable Eyes: PERRL, conjunctivae normal, anicteric sclerae ENMT: external ear and nose normal, oropharynx normal Respiratory: normal respiratory effort, lungs clear to auscultation Cardiovascular: RRR, no murmur, no edema Gastrointestinal (Abdomen): Mild distension w some generalized tenderness, BS hypoactive. Skin: no rashes, warm and dry no jaundice Psychiatric: A+Ox3, euthymic affect Lymphatic: no lymphedema Results & Data Vital Signs (Past 12 Hours) Vital Signs Temp Pulse Pulse Resp BP BP Pulse Ox 05/13/22 07:26 36.8 C 73 18 163/74 H 98 05/13/22 07:12 68 05/13/22 03:46 69 05/13/22 03:34 36.8 C 80 16 135/64 97 05/13/22 01:30 64 14 122/63 97 05/13/22 00:45 71 14 98 05/13/22 00:30 70 17 127/60 98 05/13/22 00:15 70 14 97 04/03/23 00:00 70 14 124/57 L 97 05/12/22 23:45 69 19 96 05/12/22 23:30 69 13 127/62 96 05/12/22 23:31 67 05/12/22 23:15 67 14 98 05/12/22 23:00 66 16 124/55 L 95 05/12/22 22:45 72 23 96 05/12/22 22:30 67 20 117/55 L 95 05/12/22 22:15 67 18 94 O2 Del Method 05/13/22 07:26 Room Air 05/13/22 07:12 05/13/22 03:46 05/13/22 03:34 Room Air 05/13/22 01:30 Room Air 05/13/22 00:45 Room Air 05/13/22 00:30 Room Air 05/13/22 00:15 Room Air 05/13/22 00:00 Room Air 05/12/22 23:45 Room Air 05/12/22 23:30 Room Air 05/12/22 23:31 05/12/22 23:15 Room Air 05/12/22 23:00 Room Air 05/12/22 22:45 Room Air 05/12/22 22:30 Room Air 05/12/22 22:15 Room Air (3) AMS (altered mental status) Altered mental status type: unspecified Qualified Code(s): R41.82 - Altered mental status, unspecified (4) Fever Fever type: unspecified Qualified Code(s): R50.9 - Fever, unspecified
[2022-05-13] MEDS ORDERED: OPTIRAY 350 100ml IV ONE (12:14)
--- NOTE | 2022-05-13 12:47 | CT Scan Report ---
ABDOMEN AND PELVIS CT WITH IV AND ORAL CONTRAST CT DOSE: 804.46 mGycm HISTORY: Acute right upper quadrant abdominal pain in a patient with history of known pancreatic carc inoma r/o liver abscess TECHNIQUE: Multiaxial CT images of the abdomen and pelvis were performed following the IV administrat ion of 86 cc of Optiray and oral contrast. A dose lowering technique was utilized adhering to the pr inciples of ZARI. COMPARISON STUDY: CT abdomen and pelvis 04/25/2021, 04/13/2022, 05/12/2022, 09/28/2013. FINDINGS: There is mild subsegmental bibasilar atelectasis. No pneumatosis or pneumoperitoneum. Unrem arkable spleen and adrenal glands. Cholecystectomy. There are numerous ill-defined hypodense lesions of the liver measuring up to 2.9 cm on the right hepatic lobe, image 19 which appears similar to the 04/13/2022 exam. Considerable amount of pneumobilia is noted with air and debris filled common bile galina t stent. Portal vein is patent. There is effacement of the portal splenic confluence. Progressively w orsened thrombus burden within the splenic and superior mesenteric veins compared to the 04/13/2022 exa m. Prominent atherosclerotic plaque within the proximal aspect of the superior mesenteric artery rede monstrated resulting in at least moderate to high-grade stenosis. Partial effacement of the superior mesenteric artery which is circumferential encased by the heterogeneous pancreatic mass. No definite arterial occlusion identified. Heterogeneous mass of the pancreatic head and neck redemonstrated measuring approximately 5.8 x 3.8 c m, unchanged from yesterday's exam. Satisfactory positioning of the pancreatic stent. Upstream pancre atic atrophy with ductal dilation redemonstrated. Mass invasion into the duodenum is again noted. The re are adjacent metastatic peripancreatic lymph nodes including a 1.2 x 1.1 cm lymph node on image 14 7. Cortical thinning with areas of parenchymal scar noted within left kidney. No hydronephrosis. Mild ur inary bladder wall thickening with partial distention. Prostamegaly. Small fat filled inguinal hernia s. Atherosclerosis of the aorta and branch vessels. Colonic diverticulosis. Trace abdominal pelvic as cites. The appendix appears noninflamed. Unremarkable soft tissues. Postoperative changes of the lumb ar spine and pelvis redemonstrated. No destructive bone lesions are seen. Thoracolumbar spinal fusion hardware with discectomy changes. Lucency surrounding the right L5 pedicle screw suggestive of loose pauline. IMPRESSION: 1. Large infiltrative pancreatic head mass compatible with the patient's primary malignancy with duod enal invasion is stable from yesterday's exam however has increased in size from 04/13/2022. Satisfacto ry positioning of the pancreatic and common bile duct stents. 2. Vascular involvement as above includes circumferential encasement of the superior mesenteric arter y with at least moderate luminal stenosis. Additionally, there is progressively worsened thrombus wit hin the splenic and superior mesenteric veins compared to the exam from 04/13/2022 with effacement of t he portal splenic confluence. 3. Hepatic metastatic disease redemonstrated which appears mildly progressed compared to the study fr om 04/13/2022. 4. Trace abdominal pelvic ascites. 5. Colonic diverticulosis without acute diverticulitis. 6. Additional findings as above. ACT 112: Negative or not required by law. The above report was generated using voice recognition software. It may contain grammatical, syntax o r spelling errors. Electronically signed by: Jonnie Mayberry M.D. 05/13/2022 12:46 PM
--- NOTE | 2022-05-13 14:36 | Communication Note ---
Date of Service: May 13, 2022 Patient seen and examined at bedside. Is comfortably sitting on the bed; not in any distress. He reports improvement in his mentation. He denies any fever chills presently. On examination Alert oriented x3; CVSS1-S2 heard; regular rate and rhythm Chestbilateral basal breath sound Abdomenslightly distended; soft. No guarding/rigidity CNSgrossly intact Assessment/plan; 1) pancreatic cancer Fevers/chills Presented with fever and confusion along with abdominal pain. CT abdomen and pelvis with IV contrast done today; large infiltrative pancreatic head mass along with vascular involvement which include circumferential encasement of SMA. Hepatic metastatic disease Continue on antibiotic Advance diet Follow-up on blood cultures 2) hyponatremia; sodium on admission 131; received IV fluids. Will repeat BMP. Continue other home medications.
[2022-05-13] MEDS ORDERED: TERAZOSIN HCL 1 MG CAP PO SCH (21:00)
[2022-05-13] MEDS ORDERED: DULoxetine HCL 20 MG CAP PO SCH (21:00)
[2022-05-13] MEDS ORDERED: HEPARIN 100 UNIT/ML 5ML FLUSH FLUSH PRN (23:41)
[2022-05-14] MEDS: ERTAPENEM SODIUM 1,000 MG in SYRINGE 0 ML IV SCH (05:32)
[2022-05-14 07:02] LABS: Basophils # (auto) 0.02 K/uL (0-0.2); Basophils % (auto) 0.4 %; Eosinophils # (auto) 0.14 K/uL (0-0.50); Eosinophils % (auto) 2.5 %; Hematocrit (blood only) 29.1 % (42.0-52.0); Hemoglobin 9.9 g/dl (14.0-18.0); Immature Granulocytes # (auto) 0.02 K/uL (0.01-0.20); Immature Granulocytes % (auto) 0.4 %; Lymphocytes # (auto) 0.59 K/uL (1.2-3.4); Lymphocytes % (auto) 10.7 %; Mean Corpuscular Hemoglobin 32.1 pg (25.0-34.0); Mean Corpuscular Volume 94.5 fL (80.0-100.0); Mean Platelet Volume 10.3 fL (9.4-12.4); Monocytes # (auto) 0.35 K/uL (0.11-0.59); Monocytes % (auto) 6.4 %; Neutrophils # (auto) 4.38 K/uL (1.40-6.50); Neutrophils % (auto) 79.6 %; Platelet Count 147 K/uL (130-400); RDW Coefficient of Variation 13.1 % (11.5-14.5); RDW Standard Deviation 45.5 fL (36.4-46.3); Red Blood Count 3.08 M/uL (4.70-6.10)
[2022-05-14 07:19] LABS: BUN Creatinine Ratio 15.7 (10-20); Calcium 8.1 mg/dl (8.6-10.3); Creatinine Clr Calc Pharmacy 68.6 ml/min; Est GFR (African American) 90.4 ml/min; Magnesium 1.9 mg/dl (1.7-2.4); Potassium 3.6 mmol/L (3.5-5.1)
--- NOTE | 2022-05-14 08:55 | Gastroenterology Progress Note ---
Date of Service May 14, 2022 Assessment & Plan (1) Pancreatic cancer: (2) Abdominal pain: (3) AMS (altered mental status): (4) Fever: Plan: Pt is a 86 yo male w recently diagnosed pancreatic head ca w biliary obstruction s/p ERCP placed biliary + pancreatic stents who presented w fever, confusion. CT head and CXR unremarkable. CT abd/pelvis wo contrast showed possible pancreatitis and possible hepatic abscess vs metastatic processes. LFTs, and WBC mildly elevated. Pt's last chemo session was just last Friday Reviewed results w pt: CT abd/pelvis w signs of infiltrative pancreatic head mass w duodenal invasion and vascular involvement, SMA stenosis, worsening thrombus within splenic + superior mesenteric veins. No hepatic abscess, hepatic lesions appear to be metastatic disease. - May DC antibiotic coverage - Trend LFTs - Symptomatic management - Recommend pt to have discussion with his oncologist regarding future direction for chemo. - GI to sign off; pls recall prn Admission and Anticipated Discharge Date Admission Date: May 13, 2022 Supervising Physician Co-Signing Physician Notes We were able to evaluate the patient this morning. We did review of the CT scan from yesterday and unfortunately it appears that his metastatic disease from his pancreatic cancer is progressing. Unfortunately from a GI standpoint there is not any specific intervention I would recommend for the present time. His symptoms are likely related to progression of his disease and perhaps intolerance of chemotherapy. Recommendations Advance diet as tolerated Consider discussing case with medical oncology to determine treatment goals Please call with any questions or concerns, GI to sign off Subjective Pt denies abd pain, n/v, tolerate diet well. Review of Systems Review of Systems: All systems reviewed & are unremarkable except as noted in HPI & below Physical Exam Constitutional: WD/WN, vitals as above well groomed, cooperative and comfortable Eyes: PERRL, conjunctivae normal, anicteric sclerae ENMT: external ear and nose normal, oropharynx normal Respiratory: normal respiratory effort, lungs clear to auscultation Cardiovascular: RRR, no murmur, no edema Gastrointestinal (Abdomen): normal bowel sounds, soft, nontender, no hepatosplenomegaly Skin: no rashes, warm and dry no jaundice Psychiatric: A+Ox3, euthymic affect Lymphatic: no lymphedema Results & Data Vital Signs (Past 12 Hours) Vital Signs Temp Pulse Pulse Resp BP Pulse Ox O2 Del Method 05/14/22 07:39 36.9 C 74 16 165/83 H 99 Room Air 05/14/22 05:19 79 05/14/22 02:58 36.5 C 71 18 163/72 H 99 Room Air 05/13/22 22:51 36.8 C 76 16 169/83 H 99 Room Air Laboratory Results Laboratory Results - last 24 hr 05/13/22 05/14/22 05/14/22 07:51 06:17 06:17 WBC 5.50 RBC 3.08 L Hgb 9.9 L Hct 29.1 L MCV 94.5 MCH 32.1 MCHC 34.0 RDW Std Deviation 45.5 RDW Coeff of Mimi 13.1 Plt Count 147 MPV 10.3 Immature Gran % (Auto) 0.4 Neut % (Auto) 79.6 Lymph % (Auto) 10.7 Dickenson % (Auto) 6.4 Eos % (Auto) 2.5 Baso % (Auto) 0.4 Neut # (Auto) 4.38 Lymph # (Auto) 0.59 L Dickenson # (Auto) 0.35 Eos # (Auto) 0.14 Baso # (Auto) 0.02 Immature Gran # (Auto) 0.02 Sodium 134 L Potassium 3.6 Chloride 98 Carbon Dioxide 29 Anion Gap 7 BUN 14 Creatinine 0.89 Est Cr Clr Drug Dosing 68.6 Est GFR ( Amer) 90.4 Est GFR (Non-Af Amer) 78.0 BUN/Creatinine Ratio 15.7 Glucose 120 H Calcium 8.1 L Magnesium 1.9 Total Bilirubin 0.8 D Direct Bilirubin 0.4 H AST 45 H ALT 66 H Alkaline Phosphatase 282 H Total Protein 6.0 Albumin 3.1 L Lipase < 3 L Diagnostic Findings ABDOMEN AND PELVIS CT WITH IV AND ORAL CONTRAST CT DOSE: 804.46 mGycm HISTORY: Acute right upper quadrant abdominal pain in a patient with history of known pancreatic carcinoma r/o liver abscess TECHNIQUE: Multiaxial CT images of the abdomen and pelvis were performed following the IV administration of 86 cc of Optiray and oral contrast. A dose lowering technique was utilized adhering to the principles of ALARA. COMPARISON STUDY: CT abdomen and pelvis 04/25/2021, 04/13/2022, 05/12/2022, 09/28/2013. FINDINGS: There is mild subsegmental bibasilar atelectasis. No pneumatosis or pneumoperitoneum. Unremarkable spleen and adrenal glands. Cholecystectomy. There are numerous ill-defined hypodense lesions of the liver measuring up to 2.9 cm on the right hepatic lobe, image 19 which appears similar to the 04/13/2022 exam. Considerable amount of pneumobilia is noted with air and debris filled common bile duct stent. Portal vein is patent. There is effacement of the portal splenic confluence. Progressively worsened thrombus burden within the splenic and superior mesenteric veins compared to the 04/13/2022 exam. Prominent atherosclerotic plaque within the proximal aspect of the superior mesenteric artery redemonstrated resulting in at least moderate to high-grade stenosis. Partial effacement of the superior mesenteric artery which is circumferential encased by the heterogeneous pancreatic mass. No definite arterial occlusion identified. Heterogeneous mass of the pancreatic head and neck redemonstrated measuring approximately 5.8 x 3.8 cm, unchanged from yesterday's exam. Satisfactory positioning of the pancreatic stent. Upstream pancreatic atrophy with ductal dilation redemonstrated. Mass invasion into the duodenum is again noted. There are adjacent metastatic peripancreatic lymph nodes including a 1.2 x 1.1 cm lymph node on image 147. Cortical thinning with areas of parenchymal scar noted within left kidney. No hydronephrosis. Mild urinary bladder wall thickening with partial distention. Prostamegaly. Small fat filled inguinal hernias. Atherosclerosis of the aorta and branch vessels. Colonic diverticulosis. Trace abdominal pelvic ascites. The appendix appears noninflamed. Unremarkable soft tissues. Postoperative changes of the lumbar spine and pelvis redemonstrated. No destructive bone lesions are seen. Thoracolumbar spinal fusion hardware with discectomy changes. Lucency surrounding the right L5 pedicle screw suggestive of loosening. IMPRESSION: 1. Large infiltrative pancreatic head mass compatible with the patient's primary malignancy with duodenal invasion is stable from yesterday's exam however has increased in size from 04/13/2022. Satisfactory positioning of the pancreatic and common bile duct stents. 2. Vascular involvement as above includes circumferential encasement of the superior mesenteric artery with at least moderate luminal stenosis. Additionally, there is progressively worsened thrombus within the splenic and superior mesenteric veins compared to the exam from 04/13/2022 with effacement of the portal splenic confluence. 3. Hepatic metastatic disease redemonstrated which appears mildly progressed compared to the study from 04/13/2022. 4. Trace abdominal pelvic ascites. 5. Colonic diverticulosis without acute diverticulitis. 6. Additional findings as above. (3) AMS (altered mental status) Altered mental status type: unspecified Qualified Code(s): R41.82 - Altered mental status, unspecified (4) Fever Fever type: unspecified Qualified Code(s): R50.9 - Fever, unspecified
[2022-05-14] MEDS ORDERED: TRIAMTERENE/HCTZ 37.5/25MG TAB PO SCH (09:00)
[2022-05-14] MEDS: PANTOprazole 40 MG TAB PO SCH (09:17)
[2022-05-14] MEDS: PROPRANOLOL HCL 60 MG LA CAP PO SCH (09:17)
[2022-05-14] MEDS: CHOLECALCIFEROL 1,000 UNITS 25 MCG TAB PO SCH (09:17)
[2022-05-14] MEDS: ENOXAPARIN INJ 40 MG/0.4 ML SYR SQ SCH (09:17)
[2022-05-14] MEDS: CEROVITE ADV FORMULA TAB PO SCH (09:18)
[2022-05-14] MEDS: DULoxetine HCL 60 MG CAP PO SCH (09:56)
--- NOTE | 2022-05-14 14:42 | Discharge Summary ---
Date of Service May 14, 2022 Admission HPI Per Admitting Provider This is an 86-year-old male with past medical history significant for chronic kidney disease stage III, BPH, osteoarthritis, essential tremor, ambulatory dysfunction, generalized anxiety disorder, vitamin D deficiency, hypertension, obstructive sleep apnea, on BiPAP, allergic rhinitis, prediabetes, hyperlipidemia, recent diagnosis of malignant neoplasm of the head of the pancreas, and he underwent chemo with gemcitabine and Abraxane on 04/12/2022, but did not tolerate it well. After first chemo was in the ER, he was admitted for confusion, spiking temperatures, and some difficulty finding words, and also at that time, he had essential tremors which got worse and had difficulty taking pills. A CT of the head and MRI of the head was unremarkable. Seen by neuro at that time and thought he is encephalopathic secondary to chemo. He was also treated with antibiotics. Cultures were negative and he was discharged. He was admitted on 04/15/2022 and was discharged on 04/19/2022. He followed with hematology/oncology on 05/02/2022 and at that time it was decided to do single chemo with gemcitabine and looks like it was given on 05/08/2022 and the patient again today developed fevers of 102, some confusion. He generally walks with a cane and started using a walker today and poor appetite, that is the reason he was brought in here again. His hemodynamics are stable. Currently alert and oriented, able to give history. Son is in the room. His white count was 13, ABGs were okay. Sodium of 131. Mild elevation of LFTs. His procalcitonin is 1.1. Urinalysis negative. SARS-CoV-2 PCR, influenza A and B, and RSV negative. CT of the head was okay. CT of the abdomen and pelvis shows enlarged appearance of the pancreatic head, with adjacent mild stranding edema, but may represent possible pancreatitis, underlying lesion not excluded, with appearance of subtle diffuse heterogeneous mottled appearance of the liver concerning for possible underlying lesions with considerations including abscess or metastatic disease. . The patient also has some abdominal pain and back pain today, that is improved. Currently, hemodynamics are stable. Admission Exam Per Admitting Provider GENERAL: The patient is of moderate build, not in acute distress. VITAL SIGNS: Temperature 37, T-max 38.1, pulse 67, respiratory rate 14, blood pressure 125/55, oxygen 98% on room air. HEENT: Pupils equal, round and reactive to light. Oral mucosa moist. NECK: No JVD, no neck masses. CARDIOVASCULAR: S1 and S2 heard. Regular rate and rhythm. No murmur, no gallop. RESPIRATORY SYSTEM: Normal AP diameter. No accessory muscle use. No wheezing or crackles. ABDOMEN: Soft, bowel sounds present. Mild discomfort. No guarding, no rigidity. CENTRAL NERVOUS SYSTEM: Cranial nerves II through XII are grossly intact, nonfocal. EXTREMITIES: No edema, no erythema. Principal Diagnosis Generalized weakness likely intolerance due to chemotherapy Elevated LFTs due to metastatic cancer Discharge Exam Constitutional: WD/WN, vitals as above, NAD, sitting up in bed, pleasant, conversing easily Respiratory: normal respiratory effort, lungs clear to auscultation, no wheeze, rales, rhonchi. Normal insp/exp effort, no accessory muscle use Cardiovascular: RRR, no murmur, no edema Vessels: no JVD or carotid bruit Chest: Port-A-Cath in place. Abdomen: normal bowel sounds, soft, nontender, no hepatosplenomegaly Musculoskeletal: no cyanosis or clubbing, extremities motor strength 5/5 Skin: no rashes, warm and dry normal turgor Neurologic: PERRL, EOMI, accommodation nl, no face palsy, no dysarthria CN's II- XI intact bilaterally and moves all extremities Psychiatric: A+Ox3, euthymic affect Lymphatic: no cervical or axillary lymphadenopathy : deferred Discharge Data Allergies Allergy/AdvReac Type Severity Reaction Status Date / Time celecoxib Allergy Severe SHORT OF Verified 04/14/22 18:34 BREATH clavulanic acid Allergy Severe SHORTNESS Verified 04/14/22 18:34 OF BREATH NSAIDS (Non-Steroidal Allergy Severe ASTHMA Verified 04/14/22 18:34 Anti-Inflamma ATTACK lactose Allergy Intermediate INDIGESTION Verified 04/14/22 18:34 AND GAS amoxicillin AdvReac Intermediate Rash Verified 04/14/22 18:34 Consultations 05/12/22 22:46 ED Decision to Admit Stat 05/13/22 08:00 Consult Gastroenterology Routine Ordered Studies 05/12/22 19:20 CT abd pelvis wo con Stat CT head/brain wo con Stat 05/13/22 08:56 CT abd pelvis oral and IV con Routine Hospital Course (1) Pancreatic cancer: (2) Abnormal LFTs: (3) Imbalance: Plan Patient is a 86-year-old male with recently diagnosed metastatic pancreatic cancer. He was started on chemotherapy earlier in April; was hospitalized due to weakness following the first cycle. His chemotherapy was changed recently by his oncologist (Dr. Hahn); he received chemotherapy few days back. Patient came to the hospital due to confusion and imbalance. He was afebrile, normotensive and saturating well on admission. CT head did not show any acute finding. CT abdomen and pelvis without contrast showed metallic biliary stent in place; finding concerning for hepatic abscess was also present. Patient was admitted to telemetry floor; GI was consulted. He was also started on antibiotics. GI recommended CT abdomen and pelvis with contrast to rule out hepatic abscess. CT abdomen pelvis did not show any findings concerning for abscess. GI recommended to stop antibiotic. Patient was cleared from GI perspective for discharge. Discussion was done with his oncologist regarding his hospitalization and CT abdomen/pelvis finding. PT OT evaluation was done; patient was okay to be discharged home. He was discharged home with his . He was instructed to follow-up with his primary care doctor. He was also instructed to follow-up with his oncologist to discuss further cancer treatment. Total Time Total Time Spent Total Time Spent (In Minutes): 40 Total Time Includes: Examination of the Patient, Discharge Planning, Medication Reconciliation, Communication With Other Providers and Other Discharge Plan Discharge Items Patient Disposition: Home - Self-Care Reason For Visit: ILLNESS Discharge Diagnosis: Generalized weakness likely due to intolerance to chemotherapy Elevated liver enzymes Activity: Resume your previous activity Non-emergency contact: Primary Care Provider Call non-emergency contact if: you have any medication questions and your symptoms worsen Follow-up/Referrals: Kamari Lezama MD [Primary Care Provider] - (Date & Time 05/17/2022 11:00 AM Provider Tiffanie Sheth MD Department General Internal Medicine [facility] ) Diet: Regular Addtl Attending Provider Instructions: You were admitted to the hospital with confusion and imbalance. The likely reason may be related with intolerance to chemotherapy. GI doctor saw you during the hospitalization; they recommend you to follow-up with your oncologist regarding further cancer treatment. An appointment will be set up for you with your primary care doctor Pending Studies at Discharge: No Stand-Alone Forms: My [employer], Smoking Cessation Medications and DC Order Prescriptions: Continued lorazepam 0.5 mg Tablet 0.5 mg SUBLINGUAL BID PRN (Reason: Anxiety) albuterol sulfate [Ventolin HFA] 90 mcg/actuation Hfa Aerosol Inhaler 2 puff INHALATION Q6H PRN (Reason: Shortness Of Breath) ipratropium bromide 42 mcg (0.06 %) [place],Non-Aerosol 2 spray INTRANASAL TID PRN (Reason: Nasal Congestion) fluticasone propionate [Flonase Allergy Relief] 50 mcg/actuation [place],Suspension 1 spray INTRANASAL BID PRN (Reason: Allergy Symptoms) duloxetine [Cymbalta] 60 mg Capsule,Delayed Release(Dr/Ec) 60 mg PO QAM Centrum Silver 400-250 mcg Tablet,Chewable 1 tab PO QAM simethicone [Gas-X Extra Strength] 125 mg Tablet,Chewable 125 mg PO BID PRN (Reason: Indigestion) polyethylene glycol 3350 [Miralax] 17 gram/dose Powder 17 g PO DAILY PRN (Reason: Constipation) propranolol 60 mg capsule,extended release 24 hr 60 mg PO QAM acetaminophen [Tylenol] 325 mg Tablet 650 mg PO Q6H PRN (Reason: Pain) prochlorperazine maleate 10 mg tablet 10 mg PO Q6H PRN (Reason: NAUSEA/VOMITING) lidocaine-prilocaine 2.5-2.5 % Cream 1 applic topical DIRECTED PRN (Reason: 1 HR PRIOR TO MEDIPORT ACCESS) pantoprazole 20 mg tablet,delayed release (DR/EC) 20 mg PO QAM ibuprofen 200 mg Tablet 200 mg PO Q4H PRN (Reason: Pain) hydroxyzine HCl 25 mg tablet 25 mg PO TID PRN (Reason: Itching) cyclosporine [Restasis] 0.05 % [place] 1 drp OPB QAM Saline Nasal 0.65 % Aerosol,[place] 2 spray INTRANASAL BID Rx Instructions: MAY USE Q2-4HRS PRN NASAL DRYNESS cholecalciferol (vitamin D3) [Vitamin D3] 50 mcg (2,000 unit) Capsule 50 mcg PO DAILY triamterene-hydrochlorothiazid 37.5-25 mg tablet 1 tab PO Q OTHER DAY Rx Instructions: take on opposit day from furosemide terazosin 1 mg capsule 1 mg PO HS furosemide 20 mg tablet 20 mg PO Q OTHER DAY Rx Instructions: take on opposite day of maxide duloxetine [Cymbalta] 20 mg capsule,delayed release(DR/EC) 20 mg PO HS Discharge Orders: Discharge Order (Routine); Ordered 05/14/22 Ordered By: Pal Mcarthur Admission Data Admit Date/Time: 05/13/22 00:14 Attending Provider: Pal Mcarthur Admit Provider: Brent Tolentino Primary Care Provider: Kamari Lezama Other Providers: Brent Tolentino ; Cody Freedman ; Gurmeet Salmeron ; Neema Katz ; Corazon Cartagena ; Zahraa Serra ; Laurie Vicente ; Joe Leonardo ; Andres Segovia ; Nathaniel Felix ; Margie Castaneda ; Jose Matute ; Clara Donald ; Crystal Corral ; Kaylyn Ireland ; Rina Medina ; Lulu Jimenez ; Oniel Rousseau ; Deric Vela ; Mandy Marks ; Brent Real Jr Other Interventions: Discharge Summary Assessment (RN) Last Done: 05/14/22 14:32
== END 2022-05-14 15:10 | disposition home health service (06) | DRG 947 ==
LOC: ED 19:05 → 2W 05-13 00:14 → INTOOBSV 05-13 00:14 → 2W 05-13 01:34